=== PATIENT | female | born 1945 | race Caucasian/White ===

== ENCOUNTER 2018-05-26 15:46 | Outpatient (REF) | payer OTHER, SELFPAY ==
[2018-05-26 22:52] LABS: TSH (W/Ref FT4) 0.83 uIU/mL (0.358-3.74)
== END 2018-05-26 16:06 ==
LOC: NCHCN 15:46
PROVIDERS: PCP Nurse Practitioner Family; Visit Provider Family Medicine
DX: K82.9 Disease of gallbladder, unspecified (principal); N95.1 Menopausal and female climacteric states; M24.9 Joint derangement, unspecified; Z90.89 Acquired absence of other organs
CPT/HCPCS: 84443

== ENCOUNTER 2018-06-19 11:51 | Outpatient (REF) | payer OTHER, SELFPAY ==
[2018-06-19 20:43] LABS: Abs Immature Grans 0.01 k/cumm (0.0-0.09); Absolute Basophil Count 0.03 k/cumm (0.0-0.2); Absolute Eosinophil Count 0.08 k/cumm (0.0-0.7); Absolute Lymphocyte Count 2.83 k/cumm (1.2-3.4); Absolute Monocyte Count 0.51 k/cumm (0.11-0.7); Absolute Neutrophil Count 2.78 k/cumm (1.2-6.7); Basophils % 0.5; Eosinophils % 1.3; HCT 42.1 % (36.0-46.0); HGB 13.8 g/dL (12.0-15.5); Immature Grans % 0.2; Lymphocytes % 45.4; Mean Corp. HGB Concentration 32.8 g/dL (32.0-36.0); Mean Corpuscular Hemoglobin 31.3 pg (27.0-33.0); Mean Corpuscular Volume 95.5 fL (80-95); Mean Platelet Volume 9.5 fL (8.0-11.0); Monocytes % 8.2; Neutrophils % 44.4; Platelet Count 359 x1000/uL (130-400); RBC 4.41 m/cumm (4.00-5.20); RBC Distribution Width 13.9 % (11.7-14.6); White Blood Cell Count 6.24 k/cumm (4.4-10.8)
[2018-06-19 21:22] LABS: Anion Gap 8.1 mmol/L (3-11); BUN 12 mg/dL (7-18); CO2 30.9 mmol/L (21.0-32.0); CREATININE 0.82 mg/dL (0.55-1.02); Calcium 9.3 mg/dL (8.5-10.1); Chloride 99 mmol/L (98-107); Glucose 77 mg/dL (70-100); Magnesium 1.9 mg/dL (1.8-2.4); Potassium 4.6 mmol/L (3.5-5.1); Sodium 138 mmol/L (136-145); Vitamin B12 491 pg/mL (193-986)
== END 2018-06-19 12:11 ==
LOC: NCHCN 11:51
PROVIDERS: PCP Nurse Practitioner Family; Visit Provider Nurse Practitioner Family
DX: R42 Dizziness and giddiness (principal)
CPT/HCPCS: 80048; 82607; 83735; 85025

== ENCOUNTER 2019-05-26 22:06 | Outpatient (REF) | payer OTHER, SELFPAY ==
[2019-05-26 22:56] LABS: ALT 27 U/L (14-59); AST 18 U/L (15-37); Alkaline Phosphatase 76 U/L (46-116); Anion Gap 10.2 mmol/L (3-11); BUN 9 mg/dL (7-18); Bilirubin, Total 0.2 mg/dL (0.2-1.0); CO2 25.8 mmol/L (21.0-32.0); CREATININE 0.89 mg/dL (0.55-1.02); Calcium 9.1 mg/dL (8.5-10.1); Chloride 106 mmol/L (98-107); Glucose 119 mg/dL (74-106); Lipase 108 U/L (73-393); Potassium 4.1 mmol/L (3.5-5.1); Sodium 142 mmol/L (136-145); Total Protein 7.2 g/dL (6.4-8.2)
== END 2019-05-26 22:26 ==
LOC: NCHCN 22:06
PROVIDERS: PCP Nurse Practitioner Family; Visit Provider Nurse Practitioner Family
DX: E78.5 Hyperlipidemia, unspecified (principal); M79.7 Fibromyalgia; K82.9 Disease of gallbladder, unspecified; Z90.89 Acquired absence of other organs
CPT/HCPCS: 80053; 83690; 84443

== ENCOUNTER 2019-08-31 11:42 | Outpatient (REF) | payer OTHER, SELFPAY ==
[2019-08-31 20:44] LABS: C-Reactive Protein 0.18 mg/dL (0.0-0.3)
[2019-08-31 20:55] LABS: Hemoglobin A1C 5.6 % (3.8-5.6)
== END 2019-08-31 12:02 ==
LOC: NCHCN 11:42
PROVIDERS: PCP Nurse Practitioner Family; Visit Provider Nurse Practitioner Family
DX: R51 Headache (principal); M79.7 Fibromyalgia; E78.5 Hyperlipidemia, unspecified
CPT/HCPCS: 83036; 86140

== ENCOUNTER 2020-04-14 14:14 | Outpatient (REF) | payer OTHER, SELFPAY ==
[2020-04-14 21:05] LABS: ALT 20 U/L (14-59); AST 14 U/L (15-37); Albumin 3.9 g/dL (3.4-5.0); Alkaline Phosphatase 64 U/L (46-116); Anion Gap 5.7 mmol/L (3-11); BUN 10 mg/dL (7-18); Bilirubin, Total 0.3 mg/dL (0.2-1.0); CO2 29.3 mmol/L (21.0-32.0); CREATININE 0.83 mg/dL (0.55-1.02); Calcium 9.3 mg/dL (8.5-10.1); Chloride 103 mmol/L (98-107); Glucose 85 mg/dL (74-106); Lipase 98 U/L (73-393); Potassium 5.1 mmol/L (3.5-5.1); Sodium 138 mmol/L (136-145); TSH (W/Ref FT4) 0.91 uIU/mL (0.36-3.74); Total Protein 7.3 g/dL (6.4-8.2)
== END 2020-04-14 14:34 ==
LOC: NCHCN 14:14
PROVIDERS: PCP Nurse Practitioner Family; Visit Provider Nurse Practitioner Family
DX: R10.11 Right upper quadrant pain (principal); E03.9 Hypothyroidism, unspecified
CPT/HCPCS: 80053; 83690; 84443

== ENCOUNTER 2021-02-05 20:33 | Outpatient (REF) | payer OTHER, MEDICAID, SELFPAY ==
[2021-02-05 21:06] LABS: Abs Immature Grans 0.02 10^3/uL (0.0-0.06); Absolute Basophil Count 0.03 10^3/uL (0.0-0.2); Absolute Eosinophil Count 0.14 10^3/uL (0.0-0.7); Absolute Lymphocyte Count 2.98 10^3/uL (1.2-3.4); Absolute Monocyte Count 0.39 10^3/uL (0.1-0.8); Absolute Neutrophil Count 3.59 10^3/uL (1.2-6.7); Basophils % 0.4; HCT 41.6 % (36.0-46.0); HGB 13.9 g/dL (11.2-15.7); Immature Grans % 0.3; Lymphocytes % 41.7; MCH 31.7 pg (27.0-33.0); MCHC 33.4 % (32.0-36.0); MPV 9.7 fL (8.0-11.0); Monocytes % 5.5; Neutrophils % 50.1; Nucleated RBC 0 %; Platelet Count 384 10^3/uL (130-400); RBC 4.38 10^6/uL (3.93-5.22); RDW 14.6 % (11.7-14.6); RDW-SD 51.8 fL; WBC 7.15 10^3/uL (4.4-10.8)
[2021-02-05 21:47] LABS: ALT 24 U/L (14-59); AST 19 U/L (15-37); Albumin 4.1 g/dL (3.4-5.0); Alkaline Phosphatase 56 U/L (46-116); Anion Gap 8.7 mmol/L (3-11); BUN 10 mg/dL (7-18); Bilirubin, Total 0.2 mg/dL (0.2-1.0); CO2 28.3 mmol/L (21.0-32.0); CREATININE 0.7 mg/dL (0.55-1.02); Chloride 102 mmol/L (98-107); Glucose 107 mg/dL (74-106); Potassium 4.1 mmol/L (3.5-5.1); Sodium 139 mmol/L (136-145); Total Protein 7.3 g/dL (6.4-8.2)
== END 2021-02-05 20:34 | disposition home or self-care (01) ==
LOC: NCHCN 20:33
PROVIDERS: PCP Nurse Practitioner Family; Visit Provider Internal Medicine
DX: R10.31 Right lower quadrant pain (principal)
CPT/HCPCS: 80053; 85025

== ENCOUNTER 2021-04-20 10:28 | Outpatient (REF) | payer OTHER, MEDICAID, SELFPAY ==
[2021-04-20 14:38] LABS: TSH 1.44 uIU/mL (0.36-3.74)
== END 2021-04-20 10:29 | disposition home or self-care (01) ==
LOC: NCHCN 10:28
PROVIDERS: PCP Nurse Practitioner Family; Visit Provider Nurse Practitioner Family
DX: E03.9 Hypothyroidism, unspecified (principal); Z90.89 Acquired absence of other organs
CPT/HCPCS: 84443

== ENCOUNTER 2021-05-10 22:10 | Outpatient (REF) | payer OTHER, MEDICAID, SELFPAY ==
[2021-05-10 21:55] LABS: Anion Gap 6.9 mmol/L (3-11); BUN 9 mg/dL (7-18); CO2 28.1 mmol/L (21.0-32.0); Calcium 8.6 mg/dL (8.5-10.1); Chloride 107 mmol/L (98-107); Glucose 106 mg/dL (74-106); Potassium 4.6 mmol/L (3.5-5.1); Sodium 142 mmol/L (136-145)
[2021-05-12 09:26] LABS: COVID-19 RT-PCR UVMMC Result Negative (Negative)
== END 2021-05-10 22:11 | disposition home or self-care (01) ==
LOC: NCHCN 22:10
PROVIDERS: PCP Nurse Practitioner Family; Visit Provider Nurse Practitioner Family
DX: R11.0 Nausea (principal); R42 Dizziness and giddiness; R07.89 Other chest pain; Z20.822 Contact with and (suspected) exposure to COVID-19
CPT/HCPCS: 80048; U0003; U0005

== ENCOUNTER 2021-06-18 18:07 | Outpatient (REF) | payer OTHER, MEDICAID, SELFPAY ==
[2021-06-18 22:17] LABS: Abs Immature Grans 0.01 10^3/uL (0.0-0.06); Absolute Basophil Count 0.04 10^3/uL (0.0-0.2); Absolute Lymphocyte Count 3.44 10^3/uL (1.2-3.4); Absolute Neutrophil Count 3.36 10^3/uL (1.2-6.7); Basophils % 0.5; Eosinophils % 1.4; HGB 13.8 g/dL (11.2-15.7); Immature Grans % 0.1; Lymphocytes % 46.8; MCH 31.5 pg (27.0-33.0); MCHC 32.9 % (32.0-36.0); MCV 95.9 fL (80-95); MPV 9.5 fL (8.0-11.0); Monocytes % 5.4; Neutrophils % 45.8; Nucleated RBC 0 %; Platelet Count 391 10^3/uL (130-400); RBC 4.38 10^6/uL (3.93-5.22); RDW 14.1 % (11.7-14.6); WBC 7.35 10^3/uL (4.4-10.8)
[2021-06-18 22:22] LABS: ESR 14 mm/hr (0-30)
[2021-06-18 22:24] LABS: C-Reactive Protein 0.12 mg/dL (0.0-0.3)
== END 2021-06-18 18:08 | disposition home or self-care (01) ==
LOC: NCHCN 18:07
PROVIDERS: PCP Nurse Practitioner Family; Visit Provider Family Medicine
DX: R53.83 Other fatigue (principal); G44.52 New daily persistent headache (NDPH); F43.20 Adjustment disorder, unspecified
CPT/HCPCS: 85652; 85025; 86140

== ENCOUNTER 2021-06-22 14:55 | Outpatient (REF) | payer OTHER, MEDICAID, SELFPAY ==
[2021-06-22 14:55] LABS: Hemoglobin A1C 5.4 % (<5.7)
[2021-06-22 15:01] LABS: Calculated LDL 162 mg/dL (<100); Cholesterol 265 mg/dL (<200); HDL Cholesterol 58 mg/dL (40-60); Triglyceride 227 mg/dL (<150)
== END 2021-06-22 14:56 | disposition home or self-care (01) ==
LOC: NCHCN 14:55
PROVIDERS: PCP Nurse Practitioner Family; Visit Provider Family Medicine
DX: R73.9 Hyperglycemia, unspecified (principal); E78.89 Other lipoprotein metabolism disorders
CPT/HCPCS: 80061; 83036

== ENCOUNTER 2022-01-22 15:09 | Outpatient (REF) | payer MEDICARE, SELFPAY ==
[2022-01-23 12:12] LABS: IgA 252 mg/dL (85-499); Interpretation (See Note); Tissue Transglutaminase IgA <1.2 U/mL (<4.0)
== END 2022-01-22 15:10 | disposition home or self-care (01) ==
LOC: NCHCN 15:09
PROVIDERS: PCP Nurse Practitioner Family; Visit Provider Nurse Practitioner Family
DX: K58.9 Irritable bowel syndrome, unspecified (principal); R10.31 Right lower quadrant pain; R10.11 Right upper quadrant pain; K21.9 Gastro-esophageal reflux disease without esophagitis
CPT/HCPCS: 82784; 83516

== ENCOUNTER 2022-04-03 14:45 | Outpatient (REF) | payer MEDICARE, SELFPAY ==
[2022-04-03 21:37] LABS: ALT 21 U/L (14-59); Chloride 105 mmol/L (98-107); Total Protein 7.5 g/dL (6.4-8.2)
[2022-04-03 21:38] LABS: AST 22 U/L (15-37); Albumin 3.9 g/dL (3.4-5.0); Alkaline Phosphatase 58 U/L (46-116); Anion Gap 7.4 mmol/L (3-11); BUN 9 mg/dL (7-18); Bilirubin, Total 0.2 mg/dL (0.2-1.0); CO2 28.6 mmol/L (21.0-32.0); Estimated GFR 58.75 (mL/min/1.73m2); Glucose 106 mg/dL (74-106); Potassium 3.8 mmol/L (3.5-5.1); Sodium 141 mmol/L (136-145); TSH 0.79 uIU/mL (0.36-3.74)
[2022-04-03 21:54] LABS: Cholesterol 167 mg/dL (<200)
[2022-04-03 21:55] LABS: Calculated LDL 75 mg/dL (<100); HDL Cholesterol 64 mg/dL (40-60); Triglyceride 143 mg/dL (<150)
== END 2022-04-03 14:46 | disposition home or self-care (01) ==
LOC: NCHCN 14:45
PROVIDERS: PCP Nurse Practitioner Family; Visit Provider Nurse Practitioner Family
DX: E78.5 Hyperlipidemia, unspecified (principal); E03.9 Hypothyroidism, unspecified; R03.0 Elevated blood-pressure reading, without diagnosis of hypertension; M79.7 Fibromyalgia; Z86.79 Personal history of other diseases of the circulatory system
CPT/HCPCS: 80053; 80061; 84443

== ENCOUNTER 2023-04-15 18:10 | Outpatient (REF) | payer MEDICARE, SELFPAY ==
--- OUTSIDE RECORDS SUMMARY | 2023-04-15 18:12 | XMS_ITS | CCD ---
Author Name Unknown Address [address] [place] [address] [id number] Organization Unknown Address [address] [place] [address] [id number] Care Team Providers Care Animal Husbandry Manager Name Role Phone AIMEE ROLON Attending Physician [phone] AIMEE ROLON Rounding (Secondary) Physician [phone] Vital Signs Unknown or Not Available. Allergies Allergy Code Allergy Type Reaction Status RUFEM/ CANT BREATHE {Clinical monitoring unavailable} 0 Drug allergy Active PENICILLINS (CLASS) 47687 Drug allergy UNKNOWN; ANAP Active PANSTEL CANT BREATHE {Clinical monitoring unavailable} 0 Drug allergy Active CODEINE 2670 Drug allergy UNKNOWN; Hives Active DYE 40 /HIVES {Clinical monitoring unavailable} 0 Drug allergy Active AMPICILLIN SODIUM 70651 Drug allergy UNKNOWN; Anaphyl axis Active DARVON/HIVES {Clinical monitoring unavailable} 0 Drug allergy Active MUSHROOMS 0 Food allergy GETS SICK Active BENTAL/HIVES {Clinical monitoring unavailable} 0 Drug allergy Active SHELLFISH 0 Food allergy UNKNOWN Active 729678 Drug allergy Anaphylaxis Active VISTARIL 335571 Drug allergy UNKNOWN; CANT BREATHE A ctive TETRACYCLINE 07989 Drug allergy UNKNOWN; HIVES CANT BREATHE Active IODINATED CONTRAST MEDIA - IV DYE {Clinical monitoring unavailable} 0 Drug allergy UNKNOWN; Hives Active CASERGOT/ CANT BREATHE {Clinical monitoring unavailable} 0 Drug allergy Active EES/ CANT BREATHE {Clinical monitoring unavailable} 0 Drug allergy Active LATEX [id number] Allergy to substance UNKNOWN; Hives Active Procedures Unknown or Not Available. History of Immunizations Unknown or Not Available. Problems Unknown or Not Available. Results Unknown or Not Available. Active Medications Unknown or Not Available. Medications Administered During Visit Unknown or Not Available. Encounters Encounter Diagnosis Diagnosis Code Start Date Supraventricular tachycardia I471 Social History Smoking Status Code Start Date End Date Never smoker [id number] Patient Decision Aids Unknown or Not Available. Discharge Instructions You were admitted to on 08/03/2021 15:09 with a principal diagnosis of Supraventricular tachycardia You were discharged from on 08/03/2021 00:00 Should you have any questions prior to discharge, please contact a member of your healthcare team. If you have left the hospital and have any questions, please contact your primary care physician. Chief Complaint and Reason For Visit Unknown or Not Available. Function Status Unknown or Not Available. Plan of Care Unknown or Not Available. Referral/Transition of Care Unknown or Not Available.
--- OUTSIDE RECORDS SUMMARY | 2023-04-15 18:13 | XMS_ITS | Continuity of Care Document ---
Author Name Unknown Organization [facility] [place] [address] [place] [address] Phone Care Team Providers Care Ordnance Equipment Worker Name Role Phone Nurse, Office Unavailable Unavailable Allergies, Adverse Reactions, Alerts Substance Reaction Status Criticality SULFISOXAZOLE ACETYL Active No Info rmation ERYTHROMYCIN ETHYLSUCCINATE Active No Information mefenamic acid Active No Informatio n IODINE Active No Information ERGOTAMINE TARTRATE Active No Infor mation caffeine Active No Information belladonna alkaloids Active No Info rmation phenobarbital Active No Information HYDROXYZINE PAMOATE Active No Infor mation HYDROXYZINE HCL Active No Informati on AMITRIPTYLINE HCL Active No Informa tion piroxicam Active No Information acetaminophen Active No Information PROPOXYPHENE NAPSYLATE Active No In formation DICYCLOMINE HCL Active No Informati on PROPOXYPHENE HCL Active No Informat ion tetracycline Active No Information aspirin Active No Information codeine Active No Information brompheniramine Active No Informati on BROMPHENIRAMINE MALEATE Active No I nformation PSEUDOEPHEDRINE HCL Active No Infor mation pseudoephedrine Active No Informati on PHENYLPROPANOLAMINE HCL Active No I nformation PHENYLEPHRINE HCL Active No Informa tion DEXTROMETHORPHAN HBR Active No Info rmation guaifenesin Active No Information penicillin V Active No Information Medications Medication Instructions Dosage Effective Dates (start - stop) Status Comments Prilosec OTC 20 mg Tab Take one tablet by mouth two times per day. - Active EpiPen 0.3 mg/0.3 mL (1:1,000) IM Injector As needed for bee sting - Active Claritin 10 mg Tab Take one tablet by mouth daily - Active simvastatin 10 mg Tab take 1 tablet (10MG) by ORAL route every day in the evening 10 MG - Active ranitidine 150 mg Tab take 1 tablet (150MG) by ORAL route 2 times every day - Active Cannot have meds with any red dye She is allergic Senna with Docusate Sodium 8.6 mg-50 mg Tab take 1 tablet by ORAL route 2 times every day 1.00 tablet - Active Pt allergic to red dye 40 azithromycin 250 mg Tab take 2 tablet (500MG) by ORAL route every day for 1 day then 1 tablet (250mg) by oral route once daily for 4 days 500 MG - Active Flector 1.3 % Adhesive Patch Apply 1 patch every 12 hours as needed for pain - Active Zanaflex 4 mg Cap Take one tablet by mouth three times per day. - Active aspirin 81 mg Chewable Tab Take one tablet by mouth daily - Active Prilosec OTC 20 mg Tab Take one tablet by mouth two times per day. - No Longer Active Synthroid 75 mcg Tab Take one tablet by mouth dailynote dose change. - No Longer Active Procedures Procedure Date Thyroid Stim Hormone Routine Venipuncture Offic/outpt E&m Estab Mod-hi 2 10 Routine Venipuncture Electrolyte Panel Creatinine; Bld Complete Cbc W/Auto Diff Wbc Urea Nitro; Edmund Bilirubin; Tot Bilirubin; Direct Transferase; Aspartate Amino Transferase; Alanine Amino Phosphatase Alkaline Albumin; Serum Glu; Edmund Lipid Panel Thyroid Stim Hormone Routine Venipuncture Electrolyte Panel Creatinine; Bld Urea Nitro; Edmund Transferase; Aspartate Amino Transferase; Alanine Amino Lipid Panel Glu; Edmund Offic/outpt E&m Estab Mod-hi 2 09 Offic/outpt E&m Estab Low-mod 9 Ua Dip Stik/tablet; Wo Micro A 08 Preven Meds E&m Estab Pt; 40-6 08 Thyroid Stim Hormone Lipid Panel Electrolyte Panel Creatinine; Bld Complete Cbc W/Auto Diff Wbc Urea Nitro; Edmund Transferase; Aspartate Amino Transferase; Alanine Amino Routine Venipunct/finger/heel 8 Offic/outpt E&m Estab Low-mod 8 Flu Vir Vacc-split 3 Yr & > Im 08 Offic/outpt E&m Estab Low-mod 8 Offic/outpt E&m Estab Low-mod 8 Offic/outpt E&m Estab Mod-hi 2 08 Thyroid Stim Hormone Lipid Panel Offic/outpt E&m Estab Low-mod 7 Immuniz Admin; 1/combo Vacc/to 07 Flu Vir Vacc-split 3 Yr & > Im 07 Offic/outpt E&m Estab Low-mod 7 Agt-immunassay Dir Obs; Strep 7 Preven Meds E&m Estab Pt; 40-6 06 Tetanus/diphth Tue-wiewj-bd/je 06 No Charge Encounter Adult Pneumococcal Polysacch Vac 2005 Routine Venipunct/finger/heel 6 Handl/convey Specmn-offic To L 06 Flu Vir Vacc-split 3 Yr & > Im 06 Immuniz Admin; 1/combo Vacc/to 06 Offic/outpt E&m Estab Low-mod 6 Offic/outpt E&m Estab Mod-hi 2 06 Routine Venipunct/finger/heel 6 Handl/convey Specmn-offic To L 06 Offic/outpt E&m Estab Low-mod 6 Offic/outpt E&m Estab Mod-hi 2 06 Handl/convey Specmn-offic To L 06 Smear Prim W/intrpt; Wet Mnt W 06 Offic/outpt E&m Estab Mod-hi 2 06 Ecg-routine 12 Lead; W/intrpt 6 Spiromtry W/nxkeg-xj-lfolz Ajay 06 Routine Venipunct/finger/heel 6 Handl/convey Specmn-offic To L 06 Lipid Panel Advance Directives Directive Yes / No Effective Date File Name No Information Encounters Encounter Description Practice Location Reason(s) For Visit Diagnoses Date Provider Providers Copied on Encounter [facility] , [address] [place] [address], [address] [place] [address], tel:[phone] [facility] No Information 0 Nurse Office. [address] [place] [address], [address] [place] [address]. tel:[phone] [facility] , [address] [place] [address], [id number], tel:[phone] [facility] No Information 0 Bright Almazan. [address], [place], [facility], . tel:[phone] Offic/outpt E&m Estab Mod-hi [address], [id number], tel:[phone] [facility] hypothyroidis m (chief complaint)mahnaz t pain (chief complaint) HYPOTHYROIDIS M NOSPAIN IN LIMBABDMNAL PAIN OT [facility]PC[facility] ST 6 0 Bright Almazan. [address] [place], [place], [facility], . tel:[phone] [facility] , [address] [place] [address], [address] [place] [address], tel:[phone] [facility] No Information 0 Julien Dixon. [address] [place] [address], [facility], . tel:[phone], [address] [place] [address], tel:[phone] [facility] No Information 0 Nurse Office. [address] [place] [address], [facility], . tel:[phone], [address] [place] [address], tel:[phone] [facility] hyperlipidemi a (chief complaint) MYALGIA AND MYOSITIS NOSHYPOTHYROI DISM NOSMIXED HYPERLIPIDEMI AABDMNAL PAIN RT UPR QUAD 4200 9 No Information Offic/outpt E&m Estab Mod-hi [address], [address] [place] [address], tel:[phone] [facility] back pain (chief complaint) MYALGIA AND MYOSITIS NOSHYPOTHYROI DISM NOSMIXED HYPERLIPIDEMI A Mar- 2 9 Nurse Office. [address] [place] [address], [facility], . tel:[phone], [address] [place] [address], tel:[phone] [facility] HYPOTHYROIDIS M NOSMALAISE AND FATIGUE NECMYALGIA AND MYOSITIS NOS 0-200 9 No Information Offic/outpt E&m Estab Low-mod [facility] , [address] [place] [address], [address] [place] [address], tel:[phone] [facility] PAP test (chief complaint) ROUTINE END TRIMMER EXAMINATIONBa ckache Nos 2200 9 No Information Preven Meds E&m Estab Pt; 40-6 [facility] , [address] [place] [address], [id number], [place] tel:[phone] [facility] physical (chief complaint)sin us pressure (chief complaint) Backache NosHypothyroi dism NosROUTINE MEDICAL EXAM 2-[address] [facility] , [address] [place] [address], [id number], tel:[phone] [facility] No Information 4-200 8 No Information [facility] , [address] [place] [address], [id number], tel:[phone] [facility] Abdominal pain (chief complaint)KATHYA D (chief complaint)Thy roid (chief complaint)Flu vaccine (chief complaint) Hypothyroidis m NosABDMNAL PAIN RT UPR QUADMYALGIA AND MYOSITIS NOSMYALGIA AND MYOSITIS NOS 3-200 8 No Information [facility] , [address] [place] [address], [id number], tel:[phone] [facility] headache (chief complaint)hyp othyroidism (chief complaint)issa k pain (chief complaint) HeadacheBacka corinne NosThroat PainHypothyro idism Nos 2-[address] [facility] , [address] [place] [address], [id number], tel:[phone] [facility] No Information 3-200 8 Nurse Office. [address] [place] [address], [id number], [place]. tel:[phone], [id number], tel:[phone] [facility] cold symptoms (chief complaint) Acute Uri Mult Sites Nec 8-200 8 Nurse Office. [address] [place] [address], [id number], [place]. tel:[phone] Offic/outpt E&m Estab [facility] , [address] [place] [address], [id number], tel:[phone] [facility] cold symptoms (chief complaint) No Information [address] [facility] , [address] [place] [address], [id number], tel:[phone] [facility] No Information 8 Nurse Office. [address] [place] [address], [facility], . tel:[phone] Offic/outpt E&m Estab Mod-hi 2 [facility] , [address] [place] [address], [id number], tel:[phone] [facility] PAP (chief complaint) ROUTINE END TRIMMER EXAMINATION [address] [facility] , [address] [place] [address], [address] [place] [address], tel:[phone] [facility] physical exam (chief complaint) Routine Medical ExamHypothyro idism NosMenopausal Disorder Nos [address] [facility] , [address] [place] [address], [id number], tel:[phone] [facility] No Information 7 Nurse Office. [address] [place] [address], [facility], . tel:[phone] Offic/outpt E&m Estab [facility] , [address] [place] [address], [id number], [place] tel:[phone] [facility] breast tenderness (chief complaint)Hyp othyroid (chief complaint) No Information 7 Ralph Wood. [address] [place] [address], [facility], . tel:[phone] Offic/outpt E&m Estab [facility] , [address] [place] [address], [id number], tel:[phone] [facility] Lab Work/ UA (chief complaint)Sor e Throat (chief complaint)Too th Ache (chief complaint) Acute Pharyngitis [address] [facility] , [address] [place] [address], [id number], tel:[phone] [facility] Headache (chief complaint)Lef t back pain (chief complaint) Tension Headache [address] [facility] , [address] [place] [address], [address] [place] [address], tel:[phone] [facility] vaginal discharge (chief complaint) Vaginitis NosUtervagina l Prolapse Nos 7 No Information Preven Meds E&m Estab Pt; 40-6 [facility] , [address] [place] [address], [address] [place] [address], tel:[phone] [facility] FPE (chief complaint)hyp othryoid (chief complaint)Men opause (chief complaint)Issa k and Neck Issues (chief complaint)KATHYA D (chief complaint) Utervaginal Prolapse NosHypothyroi dism Nos 6 Ralph Wood. [address] [place] [address], [facility], . tel:[phone] [facility] , [address] [place] [address], [id number], tel:[phone] [facility] hypothyroidis m (chief complaint) No Information 6 Savage Leahy. [address] [place] [address], [facility], [place]. tel:[phone] [facility] , [address] [place] [address], [id number], tel:[phone] [facility] No Information 6 Nurse Office. [address] [place] [address], [facility], . tel:[phone] [facility] , [address] [place] [address], [id number], tel:[phone] [facility] No Information 0-200 6 Nurse Office. [address] [place] [address], [facility], . tel:[phone] Offic/outpt E&m Estab [facility] , [address] [place] [address], [address] [place] [address], tel:[phone] [facility] rash (chief complaint) Dermatitis Nos 5-200 6 No Information Offic/outpt E&m Estab Mod-hi [address] [place] [address] , [address] [place] [address], [id number], [place] tel:[phone] [facility] dizziness (chief complaint)hyp othyroidism (chief complaint) Benign Parxysmal VertigoHypoth yroidism Nos 5-200 6 Nelly Leblanc. [address] [place] [address], [id number], . tel:[phone] Offic/outpt E&m Estab [facility] , [address] [place] [address], [address] [place] [address], tel:[phone] [facility] throat problems (chief complaint) DysphagiaEnla rgement Lymph NodesEnlargem ent Lymph NodesCough 4200 6 Savage Leahy. [address] [place] [address], [facility], . tel:[phone] Offic/outpt E&m Estab Mod-hi [address] [place] [address] , [address] [place] [address], [address] [place] [address], [place] tel:[phone] [facility] UTI (chief complaint) Vaginitis Nos 1-200 6 No Information Offic/outpt E&m Estab Mod-hi [address] [place] [address], [id number], [place] tel:[phone] [facility] chest pain (chief complaint) Chest Pain Nos 6-200 6 No Information [address], [id number], [place] tel:[phone] [facility] UTI (chief complaint) Dysuria [address] [facility] , [address] [place] [address], [id number], tel:[phone] [facility] PE (chief complaint)hyp othyroidism (chief complaint)KATHYA D (chief complaint) Hypothyroidis m NosEsophageal Reflux 5 Ralph Wood. [address] [place] [address], [id number], [place]. tel:[phone] Family History Family Member Type Diagnosis Age At Onset No Information Immunizations Vaccine Date Status Comments flu (split) (3 yrs or older) administered Source: New Immunization Record flu (split) (3 yrs or older) administered Source: New Immunization Record Td (adult) administered Source: New Imm unization Record pneumo (3 yrs or older) (PPV23) administered Source: New Immuniza tion Record Flu vaccine administered Source: New Imm unization Record Payers Payer name Insurance type Covered republican ID Authoriza tion(s) No Information Social History Type Description Quantity Date Captured Comments Sex Female Smoking Status No Information Sexual Orientation Straight or heterosexual Chief Complaint And Reason For Visit No Information Reason For Referral Reason For Referral No Information Plan Of Treatment Date Type Action Status Goal Influenza Vaccine. Due on due Goal Breast exam. Due on 006 due Goal PAP. Due on due Goal Pneumococcal Vaccine. Due on due Goal TD Vaccine. Due on 06 due Goal Mammogram. Due on 0 due Goal Lipid Panel. Due on 010 due Goal Colonoscopy. Due on 009 due Goal END TRIMMER exam. Due on due Goal FOBT. Due on due Goal H&P. Due on due Future Order: Lab Order Lipid pa roxanne, fasting (100), Sent on: Sent Future Order: Lab Order TSH (8305), Sent on: Sent History Of Present Illness Encounter Date Complaint History Of Prese nt Illness No Information Functional Status Date Functional Assessmen t No Information Instructions Date Instruction Additional Infor mation Renew medications Related to Rou senthil Medical Exam Review medications Related to Ro utine Medical Exam Review medication side effects R elated to Routine Medical Exam Call if symptoms persist Related to Routine Medical Exam Prescribe medications Related to Tension Headache Review medications Related to Te nsion Headache Review medication side effects R elated to Tension Headache Call if symptoms persist Related to Tension Headache Order consults Related to Vagin itis Nos Order labs/studies Related to Va ginitis Nos Call if symptoms persist Related to Vaginitis Nos Prescribe medications Related to Dysphagia Review medications Related to Dy sphagia Go to ER if symptoms persist or worsen Related to Dysphagia Call if symptoms persist Related to Dysphagia Prescribe medications Related to Vaginitis Nos Review medications Related to Va ginitis Nos Order labs/studies Related to Va ginitis Nos Call if symptoms persist Related to Vaginitis Nos Prescribe medications Related to Dysuria Review medication side effects R elated to Dysuria Call if symptoms persist Related to Dysuria Assessments Type Assessment Date No Information Patient Care Teams Name Effective Dates (start - stop) Status Members No Information
--- OUTSIDE RECORDS SUMMARY | 2023-04-15 18:13 | XMS_ITS | CCD ---
Author Name Unknown Address [address] [place] [address] [id number] Organization Unknown Address [address] [place] [address] [id number] Care Team Providers Care Box Press Operator Name Role Phone AWAIS MARKHAM Attending Physician [phone] AWAIS MARKHAM Rounding (Secondary) Physician [phone] Vital Signs Unknown or Not Available. Allergies Allergy Code Allergy Type Reaction Status RUFEM/ CANT BREATHE {Clinical monitoring unavailable} 0 Drug allergy Active PENICILLINS (CLASS) 34894 Drug allergy UNKNOWN; ANAP Active PANSTEL CANT BREATHE {Clinical monitoring unavailable} 0 Drug allergy Active CODEINE 2670 Drug allergy UNKNOWN; Hives Active DYE 40 /HIVES {Clinical monitoring unavailable} 0 Drug allergy Active AMPICILLIN SODIUM 12796 Drug allergy UNKNOWN; Anaphyl axis Active DARVON/HIVES {Clinical monitoring unavailable} 0 Drug allergy Active MUSHROOMS 0 Food allergy GETS SICK Active BENTAL/HIVES {Clinical monitoring unavailable} 0 Drug allergy Active SHELLFISH 0 Food allergy UNKNOWN Active 668076 Drug allergy Anaphylaxis Active VISTARIL 445528 Drug allergy UNKNOWN; CANT BREATHE A ctive TETRACYCLINE 12700 Drug allergy UNKNOWN; HIVES CANT BREATHE Active IODINATED CONTRAST MEDIA - IV DYE {Clinical monitoring unavailable} 0 Drug allergy UNKNOWN; Hives Active CASERGOT/ CANT BREATHE {Clinical monitoring unavailable} 0 Drug allergy Active EES/ CANT BREATHE {Clinical monitoring unavailable} 0 Drug allergy Active LATEX [id number] Allergy to substance UNKNOWN; Hives Active Procedures Unknown or Not Available. History of Immunizations Unknown or Not Available. Problems Unknown or Not Available. Results Unknown or Not Available. Active Medications Unknown or Not Available. Medications Administered During Visit Unknown or Not Available. Encounters Encounter Diagnosis Diagnosis Code Start Date Vulval and/or perineal noninflammatory disorders [id number] 07/23/2022 Social History Smoking Status Code Start Date End Date Never smoker [id number] Patient Decision Aids Unknown or Not Available. Discharge Instructions You were admitted to [facility] on 07/23/2022 11:08 with a principal diagnosis of Other specified noninflammatory disorders of vulva and perineum You were discharged from [facility] on 07/23/2022 11:08 Should you have any questions prior to [...]
--- OUTSIDE RECORDS SUMMARY | 2023-04-15 18:13 | XMS_ITS | CCD ---
Author Name Unknown Address [address] [place] [address] [phone] Organization Unknown Address [address] [place] [address] [phone] Care Team Providers Care Rocket Assembly Operator Name Role Phone DAMARIS SEGURA Attending Physician [phone] Vital Signs Unknown or Not Available. Allergies Allergy Code Allergy Type Reaction Status RUFEM/ CANT BREATHE {Clinical monitoring unavailable} 0 Drug allergy Active PENICILLINS (CLASS) 98068 Drug allergy UNKNOWN; ANAP Active PANSTEL CANT BREATHE {Clinical monitoring unavailable} 0 Drug allergy Active CODEINE 2670 Drug allergy UNKNOWN; Hives Active DYE 40 /HIVES {Clinical monitoring unavailable} 0 Drug allergy Active AMPICILLIN SODIUM 26659 Drug allergy UNKNOWN; Anaphyl axis Active DARVON/HIVES {Clinical monitoring unavailable} 0 Drug allergy Active MUSHROOMS 0 Food allergy GETS SICK Active BENTAL/HIVES {Clinical monitoring unavailable} 0 Drug allergy Active SHELLFISH 0 Food allergy UNKNOWN Active 687471 Drug allergy Anaphylaxis Active VISTARIL 676484 Drug allergy UNKNOWN; CANT BREATHE A ctive TETRACYCLINE 75107 Drug allergy UNKNOWN; HIVES CANT BREATHE Active IODINATED CONTRAST MEDIA - IV DYE {Clinical monitoring unavailable} 0 Drug allergy UNKNOWN; Hives Active CASERGOT/ CANT BREATHE {Clinical monitoring unavailable} 0 Drug allergy Active EES/ CANT BREATHE {Clinical monitoring unavailable} 0 Drug allergy Active LATEX 2024784 Allergy to substance UNKNOWN; Hives Active Procedures Unknown or Not Available. History of Immunizations Unknown or Not Available. Problems Unknown or Not Available. Results Unknown or Not Available. Active Medications Unknown or Not Available. Medications Administered During Visit Unknown or Not Available. Encounters Encounter Diagnosis Diagnosis Code Start Date Other specified cough R058 07/12/2022 Social History Smoking Status Code Start Date End Date Never smoker [id number] Patient Decision Aids Unknown or Not Available. Discharge Instructions You were admitted to on 07/12/2022 15:31 with a principal diagnosis of Other specified cough You were discharged from on 07/12/2022 15:31 Should you have any questions prior to [...]
--- OUTSIDE RECORDS SUMMARY | 2023-04-15 18:13 | XMS_ITS | CCD ---
Author Name Unknown Address [address] [place] [address] [phone] Organization Unknown Address [address] [place] [address] [phone] Care Team Providers Care Wood Room Supervisor Name Role Phone AWAIS MARKHAM Attending Physician [phone] AWAIS MARKHAM Rounding (Secondary) Physician [phone] Vital Signs Unknown or Not Available. Allergies Allergy Code Allergy Type Reaction Status RUFEM/ CANT BREATHE {Clinical monitoring unavailable} 0 Drug allergy Active PENICILLINS (CLASS) 02398 Drug allergy UNKNOWN; ANAP Active PANSTEL CANT BREATHE {Clinical monitoring unavailable} 0 Drug allergy Active CODEINE 2670 Drug allergy UNKNOWN; Hives Active DYE 40 /HIVES {Clinical monitoring unavailable} 0 Drug allergy Active AMPICILLIN SODIUM 07010 Drug allergy UNKNOWN; Anaphyl axis Active DARVON/HIVES {Clinical monitoring unavailable} 0 Drug allergy Active MUSHROOMS 0 Food allergy GETS SICK Active BENTAL/HIVES {Clinical monitoring unavailable} 0 Drug allergy Active SHELLFISH 0 Food allergy UNKNOWN Active 861863 Drug allergy Anaphylaxis Active VISTARIL 755341 Drug allergy UNKNOWN; CANT BREATHE A ctive TETRACYCLINE 83764 Drug allergy UNKNOWN; HIVES CANT BREATHE Active IODINATED CONTRAST MEDIA - IV DYE {Clinical monitoring unavailable} 0 Drug allergy UNKNOWN; Hives Active CASERGOT/ CANT BREATHE {Clinical monitoring unavailable} 0 Drug allergy Active EES/ CANT BREATHE {Clinical monitoring unavailable} 0 Drug allergy Active LATEX 9744680 Allergy to substance UNKNOWN; Hives Active Procedures Unknown or Not Available. History of Immunizations Unknown or Not Available. Problems Unknown or Not Available. Results Unknown or Not Available. Active Medications Unknown or Not Available. Medications Administered During Visit Unknown or Not Available. Encounters Encounter Diagnosis Diagnosis Code Start Date Vulval and/or perineal noninflammatory disorders [id number] 06/14/2022 Social History Smoking Status Code Start Date End Date Never smoker [id number] Patient Decision Aids Unknown or Not Available. Discharge Instructions You were admitted to [facility] on 06/14/2022 10:13 with a principal diagnosis of Other specified noninflammatory disorders of vulva and perineum You were discharged from [facility] on 06/14/2022 10:13 Should you have any questions prior to [...]
--- OUTSIDE RECORDS SUMMARY | 2023-04-15 18:13 | XMS_ITS | CCD ---
Author Name Unknown Address [address] [place] [address] [phone] Organization Unknown Address [address] [place] [address] [phone] Care Team Providers Care Bow String Maker Name Role Phone BROOKE CHRIS Attending Physician [phone] Vital Signs Unknown or Not Available. Allergies Allergy Code Allergy Type Reaction Status RUFEM/ CANT BREATHE {Clinical monitoring unavailable} 0 Drug allergy Active PENICILLINS (CLASS) 78965 Drug allergy UNKNOWN; ANAP Active PANSTEL CANT BREATHE {Clinical monitoring unavailable} 0 Drug allergy Active CODEINE 2670 Drug allergy UNKNOWN; Hives Active DYE 40 /HIVES {Clinical monitoring unavailable} 0 Drug allergy Active AMPICILLIN SODIUM 15310 Drug allergy UNKNOWN; Anaphyl axis Active DARVON/HIVES {Clinical monitoring unavailable} 0 Drug allergy Active MUSHROOMS 0 Food allergy GETS SICK Active BENTAL/HIVES {Clinical monitoring unavailable} 0 Drug allergy Active SHELLFISH 0 Food allergy UNKNOWN Active 627825 Drug allergy Anaphylaxis Active VISTARIL 588540 Drug allergy UNKNOWN; CANT BREATHE A ctive TETRACYCLINE 12864 Drug allergy UNKNOWN; HIVES CANT BREATHE Active IODINATED CONTRAST MEDIA - IV DYE {Clinical monitoring unavailable} 0 Drug allergy UNKNOWN; Hives Active CASERGOT/ CANT BREATHE {Clinical monitoring unavailable} 0 Drug allergy Active EES/ CANT BREATHE {Clinical monitoring unavailable} 0 Drug allergy Active LATEX 2706461 Allergy to substance UNKNOWN; Hives Active Procedures Unknown or Not Available. History of Immunizations Unknown or Not Available. Problems Unknown or Not Available. Results Unknown or Not Available. Active Medications Unknown or Not Available. Medications Administered During Visit Unknown or Not Available. Encounters Encounter Diagnosis Diagnosis Code Start Date Right lower quadrant pain R1031 2020 Social History Smoking Status Code Start Date End Date Never smoker [id number] Patient Decision Aids Unknown or Not Available. Discharge Instructions You were admitted to [facility] on 02/06/2021 06:59 with a principal diagnosis of Right lower quadrant pain You were discharged from [facility] 01 on 02/06/2021 06:59 Should you have any questions prior to [...]
[2023-04-15 21:36] LABS: Anion Gap 9.1 mmol/L (3-11); BUN 12 mg/dL (7-18); CO2 25.9 mmol/L (21.0-32.0); Calcium 9.1 mg/dL (8.5-10.1); Calculated LDL 83 mg/dL (<100); Chloride 100 mmol/L (98-107); Cholesterol 173 mg/dL (<200); Estimated GFR 58.39 (mL/min/1.73m2); Glucose 97 mg/dL (74-106); HDL Cholesterol 65 mg/dL (40-60); Potassium 3.9 mmol/L (3.5-5.1); Sodium 135 mmol/L (136-145); TSH 0.38 uIU/mL (0.36-3.74); Triglyceride 127 mg/dL (<150)
[2023-04-15 21:50] LABS: Hemoglobin A1C 5.6 % (<5.7)
== END 2023-04-15 18:11 | disposition home or self-care (01) ==
LOC: NCHCN 18:10
PROVIDERS: PCP Nurse Practitioner Family; Visit Provider Nurse Practitioner Family
DX: E78.5 Hyperlipidemia, unspecified (principal); E03.9 Hypothyroidism, unspecified
CPT/HCPCS: 80048; 80061; 83036; 84443

== ENCOUNTER 2024-04-06 13:40 | Outpatient (REF) | payer MEDICARE, SELFPAY ==
--- OUTSIDE RECORDS SUMMARY | 2024-04-06 13:50 | XMS_ITS | Encounter Summary ---
Author Organization [facility] Address [address] [place] [address] Care Team Providers Care Lead Man Over All Dies In Pattern Shop Name Role Phone MonaArminda Primary Care Provider [phone] Reason for Visit * Reason Comments New Patient Visit colitis * Referral (Routine) - Receiving Office to Obtain Authorization Specialty Diagnoses / Procedures Referred By Contact Referred To Contact Gastroenterology and Hepatology Diagnoses Right upper quadrant pain Fibromyalgia Irritable bowel syndrome, unspecified Personal history of other diseases of the digestive system Family history of malignant neoplasm of digestive organs Hafsa Moreno, FACILITY ENGINEER [address] [place] [address] [facility] [address] [place] [address] Referral ID Status Reason Start Date Expiration Date Visits Requested Visits Authorized [id number] Receiving Office to Obtain Authorization 1 1 Encounter Details Date Type Department Care Team (Late st Contact Info) Description 12/28/2021 10:20 EDT Office Visit [facility] G[facility]enterology - [facility] [address] [place], [place] [phone] Williams Euceda MD [address] [facility] [place] [address] Irritable bowel syndrome with both constipation and diarrhea (Primary Dx); Family history of colon cancer requiring screening colonoscopy Social History Tobacco Use Types Packs/Day Years Used Date Smoking Tobacco: Never Smokeless Tobacco: Never Alcohol Use Standard Drinks/Week Comments Yes 0 (1 standard drink = 0.6 oz pur e alcohol) rare Interpersonal Safety Answer Date Record ed Physically Hurt Never 02/08/2020 Verbally Threaten Not on file 02/08/2020 Sex and Gender Information Value Date Recorded Sex Assigned at Not on file Gender Identity Female 03/25/2022 10:56 EDT Sexual Orientation Not on file documented as of this encounter Last Filed Vital Signs Vital Sign Reading Time Taken Comments Blood Pressure 134/73 12/28/2021 1010 EDT Pulse 83 12/28/2021 1010 EDT Temperature - - Respiratory Rate - - Oxygen Saturation - - Inhaled Oxygen Concentration - - Weight 66.5 kg (146 lb 8 oz) 12/28/2021 1010 EDT Height 160 cm (5' 2.99) 12/28/2021 1010 EDT Body Mass Index 25.96 12/28/2021 1010 EDT documented in this encounter Functional Status Functional Status Response Date of Assess ment Because of a physical, menta l, or emotional condition, does this person have difficulty doing errands alone such as visiting a doctor's office or shopping? No 12/17/2019 Cognitive Status Response Date of Assessm ent Because of a physical, menta l, or emotional condition, does this person have serious difficulty concentrating, remembering, or making decisions? No 12/17/2019 documented as of this encounter Ordered Prescriptions Prescription Sig Dispensed Refills Start Date End Da te sodium,potassium,mag sulfates (SUPREP BOWEL PREP KIT) kit Take 12 oz by mouth once for 1 dose. 1 Kit 12/28/2021 03/25/2022 documented in this encounter Progress Notes * Williams Euceda MD - 12/28/2021 1020 EDT Gastroenterology & Hepatology Initial Visit Reason for Referral: Colitis Referring Provider: Arminda Dunn HPI: Dania Angulo is a 76 year old woman with long standing functional dyspepsia and IBS. 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 Her last colonoscopy was 02/2016 and was normal except for severe diverticulosis. Constant pain on her right flank that radiates to her back. Present for 3 years. This morning hasn't had breakfast and she doesn't feel it. Gets a twinge every once in a while. After she eats it is constant, sharp all the sudden like someone stuck a needle, otherwise it is dull like a toothache. It is worse when she has to go to the bathroom and gets better when she moves her bowels. She has off/on diarrhea. She has one loose bowel movement daily though she hasn't gone in 3 days. No weight loss, she has actually gained weight. She is on new high cholesterol and BP medications. Takes lactaidwith diary for bloating. Always has bloating and gas that has been present for many decades. RUQ US 08/24/20: Normal Normal liver tests and lipase 04/2020 PMH: As stated in HPI. ROS: A 10-point ROS was performed and is negative other than stated in HPI. Current Outpatient Medications: ??? ACETAMINOPHEN (TYLENOL ORAL), Take by mouth as needed., Disp: , Rfl: ??? levothyroxine 75 mcg capsule, Take by mouth., Disp: , Rfl: ??? loratadine (ALAVERT) 10 mg tablet, Take 10 mg by mouth daily., Disp: , Rfl: ??? Multivitamins with Minerals Tab, Take 1 Tab by mouth daily., Disp: , Rfl: Allergies Allergen Reactions ??? Ampicillin ??? Asa [Aspirin] ??? Bentyl [Dicyclomine] ??? Cafergot [Ergotamine-Caffeine] ??? Codeine ??? Darvocet A500 [Propoxyphene N-Acetaminophen] ??? Dimetapp [Brompheniramine-Pseudoephedrin] ??? Elavil ??? Feldene [Piroxicam] ??? Iodine And Iodide Containing Products ??? Latex, Natural Rubber Hives ??? Other - See Comments Red 40 ??? Penicillins ??? Ponstel [Mefenamic Acid] ??? Rufen ??? Tetracyclines ??? Vistaril [Hydroxyzine Pamoate] Social History: reports that she has never smoked. She has never used smokeless tobacco. She reports current alcohol use. She reports that she does not use drugs. Family History: Mom and sister with colon cancer. Also niece with colon cancer. Physical Exam: VS: BP 134/73 Pulse 83 Ht 160 cm (62.99) Wt 66.5 kg (146 lb 8 oz) BMI 25.96 kg/m?? General: In NAD, Appropriately conversant HEENT: No scleral icterus, MMM Lungs: Easy work of breathing Extremities: No peripheral edema Skin: No jaundice Labs and Imaging: Lab Results Component Value Date ALT 23 04/04/2000 AST 20 04/04/2000 ALKPHOS 65 04/04/2000 TBIL 0.5 04/04/2000 Lab Results Component Value Date WBC 8.42 01/01/2007 HGB 8.9 (L) 01/01/2007 HCT 25.6 (L) 01/01/2007 MCV 92 01/01/2007 PLT 174 01/01/2007 Impression: Dania Angulo is a 76 year old woman with longstanding functional dyspepsia and IBS without any new alarm symptoms. We discussed the benign nature of the disorder and some strategiesfor symptomatic management. She has a strong family history of colon cancer though, so is overdue for screening. Plan: - Colonoscopy with standard sedation - I would recommend celiac testing through her PCP's office if this hasn't been previously checked (TTG IgA and total IgA). These records are not all available to me today - She will try adding over the counter simethicone for her bloating and a fiber supplement to help regulate her bowels which may be helpful for her IBS - Follow-up with PCP I spent a total of 36 minutes on the date of this encounter meeting with the patient and reviewing documentation/coordinating care as described in the above note. No procedures were performed at the time of the visit. Williams Euceda MD Gastroenterology & Hepatology documented in this encounter Plan of Treatment Not on file documented as of this encounter Visit Diagnoses Diagnosis Irritable bowel syndrome with both constipation and diarrhea- Primary Family history of colon cancer requiring screening colonoscopy Family history of malignant neoplasm of gastrointestinal tract documented in this encounter Historical Medications * This list may reflect changes made after this encounter. Medication Sig Dispensed Refills Start Date End Date epinephrine (EPIPEN INJECTION) Inject as directed. multivitamin (NEPHROVITE) 0.8 mg tablet Take 1 Tablet by mouth at bedtime. calcium carbonate 500 mg/5 mL (1,250 mg/5 mL) suspension Take 5 mL by mouth daily. estradioL (VIVELLE-DOT) 0.1 mg/[address] 1 Patch onto the skin twice a week. diclofenac sodium (VOLTAREN ARTHRITIS PAIN) gel Apply topically 4 times daily. rosuvastatin (CRESTOR) 10 mg tablet Take 0.5 Tablets by mouth daily. cyclobenzaprine (FLEXERIL) 10 mg tablet Take 1 Tablet by mouth 3 times daily as needed for Muscle Spasms. metoprolol TARtrate (LOPRESSOR) 25 mg tablet Take 25 mg by mouth 2 times daily. 01/19/2024 omeprazole (PRILOSEC) 20 mg capsule Take 1 Capsule by mouth daily. 01/19/2024 added in this encounter Care Teams Lead Man Over All Dies In Pattern Shop Relationship Specialty Start Date End Date Arminda Dunn [address] [place] [address] PCP - General 01/19/19 02/16/24 documented as of this encounter
--- OUTSIDE RECORDS SUMMARY | 2024-04-06 13:50 | XMS_ITS | Referral Summary ---
Author Organization [facility] Address [address] [place] [address] Care Team Providers Care Gyn Physician Name Role Phone Hafsa Moreno TIRE SERVICE TECHNICIAN Primary Care Provider [phone] Encounters Date Type Department Care Team Description 02/17/2024 13:10 EDT - 02/17/2024 23:59 EDT Hospital Encounter [facility] [address] [place] [address] Encounter for screening mammogram for malignant neoplasm of breast Discharge Disposition: Home or Self Care 01/19/2024 10:15 EDT Office Visit [facility] [address] [place] [address] Dwayne Parmar MD LPRD (laryngopharyngeal reflux disease) (Primary Dx); Chronic rhinitis from Last 3 Months Allergies Active Allergy Reactions Criticality Noted Date Comments Ampicillin 11/30/2009 Aspirin 11/30/2009 Dicyclomine 11/30/2009 Ergotamine-Caffeine 11/30/2009 Codeine 11/30/2009 Propoxyphene N-Acetaminophen 010 Brompheniramine-Pseudoephedrin 11/30 Elavil 11/30/2009 Piroxicam 11/30/2009 Iodinated Contrast Media 12/28/2021 Iodine And Iodide Containing Products 08/05/2011 Latex, Natural Rubber Hives 08/15/2011 Other - See Comments 11/30/2009 Red 40 Penicillins 11/30/2009 Mefenamic Acid 11/30/2009 Red Dye 01/19/2024 Rufen 11/30/2009 Tetracyclines 11/30/2009 Hydroxyzine Pamoate 11/30/2009 Medications Medication Sig Dispensed Refills Start Date End Date Status loratadine (ALAVERT) 10 mg tablet Take 1 Tablet by mouth daily. Active Multivitamins with Minerals Tab Take 1 Tablet by mouth daily. Active ACETAMINOPHEN (TYLENOL ORAL) Take by mouth as needed. Active levothyroxine 75 mcg capsule Take by mouth. Active cyclobenzaprine (FLEXERIL) 10 mg tablet Take 1 Tablet by mouth 3 times daily as needed for Muscle Spasms. Active rosuvastatin (CRESTOR) 10 mg tablet Take 0.5 Tablets by mouth daily. Active diclofenac sodium (VOLTAREN ARTHRITIS PAIN) gel Apply topically 4 times daily. Active estradioL (VIVELLE-DOT) 0.1 mg/[address] 1 Patch onto the skin twice a week. Active calcium carbonate 500 mg/5 mL (1,250 mg/5 mL) suspension Take 5 mL by mouth daily. Active multivitamin (NEPHROVITE) 0.8 mg tablet Take 1 Tablet by mouth at bedtime. Active epinephrine (EPIPEN INJECTION) Inject as directed. Active carvedilol (COREG) 3.125 mg tablet Take 1 Tablet by mouth 2 times daily. Active omeprazole (PRILOSEC) 40 mg capsule Take 1 Capsule by mouth every morning for 60 days. Then resume 20 mg daily. 30 Capsule 1 01/19/2024 03/19/2024 Active Problems Problem Noted Date Diagnosed Date Pain in female pelvis 08/05/2011 Incomplete bladder emptying 08/05/2011 Myalgia and myositis 04/06/2008 Overview: ICD10 Update Auto Replacement Immunizations Name Administration Dates Next Due Covid-19 mRNA Vaccine (MODER NA COVID-19) PF 0.5 ml IM (12 yrs+) 05/15/2021,09/27/2020,08/30/2020 Social History Tobacco Use Types Packs/Day Years [...] 10:56 EDT Sexual Orientation Not on file Last Filed Vital Signs Vital Sign Reading Time Taken Comments Blood Pressure 131/64 03/25/2022 1230 EDT Simultaneous filing. User may not have seen previous data. Pulse 89 03/25/2022 1113 EDT Temperature 36 ??C (96.8 ??F) 03/25/2022 121 3 EDT Respiratory Rate 19 03/25/2022 1230 EDT Simultaneous filing. User may not have seen previous data. Oxygen Saturation 96% 03/25/2022 123 0 EDT Simultaneous filing. User may not have seen previous data. Inhaled Oxygen Concentration - - Weight 60.8 kg (134 lb) 03/25/2022 1113 EDT Height 160 cm (5' 3) 03/25/2022 1113 EDT Body Mass Index 23.74 03/25/2022 1113 EDT Functional Status Functional Status Response Date of [...] concentrating, remembering, or making decisions? No 12/17/2019 Plan of Treatment Not on file Procedures Procedure Name Priority Date/Time Associated Diagnosis Comments MA BREAST SCREENING ANDRES BILATERAL Routine 02/17/2024 13:24 EDT Encounter for screening mammogram for malignant neoplasm of breast COLONOSCOPY PROCEDURE Routine 03/25/2022 12:11 EDT from Last 3 Months or Most Recently Relevant to Health Maintenance Results * MA BREAST SCREENING ANDRES BILATERAL (02/17/2024 13:24 EDT) Anatomical Region Laterality Modality Breast Bilateral Mammography 02/17/2024 16:1 7 EDT Impressions 02/17/2024 16:17 EDT Negative, no evidence of malignancy. RECOMMENDATION: Routine screening mammography is recommended. OVERALL ASSESSMENT: BI-RADS 1: Negative These results will be communicated to your patient via a lay letter from Radiology. If any additional imaging is needed we will contact your patient directly. [address] [place] [id number] [place] [address] Ctr. - [facility] [phone] I have personally reviewed the images and the above interpretation and agree with the findings. [id number] Narrative 02/17/2024 16:17 EDT MA BREAST SCREENING ANDRES BILATERAL ??02/17/2024 1:10 PM History: Screening Comparison: ??Comparison has been made to previous images . ? Technique: Routine 3D tomosynthesis with synthesized 2D views with CAD Breast Composition: There are scattered areas of fibroglandular density. Bilateral Breast Findings: ??No significant masses, calcifications or other abnormalities are seen. Resulting Agency Comment [id number] Procedure Note Bobby Cain MD - 02/17/2024 MA BREAST SCREENING ANDRES BILATERAL 02/17/2024 1:10 PM History: Screening Comparison: Comparison has been made to previous images . Technique: Routine 3D tomosynthesis with synthesized 2D views with CAD Breast Composition: There are scattered areas of fibroglandular density. Bilateral Breast Findings: No significant masses, calcifications or otherabnormalities are seen. IMPRESSION Negative, no evidence of malignancy. RECOMMENDATION: Routine screening mammography is recommended. OVERALL ASSESSMENT: BI-RADS 1: Negative These results will be communicated to your patient via a lay letter fromRadiology. If any additional imaging is needed we will contact yourpatient directly. [address] [place] [address] [facility] Ctr. - [facility] [phone] I have personally reviewed the images and the above interpretation andagree with the findings. [id number] Arminda Dunn [facility] * COLONOSCOPY PROCEDURE (03/25/2022 12:11 EDT) Anatomical Region Laterality Modality Endoscopy Narrative 03/25/2022 12:11 EDT Procedure Performed Colonoscopy Indications for Exam Screening; family hc of Colon cancer Procedure Technique A physical exam was performed. Informed consent was obtained from the patient after explaining all the risks (perforation, bleeding, missed findings, injury to nearby organs, infection and adverse effects to the medicine), benefits and alternatives to the procedure which the patient appeared to understand and so stated. ??The patient was connected to the monitoring devices and placed in the left lateral position. Continuous oxygen was provided with a nasal cannula and IV medicine administered thru an indwelling cannula. After adequate sedation was achieved, a digital exam was performed and the colonoscope introduced into the rectum and advanced under direct visualization to the terminal ileum. The terminal ileum was identified by visual landmarks. The endoscope was subsequently removed slowly while carefully examining the color, texture, anatomy, and integrity of the mucosa on withdrawal. Retroflexion was performed in the rectum: Yes. The patient was subsequently transferred to the recovery area in satisfactory condition. Rectal Exam:Normal Estimated Blood Loss: None Complications None Medications Demerol ??50 mg Versed 2 mg I was in continuous face to face attendance during the administration of moderate sedation services that were monitored by an independent trained observer who had no other duties during the procedure. ??Total sedation time was ??28 ??minutes. Kill Buck Bowel Prep Right Colon: 2 ? Transverse Colon: 2 ? Left Colon: 2 ?Total: 6 Findings 4, 3 to 8 mm sessile polyps in the ascending colon. Polypectomy performed with cold biopsy forcep for 1, cold snare for the other 3. Polyps retrieved. Mild diverticulosis in the sigmoid colon. Diagnosis 4, 3 to 8 mm sessile polyps in the ascending colon. Polypectomy performed with cold biopsy forcep for 1, cold snare for the other 3. Polyps retrieved. Mild diverticulosis in the sigmoid colon. Recommendations If polyps prove to be adenomatous (pre-cancerous), consider another colonoscopy in 3 years for surveillance Follow biopsy results Follow up with PCP This electronic signature authenticates all electronic and/or handwritten documentation, including orders, generated by the signer during the episode of care contained in this record. 03/25/2022 12:11:36 PM By Williams Euceda Williams Euceda MD GI PROCEDURE JAREN STEWARD from Last 3 Months or Most Recently Relevant to Health Maintenance Care Teams Gyn Physician Relationship Specialty Start Date End Date Hafsa Moreno, TIRE SERVICE TECHNICIAN [address] [facility] [place] [id number] PCP - General Family Medicine - Primary Care 02/17/24
--- OUTSIDE RECORDS SUMMARY | 2024-04-06 13:50 | XMS_ITS | Encounter Summary ---
Author Organization [facility] Address [address] [place] [address] Care Team Providers Care Jamb Cutter Name Role Phone Arminda Dunn Primary Care Provider [phone] Hafsa MorenoP Primary Care Provider [phone] Encounter Details Date Type Department Care Team (Late st Contact Info) Description 05/11/2021 Lab Requisition [facility] Pathology & Laboratory Medicine - [address] [address] Outr Resulting Lab, Provider Social History Tobacco Use Types Packs/Day Years [...] on file documented as of this encounter Functional Status Functional Status Response [...] No 12/17/2019 documented as of this encounter Plan of Treatment Not on file documented as of this encounter Procedures Procedure Name Priority Date/Time Associated Diagnosis Comments ZZCOVID-19 TEST [facility] PCR Today 05/10/2021 17:05 EDT COVID-19 TESTING Routine 05/10/2021 17:0 5 EDT documented in this encounter Results * COVID-19 TEST [facility] PCR (05/10/2021 17:05 EDT) Swab ENTIRE NASOPHARYNX / Unknown 05/10/2021 17:05 EDT 05/11/2021 15:54 EDT Provider Outr Resulting Lab MICROBIOLOGY - GENERAL ORDERABLES [facility] [address] [place] [address] * COVID-19 TESTING (05/10/2021 17:05 EDT) COVID-19 rt-PCR Result Negative Negative 05/12/2021 9:19 EDT [facility] Comment: This test has not been FDA cleared or approved. This test has been authorized by FDA under an EUA for use by authorized laboratories. This test has been authorized only for detection of nucleic acid from 2019-nCoV, not for any other viruses or pathogens. This test is only authorized for the duration of the declaration that circumstances exist justifying the authorization of emergency use of in vitro diagnostic tests for detection and/or diagnosis of 2019-nCoV under section 564(b)(1) of Act, 21 U.S.C ?? 360bbb-3(b) (1), unless the authorization is terminated or revoked sooner. Negative results do not preclude 2019-nCoV infection and should not be used as the sole basis for treatment or other patient management decisions. Negative results must be combined with clinical observations, patient history, and epidemiological information. Testing was performed using the reinaldo SARS-CoV-2 assay ([employer] on the Reinaldo 6800 System Performing Lab Reinaldo [address] [facility] 05/12/2021 9:19 EDT [facility] Swab 05/10/2021 17:0 5 EDT 05/11/2021 15:54 EDT Provider Outr Resulting Lab MICROBIOLOGY - GENERAL ORDERABLES [facility] [address] [place] [address] documented in this encounter Visit Diagnoses Not on filedocumented in this encounter Care Teams Jamb Cutter Relationship Specialty Start Date End Date Arminda Dunn [address] [place], [place] [id number] PCP - General 01/19/19 02/16/24 Hafsa Mroeno FNP [address] [place] [phone] PCP - General Family Medicine - Primary Care 02/17/24 documented as of this encounter
--- OUTSIDE RECORDS SUMMARY | 2024-04-06 13:50 | XMS_ITS | Encounter Summary ---
Author Organization [facility] Address [address] [place] [address] Care Team Providers Care Remote Broadcast Technician Name Role Phone Arminda Dunn Primary Care Provider [phone] Reason for Referral * Radiology Services (Routine/Next Available) - Authorization Not Required Specialty Diagnoses / Procedures Referred By Teodoro t Referred To Contact Diagnoses Encounter for screening mammogram for malignant neoplasm of breast Procedures MA BREAST SCREENING ANDRES BILATERAL Arminda Dunn [address] [place] [address] [facility] Referral ID Status Reason Start Date Expiration Date Visits Requested Visits Authorized [id number] Authorization Not Required 04/10/2022 1 1 Reason for Visit * Radiology Services (Routine/Next Available) - Authorization Not Required Specialty Diagnoses / Procedures Referred By Teodoro garsia Referred To Contact Diagnoses Encounter for screening mammogram for malignant neoplasm of breast Procedures MA BREAST SCREENING ANDRES BILATERAL Arminda Dunn [address] [place] [address] [facility] Referral ID Status Reason Start Date Expiration Date Visits Requested Visits Authorized [id number] Authorization Not Required 04/10/2022 1 1 Encounter Details Date Type Department Care Team (Latest Contact Info) Description 12/05/2022 14:21 EDT - 12/05/2022 23:59 EDT Hospital Encounter [facility] [address] [place] [address] Encounter for screening mammogram for malignant neoplasm of breast Discharge Disposition: Home or Self Care Social History Tobacco Use Types Packs/Day Years [...] No 12/17/2019 documented as of this encounter Medications at Time of Discharge Medication Sig Dispensed Refills Start Date End Date ACETAMINOPHEN (TYLENOL ORAL) Take by mouth as needed. calcium carbonate 500 mg/5 mL (1,250 mg/5 mL) suspension Take 5 mL by mouth daily. cyclobenzaprine (FLEXERIL) 10 mg tablet Take 1 Tablet by mouth 3 times daily as needed for Muscle Spasms. diclofenac sodium (VOLTAREN ARTHRITIS PAIN) gel Apply topically 4 times daily. epinephrine (EPIPEN INJECTION) Inject as directed. estradioL (VIVELLE-DOT) 0.1 mg/[address] 1 Patch onto the skin twice a week. levothyroxine 75 mcg capsule Take by mouth. loratadine (ALAVERT) 10 mg tablet Take 1 Tablet by mouth daily. multivitamin (NEPHROVITE) 0.8 mg tablet Take 1 Tablet by mouth at bedtime. Multivitamins with Minerals Tab Take 1 Tablet by mouth daily. rosuvastatin (CRESTOR) 10 mg tablet Take 0.5 Tablets by mouth daily. metoprolol TARtrate (LOPRESSOR) 25 mg tablet Take 25 mg by mouth 2 times daily. 01/19/2024 omeprazole (PRILOSEC) 20 mg capsule Take 1 Capsule by mouth daily. 01/19/2024 documented as of this encounter Discharge Disposition Disposition Code Departure Means Destination Home or Self Care documented in this encounter Plan of Treatment Not on file documented as of this encounter Procedures Procedure Name Priority Date/Time Associated Diagnosis Comments MA BREAST SCREENING ANDRES BILATERAL Routine 12/05/2022 14:53 EDT Encounter for screening mammogram for malignant neoplasm of breast documented in this encounter Results * MA BREAST SCREENING ANDRES BILATERAL (12/05/2022 14:53 EDT) Anatomical Region Laterality Modality Breast Bilateral Mammography 12/05/2022 16:2 5 EDT Impressions 12/05/2022 16:25 EDT Negative, no evidence of malignancy. RECOMMENDATION: Routine screening mammography is recommended. OVERALL ASSESSMENT: BI-RADS 1: Negative These results will be communicated to your patient via a lay letter from Radiology. If any additional imaging is needed we will contact your patient directly. I have personally reviewed the images and the above interpretation and agree with the findings. Narrative 12/05/2022 16:25 EDT MA BREAST SCREENING ANDRES BILATERAL ??12/05/2022 3:00 PM History: Screening Comparison: ??Comparison has been made to previous images. Technique: Routine 3D tomosynthesis with synthesized 2D views with CAD Breast Composition: There are scattered areas of fibroglandular density. Bilateral Breast Findings: ??No significant masses, calcifications or other abnormalities are seen. Procedure Note Bobby Cain MD - 12/05/2022 MA BREAST SCREENING ANDRES BILATERAL 12/05/2022 3:00 PM History: Screening Comparison: Comparison has been made to previous images. Technique: Routine 3D tomosynthesis with synthesized 2D [...] is needed we will contact yourpatient directly. I have personally reviewed the images and the above interpretation andagree with the findings. Arminda Dunn [facility] documented in this encounter Visit Diagnoses Diagnosis Encounter for screening mammogram for malignant neoplasm of breast Other screening mammogram documented in this encounter Care Teams Remote Broadcast Technician Relationship Specialty Start Date End Date Arminda Dunn [address] [place] [address] PCP - General 01/19/19 02/16/24 documented as of this encounter
--- OUTSIDE RECORDS SUMMARY | 2024-04-06 13:50 | XMS_ITS | Encounter Summary ---
Author Organization [facility] Address [address] [place] [address] Care Team Providers Care Cheese Factory Worker Name Role Phone Hafsa Moreno [facility] Primary Care Provider Reason for Referral * Radiology Services (Routine/Next Available) - Authorization Not Required Specialty Diagnoses / Procedures Referred By Teodoro t Referred To Contact Diagnoses Encounter for screening mammogram for malignant neoplasm of breast Procedures MA BREAST SCREENING ANDRES [place] [address] [facility] Referral ID Status Reason Start Date Expiration Date Visits Requested Visits Authorized [id number] Authorization Not Required 06/09/2023 1 1 Reason for Visit * Radiology Services (Routine/Next Available) - Authorization Not Required Specialty Diagnoses / Procedures Referred By Teodoro garsia Referred To Contact Diagnoses Encounter for screening mammogram for malignant neoplasm of breast Procedures MA BREAST SCREENING ANDRES [place]ATER[place] [address] [facility] Referral ID Status Reason Start Date Expiration Date Visits Requested Visits Authorized [id number] Authorization Not Required 06/09/2023 1 1 Encounter Details Date Type Department Care Team (Latest Contact Info) Description 02/17/2024 13:10 EDT - 02/17/2024 23:59 EDT Hospital Encounter [facility] [address] [place] [address] Encounter for screening mammogram for malignant neoplasm [...] suspension Take 5 mL by mouth daily. carvedilol (COREG) 3.125 mg tablet Take 1 Tablet by mouth 2 times daily. cyclobenzaprine (FLEXERIL) 10 mg tablet Take [...] tablet Take 0.5 Tablets by mouth daily. omeprazole (PRILOSEC) 40 mg capsule Take 1 Capsule by mouth every morning for 60 days. Then resume 20 mg daily. 30 Capsule 1 01/19/2024 03/19/2024 documented as of this encounter Discharge Disposition [...] needed we will contact your patient directly. [address] [place] [id number] [place] [address] Ctr. - [facility] [phone] I have personally reviewed the images and the above interpretation and agree with the findings. [id number] Narrative 02/17/2024 16:17 EDT MA BREAST SCREENING ANDRES BILATERAL ??02/17/2024 1:10 PM History: Screening Comparison: ??Comparison has been made to previous images . ? Technique: Routine 3D tomosynthesis with synthesized 2D views with CAD Breast Composition: There are scattered areas of fibroglandular density. Bilateral Breast Findings: ??No significant masses, calcifications or other abnormalities are seen. Resulting Agency Comment [id number] Procedure Note Bobby Cain MD - 02/17/2024 [...] is needed we will contact yourpatient directly. [address] [place] [address] [facility] Ctr. - [facility] [phone] I have personally reviewed the images and the above interpretation andagree with the findings. [id number] Arminda Dunn [facility] JAREN STEWARD documented in this encounter Visit Diagnoses Diagnosis Encounter for screening mammogram for malignant neoplasm of breast Other screening mammogram documented in this encounter Care Teams Cheese Factory Worker Relationship Specialty Start Date End Date Hafsa Moreno FNP [address] [place] [phone] PCP - General Family Medicine - Primary Care 02/17/24 documented as of this encounter
--- OUTSIDE RECORDS SUMMARY | 2024-04-06 13:50 | XMS_ITS ---
Author Organization Unknown Address [address] [place] [phone] Phone Care Team Providers Care Agricultural Aircraft Pilot Name Role Phone GONZALES Navas Attending Unavailable Social History Type Status Start Date End Date Code Code Syst em Smoking History Never smoker (Never Smoked) [id number] SNOMED CT Sex Female Hospital Discharge Instructions Should you have any questions prior to discharge, please contact a member of your healthcare team. If you have left the hospital and have any questions, please contact your primary care physician. Reason For Referral No Data Found Allergies and Adverse Reactions Allergy Substance Reaction Severity Start Date Concern Status Code Code System PENICILLINS (CLASS) Active 71204 RxNorm TETRACYCLINE Active 09055 RxNorm CODEINE Hives (SNOMED-CT: 237931146) Active 2670 RxNorm LATEX Hives (SNOMED-CT: 785725059) Active 2278835 RxNorm SHELLFISH Active Anaphylaxis (SNOMED-CT: 04386863) Active 128476 RxNorm VISTARIL Active 294035 RxNorm AMPICILLIN SODIUM Anaphylaxis (SNOMED-CT: 51342767) Active 17870 RxNorm MUSHROOMS Active IODINATED CONTRAST MEDIA - IV DYE Hives (SNOMED-CT: 680642521) Active BENTAL/HIVES Active PANSTEL CANT BREATHE Active RUFEM/ CANT BREATHE Active DARVON/HIVES Active DYE 40 /HIVES Active EES/ CANT BREATHE Active CASERGOT/ CANT BREATHE Active Plan of Treatment BONE DENSITY DEXA SPINE & HIP 3 MM SCREEN BILAT 06/12/2022 Encounters Encounter Diagnosis Start Date Code Code Sys tem Supraventricular tachycardia 08/03/2021 SNOMED-CT Personal Care Team Section Performer Name Performer Role Active Date Inactive Da te
--- OUTSIDE RECORDS SUMMARY | 2024-04-06 13:50 | XMS_ITS | Encounter Summary ---
Author Organization [facility] Address [address] [place] [address] Care Team Providers Care Grease Press Helper Name Role Phone Arminda Dunn Primary Care Provider [phone] Reason for Referral * Referral (Routine/Next Available) - Closed Specialty Diagnoses / Procedures Referred By [facility] t Referred To Contact Diagnoses Polyp of colon, unspecified part of colon, unspecified type Procedures COLONOSCOPY AR COLONOSCOPY FLX DX W/COLLJ SPEC [place] [address] [facility] [address] [place] [address] Referral ID Status Reason Start Date Expiration Date Visits Re quested Visits Authorized [id number] Closed 02/21/2022 05/22/2022 1 1 Encounter Details Date Type Department Care Team (Latest Contact Info) Description 12/28/2021 Transcribe Orders [facility] - Main [place] [address] [place] [address] Arminda Dunn [place], [place] [id number] Polyp of colon, unspecified part of colon, unspecified type (Primary Dx) Social History Tobacco Use Types Packs/Day Years [...] as of this encounter Plan of Treatment Pending Results Name Type Priority Associated Diagnoses Date /Time COLONOSCOPY GI Routine Polyp of colon, unspecified part of colon, unspecified type 03/25/2022 11:43 EDT Scheduled Orders Name Type Priority Associated Diagnoses Orde r Schedule COLONOSCOPY GI Routine Polyp Of Colon, Unspecified Part Of Colon, Unspecified Type Expected: 12/28/2021 (Approximate), Expires: 06/29/2023 documented as of this encounter Visit Diagnoses Diagnosis Polyp of colon, unspecified part of colon, unspecified type- Primary documented in this encounter Care Teams Grease Press Helper Relationship Specialty Start Date End Date Arminda Dunn [address] [place] [address] PCP - General 01/19/19 02/16/24 documented as of this encounter
--- OUTSIDE RECORDS SUMMARY | 2024-04-06 13:50 | XMS_ITS | Encounter Summary ---
Author Organization [facility] Address [address] [place] [address] Care Team Providers Care Commercial Or Institutional Cleaner Name Role Phone Arminda Dunn Primary Care Provider Reason for Referral * Radiology Services (Routine) - Closed Specialty Diagnoses / Procedures Referred By Contac t Referred To Contact Diagnoses Abdominal pain Procedures US ABDOMEN LIMITED Hafsa Moreno FNP [address] [place] [address] Referral ID Status Reason Start Date Expiration Date Visits Re quested Visits Authorized [id number] Closed 07/28/2020 1 1 Reason for Visit * Radiology Services (Routine) - Closed Specialty Diagnoses / Procedures Referred By Contac t Referred To Contact Diagnoses Abdominal pain Procedures US ABDOMEN LIMITED Hafsa Moreno FNP [address] [place] [address] Referral ID Status Reason Start Date Expiration Date Visits Re quested Visits Authorized [id number] Closed 07/28/2020 1 1 Encounter Details Date Type Department Care Team (Latest Contact Info) Description 08/24/2020 12:38 EST - 08/24/2020 23:59 EST Hospital Encounter [facility] [address] [place] [address] Abdominal pain Discharge Disposition: Home or Self Care Social [...] 10:56 EDT Sexual Orientation Not on file COVID-19 Exposure Response Date Recorded In the last month, have you been in contact with someone who was confirmed or suspected to have Coronavirus / COVID-19? No / Unsure 08/24/2020 12:34 EST documented as of this encounter Functional Status [...] (TYLENOL ORAL) Take by mouth as needed. loratadine (ALAVERT) 10 mg tablet Take 1 Tablet by mouth daily. Multivitamins with Minerals Tab Take 1 Tablet by mouth daily. documented as of this encounter Discharge Disposition Disposition Code Departure Means Destination Home or Self Care documented in this encounter Plan of Treatment Not on file documented as of this encounter Procedures Procedure Name Priority Date/Time Associated Diagnosis Comments US ABDOMEN LIMITED Routine 08/24/2020 13 :02 EST Abdominal pain documented in this encounter Results * US ABDOMEN LIMITED (08/24/2020 13:02 EST) Anatomical Region Laterality Modality Abdomen, Body Ultrasound 08/24/2020 13:2 4 EST Impressions 08/24/2020 13:24 EST 1. ??Hepatic steatosis. No sonographic evidence of a focal hepatic lesion. 2. ??No other significant abnormality identified. I have personally reviewed the images and the above interpretation and agree with the findings. Narrative 08/24/2020 13:24 EST US ABDOMEN LIMITED ??08/24/2020 1:00 PM SIGNS AND SYMPTOMS/COMMENTS: RUQ abdomen pain (also has [facility] GI referral) COMPARISON: None TECHNIQUE: Grayscale and Doppler ultrasound evaluation of the right upper quadrant of the abdomen was performed. FINDINGS: PANCREAS: The visualized portions of the pancreas are unremarkable. LIVER: The liver measures 13.8 cm in length, which is normal. The liver parenchyma is diffusely hyperechoic echogenic compared to that of the right kidney, consistent with hepatic steatosis. No focal hepatic lesion is identified. RIGHT KIDNEY: The right kidney measures 9.7 cm in length. The renal echotexture is unremarkable. No shadowing calculus, hydronephrosis, or mass is identified. GALLBLADDER: The gallbladder wall measures 1.9 mm in thickness, which is normal. No gallstones or pericholecystic fluid is appreciated. No sonographic Martin's sign was elicited. BILE DUCTS: The common duct measures 3.7 mm in diameter at the jeancarlos hepatis, which is normal. There is no intrahepatic biliary ductal dilatation. PROXIMAL ABDOMINAL AORTA / IVC: Unremarkable. Atherosclerotic plaque is noted within the proximal abdominal aorta. Procedure Note Gen Keenan MD - 08/24/2020 US ABDOMEN LIMITED 08/24/2020 1:00 PM SIGNS AND SYMPTOMS/COMMENTS: RUQ abdomen pain (also has [facility] GIreferral) COMPARISON: None TECHNIQUE: Grayscale and Doppler ultrasound evaluation of the right upperquadrant of the abdomen was performed. FINDINGS: PANCREAS: The visualized portions of the pancreas are unremarkable. LIVER: The liver measures 13.8 cm in length, which is normal. The liverparenchyma is diffusely hyperechoic echogenic compared to that of theright kidney, consistent with hepatic steatosis. No focal hepatic lesionis identified. RIGHT KIDNEY: The right kidney measures 9.7 cm in length. The renalechotexture is unremarkable. No shadowing calculus, hydronephrosis, ormass is identified. GALLBLADDER: The gallbladder wall measures 1.9 mm in thickness, which isnormal. No gallstones or pericholecystic fluid is appreciated. Nosonographic Martin's sign was elicited. BILE DUCTS: The common duct measures 3.7 mm in diameter at the portahepatis, which is normal. There is no intrahepatic biliary ductaldilatation. PROXIMAL ABDOMINAL AORTA / IVC: Unremarkable. Atherosclerotic plaque isnoted within the proximal abdominal aorta. IMPRESSION 1. Hepatic steatosis. No sonographic evidence of a focal hepaticlesion. 2. No other significant abnormality identified. I have personally reviewed the images and the above interpretation andagree with the findings. Hafsa Moreno SOLAR FABRICATION TECHNICIAN IMG US ORDERABLES documented in this encounter Visit Diagnoses Diagnosis Abdominal pain Abdominal pain, unspecified site documented in this encounter Care Teams Commercial Or Institutional Cleaner Relationship Specialty Start Date End Date Arminda Dunn [address] [place] [address] PCP - General 01/19/19 02/16/24 documented as of this encounter
--- OUTSIDE RECORDS SUMMARY | 2024-04-06 13:50 | XMS_ITS | Encounter Summary ---
Author Organization Health system Address [address] [place] [address] Care Team Providers Care Motorcycle Service Technician Name Role Phone Arminda Dunn Primary Care Provider [phone] Reason for Referral * Radiology Services (Routine/Next Available) - Closed Specialty Diagnoses / Procedures Referred By Teodoro garsia Referred To Contact Diagnoses Screening mammogram, encounter for Procedures MA BREAST SCREENING ANDRES BILATERAL MA BREAST SCREENING ANDRES BILATERAL Arminda Dunn [address] [place] [address] Referral ID Status Reason Start Date Expiration Date Visits Re quested Visits Authorized [id number] Closed 01/14/2021 1 1 Reason for Visit * Radiology Services (Routine/Next Available) - Closed Specialty Diagnoses / Procedures Referred By Teodoro garsia Referred To Contact Diagnoses Screening mammogram, encounter for Procedures MA BREAST SCREENING ANDRES BILATERAL MA BREAST SCREENING ANDRES BILATERAL Arminda Dunn [address] [place] [address] Referral ID Status Reason Start Date Expiration Date Visits Re quested Visits Authorized [id number] Closed 01/14/2021 1 1 Encounter Details Date Type Department Care Team (Latest Contact Info) Description 06/07/2021 10:57 EST - 06/07/2021 23:59 EST Hospital Encounter [facility] [address] [place], [place] [address] Screening mammogram, encounter for Discharge Disposition: Home or Self Care Social [...] Sign Reading Time Taken Comments Blood Pressure - - Pulse - - Temperature - - Respiratory Rate - - Oxygen Saturation - - Inhaled Oxygen Concentration - - Weight - - Height 160 cm (5' 3) 06/07/2021 1101 EST Body Mass Index - - documented in this encounter Functional Status Functional [...] Comments MA BREAST SCREENING ANDRES BILATERAL Routine 06/07/2021 11:09 EST Screening mammogram, encounter for documented in this encounter Results * MA BREAST SCREENING ANDRES BILATERAL (06/07/2021 11:09 EST) Anatomical Region Laterality Modality Breast Bilateral Mammography 06/08/2021 10:2 8 EST Impressions 06/08/2021 10:28 EST Negative, no evidence of malignancy. RECOMMENDATION: Routine screening mammography is recommended. OVERALL ASSESSMENT: BI-RADS 1: Negative These results will be communicated to your patient via a lay letter from Radiology. If any additional imaging is needed we will contact your patient directly. I have personally reviewed the images and the above interpretation and agree with the findings. Narrative 06/08/2021 10:28 EST MA BREAST SCREENING ANDRES BILATERAL ??06/07/2021 11:00 AM History: Routine Comparison: ??Comparison has been made to previous images. Technique: Routine 3D tomosynthesis with synthesized 2D views with CAD Bilateral Breast Composition: There are scattered areas of fibroglandular density. Bilateral Breast Findings: ??No significant masses, calcifications or other abnormalities are seen. Procedure Note America Jose MD - 06/08/2021 MA BREAST SCREENING ANDRES BILATERAL 06/07/2021 11:00 AM History: Routine Comparison: Comparison has been made to previous images. Technique: Routine 3D tomosynthesis with synthesized 2D views with CAD Bilateral Breast Composition: There are scattered areas of fibroglandulardensity. Bilateral Breast Findings: No significant masses, calcifications [...] interpretation andagree with the findings. Arminda Dunn [facility] J[facility]EN STEWARD documented in this encounter Visit Diagnoses Diagnosis Screening mammogram, encounter for documented in this encounter Care Teams Motorcycle Service Technician Relationship Specialty Start Date End Date Arminda Dunn [address] [place] [address] [place] [address] PCP - General 01/19/19 02/16/24 documented as of this encounter
--- OUTSIDE RECORDS SUMMARY | 2024-04-06 13:50 | XMS_ITS ---
Author Organization Unknown Address [address] [place] [phone] Phone Care Team Providers Care Chute Operator Name Role Phone IMELDA Alvarado Attending Unavailable Results XR CHEST 2V PA AND LATERAL - Completed: 07/12/2022 15:54 LOINC: [facility] [place], [place] [address] PACS CLINICAL CODER REPORT Patient Name: MACARENA SIEGEL I MRN: Sex: : Age: [id number] F [id number] Account: Accession: Admit: StayType: [id number] 07/12/2022 O/P Ordered: Order ID: Submitted: Ordering Provider: 07/12/2022 15:41 [id number] [facility] DAMARIS SEGURA Completed: Technologist: Resulted: 07/12/2022 15:54 BSK 07/12/2022 16:07 Study Description: XR CHEST 2V PA AND LATERAL Study Reason: COUGH TECHNIQUE: 2D digital imaging was performed. PA and Lateral views COMPARISON: Chest x-ray April 2017 FINDINGS: Heart size is normal. The mediastinum is not widened. Lungs are clear. There are no infiltrates nor pleural effusions. IMPRESSION: No acute pulmonary findings. Report Digitally Signed by Roman Ferris on 07/12/2022 04:07 PM EST Social History Type Status Start Date End Date Code Code Syst em Smoking History Never smoker (Never Smoked) [id number] SNOMED CT Sex Female Hospital Discharge Instructions Should you have any questions prior to discharge, please contact a member of your healthcare team. If you have left the hospital and have any questions, please contact your primary care physician. Reason For Referral No Data Found Allergies and Adverse Reactions Allergy Substance Reaction Severity Start Date Concern Status Code Code System PENICILLINS (CLASS) Active 84110 RxNorm TETRACYCLINE Active 81586 RxNorm CODEINE Hives (SNOMED-CT: 640168086) Active 2670 RxNorm LATEX Hives (SNOMED-CT: 804271870) Active 5306615 RxNorm SHELLFISH Active Anaphylaxis (SNOMED-CT: 16058342) Active 653501 RxNorm VISTARIL Active 546236 RxNorm AMPICILLIN SODIUM Anaphylaxis (SNOMED-CT: 90034006) Active 62474 RxNorm MUSHROOMS Active IODINATED CONTRAST MEDIA - IV DYE Hives (SNOMED-CT: 199746963) Active BENTAL/HIVES Active PANSTEL CANT BREATHE Active RUFEM/ CANT BREATHE Active DARVON/HIVES Active DYE 40 /HIVES Active EES/ CANT BREATHE Active CASERGOT/ CANT BREATHE Active Plan of Treatment BONE DENSITY DEXA SPINE & HIP 3 MM SCREEN BILAT 06/12/2022 Encounters Encounter Diagnosis Start Date Code Code Sys tem Other specified cough 07/12/2022 SNOMED -CT Personal Care Team Section Performer Name Performer Role Active Date Inactive Da te
--- OUTSIDE RECORDS SUMMARY | 2024-04-06 13:50 | XMS_ITS | Encounter Summary ---
Author Organization [facility] Address [address] [place] [address] Care Team Providers Care Oriental Rug Stretcher Name Role Phone Arminda Dunn Primary Care Provider [phone] Encounter Details Date Type Department Care Team (Latest Contact Info) Description 03/08/2020 Travel Social History Tobacco Use Types Packs/Day Years [...] have Coronavirus / COVID-19? No / Unsure 03/08/2020 13:36 EDT documented as of this encounter Functional Status [...] documented as of this encounter Visit Diagnoses Not on filedocumented in this encounter Care Teams Oriental Rug Stretcher Relationship Specialty Start Date End Date Arminda Dunn [address] [place] [address] PCP - General 01/19/19 02/16/24 documented as of this encounter
--- OUTSIDE RECORDS SUMMARY | 2024-04-06 13:50 | XMS_ITS | Encounter Summary ---
Author Organization [facility] Address [address] [place] [address] Care Team Providers Care Pbx Operator Name Role Phone Arminda Dunn Primary Care Provider [phone] Reason for Referral * Referral (Routine/Next Available) - Closed Specialty Diagnoses / Procedures Referred By [facility] t Referred To Contact Diagnoses Polyp of colon, unspecified part of colon, unspecified type Procedures COLONOSCOPY MD COLONOSCOPY FLX DX W/COLLJ SPEC WHEN PFRMD Arminda Dunn [address] [place] [address] [facility] [address] [place] [address] Referral ID Status Reason Start Date Expiration Date Visits Re quested Visits Authorized [id number] Closed 02/21/2022 05/22/2022 1 1 * Referral (Routine/Next Available) - Receiving Office to Obtain Authorization Specialty Diagnoses / Procedures Referred By Contact Referred To Contact Gastroenterology and Hepatology Procedures COLONOSCOPY PROCEDURE Wililams Euceda MD [address] [facility] [address] [place] [address] Referral ID Status Reason Start Date Expiration Date Visits Requested Visits Authorized [id number] Receiving Office to Obtain Authorization 03/25/2022 1 1 Reason for Visit * Referral (Routine/Next Available) - Closed Specialty Diagnoses / Procedures Referred By Contac t Referred To Contact Diagnoses Polyp of colon, unspecified part of colon, unspecified type Procedures COLONOSCOPY MD COLONOSCOPY FLX DX W/COLLJ SPEC WHEN PFRMD Arminda Dunn R [address] [place] [address] [facility] [address] [place] [address] Referral ID Status Reason Start Date Expiration Date Visits Re quested Visits Authorized [id number] Closed 02/21/2022 05/22/2022 1 1 Encounter Details Date Type Department Care Team (Late st Contact Info) Description 03/25/2022 10:56 EDT - 03/25/2022 23:59 EDT Hospital Encounter [facility] Endoscopy - [facility] [address] [place] [address] Williams Euceda MD [address] [facility], [address] [place] [address] Polyp of colon, unspecified part of colon, unspecified type Discharge Disposition: Home or Self Care Social [...] ??F) 03/25/2022 121 3 EDT Respiratory Rate 03/25/2022 1230 EDT Simultaneous filing. User may not have seen previous data. Oxygen Saturation 96% 03/25/2022 123 0 EDT Simultaneous filing. User may not have seen previous data. Inhaled Oxygen Concentration - - Weight 60.8 kg (134 lb) 03/25/2022 1113 EDT Height 160 cm (5' 3) 03/25/2022 1113 EDT Body Mass Index 23.74 03/25/2022 1113 EDT documented in this encounter Functional Status [...] Code Departure Means Destination Home or Self Senior Care documented in this encounter H&P Notes * Williams Euceda MD - 03/25/2022 1130 EDT Endoscopy Sedation for Procedure History & Physical Date: 03/25/2022 Time: 11:37 Location: [facility] Endoscopy - [facility] Planned Procedure: Colonoscopy Chief Complaint/Indications for Procedure: Polyp of colon, unspecified part of colon, unspecified type History Previous Complication with Sedation and/or Anesthesia? No Allergies: Allergies Allergen Reactions ??? Ampicillin ??? Asa [Aspirin] ??? Bentyl [Dicyclomine] ??? Cafergot [Ergotamine-Caffeine] ??? Codeine ??? Darvocet A500 [Propoxyphene N-Acetaminophen] ??? Dimetapp [Brompheniramine-Pseudoephedrin] ??? Elavil ??? Feldene [Piroxicam] ??? Iodinated Contrast Media ??? Iodine And Iodide Containing Products ??? Latex, Natural Rubber Hives ??? Other - See Comments Red 40 ??? Penicillins ??? Ponstel [Mefenamic Acid] ??? Rufen ??? Tetracyclines ??? Vistaril [Hydroxyzine Pamoate] Current Medications: Current Outpatient Medications Medication ??? ACETAMINOPHEN (TYLENOL ORAL) ??? calcium carbonate 500 mg/5 mL (1,250 mg/5 mL) suspension ??? cyclobenzaprine (FLEXERIL) 10 mg tablet ??? diclofenac sodium (VOLTAREN ARTHRITIS PAIN) gel ??? epinephrine (EPIPEN INJECTION) ??? estradioL (VIVELLE-DOT) 0.1 mg/24 hr patch ??? levothyroxine 75 mcg capsule ??? loratadine (ALAVERT) 10 mg tablet ??? metoprolol TARtrate (LOPRESSOR) 25 mg tablet ??? multivitamin (NEPHROVITE) 0.8 mg tablet ??? Multivitamins with Minerals Tab ??? omeprazole (PRILOSEC) 20 mg capsule ??? rosuvastatin (CRESTOR) 10 mg tablet Current Facility-Administered Medications Medication Route Frequency ??? diphenhydrAMINE (BENADRYL) injection 25 mg intravenous Once PRN ??? sodium chloride 0.9 % (NS) infusion intravenous PRN Or ??? lactated ringers (LR) infusion intravenous PRN ??? lidocaine (PF) 10 mg/mL (1 %) injection 2 mg intradermal PRN ??? lidocaine (PF) 10 mg/mL (1 %) injection 2 mg intradermal PRN ??? sodium chloride 0.9 % (flush) flush 3 mL intravenous PRN ??? sodium chloride 0.9 % (flush) flush 5 mL intravenous Q8H Past Medical History: Past Medical History: Diagnosis Date ??? Colon polyp ??? GERD (gastroesophageal reflux disease) ??? Hypertension ??? Incomplete bladder emptying 08/05/2011 ??? Inflammatory bowel disease ??? Pelvic pain in female 08/05/2011 ??? Ulcerative colitis (HCC) Social History: Past Surgical History: Procedure Laterality Date ??? APPENDECTOMY ??? BREAST FNA Right ??? HYSTERECTOMY ??? INCONTINENCE SURGERY 2007 Social History Tobacco Use ??? Smoking status: Never Smoker ??? Smokeless tobacco: Never Used Substance Use Topics ??? Alcohol use: Yes Comment: rare Family History: Family History Problem Relation Age of Onset ??? Colon Cancer Mother 69 ??? Ovarian Cancer Mother ??? Colon Cancer Sister 57 ??? Ovarian Cancer Sister ??? Breast Cancer Sister ??? Heart Attack Brother 47 ??? Cancer Brother ??? Stomach Cancer Brother 60 ??? Brain Cancer Brother ??? Lung Cancer Brother ??? Kidney Cancer Brother ??? Colon Polyps Neg Hx ??? Endometrial Cancer Neg Hx ??? Esophageal Cancer Neg Hx ??? Pancreatic Cancer Neg Hx ??? Rectal Cancer Neg Hx Review of Systems as pertinent: Physical Exam Vital Signs: BP (!) 155/72 Pulse 89 Temp 36.1 ??C (97 ??F) (Temporal) Resp 26 Ht 160 cm (63) Wt 60.8 kg (134 lb) SpO2 100% BMI 23.74 kg/m?? Heart Examination: Cardiac Regularity: Regular Respiratory Examination: Respiratory Pattern: Regular Breath Sounds Right: Clear Breath Sounds Left: Clear Abdominal Examination: Soft, non-tender, bowel sounds normal, no masses, no organomegaly Additional physical exam related to the proposed procedure, patient activity, disease state and treatment as pertinent: Assessment Previous complications with sedation or anesthesia?: No Airway Concerns: None/NA Anesthesia Classification: ASA 2 Plan: Proceed with sedation for procedure Fasting Time: Date of Last Liquid: 03/25/22 Time of Last Liquid: 0700 Date of Last Solid: 03/23/22 Time of Last Solid: 1600 Williams Euceda MD 03/25/2022 11:37 documented in this encounter Plan of Treatment Pending Results Name Type Priority Associated Diagnoses Date /Time COLONOSCOPY GI Routine Polyp of colon, unspecified part of colon, unspecified type 03/25/2022 11:43 EDT Scheduled Orders Name Type Priority Associated Diagnoses Orde r Schedule COLONOSCOPY GI Routine Polyp of colon, unspecified part of colon, unspecified type 1 Occurrences starting 03/25/2022 until 03/25/2022 documented as of this encounter Procedures Procedure Name Priority Date/Time Associated Diagnosis Comments COLONOSCOPY PROCEDURE Routine 03/25/2022 12:11 EDT SURGICAL PATHOLOGY Routine 03/25/2022 11 :52 EDT Polyp of colon, unspecified part of colon, unspecified type documented in this encounter Results * COLONOSCOPY PROCEDURE (03/25/2022 12:11 EDT) Anatomical [...] procedure. ??Total sedation time was ??28 ??minutes. [facility] Bowel Prep Right Colon: 2 ? Transverse [...] Williams Euceda MD GI PROCEDURE JAREN STEWARD * SURGICAL PATHOLOGY (03/25/2022 11:52 EDT) Note to Patient The following pathology results have been interpreted by your pathologist and may be available to you before your health provider has had the opportunity to review them. Please allow time for your provider to receive these results and explore management options, if applicable. 03/26/2022 12:56 [facility] Final Diagnosis A. COLON, ASCENDING, POLYPS: - Fragments of tubular adenomas. 03/26/2022 12:56 [facility] Attestation By the signature below, the attending physician certifies that they have 1) personally conducted a gross and/or microscopic examination of the described specimen(s), and/or personally interpreted the results of laboratory testing of the described specimen(s), and 2) personally rendered or confirmed the above diagnosis. 03/26/2022 12:56 [facility] at 1255 Clinical History Screening colonoscopy, family hx of colon cancer 03/26/2022 12:56 EDT [facility] Gross Description A. Received in formalin labelled with proper patient identification (initials B, J) and ascending colon polyps are 15 piedra-pink tissues (0.2 x 0.1 x 0.1 cm to 0.4 x 0.3 x 0.3 cm). Entirely submitted in A1-A3. MAX ROGER(ASCP) 03/25/2022 17:23 03/26/2022 12:56 EDT [facility] Performing Lab [facility] 03/26/2022 12:56 EDT [facility] Scanned Images 03/26/2022 12:56 EDT [facility] Tissue POLYP OF COLON / Unknown 03/25/2022 11:52 EDT 03/25/2022 13:59 EDT Williams Euceda MD PATHOLOGY ORDERAB LES [facility] [address] [place] [address] documented in this encounter Visit Diagnoses Diagnosis Polyp of colon, unspecified part of colon, unspecified type documented in this encounter Administered Medications Inactive Administered Medications - up to 3 most recent administrations Medication Order MAR Action Action Date Dose Rate Site lactated ringers (LR) infusion 30 mL/hr, intravenous, PRN, Starting on Fri03/25/22 at 1114, Until Shireen 03/28/22 at 0155, Routine, Preprocedure New Bag 03/25/2022 11:28 EDT 30 mL/hr 30 mL /hr meperidine (PF) (DEMEROL) injection intravenous, PRN, Starting on Fri03/25/22 at 1139, Until Fri03/25/22 at 1139, Routine Given 03/25/2022 11:39 EDT 50 mg IV midazolam (MDV) (VERSED) injection intravenous, PRN, Starting on Fri03/25/22 at 1139, Until Fri03/25/22 at 1139, Routine Given 03/25/2022 11:39 EDT 2 mg IV documented in this encounter Discontinued Medications Medication Sig Discontinue Reason Start Date End Da te sodium,potassium,mag sulfates (SUPREP BOWEL PREP KIT) kit Take 12 oz by mouth once for 1 dose. Therapy completed 12/28/2021 03/25/2022 documented as of this encounter Orders Medications Ordered That Bernardo ht Not Have Been Administered Count Last Ordered Date First Ordered Date diphenhydrAMINE (BENADRYL) injection 25 mg 1 03/25/2022 lidocaine (PF) 10 mg/mL (1 % ) injection 2 mg 2 03/25/2022 sodium chloride 0.9 % (flush) flush 3 mL 1 03/25/2022 sodium chloride 0.9 % (flush) flush 5 mL 1 03/25/2022 sodium chloride 0.9 % (NS) infusion 1 03/25 documented in this encounter Care Teams Pbx Operator Relationship Specialty Start Date End Date Arminda Dunn [address] [place] [address] PCP - General 01/19/19 02/16/24 documented as of this encounter
--- OUTSIDE RECORDS SUMMARY | 2024-04-06 13:50 | XMS_ITS | Encounter Summary ---
Author Organization [facility] Address [address] [place] [address] Care Team Providers Care International Exchange Coordinator Name Role Phone Arminda Dunn Primary Care Provider [phone] Encounter Details Date Type Department Care Team (Latest Contact Info) Description 08/24/2020 Travel Social History Tobacco Use Types Packs/Day [...] on filedocumented in this encounter Care Teams International Exchange Coordinator Relationship Specialty Start Date End Date Arminda Dunn [address] [place] [address] PCP - General 01/19/19 02/16/24 documented as of this encounter
--- OUTSIDE RECORDS SUMMARY | 2024-04-06 13:50 | XMS_ITS | Encounter Summary ---
Author Organization [facility] Address [address] [place] [address] Care Team Providers Care Gunner'S Mate Name Role Phone Arminda Dunn Primary Care Provider [phone] Hafsa MorenoP Primary Care Provider [phone] Encounter Details Date Type Department Care Team (Late st Contact Info) Description 01/22/2022 Lab Requisition [facility] Pathology & Laboratory Medicine - [address] [address] Outr Resulting Lab, Provider Social History Tobacco [...] Procedure Name Priority Date/Time Associated Diagnosis Comments CELIAC DISEASE PANEL Routine 01/22/2022 10:05 EDT documented in this encounter Results * CELIAC DISEASE PANEL (01/22/2022 10:05 EDT) Tissue Transglutaminase Antibody IGA <1.2 <4.0 U/mL 01/23/2022 12:08 EDT [facility] Comment: A negative result may be due to IgA deficiency and does not rule out celiac disease. ? Negative: ??<4.0 U/mL ? Weak Positive: ??4.0 - 10.0 U/mL ? Positive: ??>10.0 U/mL Results were obtained with the [employer] Lite R h-tTG IgA KIKO assay on the Kobo DSX. IgA 252 85 - 499 mg/dL 01/23/2022 12:08 EDT [facility] Celiac Disease Interpretation Negative Serology. Celiac disease unlikely. Approximately 10% of patients with celiac disease are seronegative. Patients who are already adhering to a gluten-free diet may also be seronegative. If celiac disease is highly clinically suspected, referral to gastroenterology for additional evaluation is recommended. 01/23/2022 12:08 EDT [facility] Blood VENOUS BLOOD / Unknown 01/22/2022 10:05 EDT 01/22/2022 21:43 EDT Provider Outr Resulting Lab IMMUNOLOGY A ND SEROLOGY ORDERABLES Performing Organization Address City/State/[facility] Co de Phone Number [facility] [address] [place] [address] documented in this encounter Visit Diagnoses Not on filedocumented in this encounter Care Teams Gunner'S Mate Relationship Specialty Start Date End Date Arminda Dunn [address] [place] [address] PCP - General 01/19/19 02/16/24 Hafsa Moreno FNP [address] [place] [address] PCP - General Family Medicine - Primary Care 02/17/24 documented as of this encounter
--- OUTSIDE RECORDS SUMMARY | 2024-04-06 13:50 | XMS_ITS ---
Author Organization Unknown Address [address] [place] [phone] Phone Care Team Providers Care Senior Cost Estimator Name Role Phone JULIANA Lee Attending Unavailable IMELDA Alvarado Primary Unavailable Social History Type Status Start Date End Date Code Code Syst em Smoking History Never smoker (Never Smoked) [id number] SNOMED CT Sex Female Hospital Discharge Instructions Should you have any questions prior to discharge, please contact a member of your healthcare team. If you have left the hospital and have any questions, please contact your primary care physician. Reason For Referral No Data Found Allergies and Adverse Reactions Allergy Substance Reaction Severity Start Date Concern Status Code Code System PENICILLINS (CLASS) Active 21987 RxNorm TETRACYCLINE Active 11415 RxNorm CODEINE Hives (SNOMED-CT: 154174150) Active 2670 RxNorm LATEX Hives (SNOMED-CT: 275587304) Active 7480048 RxNorm SHELLFISH Active Anaphylaxis (SNOMED-CT: 52694562) Active 056295 RxNorm VISTARIL Active 150120 RxNorm AMPICILLIN SODIUM Anaphylaxis (SNOMED-CT: 07125158) Active 08234 RxNorm MUSHROOMS Active IODINATED CONTRAST MEDIA - IV DYE Hives (SNOMED-CT: 605781485) Active BENTAL/HIVES Active PANSTEL CANT BREATHE Active RUFEM/ CANT BREATHE Active DARVON/HIVES Active DYE 40 /HIVES Active EES/ CANT BREATHE Active CASERGOT/ CANT BREATHE Active Plan of Treatment BONE DENSITY DEXA SPINE & HIP 3 MM SCREEN BILAT 06/12/2022 Encounters Encounter Diagnosis Start Date Code Code Sys tem Menopause present 12/02/2023 [id number] SNOMED-CT Personal Care Team Section Performer Name Performer Role Active Date Inactive Da te
--- OUTSIDE RECORDS SUMMARY | 2024-04-06 13:50 | XMS_ITS ---
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 If you have left the hospital and have any questions, please contact your primary care physician. Reason For Referral No Data Found Procedures Procedure Name Date Status Code Code Syste m Colposcopy, Vulva; w/Biopsy(s) 11/20/2023 completed 39781 CPT Allergies and Adverse Reactions Allergy Substance Reaction Severity Start Date Concern Status Code Code System PENICILLINS (CLASS) Active 15497 RxNorm TETRACYCLINE Active 76825 RxNorm CODEINE Hives (SNOMED-CT: 673250974) Active 2670 RxNorm LATEX Hives (SNOMED-CT: 772120846) Active 4952163 RxNorm SHELLFISH Active Anaphylaxis (SNOMED-CT: 33250312) Active 371204 RxNorm VISTARIL Active 093211 RxNorm AMPICILLIN SODIUM Anaphylaxis (SNOMED-CT: 71968362) Active 63926 RxNorm MUSHROOMS Active IODINATED CONTRAST MEDIA - IV DYE Hives (SNOMED-CT: 169033228) Active BENTAL/HIVES Active PANSTEL CANT BREATHE Active RUFEM/ CANT BREATHE Active DARVON/HIVES Active DYE 40 /HIVES Active EES/ CANT BREATHE Active CASERGOT/ CANT BREATHE Active Plan of Treatment BONE DENSITY DEXA SPINE & HIP 3 MM SCREEN BILAT 06/12/2022 Encounters Encounter Diagnosis Start Date Code Code Sys tem Other specified noninflammat ory disorders of vulva and perineum 11/20/2023 SNOMED-CT Personal Care Team Section Performer Name Performer Role Active Date Inactive Da te Laboratory Narrative Notes
--- OUTSIDE RECORDS SUMMARY | 2024-04-06 13:50 | XMS_ITS | Encounter Summary ---
Author Organization [facility] Address [address] [place] [address] Care Team Providers Care Insurance Clerk Name Role Phone Arminda Dunn Sai Primary Care Provider [phone] Hafsa Moreno [facility] Primary Care Provider Reason for Visit * Reason Comments Hoarse Chronic hoarseness o cc sharp pain on left side. Also frequent sore throat. Coughs up mucous and helps throat pain. Morining raspy voice. * Referral (Routine) - Authorization Not Required Specialty Diagnoses / Procedures Referred By [facility] Referred To Contact Otolaryngology Diagnoses Chronic hoarseness Hafsa Moreno, PATIENT SITTER [address] [place] [address] Dwayne Parmar MD [address] [facility] [address] [place] [address] Referral ID Status Reason Start Date Expiration Date Visits Requested Visits Authorized [id number] Authorization Not Required 1 1 Encounter Details Date Type Department Care Team (Late st Contact Info) Description 01/19/2024 10:15 EDT Office Visit [facility] [address] [place] [address] Dwayne Parmar MD 111 [facility], [facility] [address] [place] [address] LPRD (laryngopharyngeal reflux disease) (Primary Dx); Chronic rhinitis Social History Tobacco Use Types Packs/Day Years [...] Dispensed Refills Start Date End Da te omeprazole (PRILOSEC) 40 mg capsule Take 1 Capsule by mouth every morning for 60 days. Then resume 20 mg daily. 30 Capsule 1 01/19/2024 03/19/2024 documented in this encounter Progress Notes * Dwayne Parmar MD - 01/19/2024 1015 EDT Progress Note Division of Otolaryngology, Head and Neck Surgery Date of Service: 01/19/2024 Provider: Dwayne Parmar MD CHIEF COMPLAINT: Chief Complaint Patient presents with Hoarse Chronic hoarseness occ sharp pain on left side. Also frequent sore throat. Coughs up mucous and helps throat pain. Morining raspy voice. HISTORY OF PRESENT ILLNESS: Dania Angulo is a 78 y.o. year old female who comes in today for evaluation of throat symptoms. She has noted hoarseness for approximately 4 and half months. It was fairly sudden in onset and she was not sick at the time. She says it has gradually improved but she still is quite hoarse at night. She also has a left lump in throat symptoms for several months and she has a mild chronic sore throat. She does burp a lot. She notes thick phlegm in the back of her throat. She does not really clear her throat. She does have known reflux and has been on PPIs for many months. Her water intake isgood. She has chronic allergies to dust dogs cats and sensitivities to chemicals. She denies any neck mass, hemoptysis, or weight loss. Patient Active Problem List Diagnosis Myalgia and myositis Pain in female pelvis Incomplete bladder emptying Current Outpatient Medications Medication ACETAMINOPHEN (TYLENOL ORAL) calcium carbonate 500 mg/5 mL (1,250 mg/5 mL) suspension carvedilol (COREG) 3.125 mg tablet cyclobenzaprine (FLEXERIL) 10 mg tablet diclofenac sodium (VOLTAREN ARTHRITIS PAIN) gel epinephrine (EPIPEN INJECTION) estradioL (VIVELLE-DOT) 0.1 mg/24 hr patch levothyroxine 75 mcg capsule loratadine (ALAVERT) 10 mg tablet multivitamin (NEPHROVITE) 0.8 mg tablet Multivitamins with Minerals Tab omeprazole (PRILOSEC) 40 mg capsule rosuvastatin (CRESTOR) 10 mg tablet No current facility-administered medications for this visit. Allergies Allergen Reactions Ampicillin Asa [Aspirin] Bentyl [Dicyclomine] Cafergot [Ergotamine-Caffeine] Codeine Darvocet A500 [Propoxyphene N-Acetaminophen] Dimetapp [Brompheniramine-Pseudoephedrin] Elavil Feldene [Piroxicam] Iodinated Contrast Media Iodine And Iodide Containing Products Latex, Natural Rubber Hives Other - See Comments Red 40 Penicillins Ponstel [Mefenamic Acid] Red Dye Rufen Tetracyclines Vistaril [Hydroxyzine Pamoate] Department of Otolaryngology PHYSICAL EXAMINATION CONSTITUTIONAL: APPEARANCE: The patient appears alert, cooperative, and comfortable. ABILITY TO COMMUNICATE / VOICE: Normal for age MOUTH AND THROAT: LIPS, TEETH & GUMS: normal for age ORAL CAVITY & OROPHARYNX: normal HYPOPHARYNX: Brief view ok LARYNX: same NECK: GENERAL: Supple, no asymmetry or crepitus, trachea midline THYROID: S/p thyroidectomy LYMPHATIC: CERVICAL LYMPH NODES: No pathologic cervical lymphadenopathy noted We elected to proceed with flexible laryngoscopy to rule out any lesions. We discussed risks including nasal pain, bleeding or gagging with Dania and she gave verbal consent for the procedure. Endoscopy Procedure Note Pre-procedure Diagnosis: Hoarseness / Dysphonia and Throat pain Post-procedure Diagnosis: mild chronic rhinitis, mild chronic laryngitis Indications: Lesion partially identified by mirror examination - needing further exam Anesthesia: Cophenylcaine Endoscopy Type: Laryngoscopy using a flexible laryngoscope Procedure Details: After reviewing the procedure, verbal consent was obtained. With the patient sitting upright in theexamining chair, the left nostril(s) was decongested using topical pledgets. After waiting an appropriate period of time for anesthesia/ vasoconstriction to become effective , the scope was passed through the nose and the nasopharynx, hypopharynx and larynx were examined. Condition: Patient tolerated procedure well and left the office in a stable condition. Complications: None Findings: Nasopharynx: Normal exam of choanae, eustachian tubes, and adenoids for age. There is some thick yellow mucous along the posterior wall laterally. This is not obviously coming from the nose. Oropharynx: Mildly hypertrophic, symmetric lingual tonsils and tongue base. Hypopharynx: Normal piriform sinuses noted, no pooling of secretions Supraglottis: Normal Posterior Commissure: Erythematous, Granular Right True Vocal Fold: infraglottic edema noted. Left True Vocal Fold: same Vocal Fold Mobility: Normal bilaterally ASSESMENT: Encounter Diagnoses Name Primary? LPRD (laryngopharyngeal reflux disease) Yes Chronic rhinitis I do not see anything concerning on a thorough endoscopic exam today. Her larynx does look mildly inflamed. I suspect this is multifactorial including ongoing reflux, allergies, and some chronic rhinitis postnasal drip. We discussed using nasal irrigations and increasing her omeprazole to 40 mg a day as a 2-month trial. She is on board with that. If her symptoms worsen or fail to improve and gladto see her back. She has issues with red dye. There was an alert that came up on the 40 mg omeprazole that there is red dye in it. If that is the case, I asked the pharmacy to dispense two 20 mg tablets which she currently is tolerating. PLAN: Dania was seen today for hoarse. Diagnoses and all orders for this visit: LPRD (laryngopharyngeal reflux disease) Chronic rhinitis Other orders - omeprazole (PRILOSEC) 40 mg capsule; Take 1 Capsule by mouth every morning for 60 days. Then resume 20 mg daily. Dwayne Parmar MD February 20, 2024/11:52 Patient: Dania Angulo Scope #: [id number] Has this been documented in the log: Yes documented in this encounter Plan of Treatment Not on file documented as of this encounter Visit Diagnoses Diagnosis LPRD (laryngopharyngeal reflux disease)- Primary Other diseases of larynx Chronic rhinitis documented in this encounter Discontinued Medications Medication Sig Discontinue Reason Start Date End Da te metoprolol TARtrate (LOPRESSOR) 25 mg tablet Take 25 mg by mouth 2 times daily. 01/19/2024 omeprazole (PRILOSEC) 20 mg capsule Take 1 Capsule by mouth daily. Dose adjustment 01/19/2024 documented as of this encounter Historical Medications * This list may reflect changes made after this encounter. Medication Sig Dispensed Refills Start Date End Date carvedilol (COREG) 3.125 mg tablet Take 1 Tablet by mouth 2 times daily. added in this encounter Care Teams Insurance Clerk Relationship Specialty Start Date End Date Arminda Dunn [address] [place], [place] [id number] PCP - General 01/19/19 02/16/24 Hafsa Moreno FNP [address] [place] [phone] PCP - General Family Medicine - Primary Care 02/17/24 documented as of this encounter
--- OUTSIDE RECORDS SUMMARY | 2024-04-06 13:50 | XMS_ITS | Encounter Summary ---
Author Organization [facility] Address [address] [place] [address] Care Team Providers Care Manager Credit Collections Name Role Phone MonaArminda Sai Primary Care Provider [phone] Hafsa Moreno TECHNICAL SPEC Primary Care Provider [phone] Reason for Visit * Reason Onset Date Comments Appointment Related 03/14/2021 cancel appoi ntment Encounter Details Date Type Department Care Team (Late st Contact Info) Description 03/14/2021 Telephone [facility] Gastroenterology - Main [place] [address] [place], [place] [phone] Alex Bird MD [address] [place] [phone] Appointment Related (cancel appointment) Social History Tobacco Use Types Packs/Day Years [...] No 12/17/2019 documented as of this encounter Miscellaneous Notes * Telephone Encounter - Hafsa Roche - 03/14/2021 0639 EDT PAS Message: Pt called to cancel appointment with Alex Bird MD on 03/14 at 0830 due to not feeling well andhusbands passing last week. Patient would like a call back to reschedule? Yes please documented in this encounter Plan of Treatment Not on file documented as of this encounter Visit Diagnoses Not on filedocumented in this encounter Care Teams Manager Credit Collections Relationship Specialty Start Date End Date Arminda Dunn [address] [place] [address] PCP - General 01/19/19 02/16/24 Hafsa Moreno FNP [address] [place] [address] PCP - General Family Medicine - Primary Care 02/17/24 documented as of this encounter
--- OUTSIDE RECORDS SUMMARY | 2024-04-06 13:50 | XMS_ITS | Encounter Summary ---
Author Organization [facility] Address [address] [place] [address] Care Team Providers Care Shredded Filler Cutter Operator Name Role Phone Arminda Dunn Primary Care Provider [phone] Hafsa MorenoP Primary Care Provider [phone] Encounter Details Date Type Department Care Team (Late st Contact Info) Description 11/20/2023 Lab Requisition [facility] Pathology & Laboratory Medicine - [address] [address] Outr Resulting Lab, Provider Social History Tobacco [...] Procedure Name Priority Date/Time Associated Diagnosis Comments HSV (HERPES SIMPLEX VIRUS) MOLECULAR DETECTION, PCR Routine 11/20/2023 11:53 EDT documented in this encounter Results * (ABNORMAL) HSV (HERPES SIMPLEX VIRUS) MOLECULAR DETECTION, PCR (11/20/2023 11:53 EDT) Herpes Simplex Virus Molecular Detection 1, PCR Negative Negative 11/21/2023 13:45 EDT [facility] Herpes Simplex Virus Molecular Detection 2, PCR Positive(A) Negative 11/21/2023 13:45 EDT [facility] Swab VULVAL STRUCTURE / Unknown 11/20/2023 11:53 EDT 11/20/2023 22:09 EDT Provider Outr Resulting Lab MICROBIOLOGY - GENERAL ORDERABLES Performing Organization Address City/State/[facility] Co de Phone Number [facility] [address] [place] [phone] documented in this encounter Visit Diagnoses Not on filedocumented in this encounter Care Teams Shredded Filler Cutter Operator Relationship Specialty Start Date End Date Arminda Dunn [address] [place] [address] PCP - General 01/19/19 02/16/24 Hafsa Moreno FNP [address] [place] [phone] PCP - General Family Medicine - Primary Care 02/17/24 documented as of this encounter
--- OUTSIDE RECORDS SUMMARY | 2024-04-06 13:50 | XMS_ITS | Clinical Summary ---
Author Organization [facility] Address [address] [place] [address] Care Team Providers Care Architectural Modeler Name Role Phone Hafsa Moreno [facility] Primary Care Provider Allergies Active Allergy Reactions Criticality Noted Date [...] myositis 04/06/2008 Overview: ICD10 Update Auto Replacement Encounters Date Type Department Care Team Description 02/17/2024 13:10 EDT - 02/17/2024 23:59 EDT Hospital Encounter [facility] [address] [place] [address] Encounter for screening mammogram for malignant neoplasm of breast Discharge Disposition: Home or Self Care 01/19/2024 10:15 EDT Office Visit [facility] ENT [address] [place] [address] Dwayne Parmar MD LPRD (laryngopharyngeal reflux disease) (Primary Dx); Chronic rhinitis from Last 3 Months Immunizations Name Administration Dates Next Due Covid-19 mRNA Vaccine (MODER NA COVID-19) PF 0.5 ml IM (12 yrs+) 05/15/2021,09/27/2020,08/30/2020 Surgical History Surgery Date Site/Laterality Comments INCONTINENCE SURGERY 07/07/2006 - 07/06/2007 APPENDECTOMY HYSTERECTOMY BREAST FNA Right Medical History Medical History Date Comments Pelvic pain in female 08/05/2011 Incomplete bladder emptying 08/05/2011 Colon polyp Ulcerative colitis (HCC-CMS) GERD (gastroesophageal reflux disease) Hypertension Inflammatory bowel disease Environmental allergies Migraines Family History Medical History Relation Comments Heart Attack Brother 1 Cancer Brother 2 Brain Cancer Brother 5 Kidney Cancer Brother 5 Lung Cancer Brother 5 Stomach Cancer Brother 5 Hearing Loss Father Breast Cancer Mother Colon Cancer Mother Ovarian Cancer Mother Breast Cancer Paternal Aunt Breast Cancer Sister 1 Cancer Sister 1 Colon Cancer Sister 1 Ovarian Cancer Sister 1 Colon Polyps Neg Hx Endometrial Cancer Neg Hx Esophageal Cancer Neg Hx Pancreatic Cancer Neg Hx Rectal Cancer Neg Hx Relation Status Comments Brother 1 Brother 2 Alive Brother 3 Alive Brother 4 Alive Brother 5 Brother 6 Alive Brother 7 Alive Brother 8 Alive Brother 9 Alive Daughter 1 Alive Daughter 2 Alive Father Mother Paternal Aunt Sister 1 Alive Sister 2 Alive Sister 3 Alive Sister 4 Alive Sister 5 Alive Son Alive Social History Tobacco Use Types Packs/Day Years [...] 10:56 EDT Sexual Orientation Not on file Obstetrics History Para Term AB IAB SAB Ectopic Multiple Livin g Live Births 4 4 3 Date Outcome GA Total Labor Labor/2nd/3rd Weight Sex Type Anes PTL Yusra A1 A5 Name Clin Para Para Para Para Last Filed Vital Signs Vital Sign Reading [...] Body Mass Index 23.74 03/25/2022 1113 EDT Plan of Treatment Health Maintenance Due Date Last Done Comments Hepatitis C Screen 1945 Cologuard (Colon Cancer Screening) 1991 FIT Test (Colon Cancer Screening) 1991 Sigmoidoscopy (Colon Cancer Screening) 1991 RSV Immunization ( o r 60+ Years) (1 - 1-dose 60+ series) 2006 Fall Risk Screening 2011 COVID-19 Vaccine ( season) 2024 05/15/2021, 09/27/2020, 08/30/2020 Colonoscopy (Colon Cancer Screening) 03/25/2025 03/25/2022, 02/21/2016, 02/02/2014 Colorectal Cancer Screening 03/25/2025 Procedures Procedure Name Priority Date/Time Associated Diagnosis [...] needed we will contact your patient directly. [address] [place], [place] [address] [place] [address] Ctr. - [facility] [phone] I have personally reviewed the images and the above interpretation and agree with the findings. [id number] Narrative 02/17/2024 16:17 EDT MA BREAST SCREENING ANDRES BILATERAL ??02/17/2024 1:10 PM History: Screening Comparison: ??Comparison has been made to previous images . ? Technique: Routine 3D tomosynthesis with synthesized 2D views with CAD Breast Composition: There are scattered areas of fibroglandular density. Bilateral Breast Findings: ??No significant masses, calcifications or other abnormalities are seen. Resulting Agency Comment [id number] Procedure Note Bobby Cain MD - 02/17/2024 [...] is needed we will contact yourpatient directly. [address] [place] [phone] [place] [address] Ctr. - [facility] [phone] I have personally reviewed the images and the above interpretation andagree with the findings. [id number] Arminda Dunn [facility] MAMMOGRAPHY ORDE NICHELLE * COLONOSCOPY PROCEDURE (03/25/2022 [...] procedure. ??Total sedation time was ??28 ??minutes. [place] Bowel Prep Right Colon: 2 ? Transverse [...] Recently Relevant to Health Maintenance Care Teams Architectural Modeler Relationship Specialty Start Date End Date Hafsa Moreno FNP [address] [place] [address] PCP - General Family Medicine - Primary Care 02/17/24
--- OUTSIDE RECORDS SUMMARY | 2024-04-06 13:50 | XMS_ITS ---
Author Organization Unknown Address [address] [place] [phone] Phone Care Team Providers Care Tool Sharpener Name Role Phone RASHI Alvarado Attending Unavailable IMELDA Alvarado Primary Unavailable Social History Type Status Start Date End Date Code Code Syst em Smoking History Never smoker (Never Smoked) 494643255 SNOMED CT Sex Female Hospital Discharge Instructions Should you have any questions prior to discharge, please contact a member of your healthcare team. If you have left the hospital and have any questions, please contact your primary care physician. Reason For Referral No Data Found Allergies and Adverse Reactions Allergy Substance Reaction Severity Start Date Concern Status Code Code System PENICILLINS (CLASS) Active 54712 RxNorm TETRACYCLINE Active 33860 RxNorm CODEINE Hives (SNOMED-CT: 974563627) Active 2670 RxNorm LATEX Hives (SNOMED-CT: 172062172) Active 0634769 RxNorm SHELLFISH Active Anaphylaxis (SNOMED-CT: 95365805) Active 941375 RxNorm VISTARIL Active 621462 RxNorm AMPICILLIN SODIUM Anaphylaxis (SNOMED-CT: 23448658) Active 09818 RxNorm MUSHROOMS Active IODINATED CONTRAST MEDIA - IV DYE Hives (SNOMED-CT: 269290869) Active BENTAL/HIVES Active PANSTEL CANT BREATHE Active RUFEM/ CANT BREATHE Active DARVON/HIVES Active DYE 40 /HIVES Active EES/ CANT BREATHE Active CASERGOT/ CANT BREATHE Active Plan of Treatment BONE DENSITY DEXA SPINE & HIP 3 MM SCREEN BILAT 06/12/2022 Encounters Encounter Diagnosis Start Date Code Code Sys tem Vulval and/or perineal noninflammatory disorders 07/2377006 SNOMED-CT Personal Care Team Section Performer Name Performer Role Active Date Inactive Da te
--- OUTSIDE RECORDS SUMMARY | 2024-04-06 13:50 | XMS_ITS ---
Author Organization Unknown Address [address] [place] [phone] Phone Care Team Providers Care Runner Out Name Role Phone JULIANA Lee Attending Unavailable IMELDA Alvarado Primary Unavailable Social History Type Status Start Date End Date Code Code Syst em Smoking History Never smoker (Never Smoked) [id number] SNOMED CT Sex Female Hospital Discharge Instructions Should you have any questions prior to discharge, please contact a member of your healthcare team. If you have left the hospital and have any questions, please contact your primary care physician. Reason For Referral No Data Found Allergies and Adverse Reactions Allergy Substance Reaction Severity Start Date Concern Status Code Code System PENICILLINS (CLASS) Active 31624 RxNorm TETRACYCLINE Active 19658 RxNorm CODEINE Hives (SNOMED-CT: 597953460) Active 2670 RxNorm LATEX Hives (SNOMED-CT: 688922618) Active 2593544 RxNorm SHELLFISH Active Anaphylaxis (SNOMED-CT: 04775465) Active 511860 RxNorm VISTARIL Active 200664 RxNorm AMPICILLIN SODIUM Anaphylaxis (SNOMED-CT: 42656872) Active 03011 RxNorm MUSHROOMS Active IODINATED CONTRAST MEDIA - IV DYE Hives (SNOMED-CT: 866327663) Active BENTAL/HIVES Active PANSTEL CANT BREATHE Active RUFEM/ CANT BREATHE Active DARVON/HIVES Active DYE 40 /HIVES Active EES/ CANT BREATHE Active CASERGOT/ CANT BREATHE Active Plan of Treatment BONE DENSITY DEXA SPINE & HIP 3 MM SCREEN BILAT 06/12/2022 Encounters Encounter Diagnosis Start Date Code Code Sys tem Menopause present 08/06/2023 [id number] SNOMED-CT Personal Care Team Section Performer Name Performer Role Active Date Inactive Da te
--- OUTSIDE RECORDS SUMMARY | 2024-04-06 13:51 | XMS_ITS | Encounter Summary ---
Author Organization [facility] Address [address] [place] [address] Care Team Providers Care Combination Operator Name Role Phone Unavailable Primary Care Provider Unavailabl e Encounter Details Date Type Department Care Team (Late st Contact Info) Description 07/18/2008 13:55 EST Hospital Encounter [facility] [address] [place] [address] Benji Villegas MD [address] [place] [address] [address] [place] [phone] Discharge Disposition: Auto Discharge Social History Tobacco Use Types Packs/Day Years Used Date Smoking Tobacco: Never Assessed Sex and Gender Information Value Date Recorded Sex Assigned at Not on file Gender Identity Female 03/25/2022 10:56 EDT Sexual Orientation Not on file documented as of this encounter Discharge Disposition Disposition Code Departure Means Destination Auto Discharge documented in this encounter Plan of Treatment Not on file documented as of this encounter Procedures Procedure Name Priority Date/Time Associated Diagnosis Comments MA MAMMO SCREENING DIGITAL 07/18/2008 14:17 EST documented in this encounter Results * MA MAMMO SCREENING DIGITAL (07/18/2008 14:17 EST) Anatomical Region Laterality Modality Other 07/18/2008 14:1 7 EST Narrative 11/21/2008 9:42 EDT routine Comparison is made to films from 07/16/2007 (bilateral) and films from 06/12/2006 (bilateral) and films from 06/11/2005 (bilateral). Bilateral Breast Findings: (CAD used to interpret routine digital): There are scattered fibroglandular densities. No significant masses, calcifications or other abnormalities are seen. IMPRESSION: BILATERAL BREASTS - CATEGORY 1 Negative, no evidence of malignancy. Normal interval follow-up is recommended in 12 months. OVERALL ASSESSMENT - NEGATIVE END OF IMPRESSION The patient complains of left breast pain on her [place] [facility] (VMR) form. Clinical follow-up is recommended. The patient will be notified of her/his breast imaging results via a lay letter from Radiology. ??Radiology will contact the patient directly regarding any findings which require additional imaging (Category 0) at this time. Procedure Note Bhumi Villaseñor MD - 11/21/2008 routine Comparison is made to films from 07/16/2007 (bilateral) and films from 06/12/2006 (bilateral) and films from 06/11/2005 (bilateral). Bilateral Breast Findings: (CAD used to interpret routine digital): There are scattered fibroglandular densities. No significant masses, calcifications or other abnormalities are seen. IMPRESSION: BILATERAL BREASTS - CATEGORY 1 Negative, no evidence of malignancy. Normal interval follow-up is recommended in 12 months. OVERALL ASSESSMENT - NEGATIVE END OF IMPRESSION The patient complains of left breast pain on her [place] [facility] (VMR) form. Clinical follow-up is recommended. The patient will be notified of her/his breast imaging results via a lay letter from Radiology. Radiology will contact the patient directly regarding any findings which require additional imaging (Category 0) at this time. Benji Villegas MD [facility] MAMMOGRAPHY OR DERABLES documented in this encounter Visit Diagnoses Not on filedocumented in this encounter
--- OUTSIDE RECORDS SUMMARY | 2024-04-06 13:51 | XMS_ITS | Encounter Summary ---
Author Organization [facility] Address [address] [place] [address] Care Team Providers Care Certified Meeting Professional Name Role Phone Po Liang MD Primary Care Provider [phone] Encounter Details Date Type Department Care Team (Late st Contact Info) Description 03/01/2016 Orders Only [facility] General Surgery - [facility] [address], [place] [id number] Po Barron MD Social History Tobacco Use Types Packs/Day Years Used Date Smoking Tobacco: Never Smokeless Tobacco: Never Alcohol Use Standard Drinks/Week Comments Yes 0 (1 standard drink = 0.6 oz pur e alcohol) rare Sex and Gender Information Value Date Recorded Sex Assigned at Not on file Gender Identity Female 03/25/2022 10:56 EDT Sexual Orientation Not on file documented as of this encounter Plan of Treatment Not on file documented as of this encounter Procedures Procedure Name Priority Date/Time Associated Diagnosis Comments COLONOSCOPY PROCEDURE Routine 02/21/2016 documented in this encounter Results * COLONOSCOPY (02/21/2016) Colonoscopy [facility] Comment:Colonoscopy recommen ded in 10 years Colonoscopy, External [facility] Anatomical Region Laterality Modality Endoscopy 02/21/2016 Historical Provider GI PROCEDURE JAREN STEWARD documented in this encounter Visit Diagnoses Not on filedocumented in this encounter Care Teams Certified Meeting Professional Relationship Specialty Start Date End Date Po Liang MD [address] [place] [address] PCP - General 08/21/10 01/18/19 documented as of this encounter
--- OUTSIDE RECORDS SUMMARY | 2024-04-06 13:51 | XMS_ITS | Encounter Summary ---
Author Organization [facility] Address [address] [place] [address] Care Team Providers Care Pacs Specialist Name Role Phone Po Liang MD Primary Care Provider [phone] Encounter Details Date Type Department Care Team (Late st Contact Info) Description 11/11/2018 Results Only Imaging [facility] [phone] Po Liang MD [address] [facility] [address] [place] [address] Social History Tobacco Use Types Packs/Day Years [...] Name Priority Date/Time Associated Diagnosis Comments MA 2D/3D BILATERAL ANDRES ROUTINE SCREENING MAMMO 01/26/2019 14:04 EDT documented in this encounter Results * MA 2D/3D BILATERAL ANDRES ROUTINE SCREENING MAMMO (01/26/2019 14:04 EDT) Anatomical Region Laterality Modality Other 01/26/2019 14:0 4 EDT 01/27/2019 16:36 EDT Narrative 01/27/2019 16:36 EDT Comparison has been made to previous images. Bilateral Breast Findings: (Routine 3D tomosynthesis with synthesized 2D views with CAD) There are scattered fibroglandular densities (25% - 50% fibroglandular). No significant masses, calcifications or other abnormalities are seen. IMPRESSION: BILATERAL BREASTS: Negative, no evidence of malignancy. Normal interval follow-up is recommended in 12 months. OVERALL ASSESSMENT - CATEGORY 1 - NEGATIVE END OF IMPRESSION These results will be communicated to your patient via a lay letter from Radiology. If any additional imaging is needed we will contact your patient directly. I have personally reviewed the images and the above interpretation and agree with the findings. Procedure Note Yariel Farmer MD, MD - 01/27/2019 Comparison has been made to previous images. Bilateral Breast Findings: (Routine 3D tomosynthesis with synthesized 2D views with CAD) There are scattered fibroglandular densities (25% - 50% fibroglandular). No significant masses, calcifications or other abnormalities are seen. IMPRESSION: BILATERAL BREASTS: Negative, no evidence of malignancy. Normal interval follow-up is recommended in 12 months. OVERALL ASSESSMENT - CATEGORY 1 - NEGATIVE END OF IMPRESSION These results will be communicated to your patient via a lay letter from Radiology. If any additional imaging is needed we will contact your patient directly. I have personally reviewed the images and the above interpretation and agree with the findings. Po Liang MD IMG MAMMOGRAPHY ORDE RABLES documented in this encounter Visit Diagnoses Not on filedocumented in this encounter Care Teams Pacs Specialist Relationship Specialty Start Date End Date Po Liang MD [address] [place] [id number] PCP - General 08/21/10 01/18/19 documented as of this encounter
--- OUTSIDE RECORDS SUMMARY | 2024-04-06 13:51 | XMS_ITS | Encounter Summary ---
Author Organization [facility] Address [address] [place] [address] Care Team Providers Care Bin Piler Name Role Phone Melissa Lambert APRN Primary Care Provider Unava ilable Encounter Details Date Type Department Care Team (Latest Contact Info) Description 07/20/2009 14:21 EST - 07/20/2009 23:59 EST Hospital Encounter [facility] [address] [place] [address] Melissa Lambert APRN Discharge Disposition: Auto Discharge Social History Tobacco Use Types Packs/Day Years Used Date Smoking Tobacco: Never Assessed Sex and Gender Information Value Date Recorded Sex Assigned at Not on file Gender Identity Female 03/25/2022 10:56 EDT Sexual Orientation Not on file documented as of this encounter Discharge Disposition Disposition Code Departure Means Destination Auto Discharge Home documented in this encounter Plan of Treatment Not on file documented as of this encounter Visit Diagnoses Not on filedocumented in this encounter Care Teams Bin Piler Relationship Specialty Start Date End Date Melissa Lambert APRN PCP - General 01/02/09 03/20/10 documented as of this encounter
--- OUTSIDE RECORDS SUMMARY | 2024-04-06 13:51 | XMS_ITS | Encounter Summary ---
Author Organization [facility] Address [address] [place] [address] Care Team Providers Care Tool Polisher Name Role Phone Po Liang MD Primary Care Provider Encounter Details Date Type Department Care Team (Late st Contact Info) Description 08/10/2018 Results Only Imaging [facility] [phone] Po Liang MD [address] [facility] 6 [place] [address] Social History Tobacco Use Types [...] Procedure Name Priority Date/Time Associated Diagnosis Comments MR LUMBAR SPINE WO CONTRAST 08/10/2018 16:08 EST documented in this encounter Results * MR LUMBAR SPINE WO CONTRAST (08/10/2018 16:08 EST) Anatomical Region Laterality Modality Other 08/10/2018 16:0 8 EST 08/10/2018 19:35 EST Narrative 08/10/2018 19:35 EST MR LUMBAR SPINE WO CONTRAST ??08/10/2018 4:08 PM Clinical History/Comments: back pain Comparison: November 11, 2007 lumbar spine MRI Technique: Multiplanar noncontrast MR images of the lumbar spine were obtained. Findings: Slight retrolisthesis of L3 on L4 is demonstrated. Vertebral body heights are preserved. Apart from scattered osseous hemangiomata and discogenic endplate changes, marrow signal intensity is unremarkable. There is mild disc space narrowing at L1-2, L2-3, L3-4, L4-5 and L5-S1. Degree of disc space height loss has progressed since the previous MRI in 2007. Lumbar facet joint degeneration is noted. L1-2: Global disc bulge produces mild mass effect on the ventral thecal sac without impingement on the conus tip. L2-3: Global disc bulge produces mild mass effect on the ventral thecal sac. L3-4: There is a small central disc herniation which produces mild mass effect on the ventral thecal sac. Global disc bulge and mild facet hypertrophy produce mild bilateral neural foraminal narrowing. L4-5: Global disc bulge produces mild mass effect on the ventral thecal sac. Disc bulge and facet hypertrophy produce mild bilateral neural foraminal narrowing. L5-S1: Global disc bulge produces minimal mass effect on the ventral thecal sac. This in combination with mild facet hypertrophy results in mild bilateral neural foraminal narrowing. There is a small central annular fissure present. The conus terminates normally at L2. Impression: 1. Mild spondylolisthesis at L3-4. 2. Lumbar degenerative disc and degenerative joint disease. 3. Central disc herniation at L3-4. 4. Central annular fissure at L5-S1. 5. No high-grade central spinal or neural foraminal stenosis appreciated. Procedure Note Sarah Hughes MD - 08/10/2018 MR LUMBAR SPINE WO CONTRAST 08/10/2018 4:08 PM Clinical History/Comments: back pain Comparison: November 11, 2007 lumbar spine MRI Technique: Multiplanar noncontrast MR images of the lumbar spine were obtained. Findings: Slight retrolisthesis of L3 on L4 is demonstrated. Vertebral body heights are preserved. Apart from scattered osseous hemangiomata and discogenic endplate changes, marrow signal intensity is unremarkable. There is mild disc space narrowing at L1-2, L2-3, L3-4, L4-5 and L5-S1. Degree of disc space height loss has progressed since the previous MRI in 2007. Lumbar facet joint degeneration is noted. L1-2: Global disc bulge produces mild mass effect on the ventral thecal sac without impingement on the conus tip. L2-3: Global disc bulge produces mild mass effect on the ventral thecal sac. L3-4: There is a small central disc herniation which produces mild mass effect on the ventral thecal sac. Global disc bulge and mild facet hypertrophy produce mild bilateral neural foraminal narrowing. L4-5: Global disc bulge produces mild mass effect on the ventral thecal sac. Disc bulge and facet hypertrophy produce mild bilateral neural foraminal narrowing. L5-S1: Global disc bulge produces minimal mass effect on the ventral thecal sac. This in combination with mild facet hypertrophy results in mild bilateral neural foraminal narrowing. There is a small central annular fissure present. The conus terminates normally at L2. Impression: 1. Mild spondylolisthesis at L3-4. 2. Lumbar degenerative disc and degenerative joint disease. 3. Central disc herniation at L3-4. 4. Central annular fissure at L5-S1. 5. No high-grade central spinal or neural foraminal stenosis appreciated. Po Liang MD IMG MRI ORDERABLES documented in this encounter Visit Diagnoses Not on filedocumented in this encounter Care Teams Tool Polisher Relationship Specialty Start Date End Date Po Liang MD [address] [place] [id number] PCP - General 08/21/10 01/18/19 documented as of this encounter
--- OUTSIDE RECORDS SUMMARY | 2024-04-06 13:51 | XMS_ITS | Encounter Summary ---
Author Organization [facility] Address [address] [place] [address] Care Team Providers Care Chaplain Resident Name Role Phone Po Liang MD Primary Care Provider [phone] Encounter Details Date Type Department Care Team (Late st Contact Info) Description 09/26/2017 Results Only Imaging [facility] [phone] Po Liang MD [address] [facility] [address] [place] [address] Social History Tobacco Use Types [...] MA 2D/3D BILATERAL ANDRES ROUTINE SCREENING MAMMO 09/26/2017 13:23 EDT documented in this encounter Results * MA 2D/3D BILATERAL ANDRES ROUTINE SCREENING MAMMO (09/26/2017 13:23 EDT) Anatomical Region Laterality Modality Other 09/26/2017 13:2 3 EDT 09/29/2017 16:51 EDT Narrative 09/29/2017 16:51 EDT Comparison has been made to previous [...] needed we will contact your patient directly. Procedure Note Yariel Farmer MD - 09/29/2017 Comparison has been made to previous images. [...] needed we will contact your patient directly. Po Liang MD IMG MAMMOGRAPHY JAREN STEWARD documented in this encounter Visit Diagnoses Not on filedocumented in this encounter Care Teams Chaplain Resident Relationship Specialty Start Date End Date Po Liang MD [address] [place] [id number] PCP - General 08/21/10 01/18/19 documented as of this encounter
--- OUTSIDE RECORDS SUMMARY | 2024-04-06 13:51 | XMS_ITS | Encounter Summary ---
Author Organization [facility] Address [address] [place] [address] Care Team Providers Care Global Ceo Name Role Phone Po Liang MD Primary Care Provider [phone] Encounter Details Date Type Department Care Team (Latest Contact Info) Description 08/23/2011 12:29 EST - 08/23/2011 23:[address] [facility] Hospital Encounter [facility] [address] [place] [address] Po Liang MD [address] [facility] 6 [place], [place] [address] Discharge Disposition: Home or Self Care Social History Tobacco Use Types Packs/Day Years Used Date Smoking Tobacco: Never Assessed Sex and Gender Information Value Date Recorded Sex Assigned at Not on file Gender Identity Female 03/25/2022 10:56 EDT Sexual Orientation Not on file documented as of this encounter Medications at Time of Discharge Medication Sig Dispensed Refills Start Date End Date ACETAMINOPHEN (TYLENOL ORAL) Take by mouth as needed. loratadine (ALAVERT) 10 mg tablet Take 1 Tablet by mouth daily. Multivitamins with Minerals Tab Take 1 Tablet by mouth daily. aspirin chewable 81 mg tablet Take 81 mg by mouth daily. 12/17/2019 cyclobenzaprine (FLEXERIL) 10 mg tablet Take 10 mg by mouth at bedtime. 06/14/2010 12/17/2019 levothyroxine (SYNTHROID) 75 mcg tablet Take 75 mcg by mouth daily. 12/17/2019 omeprazole (PRILOSEC) 20 mg capsule Take 20 mg by mouth 2 times daily. 12/17/2019 simvastatin (ZOCOR) 10 mg tablet Take 20 mg by mouth daily. 12/17/2019 documented as of this encounter Discharge Disposition Disposition Code Departure Means Destination Home or Self [facility] documented in this encounter Plan of Treatment Not on file documented as of this encounter Visit Diagnoses Not on filedocumented in this encounter Care Teams Global Ceo Relationship Specialty Start Date End Date Po Liang MD [address] [address] PCP - General 08/21/10 01/18/19 documented as of this encounter
--- OUTSIDE RECORDS SUMMARY | 2024-04-06 13:51 | XMS_ITS | Encounter Summary ---
Author Organization [facility] Address [address] [place] [address] Care Team Providers Care Art Critic Name Role Phone Arminda Dunn Primary Care Provider [phone] Reason for Referral * Radiology Services (Routine) - Closed Specialty Diagnoses / Procedures Referred By Teodoro garsia Referred To Contact Diagnoses Encounter for screening mammogram for malignant neoplasm of breast Procedures MA BREAST SCREENING ANDRES BILATERAL Arminda Dunn [address] [place] [address] Referral ID Status Reason Start Date Expiration Date Visits Re quested Visits Authorized [id number] Closed 01/05/2020 1 1 Reason for Visit * Radiology Services (Routine) - Closed Specialty Diagnoses / Procedures Referred By Teodoro garsia Referred To Contact Diagnoses Encounter for screening mammogram for malignant neoplasm of breast Procedures MA BREAST SCREENING ANDRES BILATERAL Arminda Dunn [address] [place] [address] Referral ID Status Reason Start Date Expiration Date Visits Re quested Visits Authorized [id number] Closed 01/05/2020 1 1 Encounter Details Date Type Department Care Team (Latest Contact Info) Description 03/08/2020 13:36 EDT - 03/08/2020 23:59 EDT Hospital Encounter [facility] Breast Imaging - [facility] [address] [address] Encounter for screening mammogram for malignant neoplasm [...] 13:36 EDT documented as of this encounter Last Filed Vital Signs Vital Sign Reading Time Taken Comments Blood Pressure - - Pulse - - Temperature - - Respiratory Rate - - Oxygen Saturation - - Inhaled Oxygen Concentration - - Weight - - Height 160 cm (5' 3) 03/08/2020 1343 EDT Body Mass Index - - documented in [...] Comments MA BREAST SCREENING ANDRES BILATERAL Routine 03/08/2020 13:51 EDT Encounter for screening mammogram for malignant neoplasm of breast documented in this encounter Results * MA BREAST SCREENING ANDRES BILATERAL (03/08/2020 13:51 EDT) Anatomical Region Laterality Modality Breast Bilateral Mammography 03/08/2020 15:3 8 EDT Impressions 03/08/2020 15:38 EDT Negative, no evidence of malignancy. RECOMMENDATION: Routine screening mammography is recommended. OVERALL ASSESSMENT: BI-RADS 1: Negative These results will be communicated to your patient via a lay letter from Radiology. If any additional imaging is needed we will contact your patient directly. Narrative 03/08/2020 15:38 EDT MA BREAST SCREENING ANDRES BILATERAL ??03/08/2020 2:00 PM History: routine Comparison: ??Comparison has been made to previous images. Technique: Routine 3D tomosynthesis with synthesized 2D views with CAD Bilateral Breast Composition: There are scattered areas of fibroglandular density. Bilateral Breast Findings: ??No significant masses, calcifications or other abnormalities are seen. Procedure Note Jade Rizvi MD - 03/08/2020 MA BREAST SCREENING ANDRES BILATERAL 03/08/2020 2:00 PM History: routine Comparison: Comparison has been made to previous [...] is needed we will contact yourpatient directly. Arminda Dunn [facility] MAMMOGRAPHY JAREN STEWARD documented in this encounter Visit Diagnoses Diagnosis Encounter for screening mammogram for malignant neoplasm of breast Other screening mammogram documented in this encounter Care Teams Art Critic Relationship Specialty Start Date End Date Arminda Dunn [address] [facility] [place] [place] [address] PCP - General 01/19/19 02/16/24 documented as of this encounter
--- OUTSIDE RECORDS SUMMARY | 2024-04-06 13:51 | XMS_ITS | Encounter Summary ---
Author Organization [facility] Address [address] [place] [address] Care Team Providers Care Physician Practice Market Manager Name Role Phone Po Liang MD Primary Care Provider [phone] Encounter Details Date Type Department Care Team (Latest Contact Info) Description 08/24/2012 10:05 EST - 08/24/2012 23:59 EST Hospital Encounter [facility] [address] [place] [address] Po Liang MD [address] [place] [address] [address] [place], [place] [id number] Discharge Disposition: Auto Discharge Social History Tobacco [...] on filedocumented in this encounter Care Teams Physician Practice Market Manager Relationship Specialty Start Date End Date Po Liang MD [address] [address] PCP - General 08/21/10 01/18/19 documented as of this encounter
--- OUTSIDE RECORDS SUMMARY | 2024-04-06 13:51 | XMS_ITS | Encounter Summary ---
Author Organization [facility] Address [address] [place] [address] Care Team Providers Care Export Sales Manager Name Role Phone Melissa Lambert APRN Primary Care Provider Jazmin iljagdish Encounter Details Date Type Department Care Team (Late st Contact Info) Description 11/02/2009 Results Only [facility] [phone] Tha Novoa PA [facility] [address] [place], [place] [address] Social History Tobacco Use Types Packs/Day Years Used Date Smoking Tobacco: Never Assessed Sex and Gender Information Value Date Recorded Sex Assigned at Not on file Gender Identity Female 03/25/2022 10:56 EDT Sexual Orientation Not on file documented as of this encounter Plan of Treatment Not on file documented as of this encounter Procedures Procedure Name Priority Date/Time Associated Diagnosis Comments RAD US ABDOMEN ONE ORGAN/QUADRANT 11/09/2009 11:51 EDT documented in this encounter Results * RAD US ABDOMEN ONE ORGAN/QUADRANT (11/09/2009 11:51 EDT) Anatomical Region Laterality Modality Other 11/09/2009 11:5 1 EDT 11/09/2009 13:57 EDT Narrative 11/09/2009 13:57 EDT History/Comments: ??Nodule noted periumbilically at three o''clock. Mild tenderness to palpation. US ABD ONE ORG/QUAD ?? Findings: ??A one quadrant ultrasound was performed over the patient's palpable abnormality. Corresponding to the patient's palpable abnormality in the left ??periumbilical region, there is a subcutaneous mass which measures 2.3 x 1.2 x 0.9 cm. The mass is isoechoic to that of the subcutaneous fat. It demonstrates no evidence of vascularity. Impression: 1. ??2.3 cm subcutaneous lesion with echogenicity similar to that of ?? subcutaneous fat, consistent with a lipoma. Procedure Note 11/09/2009 History/Comments: Nodule noted periumbilically at three o''clock. Mild tenderness to palpation. US ABD ONE ORG/QUAD Findings: A one quadrant ultrasound was performed over the patient's palpable abnormality. Corresponding to the patient's palpable abnormality in the left periumbilical region, there is a subcutaneous mass which measures 2.3 x 1.2 x 0.9 cm. The mass is isoechoic to that of the subcutaneous fat. It demonstrates no evidence of vascularity. Impression: 1. 2.3 cm subcutaneous lesion with echogenicity similar to that of subcutaneous fat, consistent with a lipoma. Tha SANTANA IMBrandon US ORDERABLES documented in this encounter Visit Diagnoses Not on filedocumented in this encounter Care Teams Export Sales Manager Relationship Specialty Start Date End Date Melissa Lambert APRN PCP - General 01/02/09 03/20/10 documented as of this encounter
--- OUTSIDE RECORDS SUMMARY | 2024-04-06 13:51 | XMS_ITS | Encounter Summary ---
Author Organization [facility] Address [address] [place] [address] Care Team Providers Care Meat Stuffer Name Role Phone Po Liang MD Primary Care Provider [phone] Encounter Details Date Type Department Care Team (Late st Contact Info) Description 02/10/[address] [facility] Gastroenterology - [facility] [address] [place] [address] Po Barron MD Social History Tobacco Use Types Packs/Day Years Used Date Smoking Tobacco: Never Smokeless Tobacco: Never Alcohol Use Standard Drinks/Week Comments No 0 (1 standard drink = 0.6 oz pur e alcohol) Sex and Gender Information Value Date Recorded Sex Assigned at Not on file Gender Identity Female 03/25/2022 10:56 EDT Sexual Orientation Not on file documented as of this encounter Plan of Treatment Not on file documented as of this encounter Procedures Procedure Name Priority Date/Time Associated Diagnosis Comments COLONOSCOPY PROCEDURE Routine 02/02/2014 documented in this encounter Results * COLONOSCOPY (02/02/2014) Colonoscopy [facility] Comment:next colonoscopy 5 y ears Colonoscopy, External [facility] Anatomical Region Laterality Modality Endoscopy 02/02/2014 Historical Provider GI PROCEDURE JAREN STEWARD documented in this encounter Visit Diagnoses Not on filedocumented in this encounter Care Teams Meat Stuffer Relationship Specialty Start Date End Date Po Liang MD [address] [place] [address] PCP - General 08/21/10 01/18/19 documented as of this encounter
--- OUTSIDE RECORDS SUMMARY | 2024-04-06 13:51 | XMS_ITS | Encounter Summary ---
Author Organization [facility] Address [address] [place] [address] Care Team Providers Care Warehouse Stock Clerk Name Role Phone Po Liang MD Primary Care Provider [phone] Reason for Visit * Reason Comments Diarrhea F/U Emesis F/U Encounter Details Date Type Department Care Team (Latest Contact Info) Description 12/19/2011 10:00 EDT Office Visit [facility] Gastroenterology - [facility] [address] [place] [address] Po Barron MD IBS (irritable bowel syndrome) (Primary Dx); Functional dyspepsia Social History Tobacco Use Types Packs/Day Years Used Date Smoking Tobacco: Never Assessed Sex and Gender Information Value Date Recorded Sex Assigned at Not on file Gender Identity Female 03/25/2022 10:56 EDT Sexual Orientation Not on file documented as of this encounter Last Filed Vital Signs Vital Sign Reading Time Taken Comments Blood Pressure 150/84 12/19/2011 1001 EDT Pulse 91 12/19/2011 1001 EDT Temperature - - Respiratory Rate - - Oxygen Saturation - - Inhaled Oxygen Concentration - - Weight 65.8 kg (145 lb) 12/19/2011 1001 EDT Height 160 cm (5' 3) 12/19/2011 1001 EDT Body Mass Index 25.69 12/19/2011 1001 EDT documented in this encounter Progress Notes * Po Barron MD - 12/19/2011 1234 EDT Dania Angulo is a 66 y.o. year-old female being seen in GI clinic for management of a number of long-standing functional GI complaints that meet the DRISS criteria for functional dyspepsia and IBS. I spent a total of 20 minutes in face to face time with this patient and her today and all of that time was spent counseling the patient on the symptomatic treatment options for her dyspepsia, loose stools and intermittent abdominal discomfort. She is going to try some Kaopectate. Current Outpatient Prescriptions Medication Sig Dispense Refill ??? simvastatin (ZOCOR) 10 mg tablet Take 20 mg by mouth daily. ??? cyclobenzaprine (FLEXERIL) 10 mg tablet Take 10 mg by mouth at bedtime. ??? levothyroxine (SYNTHROID) 75 mcg tablet Take 75 mcg by mouth daily. ??? loratadine (ALAVERT) 10 mg tablet Take 10 mg by mouth daily. ??? Multivitamins with Minerals Tab Take 1 Tab by mouth daily. ??? aspirin chewable 81 mg tablet Take 81 mg by mouth daily. ??? ACETAMINOPHEN (TYLENOL ORAL) Take by mouth as needed. ??? omeprazole (PRILOSEC) 20 mg capsule Take 20 mg by mouth 2 times daily. Allergies Allergen Reactions ??? Ampicillin ??? Asa (Aspirin) ??? Bentyl (Dicyclomine) ??? Cafergot (Ergotamine-Caffeine) ??? Codeine ??? Darvocet A500 (Propoxyphene N-Acetaminophen) ??? Demerol (Meperidine) ??? Dimetapp (Brompheniramine-Pseudoephedrin) ??? Elavil ??? Feldene (Piroxicam) ??? Iodine-Iodine Containing ??? Latex, Natural Rubber Hives ??? Other - See Comments Red 40 ??? Penicillins ??? Ponstel (Mefenamic Acid) ??? Rufen ??? Tetracycline Analogues ??? Vistaril (Hydroxyzine Pamoate) BP 150/84 Pulse 91 Ht 160 cm (63) Wt 65.772 kg (145 lb) BMI 25.69 kg/m2 Physical exam: HEENT: Anicteric, no jaundice, no lymphadenopathy. Extremities: Without cyanosis, clubbing, or edema. Labs: Hemoglobin Date Value Range Status 01/01/2007 8.9* 11.6-15.2 (gm/dl) Final 12/31/2006 8.8* 11.6-15.2 (gm/dl) Final HCT Date Value Range Status 01/01/2007 25.6* 34.9-44.4 (%) Final 12/31/2006 26.1* 34.9-44.4 (%) Final MCV Date Value Range Status 01/01/2007 92 81-98 (fl) Final 12/31/2006 94 81-98 (fl) Final PLT Date Value Range Status 01/01/2007 174 141-320 (K/cmm) Final 12/31/2006 187 141-320 (K/cmm) Final WBC Date Value Range Status 01/01/2007 8.42 4.0-12.4 (K/cmm) Final 12/31/2006 8.92 4.0-12.4 (K/cmm) Final Bilirubin, Total Date Value Range Status 04/04/2000 0.5 0.2-1.3 (mg/dl) Final Total Alkaline Phosphatase Date Value Range Status 04/04/2000 65 38-126 (U/L) Final AST Date Value Range Status 04/04/2000 20 8-50 (U/L) Final ALT Date Value Range Status 04/04/2000 23 15-75 (U/L) Final No results found for this basename: PROTIME, INR, PTT Assessment: Functional dyspepsia and IBS. Plan: 1. Symptomatic treatment. 2. Screening colonoscopy every 5 years for family history. documented in this encounter Plan of Treatment Not on file documented as of this encounter Visit Diagnoses Diagnosis IBS (irritable bowel syndrome)- Primary Irritable bowel syndrome Functional dyspepsia Dyspepsia and other specified disorders of function of stomach documented in this encounter Care Teams Warehouse Stock Clerk Relationship Specialty Start Date End Date Po Liang MD [address] [address] PCP - General 08/21/10 01/18/19 documented as of this encounter
--- OUTSIDE RECORDS SUMMARY | 2024-04-06 13:51 | XMS_ITS | Encounter Summary ---
Author Organization [facility] Address [address] [place] [address] Care Team Providers Care Tool Crib Attendant Name Role Phone Po Liang MD Primary Care Provider [phone] Encounter Details Date Type Department Care Team (Latest Contact Info) Description 10/07/2013 Orders Only [facility] Gastroenterology - [facility] [address] [place] [address] Po Barron MD Family history of malignant neoplasm of gastrointestinal tract (Primary Dx) Social History Tobacco Use Types Packs/Day Years Used Date Smoking Tobacco: Never Assessed Sex and Gender Information Value Date Recorded Sex Assigned at Not on file Gender Identity Female 03/25/2022 10:56 EDT Sexual Orientation Not on file documented as of this encounter Ordered Prescriptions Prescription Sig Dispensed Refills Start Date End Da te polyethylene glycol (GOLYTELY) 236-22.74-6.74 gram suspensionIndications:Family history of malignant neoplasm of gastrointestinal tract TAKE DIRECTED.. 1 Bottle 0 10/07/2013 01/18/2016 documented in this encounter Plan of Treatment Not on file documented as of this encounter Visit Diagnoses Diagnosis Family history of malignant neoplasm of gastrointestinal tract- Primary documented in this encounter Care Teams Tool Crib Attendant Relationship Specialty Start Date End Date Po Liang MD [address] [facility] [address] [place], [place] [id number] PCP - General 08/21/10 01/18/19 documented as of this encounter
--- OUTSIDE RECORDS SUMMARY | 2024-04-06 13:51 | XMS_ITS | Encounter Summary ---
Author Organization [facility] Address [address] [place] [address] Care Team Providers Care Pipe Stress Engineer Name Role Phone Melissa Lambert APRN Primary Care Provider Unava ilable Encounter Details Date Type Department Care Team (Late st Contact Info) Description 11/30/2009 Abstract Used for ABSTRACTING Data [phone] Melissa Lambert APRN Unspecified myalgia and myositis Social History Tobacco Use Types Packs/Day Years Used Date Smoking Tobacco: Never Assessed Sex and Gender Information Value Date Recorded Sex Assigned at Not on file Gender Identity Female 03/25/2022 10:56 EDT Sexual Orientation Not on file documented as of this encounter Plan of Treatment Not on file documented as of this encounter Visit Diagnoses Diagnosis Myalgia and myositis, unspecified Mylagia and myositis, unspecified documented in this encounter Care Teams Pipe Stress Engineer Relationship Specialty Start Date End Date Melissa Lambert APRN PCP - General 01/02/09 03/20/10 documented as of this encounter
--- OUTSIDE RECORDS SUMMARY | 2024-04-06 13:51 | XMS_ITS | Encounter Summary ---
Author Organization [facility] Address [address] [place] [address] Care Team Providers Care Purification Operator Name Role Phone Melissa Lambert APRN Primary Care Provider Jazmin musa Encounter Details Date Type Department Care Team (Latest Contact Info) Description 06/22/2010 13:59 EST - 06/22/2010 23:59 EST Hospital Encounter [facility] [address] [place] [address] Marcin Antoine MD [address] [place] [phone] Discharge Disposition: Auto Discharge Social History Tobacco [...] Take 81 mg by mouth daily. 12/17/2019 CALCIUM ORAL Take by mouth daily. 012 cyclobenzaprine (FLEXERIL) 10 mg tablet Take 10 mg by mouth at bedtime. 06/14/2010 12/17/2019 estradiol (ESTRACE) 0.01 % (0.1 mg/g) vaginal cream Place 2 g vaginally 2 times daily. 08/05/2011 levothyroxine (SYNTHROID) 75 mcg tablet Take 75 [...] on filedocumented in this encounter Care Teams Purification Operator Relationship Specialty Start Date End Date Melissa Lambert APRN PCP - General 04/06/10 08/20/10 documented as of this encounter
--- OUTSIDE RECORDS SUMMARY | 2024-04-06 13:51 | XMS_ITS | Encounter Summary ---
Author Organization [facility] Address [address] [place] [address] Care Team Providers Care Call Out Clerk Name Role Phone Po Liang MD Primary Care Provider [phone] Arminda Dunn Primary Care Provider [phone] Hafsa Moreno [facility] Primary Care Provider [phone] Encounter Details Date Type Department Care Team (Late st Contact Info) Description 12/10/2011 Documentation Visit [facility] Dermatology 5th Floor [facility] [address] [place] [address] Daylin Timmons MD [address] [place] [phone] Social History Tobacco Use Types Packs/Day Years Used Date Smoking Tobacco: Never Assessed Sex and Gender Information Value Date Recorded Sex Assigned at Not on file Gender Identity Female 03/25/2022 10:56 EDT Sexual Orientation Not on file documented as of this encounter Progress Notes * Daylin Timmons MD - 12/12/2011 0811 EDT DIVISION OF DERMATOLOGY - [facility] PATIENT EVALUATION - 12/10/2011 CHIEF COMPLAINT: Skin lesions. SUBJECTIVE: Initial visit for this 66-year-old woman here today concerned about skin lesions on theback of her arms and legs. These started about one year ago and came on without any associated symptoms or obvious precipitating cause. Since onset, they have persisted and she may be getting new lesions. She is particularly concerned because she has a significant history of having had several severe sunburns. To date she has no history of skin cancer or melanoma and there is no family history ofskin cancer or melanoma to her knowledge. She has not treated the lesions. PAST MEDICAL HISTORY: Her health is otherwise generally good. She does have seasonal allergies and history of thyroid disease as well as arthritis. Please see dermatology new patient intake form for complete medical, surgical, social and family history, medications, allergies and complete 12-point review of systems, which were all reviewed at this visit. OBJECTIVE: Relatively well-appearing white woman with skin of medium to fair complexion. Scalp, face, neck, chest, back, abdomen, buttocks, upper and lower extremities were examined. Skin is either normal or benign except as noted: There are multiple light grayish-brown flat papules to macules scattered and grouped on the posterior upper arms, around the elbows and on the posterior legs. Some areslightly hyperkeratotic. There are scattered bland-appearing pigmented papules and macules on the remainder of trunk and extremities. None concerning for malignancy. ASSESSMENT: Seborrheic keratoses. PLAN: Findings were discussed with patient, who was reassured that these lesions are entirely benign. Explained that there is no good definitive treatment option and that treatment is considered cosmetic. Because they are not premalignant, they do not require further treatment. Should they become inflamed or otherwise symptomatic, we could consider cryotherapy or removal. Otherwise, she was reassu red that no treatment is needed. Do recommend aggressive sun protection and intermittent self-skin exam, watching for any new or changing lesions. Follow up p.r.n. Electronically Signed by Daylin Timmons MD 02/03/2012 11:23 Daylin Timmons MD - Daylin Timmons MD - [facility] Job ID: SM Doc ID: [id number] Ext Doc ID: [id number] cc: Lars Liang MD documented in this encounter Plan of Treatment Not on file documented as of this encounter Visit Diagnoses Not on filedocumented in this encounter Care Teams Call Out Clerk Relationship Specialty Start Date End Date Po Liang MD 4 [facility] [address] [place] [address] PCP - General 08/21/10 01/18/19 Arminda Dunn [address] [place] [address] PCP - General 01/19/19 02/16/24 Hafsa Moreno FNP [address] [place] [phone] PCP - General Family Medicine - Primary Care 02/17/24 documented as of this encounter
--- OUTSIDE RECORDS SUMMARY | 2024-04-06 13:51 | XMS_ITS | Encounter Summary ---
Author Organization [facility] Address [address] [place] [address] Care Team Providers Care Pathology Collector Name Role Phone Po Liang MD Primary Care Provider [phone] Encounter Details Date Type Department Care Team (Latest Contact Info) Description 09/07/2015 13:24 EST - 09/07/2015 23:59 [facility] Hospital Encounter [facility] [address] [place] [address] Po Liang MD [address] [facility] [address] [place], [place] [address] Discharge Disposition: Auto Discharge Social History Tobacco [...] file documented as of this encounter Discharge Diagnoses Diagnosis Z12.31 Encounter for screening mammogram for malignant neoplasm of breast-Z12.31[ICD-10-CM] documented in this encounter Medications at Time of Discharge [...] mg by mouth at bedtime. 06/14/2010 12/17/2019 esomeprazole (NEXIUM) 40 mg capsule Take 40 mg by mouth every morning before breakfast. 12/17/2019 levothyroxine (SYNTHROID) 75 mcg tablet Take 75 mcg by mouth daily. 12/17/2019 omeprazole (PRILOSEC) 20 mg capsule Take 20 mg by mouth 2 times daily. 12/17/2019 polyethylene glycol (GOLYTELY) 236-22.74-6.74 gram suspensionIndications:Famil y history of malignant neoplasm of gastrointestinal tract TAKE DIRECTED.. 1 Bottle 0 10/07/2013 01/18/2016 simvastatin (ZOCOR) 10 mg tablet Take 20 mg by mouth daily. 12/17/2019 documented as of this encounter Discharge Disposition Disposition Code Departure Means Destination Auto Discharge Home documented in this encounter Plan of Treatment Not on file documented as of this encounter Visit Diagnoses Not on filedocumented in this encounter Care Teams Pathology Collector Relationship Specialty Start Date End Date Po Liang MD [address] [address] PCP - General 08/21/10 01/18/19 documented as of this encounter
--- OUTSIDE RECORDS SUMMARY | 2024-04-06 13:51 | XMS_ITS | Encounter Summary ---
Author Organization [facility] Address [address] [place] [address] Care Team Providers Care Cigar Roller Name Role Phone Po Liang MD Primary Care Provider [phone] Encounter Details Date Type Department Care Team (Latest Contact Info) Description 02/21/2016 14:19 EDT - 02/21/2016 23:59 EDT Hospital Encounter [facility] Endoscopy Outpatient [address] [place] [address] Po Barron MD Discharge Disposition: Auto Discharge Social History Tobacco [...] Sign Reading Time Taken Comments Blood Pressure 118/65 02/21/2016 1622 EDT Pulse - - Temperature 36.3 ??C (97.3 ??F) 02/21/2016 1534 EDT Respiratory Rate 16 02/21/2016 1622 EDT Oxygen Saturation 99% 02/21/2016 1622 EDT Inhaled Oxygen Concentration - - Weight 59.4 kg (131 lb) 02/21/2016 1439 EDT Height 160 cm (5' 3) 02/21/2016 1439 EDT Body Mass Index 23.21 02/21/2016 1439 EDT documented in this encounter Discharge Diagnoses Diagnosis Z12.11 Encounter for screening for malignant neoplasm of colon-Z12.11[ICD-10-CM] K57.30 Diverticulosis of large intestine without perforation or abscess without bleeding-K57.30[ICD-10-CM] K64.8 Other hemorrhoids-K64.8[ICD-10-CM] Z86.010 Personal history of colonic polyps-Z86.010[ICD-10-CM] Z80.0 Family history of malignant neoplasm of digestive organs-Z80.0[ICD-10-CM] K21.9 Gastro-esophageal reflux disease without esophagitis-K21.9[ICD-10-CM] Z79.82 prison (current) use of aspirin-Z79.82[ICD-10-CM] documented in this encounter Medications at Time [...] times daily. 12/17/2019 polyethylene glycol (GOLYTELY) 236-22.74-6.74 -5.86 gram suspensionIndications:Ab normal finding on imaging TAKE DIRECTED. 1 Bottle 0 01/18/2016 12/17/2019 simvastatin (ZOCOR) 10 mg tablet Take 20 mg by mouth daily. 12/17/2019 documented as of this encounter Discharge Disposition Disposition Code Departure Means Destination Auto Discharge Home documented in this encounter H&P Notes * Po Barron MD - 02/21/2016 5218 EDT Endoscopy Sedation for Procedure History & Physical Date: 02/21/2016 Time: 14:50 Location: [facility] Planned Procedure: Colonoscopy Chief Complaint/Indications for Procedure: Abnormal CT and altered bowel function. History Previous Complication with Sedation and/or Anesthesia? [...] Vistaril [Hydroxyzine Pamoate] Current Medications: Current Outpatient Prescriptions Medication Sig Dispense Refill ??? ACETAMINOPHEN (TYLENOL ORAL) Take by mouth as needed. ??? aspirin chewable 81 mg tablet Take 81 mg by mouth daily. ??? cyclobenzaprine (FLEXERIL) 10 mg tablet Take 10 mg by mouth at bedtime. ??? esomeprazole (NEXIUM) 40 mg capsule Take 40 mg by mouth every morning before breakfast. ??? levothyroxine (SYNTHROID) 75 mcg tablet Take 75 mcg by mouth daily. ??? loratadine (ALAVERT) 10 mg tablet Take 10 mg by mouth daily. ??? Multivitamins with Minerals Tab Take 1 Tab by mouth daily. ??? omeprazole (PRILOSEC) 20 mg capsule Take 20 mg by mouth 2 times daily. ??? polyethylene glycol (GOLYTELY) 236-22.74-6.74 -5.86 gram suspension TAKE DIRECTED. 1 Bottle 0 ??? simvastatin (ZOCOR) 10 mg tablet Take 20 mg by mouth daily. Current Facility-Administered Medications Medication Route Frequency ??? fentaNYL citrate (PF) 50 mcg/mL injection 100-250 mcg intravenous Once PRN ??? flumazenil (ROMAZICON) injection 0.2 mg intravenous PRN ??? lactated ringers (LR) infusion intravenous CONTINUOUS ??? meperidine (PF) (DEMEROL) 100 mg/mL injection 25-200 mg intravenous Once PRN ??? midazolam (PF) (VERSED) 1 mg/mL injection 1-10 mg intravenous Once PRN ??? nalOXone (NARCAN) injection 0.4 mg intravenous PRN ??? ondansetron (PF) (ZOFRAN) injection 2-4 mg intravenous PRN Past Medical History: Past Medical History Diagnosis Date ??? Colon polyp ??? GERD (gastroesophageal reflux disease) ??? Incomplete bladder emptying 08/05/2011 ??? Pelvic pain in female 08/05/2011 ??? Ulcerative colitis Social History: Past Surgical History Procedure Laterality Date ??? Incontinence surgery 2007 ??? Appendectomy ??? Hysterectomy Social History Substance Use Topics ??? Smoking status: Never Smoker ??? Smokeless tobacco: Never Used ??? Alcohol use Yes Comment: rare Family History: Family History Problem Relation Age of Onset ??? Colon Cancer Mother 69 ??? Ovarian Cancer Mother ??? Breast Cancer Mother ??? Colon Cancer Sister 57 ??? Heart Attack Brother 47 ??? Stomach Cancer Brother 60 ??? Brain Cancer Brother ??? Lung Cancer Brother ??? Kidney Cancer Brother ??? Colon Polyps Neg Hx ??? Endometrial Cancer Neg Hx ??? Esophageal Cancer Neg Hx ??? Pancreatic Cancer Neg Hx ??? Rectal Cancer Neg Hx Review of Systems as pertinent: Physical Exam Vital Signs: Visit Vitals ??? BP 134/76 ??? Temp 36.9 ??C (98.4 ??F) (Tympanic) ??? Resp 16 ??? Ht 160 cm (63) ??? Wt 59.4 kg (131 lb) ??? SpO2 97% ??? BMI 23.21 kg/m2 Heart Examination: Cardiac Regularity: Regular Respiratory Examination: Respiratory Pattern: Regular Breath Sounds Right: Clear Breath Sounds Left: Clear Abdominal Examination: Not clinically indicated Additional physical exam related to the proposed procedure, patient activity, disease state and treatment as pertinent: Assessment Previous complications with sedation or anesthesia?: No Airway Concerns: None Anesthesia Classification: ASA 2 Plan: Proceed with sedation for procedure Fasting Time: Time of last liquid intake: 1330 (sip of water ) Date of Last Liquid Intake: 02/21/16 Time of last solid intake: 1700 Date of last solid intake: 02/19/16 Patient Appropriate Candidate for Planned Sedation?: Yes Po Barron MD 02/21/2016 14:50 documented in this encounter Plan of Treatment Not on file documented as of this encounter Procedures Procedure Name Priority Date/Time Associated Diagnosis Comments PROCEDURE REPORTS - SCANNED 02/22/2016 0:36 EDT documented in this encounter Results * PROCEDURE REPORTS - SCANNED (02/22/2016 0:36 EDT) 02/22/2016 0:36 EDT Scan 2 Silo Operator PROCEDURE/MINOR LOGAN GICAL ORDERABLES documented in this encounter Visit Diagnoses Not on filedocumented in this encounter Administered Medications Inactive Administered Medications - up to 3 most recent administrations Medication Order MAR Action Action Date Dose Rate Site lactated ringers (LR) infusion 30 mL/hr, intravenous, CONTINUOUS, Starting on Fri02/21/16 at 1500, Until Fri02/23/16 at 0401, Routine, Preprocedure New Bag 02/21/2016 15:12 EDT 30 mL/hr 30 mL/hr documented in this encounter Orders Medications Ordered That Bernardo ht Not Have Been Administered Count Last Ordered Date First Ordered Date fentaNYL citrate (PF) 50 mcg /mL injection 100-250 mcg 1 02/21/2016 flumazenil (ROMAZICON) injection 0.2 mg 1 0 02/21/2016 lactated ringers (LR) infusion 1 02/21/2016 meperidine (PF) (DEMEROL) 10 0 mg/mL injection 25-200 mg 1 02/21/2016 midazolam (PF) (VERSED) 1 mg /mL injection 1-10 mg 1 02/21/2016 nalOXone (NARCAN) injection 0.4 mg 1 2015 ondansetron (PF) (ZOFRAN) injection 2-4 mg 1 02/21/2016 Discharge Count Last Ordered Date First Orde red Date DISCHARGE PATIENT 1 02/21/2016 documented in this encounter Care Teams Cigar Roller Relationship Specialty Start Date End Date Po Liang MD [address] [facility] [address] [place] [address] PCP - General 08/21/10 01/18/19 documented as of this encounter
--- OUTSIDE RECORDS SUMMARY | 2024-04-06 13:51 | XMS_ITS | Encounter Summary ---
Author Organization [facility] Address [address] [place] [address] Care Team Providers Care Transmitter Supervisor Name Role Phone Po Liang MD Primary Care Provider [phone] Reason for Visit * Reason Comments Urinary Incontinence Encounter Details Date Type Department Care Team (Latest Contact Info) Description 08/15/2011 15:30 EST Office Visit [facility] Pelvic Medicine and Reconstructive Surgery - Medical Office [facility] [address] [place] [address] Marcin Antoine MD [address] [place] [id number] Urinary frequency (Primary Dx); Pelvic pain in female; Incomplete bladder emptying Social History Tobacco Use Types Packs/Day Years Used Date Smoking Tobacco: Never Assessed Sex and Gender Information Value Date Recorded Sex Assigned at Not on file Gender Identity Female 03/25/2022 10:56 EDT Sexual Orientation Not on file documented as of this encounter Progress Notes * Marcin Antoine MD - 08/15/2011 180 EST See urodynamics report scanned documents. I spent 20 minutes of the 20 minute visit in face to facecounseling time with this patient distinct and separate from the procedure(s). We discussed the diagnosis as well as all the potential treatment options with their respective risks and benefits at length. All questions were answered. The patient had an excellent understanding of the problem and treatment plan at the end of the visit. documented in this encounter Miscellaneous Notes * Scanned Note-Null - French Binder, Scan - 08/22/2011 1014 EST documented in this encounter Plan of Treatment Not on file documented as of this encounter Procedures Procedure Name Priority Date/Time Associated Diagnosis Comments POCT URINE DIPSTICK, CLINITEK Routine 08/15/2011 14:29 EST Urinary frequency documented in this encounter Results * POCT URINE DIPSTICK (08/15/2011 14:29 EST) Color YELLOW [facility] Clarity, UA Clear [facility] Glucose Neg Neg [facility] Bilirubin Neg Neg [facility] Ketones Neg Neg [facility] Specific [place] <=1.005 1.001 - 1.035 [facility] Blood Neg Neg [facility] pH 7.0 4.6 - 8.0 [facility] Protein Neg Neg [facility] Urobilinogen 0.2 0.2 - 1.0 E.U./dl [facility] Nitrite Neg Neg [facility] Leuk Esterase Neg Neg [facility] inside parts sales ID [id number] [facility] Comment:Test performed at [facility] Urine specimen (specimen) 08/15/2011 14:29 EST 08/15/2011 14:38 EST Marcin Antoine MD POINT OF CARE TEST ORDERABLES [facility] [address] [place] [address] documented in this encounter Visit Diagnoses Diagnosis Urinary frequency- Primary Pelvic pain in female Unspecified symptom associated with female genital organs Incomplete bladder emptying documented in this encounter Administered Medications Inactive Administered Medications - up to 3 most recent administrations Medication Order MAR Action Action Date Dose Rate Site sulfamethoxazole-trimethoprim (BACTRIM/C0-TRIMOXAZOLE DS) 800-160 mg per tablet 1 Tab 1 Tablet, oral, NOW X1, 1 dose, On Shireen 08/15/11 at 1600, Routine Given 08/15/2011 15:41 EST 1 Tablet documented in this encounter Discontinued Medications Medication Sig Discontinue Reason Start Date End Da te CALCIUM ORAL Take by mouth daily. Alternate therapy 2 documented as of this encounter Orders Medications Ordered That Bernardo ht Not Have Been Administered Count Last Ordered Date First Ordered Date sulfamethoxazole-trimethopri m (BACTRIM/C0-TRIMOXAZOLE DS) 800-160 mg per tablet 1 Tab 1 08/15/2011 documented in this encounter Care Teams Transmitter Supervisor Relationship Specialty Start Date End Date Po Liang MD [address] [place] [id number] PCP - General 08/21/10 01/18/19 documented as of this encounter
--- OUTSIDE RECORDS SUMMARY | 2024-04-06 13:51 | XMS_ITS | Encounter Summary ---
Author Organization [facility] Address [address] [place] [address] Care Team Providers Care Pathology Assistant Name Role Phone Po Liang MD Primary Care Provider [phone] Encounter Details Date Type Department Care Team (Latest Contact Info) Description 08/10/2018 14:45 EST - 08/10/2018 23:59 [facility] Hospital Encounter [facility] [address] [place] [address] Po Liang MD [address] [facility] [address] [place], [place] [id number] Discharge Disposition: Auto Discharge Social History Tobacco [...] as of this encounter Discharge Diagnoses Diagnosis M43.16 Spondylolisthesis, lumbar region-M43.16[ICD-10-CM] M51.36 Other intervertebral disc degeneration, 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
--- OUTSIDE RECORDS SUMMARY | 2024-04-06 13:51 | XMS_ITS | Encounter Summary ---
Author Organization [facility] Address [address] [place] [address] Care Team Providers Care Surgical Assistant Name Role Phone Po Liang MD Primary Care Provider [phone] Arminda Dunn Primary Care Provider [phone] Hafsa Moreno [facility] Primary Care Provider [phone] Reason for Visit * Reason Onset Date Comments Appointment Related 10/07/2013 LUZ mae Encounter Details Date Type Department Care Team (Late st Contact Info) Description 10/07/2013 Telephone [facility] Gastroenterology - [facility] [address] [place] [address] Po Barron MD Appointment Related (LUZ ramírez) Social History Tobacco Use Types Packs/Day Years Used Date Smoking Tobacco: Never Assessed Sex and Gender Information Value Date Recorded Sex Assigned at Not on file Gender Identity Female 03/25/2022 10:56 EDT Sexual Orientation Not on file documented as of this encounter Plan of Treatment Not on file documented as of this encounter Visit Diagnoses Not on filedocumented in this encounter Care Teams Surgical Assistant Relationship Specialty Start Date End Date Po Liang MD 4 [facility] [address] [place], [place] [id number] PCP - General 08/21/10 01/18/19 Arminda Dunn [address] [place] [id number] PCP - General 01/19/19 02/16/24 Hafsa Moreno FNP [address] [place] [id number] PCP - General Family Medicine - Primary Care 02/17/24 documented as of this encounter
--- OUTSIDE RECORDS SUMMARY | 2024-04-06 13:51 | XMS_ITS | Encounter Summary ---
Author Organization [facility] Address [address] [place] [address] Care Team Providers Care Professor Of Violin Name Role Phone Melissa Lambert APRN Primary Care Provider Unava ilable Reason for Visit * Reason Comments Urinary Frequency s/p sling 12/2006 Encounter Details Date Type Department Care Team (Latest Contact Info) Description 06/14/2010 13:15 EST Office Visit [facility] Pelvic Medicine and Reconstructive Surgery - Medical Office [facility] [address] [place] [address] Marcin Antoine MD [address] [place] [phone] Urinary frequency (Primary Dx); Unspecified myalgia and myositis Discharge Disposition: Auto Discharge Social History Tobacco Use Types Packs/Day Years Used Date Smoking Tobacco: Never Assessed Sex and Gender Information Value Date Recorded Sex Assigned at Not on file Gender Identity Female 03/25/2022 10:56 EDT Sexual Orientation Not on file documented as of this encounter Discharge Disposition Disposition Code Departure Means Destination Auto Discharge documented in this encounter Progress Notes * Marcin Antoine MD - 07/11/2010 0941 EST [facility] [address] [place] [address] Telephone Toll-Free PROGRESS/FOLLOWUP NOTE - 06/14/2010 SUBJECTIVE: Dania Angulo is seen in urologic followup today for her history of pelvic prolapse and urinary incontinence. She is status post pelvic prolapse repair with sling procedure back in December of 2006. The patient has done well from a urologic and gynecologic standpoint. She no longer has any incontinence. She denies urinary frequency or urgency. She denies recurrent pelvic prolapse. Her m ajor complaint is abdominal and pelvic pain. This has been ongoing for some time. She has a multitude of complaints including right upper quadrant pain, left upper quadrant pain, pelvic discomfort and vaginal discomfort. She denies vaginal discharge. She denies dysuria. She has constipation but herbowel movements seem adequately managed at the present time. She has seen Dr. Barron periodically for irritable bowel syndrome. She denies recurrent urinary tract infections. She tells me an abdominalultrasound was done in October, which showed a fatty lipoma. Examination of the results does show a likely periumbilical subcutaneous area of fat (possibly a hernia). OBJECTIVE: Today on examination, her abdomen is soft and nontender without guarding or rebound. Shedid complain of pain in each quadrant palpated. The suprapubic region did not appear exquisitely any tenderer than the rest of her abdomen. Vaginal examination shows a minimal cystocele and a minimalrectocele. No evidence of recurrent vault prolapse. Overall, her prolapse repair appears to be holding up quite well. A postvoid residual is measured by catheter at 120 mL consistent with her preoperative values. Urinalysis today is negative and this shows a dilute specific gravity. ASSESSMENT AND PLAN: At this point I reassured both Dania and her I do not believe pelvic prolapse is the cause of her discomfort. In addition, her vaginal introitus appears normal, without any evidence of inflammation. I do not believe she likely has interstitial cystitis. Due to her multitude of complaints, I think fibromyalgia combined with irritable bowel syndrome is the most likely cause. She has some concerns about back pain and therefore I did recommend a renal ultrasound be performed to rule out hydronephrosis. We will schedule this for her in the near future. I assume this will be normal, but I certainly will call her with the results and, of course, we will pursue any a bnormalities should they be identified. Electronically Signed by Marcin Antoine MD 07/11/2010 09:41 Marcin Antoine MD - Marcin Antoine MD - DV Job ID: SM Doc ID: [id number] Ext Doc ID: [id number] cc: Melissa Lambert APRN * Marcin Antoine MD - 06/14/2010 1745 EST Dictated. Past Medical history, past surgical history, social history, medications, and drug allergies all reviewed in EMR ([facility]) and updated where appropriate. * Tamiko Browne - 06/14/2010 1345 EST Recent Labs Basename 06/14/10 1334 ??? COLOR YELLOW ??? CLARITYU Clear ??? GLUCOSEUAPOC Neg ??? BILIRUBIN Neg ??? KETONES Neg ? ? SPECGRAV <=1.005 ??? BLOOD Neg ??? PHUA 5.5 ??? PROTEINUAPOC Neg ??? UROBILINOGEN 0.2 ??? NITRITE Neg ??? LEUKESTER Neg Urine spec obtained via I+O cath. documented in this encounter Plan of Treatment Not on file documented as of this encounter Procedures Procedure Name Priority Date/Time Associated Diagnosis Comments RAD US RETROPERITONEAL COMPLETE Routine 06/22/2010 14:39 EST Unspecified myalgia and myositis Urinary frequency documented in this encounter Results * RAD US RETROPERITONEAL COMPLETE (06/22/2010 14:39 EST) Anatomical Region Laterality Modality Other 06/22/2010 14:3 9 EST 06/22/2010 15:14 EST Narrative 06/22/2010 15:14 EST US RETROPERITONEAL COMPLETE Jun 22, 2010 02:39:00 PM Signs and Symptoms/Comments: ??788.41-URINARY FREQUENCY-I9 729.1-UNSPECIFIED MYALGIA AND MYOSITIS-I9 back pain Comparison: None available. Findings: The right and left kidneys measure 10.65 and 10.61 cm in length respectively. Both kidneys demonstrate normal position and appearance. There is no evidence of hydronephrosis or shadowing renal calculi. Neither ureter is seen. A full, normal appearing bladder is noted. Impression: Normal exam. Procedure Note 06/22/2010 US RETROPERITONEAL COMPLETE Jun 22, 2010 02:39:00 PM Signs and Symptoms/Comments: 788.41-URINARY FREQUENCY-I9 729.1-UNSPECIFIED MYALGIA AND MYOSITIS-I9 back pain Comparison: None available. Findings: The right and left kidneys measure 10.65 and 10.61 cm in length respectively. Both kidneys demonstrate normal position and appearance. There is no evidence of hydronephrosis or shadowing renal calculi. Neither ureter is seen. A full, normal appearing bladder is noted. Impression: Normal exam. Marcin Antoine MD [facility] US ORDERABLES documented in this encounter Visit Diagnoses Diagnosis Urinary frequency- Primary Myalgia and myositis, unspecified Mylagia and myositis, unspecified documented in this encounter Discontinued Medications Medication Sig Discontinue Reason Start Date End Da te BLACK COHOSH ORAL Take by mouth 2 times daily. Patient Stopped Taking 06/14/2010 estrogens, conjugated, (PREMARIN) 0.3 mg tablet Take 0.3 mg by mouth daily. Patient Stopped Taking 06/14/2010 Evening [place] Oil 500 mg Cap Take by mouth 3 times daily. Patient Stopped Taking 06/14/2010 Flaxseed Oil Oil by [facility]Non-Drug; Combo Route) route 3 times daily. Patient Stopped Taking 06/14/2010 oxybutynin (DITROPAN XL) 15 mg CR tablet Take 15 mg by mouth daily. Patient Stopped Taking 06/14/2010 tizanidine (ZANAFLEX) 4 mg tablet Take 4 mg by mouth at bedtime. Patient Stopped Taking 06/14/2010 zolpidem (AMBIEN) 10 mg tablet Take 10 mg by mouth at bedtime as needed for Sleep. Patient Stopped Taking 06/14/2010 documented as of this encounter Historical Medications * This list may reflect changes made after this encounter. Medication Sig Dispensed Refills Start Date End Date cyclobenzaprine (FLEXERIL) 10 mg tablet Take 10 mg by mouth at bedtime. 06/14/2010 12/17/2019 simvastatin (ZOCOR) 10 mg tablet Take 20 mg by mouth daily. 12/17/2019 added in this encounter Orders Lab Orders Without Results Count Last Ordered D ate First Ordered Date POCT URINE DIPSTICK 1 06/14/2010 documented in this encounter Care Teams Professor Of Violin Relationship Specialty Start Date End Date Melissa Lambert APRN PCP - General 04/06/10 08/20/10 documented as of this encounter
--- OUTSIDE RECORDS SUMMARY | 2024-04-06 13:51 | XMS_ITS | Encounter Summary ---
Author Organization [facility] Address [address] [place] [address] Care Team Providers Care Principal Planner Name Role Phone Po Laing MD Primary Care Provider [phone] Encounter Details Date Type Department Care Team (Late st Contact Info) Description 05/15/2011 Results Only Imaging [facility] [phone] Po Liang MD [address] [facility] [address] [place] [address] Social History Tobacco Use Types [...] Associated Diagnosis Comments MA MAMMO SCREENING DIGITAL 08/23/2011 13:00 EST documented in this encounter Results * MA MAMMO SCREENING DIGITAL (08/23/2011 13:00 EST) Anatomical Region Laterality Modality Other 08/23/2011 13:0 0 EST 08/26/2011 12:01 EST Narrative 08/26/2011 12:01 EST Comparison is made to images from 08/22/2010 (bilateral) and images from 07/20/2009 (bilateral) and images from 07/18/2008 (bilateral) and images from 07/16/2007 (bilateral) and images from 06/12/2006 (bilateral) and images from 06/11/2005 (bilateral). Bilateral Breast Findings: (Routine digital views with CAD) There are scattered fibroglandular densities (25% - 50% fibroglandular). No significant masses, calcifications or other abnormalities are seen. IMPRESSION: BILATERAL BREASTS: Negative, no evidence of malignancy. Normal interval follow-up is recommended in 12 months. OVERALL ASSESSMENT - CATEGORY 1 - NEGATIVE END OF IMPRESSION The patient will be notified of her/his breast imaging results via a lay letter from Radiology. Radiology will contact the patient directly regarding any findings which require additional imaging (Category 0) at this time. I have personally reviewed the images and the above interpretation and agree with the findings. Procedure Note Irene Sellers MD - 08/26/2011 Comparison is made to images from 08/22/2010 (bilateral) and images from 07/20/2009 (bilateral) and images from 07/18/2008 (bilateral) and images from 07/16/2007 (bilateral) and images from 06/12/2006 (bilateral) and images from 06/11/2005 (bilateral). Bilateral Breast Findings: (Routine digital views with CAD) There are scattered fibroglandular densities (25% - 50% fibroglandular). No significant masses, calcifications or other abnormalities are seen. IMPRESSION: BILATERAL BREASTS: Negative, no evidence of malignancy. Normal interval follow-up is recommended in 12 months. OVERALL ASSESSMENT - CATEGORY 1 - NEGATIVE END OF IMPRESSION The patient will be notified of her/his breast imaging results via a lay letter from Radiology. Radiology will contact the patient directly regarding any findings which require additional imaging (Category 0) at this time. I have personally reviewed the images and the above interpretation and agree with the findings. Po Liang MD [facility] documented in this encounter Visit Diagnoses Not on filedocumented in this encounter Care Teams Principal Planner Relationship Specialty Start Date End Date Po Liang MD [address] [place] [id number] PCP - General 08/21/10 01/18/19 documented as of this encounter
--- OUTSIDE RECORDS SUMMARY | 2024-04-06 13:51 | XMS_ITS | Encounter Summary ---
Author Organization [facility] Address [address] [place] [address] Care Team Providers Care Process Line Operator Name Role Phone Melissa Lambert APRN Primary Care Provider Unava ilable Encounter Details Date Type Department Care Team (Late st Contact Info) Description 07/19/2009 Orders Only [facility] [phone] Melissa Lambert APRN Social History Tobacco Use Types Packs/Day Years Used Date Smoking Tobacco: Never Assessed Sex and Gender Information Value Date Recorded Sex Assigned at Not on file Gender Identity Female 03/25/2022 10:56 EDT Sexual Orientation Not on file documented as of this encounter Plan of Treatment Not on file documented as of this encounter Procedures Procedure Name Priority Date/Time Associated Diagnosis Comments MA MAMMO DIAG BILAT DIGITAL 07/20/2009 13:08 EST documented in this encounter Results * MA MAMMO DIAG BILAT DIGITAL (07/20/2009 13:08 EST) Anatomical Region Laterality Modality Other 07/20/2009 13:0 8 EST 07/24/2009 13:08 EST Narrative 07/24/2009 13:08 EST MA MAMMO DIAG BILAT DIGITAL AND BILATERAL DIAGNOSTIC ULTRASOUNDS Jul 20, 2009 01:08:00 PM Signs and Symptoms/Comments: < Patient presented with new bilateral lumps. Same day as routine exam. > Because of the presence of the new palpable lump, the scheduled screening exam was changed to a diagnostic exam. In addition, bilateral ultrasounds were ordered to evaluate the regions of palpable abnormality. Comparison: Prior mammography from 2008 through 2004. Right breast findings: Digital diagnostic views of the right breast were obtained with a marker over the site of new palpable concern in the upper inner quadrant. Focal compression magnification views of this site were obtained. There are scattered fibroglandular densities. There is no dominant mass or suspicious calcification. No significant mammographic change is noted and no finding is noted referable to this site of new palpable concern. Sonography of the right breast was performed. At the time of initial sonographic evaluation, the patient indicated the palpable area to be at 2:00, 3 cm from the nipple. Later on in the diagnostic ultrasound, the patient indicated to us that there was a second palpable site at 630, 5 cm from the nipple. No finding is noted in the region of either palpable area. Impression right breast: Negative mammogram and ultrasound, BI-RADS category one. Annual screening mammography recommended. Left breast findings: Digital diagnostic views of the left breast were obtained the marker over the site of new palpable concern in the upper outer quadrant. Focal compression magnification views of the symptomatic region were subsequently obtained and at this point, the patient indicated a second palpable lump in the left breast just medial and inferior to the nipple so a second marker was placed on the focal compression magnification view. There are scattered fibroglandular densities. There is no dominant mass or suspicious calcification. No significant mammographic change is noted. No finding is noted referable to any of the markers. Sonography of the left breast areas of palpable concern demonstrates no findings. This includes the area of discomfort at 12:00, 1 cm from the nipple and the second palpable area at 7:00, 1 cm from the nipple. Impression left breast: Negative mammogram and ultrasound, BI-RADS category one. Annual screening mammography recommended. The patient was advised to follow up with her doctor regarding any palpable lumps. Results and recommendations were discussed with the patient by the manual machinist at the time of the exam. This examination was interpreted with the aid of computer-assisted detection (CAD) technology. Overall assessment: BI-RADS Category Assessment 1: Negative. Procedure Note 07/24/2009 GIO SORIANO DIGITAL AND BILATERAL DIAGNOSTIC ULTRASOUNDS Jul 20, 2009 01:08:00 PM Signs and Symptoms/Comments: < Patient presented with new bilateral lumps. Same day as routine exam. > Because of the presence of the new palpable lump, the scheduled screening exam was changed to a diagnostic exam. In addition, bilateral ultrasounds were ordered to evaluate the regions of palpable abnormality. Comparison: Prior mammography from 2008 through 2004. Right breast findings: Digital diagnostic views of the right breast were obtained with a marker over the site of new palpable concern in the upper inner quadrant. Focal compression magnification views of this site were obtained. There are scattered fibroglandular densities. There is no dominant mass or suspicious calcification. No significant mammographic change is noted and no finding is noted referable to this site of new palpable concern. Sonography of the right breast was performed. At the time of initial sonographic evaluation, the patient indicated the palpable area to be at 2:00, 3 cm from the nipple. Later on in the diagnostic ultrasound, the patient indicated to us that there was a second palpable site at 630, 5 cm from the nipple. No finding is noted in the region of either palpable area. Impression right breast: Negative mammogram and ultrasound, BI-RADS category one. Annual screening mammography recommended. Left breast findings: Digital diagnostic views of the left breast were obtained the marker over the site of new palpable concern in the upper outer quadrant. Focal compression magnification views of the symptomatic region were subsequently obtained and at this point, the patient indicated a second palpable lump in the left breast just medial and inferior to the nipple so a second marker was placed on the focal compression magnification view. There are scattered fibroglandular densities. There is no dominant mass or suspicious calcification. No significant mammographic change is noted. No finding is noted referable to any of the markers. Sonography of the left breast areas of palpable concern demonstrates no findings. This includes the area of discomfort at 12:00, 1 cm from the nipple and the second palpable area at 7:00, 1 cm from the nipple. Impression left breast: Negative mammogram and ultrasound, BI-RADS category one. Annual screening mammography recommended. The patient was advised to follow up with her doctor regarding any palpable lumps. Results and recommendations were discussed with the patient by the manual machinist at the time of the exam. This examination was interpreted with the aid of computer-assisted detection (CAD) technology. Overall assessment: BI-RADS Category Assessment 1: Negative. Melissa Lambert APRN IM MAMMOGRAPHY [facility] documented in this encounter Visit Diagnoses Not on filedocumented in this encounter Care Teams Process Line Operator Relationship Specialty Start Date End Date Melissa Lambert, RISK INTERN PCP - General 01/02/09 03/20/10 documented as of this encounter
--- OUTSIDE RECORDS SUMMARY | 2024-04-06 13:51 | XMS_ITS | Encounter Summary ---
Author Organization [facility] Address [address] [place] [address] Care Team Providers Care Web Development Intern Name Role Phone Unavailable Primary Care Provider Unavailabl e Encounter Details Date Type Department Care Team (Latest Contact Info) Description 07/18/2008 15:28 EST Hospital Encounter [facility] - Other [address] [place] [address] Devon Young, CLERICAL PROOFREADER Discharge Disposition: Home-Health Care Svc Social History Tobacco Use Types Packs/Day Years Used Date Smoking Tobacco: Never Assessed Sex and Gender Information Value Date Recorded Sex Assigned at Not on file Gender Identity Female 03/25/2022 10:56 EDT Sexual Orientation Not on file documented as of this encounter Discharge Disposition Disposition Code Departure Means Destination Home-Health Care Svc documented in this encounter Plan of Treatment Not on file documented as of this encounter Procedures Procedure Name Priority Date/Time Associated Diagnosis Comments SURGICAL PATHOLOGY Routine 01/03/2009 0:00 EDT documented in this encounter Results * SURGICAL PATHOLOGY (01/03/2009 0:00 EDT) Pathology Report: SURGICAL PATHOLOGY REPORT ? Reports generated via electronic interface contain original data; ? however they are lacking the format of the original report. ? Caution should be taken when reading/interpreti ng unformatted reports. ? Name: ? KEV, DANIA I ? Accession #: ? [id number] ? : ? 1945 (Age: 63) ??F ? Collect Date: ? 01/03/2009 ? Location: ? [facility] ? Receive Date: ? 01/03/2009 ? Provider: DIANA ROSAS MD ? Copy to: DEVON YOUNG APRN ? C DYEFELIPE ROCKTTJulio MD ? Final Pathologic Diagnosis: ? A. ?Colon, ascending, biopsy: ? 1. ?Active colitis, moderate inflammatory activity. ? 2. ? No significant crypt architectural distortion of chronicity. ? 3. ? No granuloma or dysplasia. ? B. ?Colon, descending, biopsy: ? 1. ?Active colitis, moderate to severe inflammatory activity. ? 2. ?No significant crypt architectural distortion of chronicity. ? 3. ?No granuloma or dysplasia. ? C. ?Rectum, biopsy: ? 1. ?Active proctitis, moderate inflammatory activity. ? 2. ?No significant crypt architectural distortion of chronicity. ? 3. ?No granuloma or dysplasia. ? Comment: ? The features seen these biopsies favor infectious/self-li mited process over active chronic inflammatory bowel disease. This case was reviewed at the ? intradepartmental consultation conference. ??(Dr. Russell)/mms ? Document reviewed and electronically signed by: ? Erin Russell MD ? Report ??Date: 01/05/2009 15:27 ? By the signature above, the attending physician certifies that he/she has ? personally conducted a gross and/or microscopic examination of the described ? specimens and rendered or confirmed the above diagnosis. ? Specimen(s) Received: ? A. ?Ascending bx ? B. ? Descending ? C. ? Rectum ? Clinical History: ? Farley colitis, [place]. vs infectious colitis ? Gross Description: ? Received in Taiwo's fixative labelled Dania Angulo and ? ascending are two piedra-pink soft tissues measuring 0.5 x 0.2 x 0.2 cm and 0.6 x 0.2 x 0.2 cm. ??The specimen is entirely submitted as (A). ? Received in Hollande's fixative labelled Kev, Dania and descending ?? are two piedra-pink soft tissues measuring 0.3 x 0.2 x 0.2 cm and 0.5 x 0.3 x 0.3 ?? cm. ??The specimen is entirely submitted as (B). ? Received in Hollande's fixative labelled Kev, Dania and rectum are ?? two piedra-pink soft tissues measuring 0.3 x 0.3 x 0.3 cm and 0.5 x 0.2 x 0.2 cm. ?? The specimen is entirely submitted as (C). (Katrina Tamayo)/mpl ? End of Report ? [facility] EC[facility] 01/03/2009 01/03/2009 18: 37 EDT Diana Rosas MD PATHOLOGY ORDERABLES EM[facility] ECHEVERRI[facility] [address] [place] [address] documented in this encounter Visit Diagnoses Not on filedocumented in this encounter
--- OUTSIDE RECORDS SUMMARY | 2024-04-06 13:51 | XMS_ITS | Encounter Summary ---
Author Organization [facility] Address [address] [place] [address] Care Team Providers Care Personal Counselor Name Role Phone Po Liang MD Primary Care Provider [phone] Reason for Visit * Reason Comments Follow-up pelvic pain, lower b ack pain, urgency, frequency, PVR 0cc Encounter Details Date Type Department Care Team (Latest Contact Info) Description 08/05/2011 9:45 EST Office Visit [facility] Pelvic Medicine and Reconstructive Surgery - Medical Office [facility] [address] [place] [address] Marcin Antoine MD [address] [place] [id number] Urinary frequency (Primary Dx); Pelvic pain in female; Incomplete bladder emptying Social History Tobacco Use Types Packs/Day Years Used Date Smoking Tobacco: Never Assessed Sex and Gender Information Value Date Recorded Sex Assigned at Not on file Gender Identity Female 03/25/2022 10:56 EDT Sexual Orientation Not on file documented as of this encounter Progress Notes * Marcin Antoine MD - 08/06/2011 1133 EST [facility] [address] [place] [id number] Telephone Toll-Free PROGRESS/FOLLOWUP NOTE - 08/05/2011 SUBJECTIVE: Dania Angulo is seen in urologic followup today for history of pelvic prolapse, urinary incontinence and pelvic pain. She does have a history of fibromyalgia as well. I last saw her in 06/2010. At that time she had been complaining of a vague abdominal pelvic pain, which have been ongoing even prior to her surgery. More recently, she has been developing some difficulty emptying her bladder. She reports dysuria and pelvic discomfort before and after urinating. She also has crampyabdominal pain throughout the day. She has constipation on an intermittent basis. When she voids, she is straining to empty the bladder to completion. She has been on oxybutynin in the past, which she felt provided her with some relief of her symptoms. During the day, she drinks large amounts of water, more than one gallon, as well as two cups of coffee per day. She voids almost hourly and gets up 2 to 3 times at night. She does have occasional urge incontinence but no stress incontinence. OBJECTIVE: On examination today, her abdomen is soft and nontender without guarding or rebound. Shedid complain of pain in the lower quadrants the suprapubic region was nontender. Vaginal examination shows a minimal cystocele and minimal rectocele not substantially changed from her previous examination 2 years ago. There is no evidence of vault prolapse. The postvoid residual was 60 mL by catheter and the patient had voided 20 minutes previously, so it was really more like a to 30-40 mL. She did not have levator tenderness, nor subtrigonal tenderness. Her urinalysis today was negative for blood or leukocytes and had a very dilute specific gravity 1.005. The patient, when last seen, had undergone a renal ultrasound, which did not demonstrate any evidence of hydronephrosis nor kidney stones. ASSESSMENT AND PLAN: At this point, Dania seems to have chronic pelvic pain of unknown etiology. Given her voiding symptoms, I am recommending a repeat urodynamic examination as well as cystoscopy to rule out bladder outlet obstruction or any other issues related to the surgery that I performedon her. I assume this will all be negative evaluation, and we will probably find this is a functional disorder, perhaps even related to her fibromyalgia; however, alternative treatments such as amitriptyline and pelvic floor physical therapy could be entertained at that time depending upon the findings. Electronically Signed by Marcin Antoine MD 10/25/2011 12:27 Marcin Antoine MD - Marcin Antoine MD - AN Job ID: Doc ID: [id number] Ext Doc ID: [id number] cc: Po Liang MD * Marcin Antoine MD - 08/05/2011 1024 EST Subjective: Patient ID: Dania Angulo is an 65 y.o. female. Chief Complaint Patient presents with ??? Follow-up pelvic pain, lower back pain, urgency, frequency, PVR 0cc HPI Patient Active Problem List Diagnoses ??? Unspecified myalgia and myositis ??? Pelvic pain in female ??? Incomplete bladder emptying Past Medical History Diagnosis Date ??? Pelvic pain in female 08/05/2011 ??? Incomplete bladder emptying 08/05/2011 No past surgical history on file. No family history on file. Social History Substance Use Topics ??? Smoking status: Not on file ??? Smokeless tobacco: Not on file ??? Alcohol Use: Not on file Current Outpatient Prescriptions on File Prior to Visit Medication Sig Dispense Refill ??? simvastatin (ZOCOR) 10 mg tablet Take 10 mg by mouth daily. ??? cyclobenzaprine (FLEXERIL) 10 mg tablet Take 10 mg by mouth at bedtime as needed. ??? levothyroxine (SYNTHROID) 75 mcg tablet Take 75 mcg by mouth daily. ??? loratadine (ALAVERT) 10 mg tablet Take 10 mg by mouth daily. ??? CALCIUM ORAL Take by mouth daily. ??? Multivitamins with Minerals [...] ??? Feldene (Piroxicam) ??? Iodine-Iodine Containing ??? Other - See Comments Red 40 ??? Penicillins ??? Ponstel (Mefenamic Acid) ??? Rufen ??? Tetracycline Analogues ??? Vistaril (Hydroxyzine Pamoate) ROS - See HPI Objective: There were no vitals taken for this visit. Physical Exam Assessment: Plan: Dania was seen today for follow-up. Diagnoses and associated orders for this visit: Urinary frequency - POCT Urine Dipstick Pelvic pain in female Incomplete bladder emptying Marcin Antoine MD * Marcin Antoine MD - 08/05/2011 1024 EST Dictated. Past Medical history, past surgical history, social history, medications, and drug allergies all reviewed in EMR (PRISM) and updated where appropriate. * Shelley Mane RN - 08/05/2011 0941 EST Results for orders placed in visit on 08/05/11 POCT URINE DIPSTICK Component Value Range Color YELLOW Clarity, UA Clear Glucose Neg Neg Bilirubin Neg Neg Ketones Neg Neg Specific [place] <=1.005 1.001 - 1.035 Blood Neg Neg pH 5.5 4.6 - 8.0 Protein Neg Neg Urobilinogen 0.2 0.2 - 1.0 (E.U./dl) Nitrite Neg Neg Leuk Esterase Neg Neg Tech ID [id number] documented in this encounter Plan of Treatment Not on file documented as of this encounter Procedures Procedure Name Priority Date/Time Associated Diagnosis Comments POCT URINE DIPSTICK, CLINITEK Routine 08/05/2011 9:29 EST Urinary frequency documented in this encounter Results * POCT URINE DIPSTICK (08/05/2011 9:29 EST) Color YELLOW [facility] Clarity, UA Clear [facility] Glucose Neg Neg [facility] Bilirubin Neg Neg [facility] Ketones Neg Neg [facility] Specific [place] <=1.005 1.001 - 1.035 [facility] Blood Neg Neg [facility] pH 5.5 4.6 - 8.0 [facility] Protein Neg Neg [facility] Urobilinogen 0.2 0.2 - 1.0 E.U./dl [facility] Nitrite Neg Neg [facility] Leuk Esterase Neg Neg [facility] environmental marketing representative ID [id number] [facility] Comment:Test performed at [facility] [place] Urine specimen (specimen) 08/05/2011 9:29 EST 08/05/2011 9:38 EST Marcin Antoine MD POINT OF CARE TEST ORDERABLES Performing Organization Address [facility] Co de Phone Number [facility] [address] [place] [address] documented in this encounter Visit Diagnoses Diagnosis Urinary frequency- Primary Pelvic pain in female Unspecified symptom associated with female genital organs Incomplete bladder emptying documented in this encounter Discontinued Medications Medication Sig Discontinue Reason Start Date End Da te estradiol (ESTRACE) 0.01 % (0.1 mg/g) vaginal cream Place 2 g vaginally 2 times daily. Therapy completed 08/05/2011 documented as of this encounter Care Teams Personal Counselor Relationship Specialty Start Date End Date Po Liang MD [address] [place] [id number] PCP - General 08/21/10 01/18/19 documented as of this encounter
--- OUTSIDE RECORDS SUMMARY | 2024-04-06 13:51 | XMS_ITS | Encounter Summary ---
Author Organization [facility] Address [address] [place] [address] Care Team Providers Care Crop Supervisor Name Role Phone Melissa Lambert APRN Primary Care Provider Jazmin musa Encounter Details Date Type Department Care Team (Late st Contact Info) Description 06/14/2010 Results Only [facility] [phone] Point, Of Care User [address] [place] [address] Social History Tobacco Use Types Packs/Day Years Used Date Smoking Tobacco: Never Assessed Sex and Gender Information Value Date Recorded Sex Assigned at Not on file Gender Identity Female 03/25/2022 10:56 EDT Sexual Orientation Not on file documented as of this encounter Plan of Treatment Not on file documented as of this encounter Procedures Procedure Name Priority Date/Time Associated Diagnosis Comments POCT URINALYSIS Routine 06/14/2010 13:34 EST documented in this encounter Results * POCT URINALYSIS (06/14/2010 13:34 EST) Color YELLOW [facility] Clarity, UA Clear [facility] Glucose Neg NEG [facility] Bilirubin Neg NEG [facility] Ketones Neg NEG [facility] Specific [place] <=1.005 1.001 - 1.035 [facility] Blood Neg NEG [facility] pH 5.5 4.6 - 8.0 [facility] Protein Neg NEG [facility] Urobilinogen 0.2 0.2 - 1.0 E.U./dl [facility] Nitrite Neg NEG [facility] Leuk Esterase Neg NEG [facility] [place] [id number] Test performed at [facility] 06/14/2010 13:3 4 EST 06/14/2010 13:44 EST Of Care User Point POINT OF CARE TEST O RDERABLES Performing Organization Address City/State/[facility] Co de Phone Number [facility] [address] [place] [address] documented in this encounter Visit Diagnoses Not on filedocumented in this encounter Care Teams Crop Supervisor Relationship Specialty Start Date End Date Melissa Lambert APRN PCP - General 04/06/10 08/20/10 documented as of this encounter
--- OUTSIDE RECORDS SUMMARY | 2024-04-06 13:51 | XMS_ITS | Encounter Summary ---
Author Organization [facility] Address [address] [place] [address] Care Team Providers Care Sales Representative Raw Fibers Name Role Phone Po Liang MD Primary Care Provider [phone] Reason for Visit * Reason Onset Date Comments Other 01/28/2014 medication quest ion Encounter Details Date Type Department Care Team (Late st Contact Info) Description 01/28/2014 Telephone [facility] G[facility] - [facility] [address] [place] [address] Ginna Lentz RN Other (medication question) Social History Tobacco Use Types Packs/Day Years Used Date Smoking Tobacco: Never Assessed Sex and Gender Information Value Date Recorded Sex Assigned at Not on file Gender Identity Female 03/25/2022 10:56 EDT Sexual Orientation Not on file documented as of this encounter Miscellaneous Notes * Telephone Encounter - Ginna Lentz RN - 01/28/2014 5263 EDT Patient is scheduled for a colonoscopy with Dr Barron on 02/02/14. Patient has Demerol listed as an allergy in her chart. She states that she is not allergic to Demerol. She is aware that she received this medication for her last procedure and did not have any difficulties. Will inform Dr Barron. documented in this encounter Plan of Treatment Not on file documented as of this encounter Visit Diagnoses Not on filedocumented in this encounter Care Teams Sales Representative Raw Fibers Relationship Specialty Start Date End Date Po Liang MD [address] [place] [address] PCP - General 08/21/10 01/18/19 documented as of this encounter
--- OUTSIDE RECORDS SUMMARY | 2024-04-06 13:51 | XMS_ITS | Encounter Summary ---
Author Organization [facility] Address [address] [place] [address] Care Team Providers Care Auto Transmission Technician Name Role Phone Melissa Lambert APRN Primary Care Provider Unava ilable Melissa Lambert APRN Primary Care Provider Unava ilable Encounter Details Date Type Department Care Team (Late st Contact Info) Description 05/19/2008 Before PRISM Converted Visit (Maple) [facility] - Maple conversion [address] [place] [address] Ye Wallis MD [address] [facility], [address] [place] [address] Social History Tobacco Use Types Packs/Day Years Used Date Smoking Tobacco: Never Assessed Sex and Gender Information Value Date Recorded Sex Assigned at Not on file Gender Identity Female 03/25/2022 10:56 EDT Sexual Orientation Not on file documented as of this encounter Consult Notes * Ye Wallis MD - 01/27/2009 0022 EDT DIVISION OF RHEUMATOLOGY CONSULTATION - 05/19/2008 I saw Dania Angulo in the Rheumatology Clinic today in consultation at your request for pain she is having in her shoulders, many joints and in her back primarily. As you recall, she is a 62-year-old woman who has been troubled with fibromyalgia for at least the past 10 years. For this she has tried Flexeril, Aspercreme, Zanaflex, none of which have helped significantly. She did undergo a period of physical therapy for about six weeks, which did involve some aquatics and she felt this was difficult, but had some improvement by the end of it. 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 She underwent injections of these areas in 02/2008, butsaid it had no help. She does say that occasionally she has had swelling in the hands, but this has not been persistent. She has a mother who has had osteoarthritis and rheumatoid arthritis. 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 Otherwise she has no other connective tissue symptoms including no oral ulcers, hair loss, rashes, adenopathy. Medications currently include; Claritin, Flector, Flexeril, Premarin, Zanaflex, Prilosec, aspirin, Synthroid and ranitidine. There is a long list of allergies, which is documented in the chart. Personal Social History: The patient is recently. Occupation: She used to work as a cleaning person, but stopped four years ago. She does not smoke. She does not drink alcohol. Past Medical History: Is notable for abdominal pain, for which the patient underwent a cystocele repair, gastroesophageal reflux disease and hypothyroidism. Family History: Is notable for mother with osteoarthritis and rheumatoid arthritis. There is also apositive family history for cancer and coronary artery disease. Review of Systems: Constitutional: No fever, chills, or weight loss. Eyes: No visual changes or sicca symptoms. ENT: No nasal or oral ulcers. Cardiovascular: No hypertension or palpitations. Lungs: No dyspnea or asthma. Gastrointestinal: No nausea, vomiting or diarrhea. Genitourinary: No UTI's. Musculoskeletal: See HPI above. Skin: No rashes. Neurological: No seizures or headaches. Endocrine: History of hypothyroidism on replacement. Psychiatric: No known history of depression. On physical exam she is a very pleasant, quiet, middle-aged woman. Blood Pressure: 116/74. Pulse: 92, regular. Weight: 138 pounds. Height 62-3/4 inches. HEENT: Exam was within normal limits with no evidence of conjunctivitis or uveitis. There are no oral ulcers present. The neck is supple with goodrange of motion. There is no adenopathy. The chest is clear. The heart revealsno murmurs or rubs. The abdomen is benign with no hepatosplenomegaly. The skin reveals no rashes. Neurologic exam is grossly normal with normal deep tendon reflexes, sensation and strength throughout. Musculoskeletal: Exam demonstrates no synovial swelling in any joints and all joints have full range of motion. However,there are some mild changes of osteoarthritis in the hands, in the PIP and DIP joints, although these are not significantly swollen, red or tender today. There is tenderness in many muscle groups andparticularly the tendon insertions. These include in particular, the flexors and extensors of the wrists at the elbow as well as the biceps tendon insertion on the coracoid process. There is also tenderness over the trapezius muscles and over the paraspinal muscles in the back. She has good flexionand extension in the lower spine and the Ruth Ann is normal increasing from 15 to 20 cm. Lower extremities demonstrate good range of motion with no synovial swelling. The knees in particular arequite cool with no evidence of any synovial inflammation. Here again, there is tenderness at the extremes of flexion and extension in the hips and knees and over the trochanteric bursae. Assessment: Fibromyalgia. I think by far this is the leading cause of most of her pain and it my experience, the best course of action for this is a very rigorous physical therapy program including aquatics as aprominent component. I talked to the patient at length about this and am going to have her go back to theaquatics program, physical [place] group in [place] for a period of time and hope they canhelp her find a pool that she can use on a regular basis for lap swimming. I explained to her that this should involve a minimum of three times per week, 30 minutes for each session. I think this would be the best therapy for her at this time and I would not add any other antiinflammatories or pain medication as in my experience, they are not terribly helpful and she is on a good combination of them already. 2. Mild osteoarthritis of the hands. These do not seem to be terribly symptomatic at this time and I think the other exercise program should be adequate for this. 3. Back pain. Again, much of this is due to paraspinal muscle spasm and part of the fibromyalgia and I think it would be best to get that under control first and then see how much residual back pain she has. There certainly was no evidence of any sacroiliitis by exam or any inflammatory process going on in the spine. However, I think that the aquatics program will be beneficial for the degenerative joint disease that she does have in her spine. you again for the opportunity to see Dania Angulo. Yours very truly, Signed by Ye Wallis MD 06/09/2008 17:00 Ye Wallis MD - Ye Wallis MD - FADY Job ID: [id number] Doc ID: [id number] cc: Melissa Lambert APRN documented in this encounter Plan of Treatment Not on file documented as of this encounter Visit Diagnoses Not on filedocumented in this encounter Care Teams Auto Transmission Technician Relationship Specialty Start Date End Date Melissa Lambert APRN PCP - General 01/02/09 03/20/10 Melissa Lambert APRN PCP - General 11/09/08 01/01/09 documented as of this encounter
--- OUTSIDE RECORDS SUMMARY | 2024-04-06 13:51 | XMS_ITS | Encounter Summary ---
Author Organization [facility] Address [address] [place] [address] Care Team Providers Care Adzing And Boring Machine Helper Name Role Phone Melissa Lambert APRN Primary Care Provider Unava ilable Encounter Details Date Type Department Care Team (Latest Contact Info) Description 01/03/2009 11:29 EDT - 01/03/2009 23:59 EDT Hospital Encounter [facility] [address] [place] [address] Po Barron MD Discharge Disposition: Home or Self Care Social History Tobacco Use Types Packs/Day Years Used Date Smoking Tobacco: Never Assessed Sex and Gender Information Value Date Recorded Sex Assigned at Not on file Gender Identity Female 03/25/2022 10:56 EDT Sexual Orientation Not on file documented as of this encounter Discharge Disposition Disposition Code Departure Means Destination Home or Self Detention documented in this encounter Procedure Notes * Inpatient, Physician - 01/04/2009 1347 EDT * Inpatient, Physician - 01/04/2009 1347 EDTAssociated Order(s): ORDERS - SCANNED * Inpatient, Physician - 01/04/2009 1346 EDTAssociated Order(s): ORDERS - SCANNED * Inpatient, Physician - 01/04/2009 1346 EDT documented in this encounter Miscellaneous Notes * Scanned Note-Null - Inpatient, Physician - 01/04/2009 1347 EDT * Scanned Note-Null - Inpatient, Physician - 01/04/2009 1347 EDT * Brief Op Note - Inpatient, Physician - 01/04/2009 1347 EDT * Brief Op Note - Inpatient, Physician - 01/04/2009 0942 EDT documented in this encounter Plan of Treatment Not on file documented as of this encounter Procedures Procedure Name Priority Date/Time Associated Diagnosis Comments ORDERS - SCANNED 01/04/2009 13:4 7 EDT ORDERS - SCANNED 01/04/2009 13:4 6 EDT OVA/PARASITE EXAM Routine 01/03/2009 15: 10 EDT C. DIFFICILE TOXIN Routine 01/03/2009 15 :10 EDT BACTERIAL CULTURE/SMEAR, FECES Routine 01/03/2009 15:10 EDT documented in this encounter Results * ORDERS - SCANNED (01/04/2009 13:47 EDT) 01/04/2009 13:4 7 EDT Narrative 01/04/2009 14:42 EDT Ordered by an unspecified provider. [facility], Physician - 01/04/2009 13:47 EDT Physician Inpatient MD ADMISSION ORDERAB LES * ORDERS - SCANNED (01/04/2009 13:46 EDT) 01/04/2009 13:4 6 EDT Narrative 01/04/2009 14:42 EDT Ordered by an unspecified provider. [facility], Physician - 01/04/2009 13:46 EDT Physician Inpatient MD ADMISSION ORDERAB LES * C. DIFFICILE TOXIN (01/03/2009 15:10 EDT) Specimen Description Feces Leuken's specimen [facility] Result No C.difficile toxin A or toxin B detected. [facility] Report Status Final 01/04/2009 [facility] 01/03/2009 15:1 0 EDT 01/03/2009 16:05 EDT Po Barron MD MICROBIOLOGY - GENER AL ORDERABLES Performing Organization Address [facility] Co de Phone Number [facility] [address] [place] [address] * OVA/PARASITE EXAM (01/03/2009 15:10 EDT) Specimen Description Feces Leuken's specimen [facility] Result No ova and parasites seen. (If Cryptosporidium, Cyclospora, or microsporidium are suspected, specific tests must be requested.) [facility] Report Status Final 01/04/2009 [facility] 01/03/2009 15:1 0 EDT 01/03/2009 16:05 EDT Po Barron MD MICROBIOLOGY - GENER AL ORDERABLES Performing Organization Address [facility] de Phone Number [facility] [address] [place] [address] * BACTERIAL CULTURE/SMEAR, FECES (01/03/2009 15:10 EDT) Specimen Description Feces Leuken's specimen [facility] Gram Smear Result Few Polys Mixed fecal ike present [facility] Result Few CAMPYLOBACTE R JEJUNI [facility] Report Status Final 01/08/2009 [facility] 01/03/2009 15:1 0 EDT 01/03/2009 16:05 EDT Po Barron MD MICROBIOLOGY - GENER AL ORDERABLES Performing Organization Address [facility] de Phone Number [facility] [address] [place] [address] documented in this encounter Visit Diagnoses Not on filedocumented in this encounter Care Teams Adzing And Boring Machine Helper Relationship Specialty Start Date End Date Melissa Lambert, ROUTE RETURNER PCP - General 01/02/09 03/20/10 documented as of this encounter
--- OUTSIDE RECORDS SUMMARY | 2024-04-06 13:51 | XMS_ITS | Encounter Summary ---
Author Organization [facility] Address [address] [place] [address] Care Team Providers Care School Principal Name Role Phone Arminda Dunn Primary Care Provider [phone] Encounter Details Date Type Department Care Team (Latest Contact Info) Description 01/26/2019 6:17 EDT - 01/26/2019 23:59 EDT Hospital Encounter [place] [id number] [place] [address] Po Liang MD [address] [facility] [address] [place] [address] Discharge Disposition: Auto Discharge Social History Tobacco [...] on filedocumented in this encounter Care Teams School Principal Relationship Specialty Start Date End Date Arminda Dunn [address] [place] [address] PCP - General 01/19/19 02/16/24 documented as of this encounter
--- OUTSIDE RECORDS SUMMARY | 2024-04-06 13:51 | XMS_ITS | Encounter Summary ---
Author Organization [facility] Address [address] [place] [address] Care Team Providers Care Scientist Immunology Name Role Phone Po Liang MD Primary Care Provider [phone] Encounter Details Date Type Department Care Team (Latest Contact Info) Description 04/03/2010 11:50 EDT - 04/03/2010 23:59 EDT Hospital Encounter [facility] [address] [place] [address] Po Barron MD Discharge Disposition: Home or [...] Take 81 mg by mouth daily. 12/17/2019 BLACK COHOSH ORAL Take by mouth 2 times daily. 06/14/2010 CALCIUM ORAL Take by mouth daily. 012 estradiol (ESTRACE) 0.01 % (0.1 mg/g) vaginal cream Place 2 g vaginally 2 times daily. 08/05/2011 estrogens, conjugated, (PREMARIN) 0.3 mg tablet Take 0.3 mg by mouth daily. 06/14/2010 Evening [place] Oil 500 mg Cap Take by mouth 3 times daily. 06/14/2010 Flaxseed Oil Oil by [facility].(Non-Drug; Combo Route) route 3 times daily. 06/14/2010 levothyroxine (SYNTHROID) 75 mcg tablet Take 75 mcg by mouth daily. 12/17/2019 omeprazole (PRILOSEC) 20 mg capsule Take 20 mg by mouth 2 times daily. 12/17/2019 oxybutynin (DITROPAN XL) 15 mg CR tablet Take 15 mg by mouth daily. 06/14/2010 tizanidine (ZANAFLEX) 4 mg tablet Take 4 mg by mouth at bedtime. 06/14/2010 zolpidem (AMBIEN) 10 mg tablet Take 10 mg by mouth at bedtime as needed for Sleep. 06/14/2010 documented as of this encounter Discharge Disposition Disposition Code Departure Means Destination Home or Self Alf documented in this encounter Procedure Notes * Inpatient, Physician - 04/03/2010 0000 EDTAssociated Order(s): ORDERS - SCANNED * Inpatient, Physician - 04/03/2010 0000 EDT documented in this encounter Miscellaneous Notes * Scanned Note-Null - Inpatient, Physician - 04/03/2010 0000 EDT * Scanned Note-Null - Inpatient, Physician - 04/03/2010 0000 EDT * Brief Op Note - Inpatient, Physician - 04/03/2010 0000 EDT documented in this encounter Plan of Treatment Not on file documented as of this encounter Procedures Procedure Name Priority Date/Time Associated Diagnosis Comments ORDERS - SCANNED 04/04/2010 9:59 EDT documented in this encounter Results * ORDERS - SCANNED (04/04/2010 9:59 EDT) 04/04/2010 9:59 EDT Narrative Procedure Note Inpatient, Physician - 04/03/2010 0:00 EDT Physician Inpatient MD ADMISSION ORDERAB LES POINT OF CARE documented in this encounter Visit Diagnoses Not on filedocumented in this encounter Care Teams Scientist Immunology Relationship Specialty Start Date End Date Po Liang MD [address] [address] PCP - General 04/02/10 04/05/10 documented as of this encounter
--- OUTSIDE RECORDS SUMMARY | 2024-04-06 13:51 | XMS_ITS | Encounter Summary ---
Author Organization [facility] Address [address] [place] [address] Care Team Providers Care Nylon Operator Name Role Phone Melissa Lambert APRN Primary Care Provider Unava ilable Encounter Details Date Type Department Care Team (Late st Contact Info) Description 07/03/2010 Results Only Imaging [facility] [phone] Po Liang MD [address] [facility] [address] [place] [address] Social History Tobacco Use Types [...] Associated Diagnosis Comments MA MAMMO SCREENING DIGITAL 08/22/2010 13:55 EST documented in this encounter Results * MA MAMMO SCREENING DIGITAL (08/22/2010 13:55 EST) Anatomical Region Laterality Modality Other 08/22/2010 13:5 5 EST 08/23/2010 10:02 EST Narrative 08/23/2010 10:02 EST Comparison is made to films from 07/20/2009 (bilateral) and films from 07/18/2008 (bilateral) and films from 07/16/2007 (bilateral) and films from 06/12/2006 (bilateral) and films from 06/11/2005 (bilateral). Bilateral Breast Findings: (CAD used to interpret routine digital): There are scattered fibroglandular densities. No significant masses, calcifications or other abnormalities are seen. IMPRESSION: BILATERAL BREASTS - CATEGORY 1, NEGATIVE Negative, no evidence of malignancy. Normal interval follow-up is recommended in 12 months. OVERALL ASSESSMENT - NEGATIVE END OF IMPRESSION The patient will be notified of her/his breast imaging results via a lay letter from Radiology. ??Radiology will contact the patient directly regarding any findings which require additional imaging (Category 0) at this time. Procedure Note 08/23/2010 Comparison is made to films from 07/20/2009 (bilateral) and films from 07/18/2008 (bilateral) and films from 07/16/2007 (bilateral) and films from 06/12/2006 (bilateral) and films from 06/11/2005 (bilateral). Bilateral Breast Findings: (CAD used to interpret routine digital): There are scattered fibroglandular densities. No significant masses, calcifications or other abnormalities are seen. IMPRESSION: BILATERAL BREASTS - CATEGORY 1, NEGATIVE Negative, no evidence of malignancy. Normal interval follow-up is recommended in 12 months. OVERALL ASSESSMENT - NEGATIVE END OF IMPRESSION The patient will be notified of her/his breast imaging results via a lay letter from Radiology. Radiology will contact the patient directly regarding any findings which require additional imaging (Category 0) at this time. Po Liang MD IMG MAMMOGRAPHY JAREN STEWARD documented in this encounter Visit Diagnoses Not on filedocumented in this encounter Care Teams Nylon Operator Relationship Specialty Start Date End Date Melissa Lambert APRN PCP - General 04/06/10 08/20/10 documented as of this encounter
--- OUTSIDE RECORDS SUMMARY | 2024-04-06 13:51 | XMS_ITS | Encounter Summary ---
Author Organization [facility] Address [address] [place] [address] Care Team Providers Care Pre Billing Clinician Name Role Phone Po Liang MD Primary Care Provider [phone] Encounter Details Date Type Department Care Team (Latest Contact Info) Description 02/02/2014 12:50 EDT - 02/02/2014 23:59 EDT Hospital Encounter [facility] Endoscopy - [facility] [address] [place] [address] Po Barron MD Discharge Disposition: Home or [...] Code Departure Means Destination Home or Self Nursing Home documented in this encounter Plan of Treatment Pending Results Name Type Priority Associated Diagnoses Date /Time OUTSIDE IMAGES - MAMMO BREAST Imaging 09/02/2013 6:51 EST Scheduled Orders Name Type Priority Associated Diagnoses Orde r Schedule OUTSIDE IMAGES - MAMMO BREAST Imaging One Time for 1 Occurrences starting 08/15/2015 until 08/15/2015 documented as of this encounter Procedures Procedure Name Priority Date/Time Associated Diagnosis Comments MA 2D/3D BILATERAL ANDRES ROUTINE SCREENING MAMMO 09/07/2015 14:12 EST documented in this encounter Results * MA 2D/3D BILATERAL ANDRES ROUTINE SCREENING MAMMO (09/07/2015 14:12 EST) Anatomical Region Laterality Modality Other 09/07/2015 14:1 2 EST 09/07/2015 17:06 EST Narrative 09/07/2015 17:06 EST Comparison has been made to previous images. Bilateral Breast Findings: (Routine digital views with CAD and 3D images with Tomosynthesis) There are scattered fibroglandular densities (25% - [...] will contact your patient directly. Procedure Note Jade Rizvi MD - 09/07/2015 Comparison has been made to previous images. Bilateral Breast Findings: (Routine digital views with CAD and 3D images with Tomosynthesis) There are scattered fibroglandular densities (25% - [...] on filedocumented in this encounter Care Teams Pre Billing Clinician Relationship Specialty Start Date End Date Po Liang MD [address] [place] [id number] PCP - General 08/21/10 01/18/19 documented as of this encounter
--- OUTSIDE RECORDS SUMMARY | 2024-04-06 13:51 | XMS_ITS | Encounter Summary ---
Author Organization [facility] Address [address] [place] [address] Care Team Providers Care Angle Dozer Operator Name Role Phone Po Liang MD Primary Care Provider [phone] Encounter Details Date Type Department Care Team (Latest Contact Info) Description 01/18/2016 Orders Only [facility] Gastroenterology - [facility] [address] [place] [address] Po Barron MD Abnormal finding on imaging (Primary Dx) Social History Tobacco Use Types [...] End Da te polyethylene glycol (GOLYTELY) 236-22.74-6.74 -5.86 gram suspensionIndications:Abno rmal finding on imaging TAKE DIRECTED. 1 Bottle 0 01/18/2016 12/17/2019 documented in this encounter Plan of Treatment Not on file documented as of this encounter Visit Diagnoses Diagnosis Abnormal finding on imaging- Primary Other nonspecific (abnormal) findings on radiological and other examinations of body structure documented in this encounter Discontinued Medications Medication Sig Discontinue Reason Start Date End Da te polyethylene glycol (GOLYTELY) 236-22.74-6.74 gram suspensionIndications:Family history of malignant neoplasm of gastrointestinal tract TAKE DIRECTED.. Duplicate Therapy 10/07/2013 01/18/2016 documented as of this encounter Care Teams Angle Dozer Operator Relationship Specialty Start Date End Date Po Liang MD [address] [address] PCP - General 08/21/10 01/18/19 documented as of this encounter
--- OUTSIDE RECORDS SUMMARY | 2024-04-06 13:51 | XMS_ITS | Encounter Summary ---
Author Organization [facility] Address [address] [place] [address] Care Team Providers Care Mold Machine Operator Name Role Phone Po Liang MD Primary Care Provider [phone] Reason for Visit * Reason Comments Near Syncope Syncopal episode joshua dalton visiting her on M6, patient also reports of palpitations and left sided neck pain Encounter Details Date Type Department Care Team (Late st Contact Info) Description 08/11/2014 15:02 EST - 08/11/2014 16:54 EST Emergency [facility] Emergency Department - [address] [address] Charu Guerrier MD [address] [place] [address], Level 1 [place] [address] Emergency, MD Jacobo Vasovagal syncope (Primary Dx) Discharge Disposition: Home or Self Care Social [...] Sign Reading Time Taken Comments Blood Pressure 149/67 08/11/2014 1513 EST Pulse 89 08/11/2014 1513 EST Temperature 36.6 ??C (97.9 ??F) 08/11/2014 1513 EST Respiratory Rate 16 08/11/2014 1513 EST Oxygen Saturation 100% 08/11/2014 1513 EST Inhaled Oxygen Concentration - - Weight 60.8 kg (134 lb) 08/11/2014 1513 EST Height 160 cm (5' 2.99) 08/11/2014 1513 EST Body Mass Index 23.74 08/11/2014 1513 EST documented in this encounter Discharge Instructions * Discharge Instructions* Charu Guerrier MD - 08/11/2014 16:44 EST Try to eat frequent meals to try to drink more fluids rest today if you are able * Attachments The following attachments cannot be sent through Care Everywhere. * FAINTING (LATVIAN) * LIGHTHEADEDNESS OR FAINTNESS (LATVIAN) documented in this encounter Medications at Time [...] Departure Means Destination Home or Self Care Car Home documented in this encounter ED Notes * Charu Guerrier MD - 08/11/2014 1638 EST I performed a history and exam of Dania Angulo and discussed the case with the resident. I reviewed this individual's note and I concur with the documented findings and plan of care. Patient with a history of claustrophobia who was in a small area her was undergoing a lumbar puncture she was holding his hand she became very hot nauseous like she needed to get out get someair. She walked out of the room she felt lightheaded herself against the wall and slid down. She apparently lost consciousness for a few seconds. Patient is now awake alert no acute distress. She states family has been under significant stress with her 's illness apparently this too much pressure on her as well as that her brother and she is due to be at the in just an hour ortwo Lab Results GLUCOSE, GLUCOMETER (Final result) Component (Lab Inquiry) Collection Time Result Time Glucose, Fingerstick Mixer Helper ID 08/11/14 16:06:00 08/11/14 16:08:31 [id number] Test Performed by Nursing Services ELECTROLYTES (Final result) Component (Lab Inquiry) Collection Time Result Time Sodium Potassium Chloride CO2 08/11/14 16:00:00 08/11/14 16:29:42 140 3.5 98 30 Patient is at this time baseline I do believe this is a vagal response to stress. Plan discharge patient has been maintained on bedside monitor no arrhythmias noted her complexes are narrow and are not prolonged. She has had po fluids here, feels well and ready to go * Yovanny Burk - 08/11/2014 1611 EST Blood drawn via saline lock per protocol, tiger tube(s) sent to lab per order. * Yovanny Burk - 08/11/2014 1520 EST 12 Lead EKG Performed by YOVANNY BURK and shown to Fareed documented in this encounter Miscellaneous Notes * ED Resident - Patricia Allred - 08/11/2014 1609 EST DOS: 08/11/2014 Chief Complaint Patient presents with ??? Near Syncope Syncopal episode while visiting her on M6, patient also reports of palpitations and left sided neck pain The patient is a 68 y.o. female who presents today with Near Syncope Near Syncope Associated symptoms: dizziness and palpitations Associated symptoms: no chest pain, no seizures and no shortness of breath Pt has PMH GERD, HLD, and hypothyroidism. While in curtain enclosed hospital room accompanying her to a procedure this morning she felt herself became nauseas and warm with a rapid heart beatand subsequently syncopized. She has a known history a claustrophobia. No cardiac history. No recent illnesses . Review of Systems Respiratory: Negative for shortness of breath. Cardiovascular: Positive for palpitations and syncope. Negative for chest pain. Neurological: Positive for dizziness and light-headedness. Negative for tremors and seizures. Psychiatric/Behavioral: The patient is nervous/anxious. Past Medical History Diagnosis Date ??? Pelvic pain in female 08/05/2011 ??? Incomplete bladder emptying 08/05/2011 ??? Colon polyp ??? Ulcerative colitis ??? GERD (gastroesophageal reflux disease) Past Surgical History Procedure Laterality Date ??? Incontinence surgery 2007 Allergies Allergen Reactions ??? Ampicillin ??? Asa [Aspirin] ??? Bentyl [Dicyclomine] ??? Cafergot [Ergotamine-Caffeine] ??? Codeine ??? Darvocet A500 [Propoxyphene N-Acetaminophen] ??? Dimetapp [Brompheniramine-Pseudoephedrin] ??? Elavil ??? Feldene [Piroxicam] ??? Iodine And Iodide Containing Products ??? Latex, Natural Rubber Hives ??? Other - See Comments Red 40 ??? Penicillins ??? Ponstel [Mefenamic Acid] ??? Rufen ??? Tetracyclines ??? Vistaril [Hydroxyzine Pamoate] History Substance Use Topics ??? Smoking status: Never Smoker ??? Smokeless tobacco: Never Used ??? Alcohol Use: No Family History Problem Relation Age of Onset ??? Colon Cancer Mother 69 ??? Ovarian Cancer Mother ??? Breast Cancer Mother ??? Colon Cancer Sister 57 ??? Heart Attack Brother 47 ??? Colon Polyps Neg Hx ??? Endometrial Cancer Neg Hx ??? Esophageal Cancer Neg Hx ??? Pancreatic Cancer Neg Hx ??? Rectal Cancer Neg Hx ??? Stomach Cancer Neg Hx Vital Signs Temp: 36.6 ??C (97.9 ??F) Temp src: Oral Pulse: 89 Cardiac Rhythm: Normal sinus rhythm Resp: 16 SpO2: 100 % BP: 149/67 mmHg BP Device: BP Machine Patient Position: Sitting BP Cuff Location: Right arm O2 Device: None (Room air) Physical Exam Constitutional: She is oriented to person, place, and time. She appears well- developed and well-nourished. No distress. HENT: Head: Normocephalic and atraumatic. Eyes: EOM are normal. Pupils are equal, round, and reactive to light. Neck: No JVD present. Cardiovascular: S1 normal, S2 normal and normal heart sounds. Tachycardia present. Pulmonary/Chest: Effort normal and breath sounds normal. Abdominal: Soft. Bowel sounds are normal. Neurological: She is alert and oriented to person, place, and time. She has normal strength. No cranial nerve deficit or sensory deficit. Coordination normal. Skin: She is not diaphoretic. Radiology orders: None Imaging Results None EKG 12-LEAD (Results Pending) Procedures ED Course: A medical screening exam was performed. Pt hemodynamically stable. EKG showed normal sinus rhythym.Electrolytes WNL. Syncopal episode consistent with vasovagal episode. Patient discharged home in stable condition. Disposition: No disposition on file The patient's pain was managed to an adequate level weighing risk vs. benefit of further medications. Upon departure from the Emergency Department, the patient's pain was 0 on a zero to ten scale. Condition at departure from the Emergency Department: Good ED Current Prescriptions None [facility] Final diagnoses: None PCP: Po Liang 08/11/2014 16:09 No flowsheet data found. documented in this encounter Plan of Treatment Not on file documented as of this encounter Procedures Procedure Name Priority Date/Time Associated Diagnosis Comments ECG REPORT - SCANNED 08/19/2014 11:27 EST GLUCOSE, GLUCOMETER Routine 08/11/2014 1 6:06 EST ELECTROLYTES STAT 08/11/2014 16:00 EST EKG 12-LEAD STAT 08/11/2014 15:18 EST documented in this encounter Results * ECG REPORT - SCANNED (08/19/2014 11:27 EST) 08/19/2014 11:2 7 EST Scan 2 Theatre Program Director PROCEDURE/MINOR LOGAN GICAL ORDERABLES * GLUCOSE, GLUCOMETER (08/11/2014 16:06 EST) Glucose, Fingerstick 98 70 - 100 mg/dl 08/11/2014 16:08 [facility] Mixer Helper ID [id number] 08/11/2014 16:08 [facility] Comment:Test Performed by Nu ing Services BLOOD SPECIMEN / Unknown 08/11/2014 16:06 EST 08/11/2014 16:08 EST Provider Unknown CHEMISTRY & BLOOD GA S ORDERABLES Performing Organization Address [facility] Co de Phone Number [facility] [address] [place] [address] * ELECTROLYTES (08/11/2014 16:00 EST) Sodium 140 136 - 145 mEq/L 08/11/2014 16:29 [facility] Potassium 3.5 3.5 - 5.0 mEq/L 08/11/2014 16:29 [facility] Chloride 98 96 - 110 mEq/L 08/11/2014 16:29 [facility] CO2 30 24 - 32 mEq/L 08/11/2014 16:29 [facility] Blood specimen (specimen) BLOOD SPECIMEN / Unknown 08/11/2014 16:00 EST 08/11/2014 16:14 EST Patricia Agustin MD CHEMISTRY & BLOOD GA S ORDERABLES Performing Organization Address [facility] Co de Phone Number [facility] [address] [place] [address] * EKG 12-LEAD (08/11/2014 15:18 EST) 08/11/2014 15:1 8 EST Narrative [facility] EKG - 08/18/2014 9:10 EST ?[facility] ? Test Date: ?2014-08-11 Pat Name: ? DANIA ANGULO ? Department: ?? ED ? Room: ? AC14 Gender: ? F ?Machine Coremaker: ?? [id number] : ?1945 ? Requested By: PATRICIA ALLRED MD Order Number: [id number] ? Reading MD: ?? MICHEAL LISANDRA MD ? Measurements Intervals ?[place] ? Rate: ? 90 ? P: ?57 IN: ? 179 ?QRS: ?28 QRSD: ? 79 ? T: ?46 QT: ? 329 ? QTc: ?404 ? Interpretive Statements SINUS RHYTHM POSSIBLE RIGHT VENTRICULAR CONDUCTION DELAY Otherwise normal ECG. Compared to ECG 08/21/2005 10:50:22 No significant changes I reviewed the tracing and have either agreed or edited the findings in this report. Electronically Signed On 08-18-14 09:10:54 EST by MICHEAL FRY MD. Procedure Note Micheal Fry MD - 08/18/2014 [facility] Test Date: 2014-08-11 Pat Name: DANIA ANGULO Department: ED Room: [facility] Gender: F Machine Coremaker: [id number] : 1945 Requested By: PATRICIA ALLRED MD Order Number: [id number] Reading MD: MICHEAL CAMPO Measurements Intervals [place] Rate: 90 P: 57 IN: 179 QRS: 28 QRSD: 79 T: 46 QT: 329 QTc: 404 Interpretive Statements SINUS RHYTHM POSSIBLE RIGHT VENTRICULAR CONDUCTION DELAY Otherwise normal ECG. Compared to ECG 08/21/2005 10:50:22 No significant changes I reviewed the tracing and have either agreed or edited the findings inthis report. Electronically Signed On 08-18-14 09:10:54 EST by MICHELLE DURAN. Patricia Agustin MD CARDIAC ECG ORDERABL ES [facility] EKG documented in this encounter Visit Diagnoses Diagnosis Vasovagal syncope- Primary Syncope and collapse documented in this encounter Orders Lab Orders Without Results Count Last Ordered D ate First Ordered Date POCT GLUCOSE 1 08/11/2014 documented in this encounter Care Teams Mold Machine Operator Relationship Specialty Start Date End Date Po Liang MD [address] [place] [id number] PCP - General 08/21/10 01/18/19 documented as of this encounter
--- OUTSIDE RECORDS SUMMARY | 2024-04-06 13:51 | XMS_ITS | Encounter Summary ---
Author Organization [facility] Address [address] [place] [address] Care Team Providers Care Project Management Consultant Name Role Phone Po Liang MD Primary Care Provider [phone] Encounter Details Date Type Department Care Team (Latest Contact Info) Description 02/02/2014 11:55 EDT - 02/02/2014 14:27 EDT Hospital Encounter [facility] Endoscopy Outpatient [address] [place] [address] Po Barron MD Discharge Disposition: Home or [...] Sign Reading Time Taken Comments Blood Pressure 135/71 02/02/2014 1415 EDT Pulse - - Temperature 35.6 ??C (96.1 ??F) 02/02/2014 1313 EDT Respiratory Rate 14 02/02/2014 1415 EDT Oxygen Saturation 99% 02/02/2014 1415 EDT Inhaled Oxygen Concentration - - Weight 60.8 kg (134 lb) 02/02/2014 1225 EDT Height 160 cm (5' 2.99) 02/02/2014 1225 EDT Body Mass Index 23.74 02/02/2014 1225 EDT documented in this encounter Medications at Time [...] or Self Care documented in this encounter H&P Notes * Po Barron MD - 02/02/2014 1241 EDT Sedation for Procedure History & Physical Date: 02/02/2014 Time: 12:41 Location: [address] Planned Procedure: Colonoscopy Chief Complaint/Indications for Procedure: Family history of CRC (Mother at 69, Sister at 57). History Previous Complication with Sedation and/or Anesthesia? No Allergies: Allergies Allergen Reactions ??? Ampicillin ??? Asa (Aspirin) ??? Bentyl (Dicyclomine) ??? Cafergot (Ergotamine-Caffeine) ??? Codeine ??? Darvocet A500 (Propoxyphene N-Acetaminophen) ??? Demerol (Meperidine) Pt denies this ??? Dimetapp (Brompheniramine-Pseudoephedrin) ??? Elavil ??? Feldene (Piroxicam) ??? Iodine-Iodine Containing ??? Latex, Natural Rubber Hives ??? Other - See Comments Red 40 ??? Penicillins ??? Ponstel (Mefenamic Acid) ??? Rufen ??? Tetracyclines ??? Vistaril (Hydroxyzine Pamoate) Current Medications: Current Outpatient Prescriptions Medication Sig [...] times daily. ??? polyethylene glycol (GOLYTELY) 236-22.74-6.74 gram suspension TAKE DIRECTED.. 1 Bottle 0 ??? simvastatin (ZOCOR) 10 mg tablet Take 20 mg by mouth daily. Current Facility-Administered Medications Medication Dose Route Frequency Provider Last Rate Last Dose ??? fentaNYL citrate (PF) 50 mcg/mL injection 100-250 mcg 100-250 mcg intravenous Once PRN Po Barron MD ??? flumazenil (ROMAZICON) injection 0.2 mg 0.2 mg intravenous PRN Po Barron MD ??? lactated ringers (LR) infusion 30 mL/hr intravenous CONTINUOUS Po Barron MD 30 mL/hr at 02/02/14 1240 30 mL/hr at 02/02/14 1240 ??? meperidine (PF) (DEMEROL) 100 mg/mL injection 25-200 mg 25-200 mg intravenous Once PRN Po Barron MD ??? midazolam (PF) (VERSED) 1 mg/mL injection 1-10 mg 1-10 mg intravenous Once PRN Po Barron MD ??? nalOXone (NARCAN) injection 0.4 mg 0.4 mg intravenous PRN Po Barron MD ??? ondansetron (PF) (ZOFRAN) injection 2-4 mg 2-4 mg intravenous PRN Po Barron MD Past Medical History: Past Medical History Diagnosis Date ??? Pelvic pain in female 08/05/2011 ??? Incomplete bladder emptying 08/05/2011 ??? Colon polyp ??? Ulcerative colitis ??? GERD (gastroesophageal reflux disease) Social History: Past Surgical History Procedure Laterality Date ??? Incontinence surgery 2007 History Substance Use Topics ??? Smoking status: Never Smoker ??? Smokeless tobacco: Never Used ??? Alcohol Use: No Family History: Family History Problem Relation Age of Onset ??? Colon Cancer Mother 69 ??? Ovarian Cancer Mother ??? Breast Cancer Mother ??? Colon Cancer Sister 57 ??? Heart Attack Brother 47 ??? Colon Polyps Neg Hx ??? Endometrial Cancer Neg Hx ??? Esophageal Cancer Neg Hx ??? Pancreatic Cancer Neg Hx ??? Rectal Cancer Neg Hx ??? Stomach Cancer Neg Hx Review of Systems as pertinent: Physical Exam Vital Signs: BP 153/71 Temp(Src) 36 ??C (96.8 ??F) (Tympanic) Resp 20 Ht 160 cm (62.99) Wt60.782 kg (134 lb) BMI 23.74 kg/m2 SpO2 100% Heart Examination: Cardiac Regularity: Regular Respiratory Examination: Respiratory Pattern: Regular Breath Sounds Right: Clear Breath Sounds Left: Clear Additional physical exam related to the proposed procedure, patient activity, disease state and treatment as pertinent: Assessment Previous complications with sedation or anesthesia?: No Airway Concerns: None Anesthesia Classification: ASA 2 Plan: Proceed with sedation for procedure Fasting Time: Time of last liquid intake: 0800 Date of Last Liquid Intake: 02/02/14 Time of last solid intake: 1700 Date of last solid intake: 01/31/14 Patient Appropriate Candidate for Planned Sedation?: Yes Po Barron MD 02/02/2014 12:41 documented in this encounter Procedure Notes * [facility], SCAN 2 - 02/03/2014 0037 EDTAssociated Order(s): PROCEDURE REPORTS - SCANNED documented in this encounter Plan of Treatment Not on file documented as of this encounter Procedures Procedure Name Priority Date/Time Associated Diagnosis Comments PROCEDURE REPORTS - SCANNED 02/03/2014 0:37 EDT documented in this encounter Results * PROCEDURE REPORTS - SCANNED (02/03/2014 0:37 EDT) 02/03/2014 0:37 EDT Narrative 02/03/2014 2:02 EDT Procedure Note [facility], SCAN 2 - 02/03/2014 0:37 EDT Scan 2 Glass Blowing Instructor PROCEDURE/MINOR LOGAN GICAL ORDERABLES documented in this encounter Visit Diagnoses Not on filedocumented in this encounter Administered Medications Inactive Administered Medications - up to 3 most recent administrations Medication Order MAR Action Action Date Dose Rate Site lactated ringers (LR) infusion 30 mL/hr, intravenous, CONTINUOUS, Starting on Fri02/02/14 at 1230, Until Fri02/02/14 at 1629, Routine, Preprocedure New Bag 02/02/2014 12:40 EDT 30 mL/hr 30 mL/hr meperidine (PF) (DEMEROL) 100 mg/mL injection 25-200 mg 25-200 mg, intravenous, ONCE PRN, 1 dose, Starting on Fri02/02/14 at 1209, Until Fri02/02/14 at 1301, Other, sedation, Routine, Intraprocedure Given 02/02/2014 13:01 EDT 100 mg midazolam (PF) (VERSED) 1 mg/mL injection 1-10 mg 1-10 mg, intravenous, ONCE PRN, 1 dose, Starting on Fri02/02/14 at 1209, Until Fri02/02/14 at 1302, Sedation, Routine, Intraprocedure Given 02/02/2014 13:02 EDT 3 mg ondansetron (PF) (ZOFRAN) injection 2-4 mg 2-4 mg, intravenous, PRN, Starting on Fri02/02/14 at 1209, Until Fri02/02/14 at 1629, Nausea, Vomiting, Routine, Intraprocedure Given 02/02/2014 14:02 EDT 2 mg documented in this encounter Historical Medications * This list may reflect changes made after this encounter. Medication Sig Dispensed Refills Start Date End Date esomeprazole (NEXIUM) 40 mg capsule Take 40 mg by mouth every morning before breakfast. 12/17/2019 added in this encounter Orders Medications Ordered That Bernardo ht Not Have Been Administered Count Last Ordered Date First Ordered Date fentaNYL citrate (PF) 50 mcg /mL injection 100-250 mcg 1 02/02/2014 flumazenil (ROMAZICON) injection 0.2 mg 1 0 02/02/2014 nalOXone (NARCAN) injection 0.4 mg 1 2013 Transfer Count Last Ordered Date First Orde red Date NOTIFY PPS OF DISCHARGE COMPLETE 1 02/03/20 14 Discharge Count Last Ordered Date First Orde red Date DISCHARGE PATIENT 1 02/02/2014 documented in this encounter Care Teams Project Management Consultant Relationship Specialty Start Date End Date Po Liang MD [address] [place] [id number] PCP - General 08/21/10 01/18/19 documented as of this encounter
--- OUTSIDE RECORDS SUMMARY | 2024-04-06 13:51 | XMS_ITS | Encounter Summary ---
Author Organization [facility] Address [address] [place] [address] Care Team Providers Care Soil Chemist Name Role Phone Melissa Lambert APRN Primary Care Provider Jazmin musa Encounter Details Date Type Department Care Team (Late st Contact Info) Description 12/01/2009 Abstract [facility] Pelvic Medicine and Reconstructive Surgery - Medical Office [facility] [address] [place] [address] Melissa Lambert APRN Social History Tobacco Use [...] Diagnoses Not on filedocumented in this encounter Historical Medications * This list may reflect changes made after this encounter. Medication Sig Dispensed Refills Start Date End Date ACETAMINOPHEN (TYLENOL ORAL) Take by mouth as needed. Multivitamins with Minerals Tab Take 1 Tablet by mouth daily. loratadine (ALAVERT) 10 mg tablet Take 1 Tablet by mouth daily. BLACK COHOSH ORAL Take by mouth 2 times daily. 06/14/2010 Flaxseed Oil Oil by [email or web address].(Non-Drug; Combo Route) route 3 times daily. 06/14/2010 estradiol (ESTRACE) 0.01 % (0.1 mg/g) vaginal cream Place 2 g vaginally 2 times daily. 08/05/2011 zolpidem (AMBIEN) 10 mg tablet Take 10 mg by mouth at bedtime as needed for Sleep. 06/14/2010 omeprazole (PRILOSEC) 20 mg capsule Take 20 mg by mouth 2 times daily. 12/17/2019 oxybutynin (DITROPAN XL) 15 mg CR tablet Take 15 mg by mouth daily. 06/14/2010 Evening [place] Oil 500 mg Cap Take by mouth 3 times daily. 06/14/2010 tizanidine (ZANAFLEX) 4 mg tablet Take 4 mg by mouth at bedtime. 06/14/2010 aspirin chewable 81 mg tablet Take 81 mg by mouth daily. 12/17/2019 CALCIUM ORAL Take by mouth daily. 012 levothyroxine (SYNTHROID) 75 mcg tablet Take 75 mcg by mouth daily. 12/17/2019 estrogens, conjugated, (PREMARIN) 0.3 mg tablet Take 0.3 mg by mouth daily. 06/14/2010 added in this encounter Care Teams Soil Chemist Relationship Specialty Start Date End Date Melissa Lambert APRN PCP - General 01/02/09 03/20/10 documented as of this encounter
--- OUTSIDE RECORDS SUMMARY | 2024-04-06 13:51 | XMS_ITS | Encounter Summary ---
Author Organization [facility] Address [address] [place] [address] Care Team Providers Care Animal Groomer Name Role Phone Po Liang MD Primary Care Provider [phone] Encounter Details Date Type Department Care Team (Late st Contact Info) Description 09/23/2016 Results Only Imaging [facility] [phone] Po Liang MD [address] [facility] [address] [place] [address] Social History Tobacco Use Types [...] MA 2D/3D BILATERAL ANDRES ROUTINE SCREENING MAMMO 09/23/2016 13:14 EDT documented in this encounter Results * MA 2D/3D BILATERAL ANDRES ROUTINE SCREENING MAMMO (09/23/2016 13:14 EDT) Anatomical Region Laterality Modality Other 09/23/2016 13:1 4 EDT 09/25/2016 12:10 EDT Narrative 09/25/2016 12:10 EDT Comparison has been made to previous [...] and agree with the findings. Procedure Note Sia Lorenzo MD - 09/25/2016 Comparison has been made to previous images. [...] findings. Po Liang MD IMG MAMMOGRAPHY ORDE NICHELLE documented in this encounter Visit Diagnoses Not on filedocumented in this encounter Care Teams Animal Groomer Relationship Specialty Start Date End Date Po Liang MD [address] [place] [id number] PCP - General 08/21/10 01/18/19 documented as of this encounter
--- OUTSIDE RECORDS SUMMARY | 2024-04-06 13:51 | XMS_ITS | Encounter Summary ---
Author Organization [facility] Address [address] [place] [address] Care Team Providers Care Reset Merchandiser Name Role Phone Melissa Lambert APRN Primary Care Provider Unacoleman ilable Encounter Details Date Type Department Care Team (Latest Contact Info) Description 11/09/2009 10:58 EDT - 11/09/2009 23:59 EDT Hospital Encounter [facility] [address] [place] [address] Tha Novoa PA [facility] [address] [place] [address] Discharge Disposition: Auto Discharge Social History Tobacco [...] on filedocumented in this encounter Care Teams Reset Merchandiser Relationship Specialty Start Date End Date Melissa Lambert APRN PCP - General 01/02/09 03/20/10 documented as of this encounter
--- OUTSIDE RECORDS SUMMARY | 2024-04-06 13:51 | XMS_ITS | Encounter Summary ---
Author Organization [facility] Address [address] [place] [address] Care Team Providers Care Typing Checker Name Role Phone Po Liang MD Primary Care Provider [phone] Encounter Details Date Type Department Care Team (Latest Contact Info) Description 09/23/2016 12:36 EDT - 09/23/2016 23:59 EDT Hospital Encounter [facility] [id number] [place] [address] Po Liang MD [address] [facility] [address] [place], [place] [id number] Discharge Disposition: Auto Discharge Social History Tobacco [...] on filedocumented in this encounter Care Teams Typing Checker Relationship Specialty Start Date End Date Po Liang MD [address] [address] PCP - General 08/21/10 01/18/19 documented as of this encounter
--- OUTSIDE RECORDS SUMMARY | 2024-04-06 13:51 | XMS_ITS | Encounter Summary ---
Author Organization [facility] Address [address] [place] [address] Care Team Providers Care Supervisor Sample Name Role Phone Po Liang MD Primary Care Provider [phone] Encounter Details Date Type Department Care Team (Latest Contact Info) Description 08/22/2010 13:27 EST - 08/22/2010 23:59 EST Hospital Encounter [facility] [address] [place] [address] Po Liang MD [address] [facility] [address] [place], [place] [address] Discharge Disposition: Home or Self Care Social [...] Code Departure Means Destination Home or Self Long-Term documented in this encounter Plan of Treatment Not on file documented as of this encounter Visit Diagnoses Not on filedocumented in this encounter Care Teams Supervisor Sample Relationship Specialty Start Date End Date Po Liang MD [address] [address] PCP - General 08/21/10 01/18/19 documented as of this encounter
--- OUTSIDE RECORDS SUMMARY | 2024-04-06 13:51 | XMS_ITS | Encounter Summary ---
Author Organization [facility] Address [address] [place] [address] Care Team Providers Care Geodetic Engineer Name Role Phone Po Liang MD Primary Care Provider [phone] Reason for Visit * Reason Onset Date Comments Other 07/29/2011 Encounter Details Date Type Department Care Team (Late st Contact Info) Description 07/29/2011 Telephone [facility] Pelvic Medicine and Reconstructive Surgery - Medical Office [facility] [address] [place] [address] Marcin Antoine MD [address] [place] [phone] Other Social History Tobacco Use Types Packs/Day Years Used Date Smoking Tobacco: Never Assessed Sex and Gender Information Value Date Recorded Sex Assigned at Not on file Gender Identity Female 03/25/2022 10:56 EDT Sexual Orientation Not on file documented as of this encounter Miscellaneous Notes * Telephone Encounter - Rayne Lyons RN - 08/01/2011 1358 EST Pt notified of negative urine results and advised to stay well hydrated. * Telephone Encounter - Priya Alexander - 07/31/2011 1030 EST TC placed to pt. She plans to visit lab today. * Telephone Encounter - Priya Alexander - 07/29/2011 1229 EST TC from pt. Has f/u appt on 08-05-11 with RTK. Now c/o dysuria and dark colored urine. [facility] lab for u/a and c&s. Pt will go to lab in the morning. Our office will f/u when labs are available. * Telephone Encounter - Magui Block - 07/29/2011 1156 EST Patient is having a hard time urinating and having burning when she urinates. She also is feeling pulling in your vaginal area. She is s/p Transvaginal paravaginal repair of cystocele using human dermal allograft. 2. Transvaginal repair of enterocele with high ligation of enterocele sac. 3. Suburethral sling procedure with SPARC polypropylene sling. 4. Cystoscopy 12/30/06 documented in this encounter Plan of Treatment Not on file documented as of this encounter Visit Diagnoses Diagnosis Dysuria- Primary documented in this encounter Care Teams Geodetic Engineer Relationship Specialty Start Date End Date Po Liang MD [address] [place] [address] PCP - General 08/21/10 01/18/19 documented as of this encounter
--- OUTSIDE RECORDS SUMMARY | 2024-04-06 13:51 | XMS_ITS | Encounter Summary ---
Author Organization [facility] Address [address] [place] [address] Care Team Providers Care Hand Stone Polisher Name Role Phone Arminda Dunn Primary Care Provider [phone] Reason for Visit * Reason Comments Other EMG Encounter Details Date Type Department Care Team (Late st Contact Info) Description 12/17/2019 15:00 EDT Procedure visit [facility] [address] [place] [address] Jemal Mahmood MD [address] [facility] [address] [place] [address] Finger numbness (Primary Dx) Social History Tobacco Use Types [...] have Coronavirus / COVID-19? No / Unsure 12/17/2019 14:59 EDT documented as of this encounter Last Filed Vital Signs Vital Sign Reading Time Taken Comments Blood Pressure 146/66 12/17/2019 1503 EDT Pulse 72 12/17/2019 1503 EDT Temperature - - Respiratory Rate 20 12/17/2019 1503 EDT Oxygen Saturation - - Inhaled Oxygen Concentration - - Weight - - Height - - Body Mass Index - - documented in [...] No 12/17/2019 documented as of this encounter Progress Notes * Jemal Mahmood MD - 12/17/2019 1500 EDT [facility] Clinical Neurophysiology Nerve Conduction and Electromyography Report PATIENT NAME: Dania Angulo PATIENT : 1945 PCP: Arminda Dunn DATE OF SERVICE: 12/17/2019 History: Dania Angulo is a 74 y.o. female who presents to EMG on referral by [facility] forevaluation of right arm symptoms suspicious for carpal or cubital tunnel syndrome. She describes getting scratched by her cat when she was trying to release it from being stuck by its tail, then she developed an infection in the hand predominantly on the palmar side which also spread up into the forearm somewhat. Since that has resolved she has been left with numbness in her right pinky. No tingling, no pain. She does not seem to have any weakness in the hand. This happened several months ago. No significant neck pain or electrical radiating feelings in the arms. With time it seems to be improving somewhat. Past Medical History: Diagnosis Date ??? Colon polyp ??? GERD (gastroesophageal reflux disease) ??? Incomplete bladder emptying 08/05/2011 ??? Pelvic pain in female 08/05/2011 ??? Ulcerative colitis ([facility]) Past Surgical History: Procedure Laterality Date ??? APPENDECTOMY ??? HYSTERECTOMY ??? INCONTINENCE SURGERY 2007 No prescription medications REVIEW OF SYSTEMS: 5-point ROS performed and was negative except as noted in HPI. Clinical Exam: General appearance: alert, normal body habitus, no distress Skin: No rashes or lesions HEENT: NC/AT, no oral lesions Extremities: all extremities warm and well perfused, no peripheral edema Motor Exam: Normal bulk and tone. Upper Extremity Strength Deltoids Biceps Triceps WE FE IO APB Chief Port Director Right 5/5 5/5 5/5 5/5 5/5 5/5 5/5 5/5 Left 5/5 5/5 5/5 5/5 5/5 5/5 5/5 5/5 DTRs: 2+ and symmetric at biceps, triceps, brachioradialis. Sensation: Diminished pinprick sensation in the right pinky finger, and the hyperthenar eminence and ulnar aspect of the dorsum of the hand. Normal above the wrist. Electrodiagnostic Findings: Nerve Conduction: -The right median sensory and motor responses were normal. -The right ulnar sensory response had very mild peak latency prolongation (4 ms) with amplitude in the borderline normal range. The right ulnar motor response at the abductor digiti minimi was normalincluding across the elbow. The right ulnar motor response comparing abductor digiti minimi to the first dorsal interosseous showed a prolongation of the FDI of only 1.1 ms, and the distal motor latency of the FDI was normal. In addition comparison of wrist to palmar stimulation of the FDI responsedid not show focal slowing across the wrist. The right ulnar F-wave was normal. EMG: -All muscles examined were normal including the right flexor digitorum profundus of digits 4 and 5,first dorsal interosseous, abductor digit minimi, as well as abductor pollicis brevis and pronator teres. For waveforms/values/tables of EMG/nerve conduction study please see accompanying scanned document in the scans/media tab in EMR. Electrodiagnostic Impression: - This study was essentially normal. The very mild prolongation of the right ulnar sensory responsepeak latency and borderline amplitude may potentially be indicative of mild irritation of the ulnarsensory branch, though the responses of the digit 5 and dorsal ulnar cutaneous responses were similar enough not to be convincing of a lesion at the wrist. In addition no motor abnormalities of the ulnar nerve suggested a problem at the wrist or elbow. -There is no evidence of right median neuropathy at the wrist. Jemal Mahmood MD documented in this encounter Plan of Treatment Not on file documented as of this encounter Visit Diagnoses Diagnosis Finger numbness- Primary Disturbance of skin sensation documented in this encounter Discontinued Medications Medication Sig Discontinue Reason Start Date End Da te polyethylene glycol (GOLYTELY) 236-22.74-6.74 -5.86 gram suspensionIndications:Ab normal finding on imaging TAKE DIRECTED. Duplicate order 01/18/2016 12/17/2019 omeprazole (PRILOSEC) 20 mg capsule Take 20 mg by mouth 2 times daily. Duplicate order 12/17/2019 esomeprazole (NEXIUM) 40 mg capsule Take 40 mg by mouth every morning before breakfast. Duplicate order 12/17/2019 aspirin chewable 81 mg tablet Take 81 mg by mouth daily. Duplicate order 12/17/2019 simvastatin (ZOCOR) 10 mg tablet Take 20 mg by mouth daily. Duplicate order 12/17/2019 cyclobenzaprine (FLEXERIL) 10 mg tablet Take 10 mg by mouth at bedtime. Duplicate order 06/14/2010 12/17/2019 levothyroxine (SYNTHROID) 75 mcg tablet Take 75 mcg by mouth daily. Duplicate order 12/17/2019 documented as of this encounter Care Teams Hand Stone Polisher Relationship Specialty Start Date End Date Arminda Dunn [address] [place] [address] PCP - General 01/19/19 02/16/24 documented as of this encounter
--- OUTSIDE RECORDS SUMMARY | 2024-04-06 13:51 | XMS_ITS | Encounter Summary ---
Author Organization [facility] Address [address] [place] [address] Care Team Providers Care Soda Drier Feeder Name Role Phone Melissa Lambert APRN Primary Care Provider Jazmin musa Encounter Details Date Type Department Care Team (Latest Contact Info) Description 07/20/2009 12:28 EST - 07/20/2009 14:20 EST Hospital Encounter [address] [address] Destiny Victoria MD [address] [place] [phone] Discharge Disposition: Auto Discharge Social History Tobacco [...] Priority Date/Time Associated Diagnosis Comments RAD US AV BREAST BILATERAL - TWO BREASTS 07/20/2009 15:11 EST documented in this encounter Results * RAD US AV BREAST BILATERAL - TWO BREASTS (07/20/2009 15:11 EST) Anatomical Region Laterality Modality Other 07/20/2009 15:1 1 EST 07/24/2009 13:06 EST Narrative 07/24/2009 13:06 EST MA MAMMO DIAG BILAT DIGITAL AND [...] were discussed with the patient by the manager strategic at the time of the exam. This [...] were discussed with the patient by the manager strategic at the time of the exam. This examination was interpreted with the aid of computer-assisted detection (CAD) technology. Overall assessment: BI-RADS Category Assessment 1: Negative. Melissa Lambert APRN IMG US ORDERABLES documented in this encounter Visit Diagnoses Not on filedocumented in this encounter Care Teams Soda Drier Feeder Relationship Specialty Start Date End Date Melissa Lambert APRN PCP - General 01/02/09 03/20/10 documented as of this encounter
--- OUTSIDE RECORDS SUMMARY | 2024-04-06 13:51 | XMS_ITS | Encounter Summary ---
Author Organization [facility] Address [address] [place] [address] Care Team Providers Care Slab Depiler Operator Name Role Phone Po Liang MD Primary Care Provider [phone] Encounter Details Date Type Department Care Team (Late st Contact Info) Description 07/31/2012 Results Only Imaging [facility] [phone] Po Liang MD [address] [facility] [address] [place] [address] Social History Tobacco Use Types [...] Associated Diagnosis Comments MA MAMMO SCREENING DIGITAL 08/24/2012 10:53 EST documented in this encounter Results * MA MAMMO SCREENING DIGITAL (08/24/2012 10:53 EST) Anatomical Region Laterality Modality Other 08/24/2012 10:5 3 EST 08/24/2012 17:05 EST Narrative 08/24/2012 17:05 EST Comparison has been made to previous images. A biopsy marker clip is present in the upper outer quadrant on the right breast. ?? Bilateral Breast Findings: (Routine digital views with CAD) There are scattered fibroglandular densities (25% - 50% fibroglandular). No significant masses, calcifications or other abnormalities are seen. IMPRESSION: BILATERAL BREASTS: Negative, no evidence of malignancy. Normal interval follow-up is recommended in 12 months. This patient has provided information on her clinical history questionnaire to suggest that she may benefit from breast cancer risk assessment. If this has not yet been performed, consideration should be given to referral to the High Risk Clinic at the [facility] ([phone]) for risk management. OVERALL ASSESSMENT - CATEGORY 1 - NEGATIVE END OF IMPRESSION These results will be communicated to your patient via a lay letter from Radiology. If any additional imaging is needed we will contact your patient directly. Procedure Note 08/24/2012 Comparison has been made to previous images. A biopsy marker clip is present in the upper outer quadrant on the right breast. Bilateral Breast Findings: (Routine digital views with CAD) There are scattered fibroglandular densities (25% - 50% fibroglandular). No significant masses, calcifications or other abnormalities are seen. IMPRESSION: BILATERAL BREASTS: Negative, no evidence of malignancy. Normal interval follow-up is recommended in 12 months. This patient has provided information on her clinical history questionnaire to suggest that she may benefit from breast cancer risk assessment. If this has not yet been performed, consideration should be given to referral to the High Risk Clinic at the [facility] ([phone]) for risk management. OVERALL ASSESSMENT - CATEGORY 1 - NEGATIVE END OF IMPRESSION These results will be communicated to your patient via a lay letter from Radiology. If any additional imaging is needed we will contact your patient directly. Po Liang MD IMG MAMMOGRAPHY JAREN STEWARD documented in this encounter Visit Diagnoses Not on filedocumented in this encounter Care Teams Slab Depiler Operator Relationship Specialty Start Date End Date Po Liang MD [address] [place] [address] PCP - General 08/21/10 01/18/19 documented as of this encounter
--- OUTSIDE RECORDS SUMMARY | 2024-04-06 13:51 | XMS_ITS | Encounter Summary ---
Author Organization [facility] Address [address] [place] [address] Care Team Providers Care Welder Assembler Name Role Phone Po Liang MD Primary Care Provider [phone] Encounter Details Date Type Department Care Team (Latest Contact Info) Description 09/26/2017 6:21 EDT - 09/26/2017 23:59 EDT Hospital Encounter [address] [place] [address] Po Liang MD [address] [facility] [address] [place], [place] [id number] Discharge Disposition: Auto Discharge Social History Tobacco [...] on filedocumented in this encounter Care Teams Welder Assembler Relationship Specialty Start Date End Date Po Liang MD [address] [address] PCP - General 08/21/10 01/18/19 documented as of this encounter
--- OUTSIDE RECORDS SUMMARY | 2024-04-06 13:51 | XMS_ITS | Encounter Summary ---
Author Organization [facility] Address [address] [place] [address] Care Team Providers Care Microbiology Lab Analyst Name Role Phone Arminda Dunn Primary Care Provider [phone] Encounter Details Date Type Department Care Team (Latest Contact Info) Description 12/17/2019 Travel Social History Tobacco Use Types Packs/Day [...] 14:59 EDT documented as of this encounter Functional [...] on filedocumented in this encounter Care Teams Microbiology Lab Analyst Relationship Specialty Start Date End Date Arminda Dunn 4 [facility] [place], [place] [id number] PCP - General 01/19/19 02/16/24 documented as of this encounter
--- OUTSIDE RECORDS SUMMARY | 2024-04-06 13:52 | XMS_ITS | Encounter Summary ---
Author Organization [facility] Address [address] [place] [address] Care Team Providers Care Record Clerk Name Role Phone Unavailable Primary Care Provider Unavailabl e Encounter Details Date Type Department Care Team (Latest Contact Info) Description 11/26/2006 13:59 EDT Hospital Encounter [facility] [address] [place] [address] Marcin Antoine MD [address] [place] [phone] Discharge Disposition: Auto Discharge Social History Tobacco [...]
--- OUTSIDE RECORDS SUMMARY | 2024-04-06 13:52 | XMS_ITS | Encounter Summary ---
Author Organization [facility] Address [address] [place] [address] Care Team Providers Care Metal Drawer Name Role Phone Unavailable Primary Care Provider Unavailabl e Encounter Details Date Type Department Care Team (Latest Contact Info) Description 05/06/2006 12:57 EST Hospital Encounter [facility] - Other [address] [place] [address] Amanda Barrera MD [address] [place] [phone] Discharge Disposition: Home or Self Care Social [...]
--- OUTSIDE RECORDS SUMMARY | 2024-04-06 13:52 | XMS_ITS | Encounter Summary ---
Author Organization [facility] Address [address] [place] [address] Care Team Providers Care Pump Installer Name Role Phone Unavailable Primary Care Provider Unavailabl e Encounter Details Date Type Department Care Team (Late st Contact Info) Description 02/24/2008 11:15 EDT Hospital Encounter [facility] [address] [place] [address] Mindy Flores MD [address] [place] [phone] Social History Tobacco Use Types Packs/Day Years [...] 12:34 EST documented as of this encounter Plan of Treatment Not on file documented as of this encounter Visit Diagnoses Not on filedocumented in this encounter
--- OUTSIDE RECORDS SUMMARY | 2024-04-06 13:52 | XMS_ITS | Encounter Summary ---
Author Organization [facility] Address [address] [place] [address] Care Team Providers Care Guest House Manager Name Role Phone Unavailable Primary Care Provider Unavailabl e Encounter Details Date Type Department Care Team (Late st Contact Info) Description 12/11/2006 13:02 EDT Hospital Encounter [facility] [address] [place] [address] Unknown, Provider, Social History Tobacco Use Types Packs/Day Years [...]
--- OUTSIDE RECORDS SUMMARY | 2024-04-06 13:52 | XMS_ITS | Encounter Summary ---
Author Organization [facility] Address [address] [place] [address] Care Team Providers Care Shake Cutter Name Role Phone Unavailable Primary Care Provider Unavailabl e Encounter Details Date Type Department Care Team (Late st Contact Info) Description 10/30/2006 11:54 EDT - 10/30/2006 11:59 EDT Hospital Encounter [facility] - Other [address] [place] [address] Daquan Landeros MD [address] [facility] [address] [place] [phone] Melissa Lambert, OPTICAL DESIGNER Discharge Disposition: Home or Self Care Social [...] Procedure Name Priority Date/Time Associated Diagnosis Comments N. GONORRHOEAE AMPLIFIED PROBE Routine 10/30/2006 9:45 EDT ZZCHLAMYDIA TRACHOMATIS AMPLIFIED PROBE Routine 10/30/2006 9:45 EDT documented in this encounter Results * N. GONORRHOEAE AMPLIFIED PROBE (10/30/2006 9:45 EDT) Result No Neisseria gonorrhoeae DNA detected by lead application architect mediated amplification. [facility] Report Status Final [id number] [facility] Specimen Description Cervix [facility] 10/30/2006 9:45 EDT 10/30/2006 15:58 EDT Melissa Lambert APRN MICROBIOLOGY - GENER AL ORDERABLES Performing Organization Address [facility] de Phone Number [facility] [address] [place] [address] * CHLAMYDIA TRACHOMATIS AMPLIFIED PROBE (10/30/2006 9:45 EDT) Specimen Description Cervix [facility] Result No Chlamydia trachomatis DNA detected by lead application architect mediated amplification. [facility] Report Status Final [id number] [facility] 10/30/2006 9:45 EDT 10/30/2006 15:58 EDT Melissa Lambert APRN MICROBIOLOGY - GENER AL ORDERABLES Performing Organization Address [facility] de Phone Number [facility] [address] [place] [address] documented in this encounter Visit Diagnoses Not on filedocumented in this encounter
--- OUTSIDE RECORDS SUMMARY | 2024-04-06 13:52 | XMS_ITS | Encounter Summary ---
Author Organization [facility] Address [address] [place] [address] Care Team Providers Care Medical Office Receptionist Assistant Name Role Phone Unavailable Primary Care Provider Unavailabl e Encounter Details Date Type Department Care Team (Latest Contact Info) Description 01/29/2006 8:11 EDT - 01/29/2006 11:59 EDT Hospital Encounter [facility] [address] [place] [address] Tosin Wan PA-C [facility] [address] [place] [address] Discharge Disposition: Auto Discharge Social History Tobacco [...] Priority Date/Time Associated Diagnosis Comments RAD US NECK/THYROID 01/29/2006 9:29 EDT CHEST PA AND LATERAL 01/29/2006 8:42 EDT documented in this encounter Results * RAD US NECK/THYROID (01/29/2006 9:29 EDT) Anatomical Region Laterality Modality Other 01/29/2006 9:29 EDT Narrative 01/21/2009 13:18 EDT 60 YR OLD W/ H/O PARTIAL THYROIDECTOMY, FRIM TENDER NODULE, DYSPHAGIA THYROID ULTRASOUND: 01/29/2006 FINDINGS: The right lobe of the thyroid measures 1.9 x 0.6 x 0.6 cm. ??It is very small and heterogenous. ??No definite measurable mass is seen. The left lobe measures 4.1 cm x 1.3 cm x 0.9 cm. ??There is a 4-mm cyst at the upper pole of the left lobe and a 6-mm nodule at the lower pole of the left lobe. ??Otherwise, the left lobe is normal in size and shape and echogenicity. ??In the region of a palpable nodule on the right, there is a lymph node which measures 1.1 x 1.2 x 0.7 cm. ??This has a fatty hilum and a benign appearance. ??I note also that there is asymmetry in the submandibular glands. ??On the right, the submandibular gland measures 3.2 x 3.7 x 1.5 cm. ??On the left, it measures 2.9 x 4.2 x 0.8 cm. ??The significance of that is unclear. ??I doubt that it has anything to do with the patient's sensation of dysphagia or airway obstruction. IMPRESSIONS: 1. ??Small heterogenous right lobe of the thyroid. 2. ??Normal sized left lobe with a cyst and a small nodule, as described. 3. ??Small palpable node in the right cervical region. 4. ??Asymmetry of the submandibular glands, cause and significance unclear. /tns Procedure Note Donell Daniel MD - 01/21/2009 60 YR OLD W/ H/O PARTIAL THYROIDECTOMY, FRIM TENDER NODULE, DYSPHAGIA THYROID ULTRASOUND: 01/29/2006 FINDINGS: The right lobe of the thyroid measures 1.9 x 0.6 x 0.6 cm. It is very small and heterogenous. No definite measurable mass is seen. The left lobe measures 4.1 cm x 1.3 cm x 0.9 cm. There is a 4-mm cyst at the upper pole of the left lobe and a 6-mm nodule at the lower pole of the left lobe. Otherwise, the left lobe is normal in size and shape and echogenicity. In the region of a palpable nodule on the right, there is a lymph node which measures 1.1 x 1.2 x 0.7 cm. This has a fatty hilum and a benign appearance. I note also that there is asymmetry in the submandibular glands. On the right, the submandibular gland measures 3.2 x 3.7 x 1.5 cm. On the left, it measures 2.9 x 4.2 x 0.8 cm. The significance of that is unclear. I doubt that it has anything to do with the patient's sensation of dysphagia or airway obstruction. IMPRESSIONS: 1. Small heterogenous right lobe of the thyroid. 2. Normal sized left lobe with a cyst and a small nodule, as described. 3. Small palpable node in the right cervical region. 4. Asymmetry of the submandibular glands, cause and significance unclear. /arian Tosin Wan PA-C IMG US ORDERABLES * CHEST PA AND LATERAL (01/29/2006 8:42 EDT) Anatomical Region Laterality Modality Other 01/29/2006 8:42 EDT Narrative 01/21/2009 13:19 EDT COUGH AND WHEEZING PA AND LATERAL VIEWS OF THE CHEST 01/29/2006 831 INDICATIONS: ??Cough and wheezing. COMPARISON: ??None available at this time. IMPRESSION: 1. ??Normal chest. 2. ??Degenerative changes of the thoracic spine including anterior spondylosis. FINDINGS: ??The cardiomediastinal silhouette is within normal limits. Lung volumes are symmetric. ??The lungs and costophrenic angles are clear. ??Airway is in the midline. ??Soft tissues are grossly unremarkable. ??Degenerative changes of the thoracic spine T: ??01/29/2006 /kmlennox I have personally reviewed the images and the above interpretation and agree with the findings. Procedure Note Yahir Huff / Po Monaco MD - 01/21/2009 COUGH AND WHEEZING PA AND LATERAL VIEWS OF THE CHEST 01/29/2006 831 INDICATIONS: Cough and wheezing. COMPARISON: None available at this time. IMPRESSION: 1. Normal chest. 2. Degenerative changes of the thoracic spine including anterior spondylosis. FINDINGS: The cardiomediastinal silhouette is within normal limits. Lung volumes are symmetric. The lungs and costophrenic angles are clear. Airway is in the midline. Soft tissues are grossly unremarkable. Degenerative changes of the thoracic spine /kenneth I have personally reviewed the images and the above interpretation and agree with the findings. Tosin Wan PA-C [facility] NG ORDERABLES documented in this encounter Visit Diagnoses Not on filedocumented in this encounter
--- OUTSIDE RECORDS SUMMARY | 2024-04-06 13:52 | XMS_ITS | Encounter Summary ---
Author Organization [facility] Address [address] [place] [address] Care Team Providers Care Front Desk Attendant Name Role Phone Unavailable Primary Care Provider Unavailabl e Encounter Details Date Type Department Care Team (Late st Contact Info) Description 11/11/2007 10:33 EDT Hospital Encounter [address] [address] Mindy Flores MD [address] [place] [phone] Social History Tobacco Use Types Packs/Day [...]
--- OUTSIDE RECORDS SUMMARY | 2024-04-06 13:52 | XMS_ITS | Encounter Summary ---
Author Organization [facility] Address [address] [place] [address] Care Team Providers Care Roaster Operator Name Role Phone Melissa Lambert APRN Primary Care Provider Unava ilable Melissa Lambert APRN Primary Care Provider Unava ilable Encounter Details Date Type Department Care Team (Late st Contact Info) Description 01/15/2007 Before PRISM Converted Visit (Maple) [facility] - Maple conversion [address] [place] [address] Marcin Antoine MD [address] [place] [phone] Social History Tobacco Use Types Packs/Day Years Used Date Smoking Tobacco: Never Assessed Sex and Gender Information Value Date Recorded Sex Assigned at Not on file Gender Identity Female 03/25/2022 10:56 EDT Sexual Orientation Not on file documented as of this encounter Progress Notes * Marcin Antoine MD - 05/11/2009 0341 EST [facility] [place], [place] [address] Telephone Toll-Free PROGRESS/FOLLOWUP NOTE - 01/15/2007 Melissa Lambert APRN [address] [place] [address] Dear Melissa: Dania Ayoub presents in urologic followup today. She is now approximately two and a half weeksafter undergoing a transvaginal cystocele repair with mesh augmentation and simultaneous enterocelerepair and midurethral sling procedure. Lachelle surgery was notable for a substantial amount of blood loss, although she did not require transfusion. I have had her on iron to try to resolve her pe rioperative anemia. She also had had a very thin vaginal wall noted at the time of surgery, and therefore we opted to use a biomaterial for the cystocele repair, as opposed to a polypropylene mesh. Since undergoing the surgery, Danielle has been resolving steadily. She still has occasional discomfort and occasional nausea, and she is describing urge-related incontinence and urinary frequency approximately every one hour, though she feels she is emptying her bladder adequately. Today on examination, the vaginal wall continues to heal. There are some areas of exposure of the dermal graft. However, these are granulating nicely. There was a small amount of bleeding after the exam today, but I think thisshould resolve spontaneously. There is a postvoid residual of only 30 mL,indicating adequate bladder emptying, and the urinalysis today was not suggestive of an infection by catheter. At this point, I feel Dania is doing well. She will require at least two months for all of her healing to take place, and I did explain this to her in detail. I have recommended she use a topicalestrogen cream three times per week to assist in healing, and I have prescribed Ditropan 5 mg everyeight hours for herurge-related leakage and frequency. I have also encouraged her to stay on the iron sulfate but to make sure she drinks plenty of water and to stay on fiber laxatives as needed. I will see her back in followup in two months. If you have any questions, do not hesitate to call me. Sincerely, Signed by Marcin Antoine MD 01/26/2007 08:49 Hari Pressley MD Marcin Antoine MD - Marcin Antoine MD - [facility] Job ID: [id number] Doc ID: [id number] cc: MD Amanda Mccloud MD Wayne Warnken, MD Ellen Watson, APRN Job ID: [id number] Doc ID: [id number] cc: MD Amanda Mccloud MD Wayne Warnken, MD Ellen Watson, APRN documented in this encounter Plan of Treatment Not on file documented as of this encounter Visit Diagnoses Not on filedocumented in this encounter Care Teams Roaster Operator Relationship Specialty Start Date End Date Melissa Lambert APRN PCP - General 01/02/09 03/20/10 Melissa Lambert APRN PCP - General 11/09/08 01/01/09 documented as of this encounter
--- OUTSIDE RECORDS SUMMARY | 2024-04-06 13:52 | XMS_ITS | Encounter Summary ---
Author Organization [facility] Address [address] [place] [address] Care Team Providers Care Tree Doctor Name Role Phone Unavailable Primary Care Provider Unavailabl e Encounter Details Date Type Department Care Team (Late st Contact Info) Description 07/22/2007 16:53 EST Hospital Encounter [facility] - Other [address] [place] [address] Daquan Landeros MD [address] [place] [address] [address] [place] [id number] Melissa Lambert, MARILYN Discharge Disposition: Home or Self Care Social [...]
--- OUTSIDE RECORDS SUMMARY | 2024-04-06 13:52 | XMS_ITS | Encounter Summary ---
Author Organization [facility] Address [address] [place] [address] Care Team Providers Care Sign Painter Apprentice Name Role Phone Unavailable Primary Care Provider Unavailabl e Encounter Details Date Type Department Care Team (Late st Contact Info) Description 06/12/2006 10:25 EST Hospital Encounter [facility] [address] [place] [address] Magui Banuelos MD [address] [place] [address] [address] [place] [phone] Jaylon Reddy MD Social History Tobacco Use Types Packs/Day [...]
--- OUTSIDE RECORDS SUMMARY | 2024-04-06 13:52 | XMS_ITS | Encounter Summary ---
Author Organization [facility] Address [address] [place] [address] Care Team Providers Care Supervisor Cereal Name Role Phone Melissa Lambert APRN Primary Care Provider Unava ilable Melissa Lambert APRN Primary Care Provider Unava ilable Encounter Details Date Type Department Care Team (Late st Contact Info) Description 02/26/2007 Before PRISM Converted Visit (Maple) [facility] - Maple conversion [address] [place] [address] Marcin Antoine MD [address] [place] [phone] Social History Tobacco Use Types Packs/Day Years Used Date Smoking Tobacco: Never Assessed Sex and Gender Information Value Date Recorded Sex Assigned at Not on file Gender Identity Female 03/25/2022 10:56 EDT Sexual Orientation Not on file documented as of this encounter Progress Notes * Marcin Antoine MD - 05/14/2009 0129 EST [facility] [place], [place] [address] Telephone Toll-Free PROGRESS/FOLLOWUP NOTE - 02/26/2007 Melissa Lambert APRN [address] [place] [address] Dear Melissa: Dania Anitra presents in urologic followup today status post transvaginal cystocele repair withmesh augmentation, enterocele repair, and midurethral sling procedure. Dania has had a continued improvement in her symptoms. She currently denies any incontinence. She is voiding without difficulties. She no longer feels the vaginal bulge. She did have a brief episode of diarrhea, which totally resolved. She is currently off iron therapy. On physical examination today, she has a well-healed vaginal introitus. There is no evidence of pelvic prolapse. There are some residual reabsorbing sutures at the left vaginal fornix, which were palpated but not excised. Postvoid residual was only 17 mL by bladder scan and urinalysis was negative for bloodor leukocytes. At this point, Dania appears to be healing quite well. I believe she will have a complete recovery. In summary, Dania is healing up quite well. I would like her to continue with her estrogen cream for the next month. She can slowly taper off her Ditropan, and I will see her back in followupas needed. If you have any questions, please do not hesitate to call me. Sincerely, Signed by Marcin Antoine MD 03/27/2007 15:02 Hari Pressley MD Marcin Antoine MD - Marcin Antoine MD - [facility] Job ID: [id number] Doc ID: [id number] cc: Melissa Lambert APRN documented in this encounter Plan of Treatment Not on file documented as of this encounter Visit Diagnoses Not on filedocumented in this encounter Care Teams Supervisor Cereal Relationship Specialty Start Date End Date Melissa Lambert APRN PCP - General 01/02/09 03/20/10 Melissa Lambert APRN PCP - General 11/09/08 01/01/09 documented as of this encounter
--- OUTSIDE RECORDS SUMMARY | 2024-04-06 13:52 | XMS_ITS | Encounter Summary ---
Author Organization [facility] Address [address] [place] [address] Care Team Providers Care Store Cashier Name Role Phone Unavailable Primary Care Provider Unavailabl e Encounter Details Date Type Department Care Team (Latest Contact Info) Description 06/23/2006 9:00 EST - 06/23/2006 11:59 EST Hospital Encounter [facility] [address] [place] [address] Taiwo Wilkes MD Discharge Disposition: Auto Discharge Social History [...] Priority Date/Time Associated Diagnosis Comments RAD US BREAST UNILATERAL - ONE BREAST 06/23/2006 11:38 EST GIO LIU DIGITAL UNILATERAL ADDED VIEWS 06/23/2006 10:30 EST documented in this encounter Results * RAD US BREAST UNILATERAL - ONE BREAST (06/23/2006 11:38 EST) Anatomical Region Laterality Modality Other 06/23/2006 11:3 8 EST Narrative 01/14/2009 4:56 EDT DX U/S LEFT BREAST; PALP MASS UOQ DIGITAL DIAGNOSTIC LEFT BREAST ADDITIONAL VIEW MAMMOGRAM AND DIAGNOSTIC LEFT BREAST ULTRASOUND, 06/23/2006 The patient had a palpable area in the upper-outer aspect of the left breast. ??Comparison is made with mammogram from 06/12/2006, 06/11/2005, 03/24/2000, and 04/08/2000. FINDINGS LEFT BREAST (DIGITAL ADDITIONAL VIEWS AND DIAGNOSTIC ULTRASOUND): The breast tissue is heterogeneously dense, which can decrease the sensitivity of mammography. ??There is a vague asymmetric density in the upper-outer aspect of the breast seen mammographically in the region of the palpable mass, but this is unchanged when compared with images dating back to 1999. Ultrasound of the palpable area was negative. IMPRESSION LEFT BREAST: ??BI-RADS CATEGORY 2 ? 1. ?? There ?is a stable small focal asymmetric density in the upper-outer aspect of ?the breast in the region of the palpable mass, which has not changed since ?1999. ??This area was negative sonographically. ??This is likely benign. ??Clinical follow-up for the palpable ?area is recommended and decision to biopsy should be based on clinical ?grounds. ??Screening mammography is recommended in one year. ? 2. ?? The patient ?was told of the results and recommendations following the study by the ?low vision therapist. OVERALL ASSESSMENT - BENIGN FINDING. D: ??06/23/2006 T: ??06/24/2006 [facility]. Procedure Note Ruba Argueta MD - 01/14/2009 DX U/S LEFT BREAST; PALP MASS UOQ DIGITAL DIAGNOSTIC LEFT BREAST ADDITIONAL VIEW MAMMOGRAM AND DIAGNOSTIC LEFT BREAST ULTRASOUND, 06/23/2006 The patient had a palpable area in the upper-outer aspect of the left breast. Comparison is made with mammogram from 06/12/2006, 06/11/2005, 03/24/2000, and 04/08/2000. FINDINGS LEFT BREAST (DIGITAL ADDITIONAL VIEWS AND DIAGNOSTIC ULTRASOUND): The breast tissue is heterogeneously dense, which can decrease the sensitivity of mammography. There is a vague asymmetric density in the upper-outer aspect of the breast seen mammographically in the region of the palpable mass, but this is unchanged when compared with images dating back to 1999. Ultrasound of the palpable area was negative. IMPRESSION LEFT BREAST: BI-RADS CATEGORY 2 1. There is a stable small focal asymmetric density in the upper-outer aspect of the breast in the region of the palpable mass, which has not changed since 1999. This area was negative sonographically. This is likely benign. Clinical follow-up for the palpable area is recommended and decision to biopsy should be based on clinical grounds. Screening mammography is recommended in one year. 2. The patient was told of the results and recommendations following the study by the low vision therapist. OVERALL ASSESSMENT - BENIGN FINDING. /[facility]. Amanda Barrera MD IMG US ORDERABLES * GIO THOMPSON DIAG DIGITAL UNILATERAL ADDED VIEWS (06/23/2006 10:30 EST) Anatomical Region Laterality Modality Other 06/23/2006 10:3 0 EST Narrative 01/14/2009 2:32 EDT LEFT AV DIGITAL DIAGNOSTIC LEFT BREAST ADDITIONAL VIEW MAMMOGRAM AND DIAGNOSTIC LEFT BREAST ULTRASOUND, 06/23/2006 The patient had a palpable area in the upper-outer aspect of the left breast. ??Comparison is made with mammogram from 06/12/2006, 06/11/2005, 03/24/2000, and 04/08/2000. FINDINGS LEFT BREAST (DIGITAL ADDITIONAL VIEWS AND DIAGNOSTIC ULTRASOUND): The breast tissue is heterogeneously dense, which can decrease the sensitivity of mammography. ??There is a vague asymmetric density in the upper-outer aspect of the breast seen mammographically in the region of the palpable mass, but this is unchanged when compared with images dating back to 1999. Ultrasound of the palpable area was negative. IMPRESSION LEFT BREAST: ??BI-RADS CATEGORY 2 ? 1. ?? There ?is a stable small focal asymmetric density in the upper-outer aspect of ?the breast in the region of the palpable mass, which has not changed since ?1999. ??This area was negative sonographically. ??This is likely benign. ??Clinical follow-up for the palpable ?area is recommended and decision to biopsy should be based on clinical ?grounds. ??Screening mammography is recommended in one year. ? 2. ?? The patient ?was told of the results and recommendations following the study by the ?low vision therapist. OVERALL ASSESSMENT - BENIGN FINDING. D: ??06/23/2006 T: ??06/24/2006 [facility]. Procedure Note Ruba Argueta MD - 01/14/2009 LEFT AV DIGITAL DIAGNOSTIC LEFT BREAST ADDITIONAL VIEW MAMMOGRAM AND DIAGNOSTIC LEFT BREAST ULTRASOUND, 06/23/2006 The patient had a palpable area in the upper-outer aspect of the left breast. Comparison is made with mammogram from 06/12/2006, 06/11/2005, 03/24/2000, and 04/08/2000. FINDINGS LEFT BREAST (DIGITAL ADDITIONAL VIEWS AND DIAGNOSTIC ULTRASOUND): The breast tissue is heterogeneously dense, which can decrease the sensitivity of mammography. There is a vague asymmetric density in the upper-outer aspect of the breast seen mammographically in the region of the palpable mass, but this is unchanged when compared with images dating back to 1999. Ultrasound of the palpable area was negative. IMPRESSION LEFT BREAST: BI-RADS CATEGORY 2 1. There is a stable small focal asymmetric density in the upper-outer aspect of the breast in the region of the palpable mass, which has not changed since 1999. This area was negative sonographically. This is likely benign. Clinical follow-up for the palpable area is recommended and decision to biopsy should be based on clinical grounds. Screening mammography is recommended in one year. 2. The patient was told of the results and recommendations following the study by the low vision therapist. OVERALL ASSESSMENT - BENIGN FINDING. /[facility]. Amanda Barrera MD IMG MAMMOGRAPHY ORD ERABLES documented in this encounter Visit Diagnoses Not on filedocumented in this encounter
--- OUTSIDE RECORDS SUMMARY | 2024-04-06 13:52 | XMS_ITS | Encounter Summary ---
Author Organization [facility] Address [address] [place] [address] Care Team Providers Care Assembly Cleaner Name Role Phone Melissa Lambert APRN Primary Care Provider Unava ilable Melissa Lambert APRN Primary Care Provider Unava ilable Encounter Details Date Type Department Care Team (Late st Contact Info) Description 11/12/2007 Before PRISM Converted Visit (Maple) [facility] - Maple conversion [address] [place] [address] Mindy Flores MD [address] [place] [address] [place] [phone] Social History Tobacco Use Types Packs/Day Years Used Date Smoking Tobacco: Never Assessed Sex and Gender Information Value Date Recorded Sex Assigned at Not on file Gender Identity Female 03/25/2022 10:56 EDT Sexual Orientation Not on file documented as of this encounter Plan of Treatment Not on file documented as of this encounter Visit Diagnoses * Evaluation - Mindy Flores MD - 04/07/2009 0304 EDT [facility] ([facility] [address] [place] [address] NEW PATIENT EVALUATION - 11/12/2007 November 12, 2007 Marcin Antoine MD [facility] [place] [address] Antoine: Dania Angulo returned to the [facility] today for a followup visit. She hashad an MRI of the lumbar spine performed at [facility] on November 11, 2007, which was reviewed with her and her . There is degenerative disk disease at the L3-4, L4-5, and L5-S1 levels. There is also a disk herniation, which is central and right sided at the L3-4 level with some encroachment on the right L4 lateral recess. At the L4-5 level there is a broad based central protrusion without gross nerve root entrapment and at the L5-S1 there is a broad based protrusion with no gross neural compression. 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 Dania continues to experience moderate pain, graded 4 out of 10. Sometimes it flares to a 10 out of 10. It is constant. She does experience some relief with heat and medication. Any activities flare her pain. It is throbbing, burning, and cramping. Today it is mostly localized on the left low lumbar area with radiation into the post thigh, at times into the top of her left foot. MRI findings do not correlate with her left S1 radicular symptoms although at the L5-S1 area there is a central bulge. In light of her sensitivity with multiple medication allergies, I am reluctant to initiate any Neurontin or Tegretol. At this point I feel she would benefit from a trial of L5-S1 tr anslaminar steroid injection. If she does not experience any relief with this medication, I would then progress to a left sacroiliac joint injection. Much of her pain is around the left sacroiliac joint, although the symptoms that are radicular into her left leg are much more of the S1 nerve root origin. I did plan to see Dania on followup post injection treatments. I have discussed again theoption of physical therapy but she has had numerous trials in the past, which have not had any longlasting results. Thank you for allowing the [facility] to participate in the care of your patient. Sincerely, Signed by Mindy Flores MD 11/20/2007 12:46 Mindy Flores MD - Mindy Flores MD - [facility] Job ID: [id number] Doc ID: [id number] cc: Marcin Antoine MD documented in this encounter Care Teams Assembly Cleaner Relationship Specialty Start Date End Date Melissa Lambert APRN PCP - General 01/02/09 03/20/10 Melissa Lambert APRN PCP - General 11/09/08 01/01/09 documented as of this encounter
--- OUTSIDE RECORDS SUMMARY | 2024-04-06 13:52 | XMS_ITS | Encounter Summary ---
Author Organization [facility] Address [address] [place] [address] Care Team Providers Care General Maintenance Mechanic Name Role Phone Melissa Lambert APRN Primary Care Provider Unava ilable Melissa Lambert APRN Primary Care Provider Unava ilable Encounter Details Date Type Department Care Team (Late st Contact Info) Description 02/24/2008 Before PRISM Converted Visit (Maple) [facility] - Maple conversion [address] [place] [address] Mindy Flores MD [address] [place] [address] [place] [phone] Social History Tobacco Use Types Packs/Day Years Used Date Smoking Tobacco: Never Assessed Sex and Gender Information Value Date Recorded Sex Assigned at Not on file Gender Identity Female 03/25/2022 10:56 EDT Sexual Orientation Not on file documented as of this encounter Progress Notes * Mindy Flores MD - 01/26/2009 1003 EDT [facility] ([facility] [address] [place] [address] PROGRESS/FOLLOWUP NOTE - 02/24/2008 February 24, 2008 Marcin Antoine MD [facility] [place] [address] Antoine: I had the opportunity to followup with your patient Dania Angulo at the [facility]. Since her last office visit she has undergone an L5-S1 epidural steroid injection performed by Dr. Vidal Chiang at the [facility]. She did experience 20% relief of her low back pain with this injection. She has been seen on followup at the anesthesia pain clinic and on February 17, 2008 underwent bilateral sacroiliac joint injections. These did not provide her any relief from her pain. Today 80% of her pain is in the low back with 20% radiating into the groin bilaterally and with burning paresthesias into the anterior legs bilaterally. Also on the left side there is a posterior leg bur madhavi. To date she has not started physical therapy at the [facility] in [place]. She does report feeling generally weak, her knees buckling, inconsistent leg strength. Her pain today mackenzie grade 6 out of 10. She describes it as burning, cramping, and throbbing. Her gait pattern is inconsistently normal. At times she does walk with her knees flexed. Strength in the lower extremities does remain normal. She reports no sensation in the bottom of her left foot due to a childhood injury. Her strength remains inconsistent in the lower extremity secondary to herpain. The sensory exam is normal except for anesthesia at the bottom of the left foot. Muscle stretch reflexes are brisk for quads and Achilles. She does have a positive head compression test, positive shoulder shrug. Impression: Dania Angulo has a known degenerative disk disease of the lumbar spine with an L3-4disk herniation, which could cause some encroachment on the right L4 nerve root. At L4-5 there is abroad based central protrusion with no nerve root compression, at L5-S1 a broad based protrusion. 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 She has experienced 20% releif of her pain after the L5-S1 injection and no relief after bilateral sacroiliac injections.. Recommendations would be: 1. EMG/NCV to rule out a right L4 radiculopathy. Will await results prior to any additional injection treatments. 2. Rheumatology consultation to evaluate for fibromyalgia. Also, I have strongly recommended she initiate physical therapy. Initial request was two months prior. I do feel that there may be some symptom magnification and she does present with three positive Edwige signs. I do plan to followup withher in two months. Sincerely, Signed by Mindy Flores MD 03/17/2008 16:03 Mindy Flores MD - Mindy Flores MD - [facility] Job ID: [id number] Doc ID: [id number] cc: Marcin Antoine MD documented in this encounter Plan of Treatment Not on file documented as of this encounter Visit Diagnoses Not on filedocumented in this encounter Care Teams General Maintenance Mechanic Relationship Specialty Start Date End Date Melissa Lambert APRN PCP - General 01/02/09 03/20/10 Melissa Lambert APRN PCP - General 11/09/08 01/01/09 documented as of this encounter
--- OUTSIDE RECORDS SUMMARY | 2024-04-06 13:52 | XMS_ITS | Encounter Summary ---
Author Organization [facility] Address [address] [place] [address] Care Team Providers Care Outside Sales Name Role Phone Unavailable Primary Care Provider Unavailabl e Encounter Details Date Type Department Care Team (Latest Contact Info) Description 04/09/2007 10:49 EDT - 04/09/2007 11:59 EDT Hospital Encounter [facility] - Maple conversion [address] [place] [address] Marcin Antoine MD [address] [place] [phone] Discharge Disposition: Auto Discharge Social History Tobacco [...]
--- OUTSIDE RECORDS SUMMARY | 2024-04-06 13:52 | XMS_ITS | Encounter Summary ---
Author Organization [facility] Address [address] [place] [address] Care Team Providers Care Willower Name Role Phone Unavailable Primary Care Provider Unavailabl e Encounter Details Date Type Department Care Team (Late st Contact Info) Description 07/16/2007 13:[address] [facility] [address] [place] [address] Benji Villegas MD [address] [place] [address] [address] [place] [phone] Social History Tobacco Use Types Packs/Day Years [...] Associated Diagnosis Comments MA MAMMO SCREENING DIGITAL 07/16/2007 14:15 EST documented in this encounter Results * MA MAMMO SCREENING DIGITAL (07/16/2007 14:15 EST) Anatomical Region Laterality Modality Other 07/16/2007 14:1 5 EST Narrative 12/26/2008 5:47 EDT routine Comparison is made to films from 06/12/2006 (bilateral) and films from [...] (Category 0) at this time. Procedure Note Ruba Argueta MD - 12/26/2008 routine Comparison is made to films from 06/12/2006 (bilateral) and films from [...]
--- OUTSIDE RECORDS SUMMARY | 2024-04-06 13:52 | XMS_ITS | Encounter Summary ---
Author Organization [facility] Address [address] [place] [address] Care Team Providers Care District Manager In Training Name Role Phone Unavailable Primary Care Provider Unavailabl e Encounter Details Date Type Department Care Team (Late st Contact Info) Description 05/27/2006 12:42 [facility] Hospital Encounter [facility] [address] [place] [address] Taiwo Wilkes MD Russell, Margaret C, PA [address] [facility] [address] [place] [address] Discharge Disposition: Auto Discharge Social History Tobacco [...]
--- OUTSIDE RECORDS SUMMARY | 2024-04-06 13:52 | XMS_ITS | Encounter Summary ---
Author Organization [facility] Address [address] [place] [address] Care Team Providers Care Party Supply Specialist Name Role Phone Unavailable Primary Care Provider Unavailabl e Encounter Details Date Type Department Care Team (Late st Contact Info) Description 05/05/2006 11:05 EST Hospital Encounter [facility] [address] [place] [address] Dwayne Parmar MD [address] [facility], [address] [place] [phone] Social History Tobacco Use Types Packs/Day Years [...]
--- OUTSIDE RECORDS SUMMARY | 2024-04-06 13:52 | XMS_ITS | Encounter Summary ---
Author Organization [facility] Address [address] [place] [address] Care Team Providers Care Flight Test Shop Mechanic Name Role Phone Melissa Lambert APRN Primary Care Provider Unava ilable Melissa Lambert APRN Primary Care Provider Unava ilable Encounter Details Date Type Department Care Team (Late st Contact Info) Description 10/19/2007 Before PRISM Converted Visit (Maple) [facility] - Maple conversion [address] [place] [address] Marcin Antoine MD [address] [place] [phone] Social History Tobacco Use Types Packs/Day Years Used Date Smoking Tobacco: Never Assessed Sex and Gender Information Value Date Recorded Sex Assigned at Not on file Gender Identity Female 03/25/2022 10:56 EDT Sexual Orientation Not on file documented as of this encounter Progress Notes * Marcin Antoine MD - 04/07/2009 0154 EDT [facility] [place], [place] [address] Telephone Toll-Free PROGRESS/FOLLOWUP NOTE - 10/19/2007 Melissa Lambert APRN [address] [place], [place] Dear Melissa: Dania Angulo presents for urologic followup today for a history of pelvic prolapse and urinary incontinence. She is status post prolapse repair and sling procedure in December 2006. She has been doing very well from a urologic and gynecologic standpoint.She currently is free of stress incontinence but does have complaints of urinary frequency, although self-admittedly is drinking a large amount of water. She is generally getting up around 1-2 times a night to urinate. She denies urge incontinence as longas she remains on Oxybutynin ER 15 mg once a day. She is having regular bowel movements and has had no difficulties in terms of intercourse. On examination, there is no evidence of substantial, recurrent prolapse and her vaginal introitus is well healed. At this point, I expect Dania to do very well jail. I have recommended that she can returnto all activities, and I will see her back in followup as needed. She can taper off the Oxybutynin Extended Release in the future, and I feel she canreduce the amount of fluid she is drinking to somedegree, and her urinary frequency and urgency would be under better control. Sincerely, Signed by Marcin Antoine MD 11/11/2007 09:48 Marcin Antoine MD D: - Marcin Antoine MD - [facility] Job ID: [id number] Doc ID: [id number] cc: Melissa Lambert APRN documented in this encounter Plan of Treatment Not on file documented as of this encounter Visit Diagnoses Not on filedocumented in this encounter Care Teams Flight Test Shop Mechanic Relationship Specialty Start Date End Date Melissa Lambert APRN PCP - General 01/02/09 03/20/10 Melissa Lambert APRN PCP - General 11/09/08 01/01/09 documented as of this encounter
--- OUTSIDE RECORDS SUMMARY | 2024-04-06 13:52 | XMS_ITS | Encounter Summary ---
Author Organization [facility] Address [address] [place] [address] Care Team Providers Care Waistline Joiner Name Role Phone Unavailable Primary Care Provider Unavailabl e Encounter Details Date Type Department Care Team (Late st Contact Info) Description 10/15/2007 14:53 EDT Hospital Encounter [facility] - Maple conversion [address] [place] [address] Mindy Flores MD [address] [place] [phone] Social History Tobacco Use Types Packs/Day [...] Procedure Name Priority Date/Time Associated Diagnosis Comments L SPINE 4 OR MORE VIEWS 10/15/2007 16:02 EDT documented in this encounter Results * L SPINE 4 OR MORE VIEWS (10/15/2007 16:02 EDT) Anatomical Region Laterality Modality Other 10/15/2007 16:0 2 EDT Narrative 12/18/2008 10:52 EDT low back pain r/o instability, degenerative disc disease L SPINE 4 OR MORE VIEWS ??Oct 15, 2007 4:02:00 PM Signs and Symptoms: ??low back pain r/o instability, degenerative disc disease. Impression: 1. No spinal instability demonstrated Description. An upright AP and upright neutral, flexion, and extension views of the lumbar sacral spine. There is some disc thinning, minimal at L4-L5 and small anterior osteophytes seen at the superior end plate of L4 and the superior end plate of L5. No comparisons. Procedure Note Po Monaco MD - 12/18/2008 low back pain r/o instability, degenerative disc disease L SPINE 4 OR MORE VIEWS Oct 15, 2007 4:02:00 PM Signs and Symptoms: low back pain r/o instability, degenerative disc disease. Impression: 1. No spinal instability demonstrated Description. An upright AP and upright neutral, flexion, and extension views of the lumbar sacral spine. There is some disc thinning, minimal at L4-L5 and small anterior osteophytes seen at the superior end plate of L4 and the superior end plate of L5. No comparisons. Mindy Flores MD IMG DIAGNOSTIC IMAGI NG ORDERABLES documented in this encounter Visit Diagnoses Not on filedocumented in this encounter
--- OUTSIDE RECORDS SUMMARY | 2024-04-06 13:52 | XMS_ITS | Encounter Summary ---
Author Organization [facility] Address [address] [place] [address] Care Team Providers Care Rn On Site Name Role Phone Melissa Lambert APRN Primary Care Provider Unava ilable Melissa Lambert APRN Primary Care Provider Unava ilable Encounter Details Date Type Department Care Team (Late st Contact Info) Description 12/17/2007 Before PRISM Converted Visit (Maple) [facility] - Maple conversion [address] [place] [address] Vannessa Anna MD [address] [place] [phone] Social History Tobacco Use Types Packs/Day Years Used Date Smoking Tobacco: Never Assessed Sex and Gender Information Value Date Recorded Sex Assigned at Not on file Gender Identity Female 03/25/2022 10:56 EDT Sexual Orientation Not on file documented as of this encounter Procedure Notes * [facility], [facility] [employer] - 04/06/2009 0477 EDT [facility] PROCEDURE REPORT SERVICE DATE: 12/15/2007 Vidal Chiang MD. TOWER WATCHMAN: Vannessa Anna MD. PROCEDURE Interlaminar L5-S1 epidural steroid injection. PREPROCEDURE DIAGNOSIS Low back pain due to lumbar spondylosis. POSTPROCEDURE DIAGNOSIS Same as above. CHIEF COMPLAINT: Low back pain and left lower extremity pain. HISTORY OF PRESENT ILLNESS Ms. Angulo is a 62-year-old woman with a past medical history significant for hypothyroidism, hyperactive bladder, who presents today at the request of Dr. Flores for possible injection of her lumbar spine. Ms. Angulo reports a long- standing history of discomfort that originated when she had a cervical adjustment by a chiropractor in 1997 which resulted in left-sided paralysis and tingling. Since that time, those symptoms have mostly resolved with the exception of ongoing pain and tingling in the left lower extremity. She recently had an MRI of her lumbar spine which revealed degenerative disk disease changes at L3-L4, L4- L5 and L5- S1. At L3-L4 there is disk herniation which is central and right-sided causing encroachment on the right L4 lateral recess. There is no spinal stenosis noted. At the L4-L5 level there is a broad-based central protrusion of the disk with mild thecal sac compression, but no gross nerve root compression and without spinal stenosis. At L5-S1 again, a broad-based protrusion versus disk bulge with no gross neural compression seen. At this point, Ms. Angulo notes that her low back pain and her left leg pain are the most significant discomfort. She has low back pain that makes it difficult to return to a standing position after bending over and has left leg pain that radiates from her low back down the posterior aspect of the leg onto the dorsal aspect of her left foot. Of note, Mr. Angulo has no sensation on the bottom of her left foot due to a childhood injury. She denies having regular discomfort in the right leg and was unable to describe what the nature of any right leg discomfort might be. REVIEW OF SYSTEMS The patient denies fever, chills, chest pain, shortness of breath, nausea, vomiting, diarrhea, constipation, weight loss or any known infections. CURRENT MEDICATIONS 1. Premarin 0.3, one tab by mouth daily. 2. Synthroid 75 mcg by mouth daily. 3. Alavert 10 mg by mouth daily. 4. Prilosec 20 mg twice daily. 5. Zanaflex 4 mg at bedtime. 6. Oxybutynin 15 mg by mouth daily. 7. Estrace, one tab by mouth at bedtime. 8. Tylenol arthritis 650 mg, two tabs every three hours. 9. Aspirin 81 mg by mouth daily. This has been held. 10. Vitamin, one by mouth daily. This has been held. 11. Calcium 650 mg by mouth daily. This has been held. 12. Flaxseed oil, one by mouth daily. This has been held. 13. Black cohosh, one by mouth daily. This has been held. ALLERGIES Multiple as follows: 1. Penicillin causes breathing difficulties. 2. Codeine, Darvon and Darvocet result in worsened pain. The patient also notes intolerance to IV dye, iodine, Danatrol, red 40 dye, Elavil, tetracycline, Vistaril, Dimetapp and Bentyl. Please note that Penicillin and iodine containing IV dye cause anaphylactic type symptoms. OBJECTIVE On physical exam; height five foot three inches. Weight 126 pounds. Blood pressure 141/70, pulse 81, respirations 16, temperature 97..7 degrees Fahrenheit. In general: The patient is a pleasant, well groomed woman in no acute distress with her present. The patient has tenderness to palpation over both SI joints as well as over lowlumbar spinous processes. She has increased lumbar discomfort with forward flexion as well as with extension at the waist, with extension causing the worst discomfort. Strength examination shows decreased strength bilaterally due to inability to cooperate fully with the examination as a result of pain. Sensation was symmetric bilaterally with the exception of anesthesia at the bottom of the left foot due to an old injury. Reflexes were 2+ bilaterally. ASSESSMENT Low back and left lower extremity pain likely due to lumbar spondylosis. PLAN Proceed with interlaminar L5-S1 epidural steroid injection. Procedure note: Following informed consent, the patient was placed prone, prepped and draped in sterile fashion. Appropriate injection point was located with fluoroscopy after which skin and subcutaneous tissue were anesthetized with 2% Lidocaine. Under fluoroscopy, an 18-gauge tuohy needle was advanced to the epidural space at L5-S1. Epidural spacewas identified using loss of resistance to a saline filled glass syringe. There was no aspiration of CSF and no aspiration of blood. No paresthesiasoccurred during the procedure. Radio opaque dye was not used due to the patients iodine allergies. After the epidural space was located using loss of distance, 80 mg of Depo-Medrol followed by three m illiliters of preservative free saline were injected into the epidural space. The needle was then withdrawn. The patient tolerated the procedure well and there were no complications. Dr. Vidal Chiang was present and participated throughout the procedure. Post procedure vital signs were as follows: Blood pressure 149/87, pulse 79. The patient was observed for a brief period and noted to be stable, and then was discharged home in the company of her bobcat driver/labor. Signed by Vidal Chiang MD 12/28/2007 09:00 Vannessa Anna MD Vidal Chiang MD - Vannessa Anna MD - [facility] Job ID: [id number] Doc ID: [id number] cc: documented in this encounter Plan of Treatment Not on file documented as of this encounter Visit Diagnoses Not on filedocumented in this encounter Care Teams Rn On Site Relationship Specialty Start Date End Date Melissa Lambert APRN PCP - General 01/02/09 03/20/10 Melissa Lambert APRN PCP - General 11/09/08 01/01/09 documented as of this encounter
--- OUTSIDE RECORDS SUMMARY | 2024-04-06 13:52 | XMS_ITS | Encounter Summary ---
Author Organization [facility] Address [address] [place] [address] Care Team Providers Care Client Technologies Specialist Name Role Phone Unavailable Primary Care Provider Unavailabl e Encounter Details Date Type Department Care Team (Latest Contact Info) Description 04/06/2008 14:54 EDT Hospital Encounter [facility] [address] [place] [address] Yinka Gonzalez MD [address] [place] [phone] Discharge Disposition: Auto Discharge Social History Tobacco [...]
--- OUTSIDE RECORDS SUMMARY | 2024-04-06 13:52 | XMS_ITS | Encounter Summary ---
Author Organization [facility] Address [address] [place] [address] Care Team Providers Care Bowling Pin Setters Installer Name Role Phone Melissa Lambert APRN Primary Care Provider Unava ilable Melissa Lambert APRN Primary Care Provider Unava ilable Encounter Details Date Type Department Care Team (Late st Contact Info) Description 07/09/2007 Before PRISM Converted Visit (Maple) [facility] - Maple conversion [address] [place] [address] Marcin Antoine MD [address] [place] [phone] Social History Tobacco Use Types Packs/Day Years Used Date Smoking Tobacco: Never Assessed Sex and Gender Information Value Date Recorded Sex Assigned at Not on file Gender Identity Female 03/25/2022 10:56 EDT Sexual Orientation Not on file documented as of this encounter Progress Notes * Marcin Antoine MD - 05/16/2009 0643 EST [facility] [place], [place] [address] Telephone Toll-Free PROGRESS/FOLLOWUP NOTE - 07/09/2007 Melissa Lambert APRN [address], [address] [facility] [address] Dear Melissa: Dania Angulo presents in urologic followup today. As you know, I had been treating Dania for some time due to her pelvic prolapse and urinary incontinence. Dania underwent a previous transvaginal cystocele and enterocele repair with simultaneous SPARC polypropylene pubovaginal sling in 2006. Initially, Dania had some issues with prolonged vaginal healing, but ultimately her vaginal wall healed completely, as per her visit and examination on February 26, 2007. Dania subsequently had gotten and has changed her last name. She is quite happy and came today with her . She did have some concerns that perhaps she hadrecurrent prolapse, as she has been having some lower vaginal pressure and lower back pain since June 2007. This is all associated with the resumption of sexual relations with her new spouse. The patient has minor occasional stress incontinence if shehas a full bladder and lifts a large object. Otherwise, she is doing quite well. She does have urinary frequency of every one hour at times. She has occasional urge- related leakage. On examination, she has a minor cystocele recurrence with severe straining with only a grade 1 defect seen. She was a grade 3-4 preop. There is no evidence of vault prolapse and there is no enterocele. There was not any leakage per urethra with straining. The postvoid residual was measured by catheter and was 80 mL. In summary, Dania has a minor recurrence of her cystocele. I do not believe that this is of anyconcern for the symptoms she is describing of pelvic pain and pressure. I have recommended that shemonitor the pain and reconsult me as needed. She appears to bemoving her bowels without difficulty,so this does not appear to be an issue. I would plan to see her back in followup at three months, at which time we can look at a voiding diary and determine whether or not she needs to have a supine stress test to evaluate her urethra. She has stopped the Premarin cream, and I agree with this at this point, as her vagina on exam is completely healed. If you have any question, do not hesitate to call me. Sincerely, Signed by Marcin Antoine MD 08/18/2007 16:10 Marcin Antoine MD - Marcin Antoine MD - [facility] Job ID: [id number] Doc ID: [id number] cc: Melissa Lambert APRN documented in this encounter Plan of Treatment Not on file documented as of this encounter Visit Diagnoses Not on filedocumented in this encounter Care Teams Bowling Pin Setters Installer Relationship Specialty Start Date End Date Melissa Lambert APRN PCP - General 01/02/09 03/20/10 Melissa Lambert APRN PCP - General 11/09/08 01/01/09 documented as of this encounter
--- OUTSIDE RECORDS SUMMARY | 2024-04-06 13:52 | XMS_ITS | Encounter Summary ---
Author Organization [facility] Address [address] [place] [address] Care Team Providers Care Silica Spray Mixer Name Role Phone Unavailable Primary Care Provider Unavailabl e Encounter Details Date Type Department Care Team (Latest Contact Info) Description 06/12/2006 12:38 EST Hospital Encounter [address] [address] Amanda Barrera MD [address] [place] [phone] Discharge Disposition: Auto Discharge Social History Tobacco [...] Associated Diagnosis Comments MA MAMMO SCREENING DIGITAL 06/12/2006 13:14 EST documented in this encounter Results * MA MAMMO SCREENING DIGITAL (06/12/2006 13:14 EST) Anatomical Region Laterality Modality Other 06/12/2006 13:1 4 EST Narrative 01/14/2009 4:31 EDT ROUTINE Comparison is made to films from 06/11/2005 (bilateral) and films from 03/24/2000 and films from 02/05/1999. Left Breast Findings: (CAD used to interpret routine digital): The breast is heterogeneously dense. This may lower the sensitivity of mammography. A palpable mass is present in the upper outer quadrant. Right Breast Findings: (CAD used to interpret routine digital): There are scattered fibroglandular densities. No significant masses, calcifications or other abnormalities are seen. IMPRESSION: LEFT BREAST - CATEGORY 0 Spot magnification view(s) of the palpable mass are recommended at this time. RIGHT BREAST - CATEGORY 1 Negative, no evidence of malignancy. Normal interval follow-up is recommended in 12 months. OVERALL ASSESSMENT - INCOMPLETE: NEED ADDITIONAL IMAGING EVALUATION END OF IMPRESSION Procedure Note Ruba Argueta MD - 01/14/2009 ROUTINE Comparison is made to films from 06/11/2005 (bilateral) and films from 03/24/2000 and films from 02/05/1999. Left Breast Findings: (CAD used to interpret routine digital): The breast is heterogeneously dense. This may lower the sensitivity of mammography. A palpable mass is present in the upper outer quadrant. Right Breast Findings: (CAD used to interpret routine digital): There are scattered fibroglandular densities. No significant masses, calcifications or other abnormalities are seen. IMPRESSION: LEFT BREAST - CATEGORY 0 Spot magnification view(s) of the palpable mass are recommended at this time. RIGHT BREAST - CATEGORY 1 Negative, no evidence of malignancy. Normal interval follow-up is recommended in 12 months. OVERALL ASSESSMENT - INCOMPLETE: NEED ADDITIONAL IMAGING EVALUATION END OF IMPRESSION Amanda Barrera MD IMG MAMMOGRAPHY ORD ERABLES documented in this encounter Visit Diagnoses Not on filedocumented in this encounter
--- OUTSIDE RECORDS SUMMARY | 2024-04-06 13:52 | XMS_ITS | Encounter Summary ---
Author Organization [facility] Address [address] [place] [address] Care Team Providers Care Registrar Assistant Name Role Phone Unavailable Primary Care Provider Unavailabl e Encounter Details Date Type Department Care Team (Latest Contact Info) Description 12/17/2007 10:44 EDT - 12/17/2007 11:59 EDT Hospital Encounter [facility] - [place] conversion [address] [place] [address] [place] [address] [place] [phone] Discharge Disposition: Auto Discharge Social History Tobacco [...]
--- OUTSIDE RECORDS SUMMARY | 2024-04-06 13:52 | XMS_ITS | Encounter Summary ---
Author Organization [facility] Address [address] [place] [address] Care Team Providers Care Secy Name Role Phone Unavailable Primary Care Provider Unavailabl e Encounter Details Date Type Department Care Team (Latest Contact Info) Description 03/11/2006 16:52 EDT Hospital Encounter [facility] - Other [address] [place] [address] Amanda Barrera MD [address] [place] [address] [phone] Discharge Disposition: Home or Self Care Social [...] Procedure Name Priority Date/Time Associated Diagnosis Comments TSH Routine 03/11/2006 17:45 EDT documented in this encounter Results * (ABNORMAL) TSH (03/11/2006 17:45 EDT) TSH 0.26(L) 0.35 - 5.00 uIU/mL [facility] 03/11/2006 17:4 5 EDT 03/11/2006 22:10 EDT Amanda Barrera MD CHEMISTRY & BLOOD G ORDERABLES [facility] [address] [place] [address] documented in this encounter Visit Diagnoses Not on filedocumented in this encounter
--- OUTSIDE RECORDS SUMMARY | 2024-04-06 13:52 | XMS_ITS | Encounter Summary ---
Author Organization [facility] Address [address] [place] [address] Care Team Providers Care Hydraulic Specialist Name Role Phone Unavailable Primary Care Provider Unavailabl e Encounter Details Date Type Department Care Team (Late st Contact Info) Description 01/15/2007 14:36 EDT Hospital Encounter [facility] - Maple conversion [address] [place] [address] Marcin Antoine MD [address] [place] [phone] Social History Tobacco Use Types Packs/Day Years [...]
--- OUTSIDE RECORDS SUMMARY | 2024-04-06 13:52 | XMS_ITS | Encounter Summary ---
Author Organization [facility] Address [address] [place] [address] Care Team Providers Care Health Policy Manager Name Role Phone Melissa Lambert APRN Primary Care Provider Unava ilable Melissa Lambert APRN Primary Care Provider Unava ilable Encounter Details Date Type Department Care Team (Late st Contact Info) Description 10/23/2005 Before PRISM Converted Visit (Maple) [facility] - Maple conversion [address] [place] [address] Frank Espino MD [address] [place] [phone] Social History Tobacco Use Types Packs/Day Years Used Date Smoking Tobacco: Never Assessed Sex and Gender Information Value Date Recorded Sex Assigned at Not on file Gender Identity Female 03/25/2022 10:56 EDT Sexual Orientation Not on file documented as of this encounter Progress Notes * [facility] [employer] Steward/Stewardess Tourist Class - 06/17/2009 1806 EST October 23, 2005 Amanda Barrera MD [facility] [address] [facility] [address] [facility] [address] Barrera, We had the pleasure of seeing Dania Ayoub back in follow-up today for her dyspnea on exertion.As you are aware, her cardiac work-up to this point has been negative for ischemia. She had an exercise Cardiolite test, during which she exercised for close to eight minutes without any evidence of ischemia by perfusion or ECG criteria. She was limited by symptoms. Her symptoms have persisted, butnot specifically gotten worse in the intermediate time. Today on exam, her blood pressure is 138/76 bpm with a pulse of 90 bpm. In general, she is in no acute distress. Her jugular venous pressure is about eight centimeters of water. Cardiac exam reveals a regular rate and rhythm with no murmurs, rubs or gallops noted. The lungs are clear to auscultation bilaterally. Her abdomen is benign and she has no peripheral edema. With respect toher symptoms of dyspnea, I feel that it is extremely unlikely that this is related to coronary disease. We will, however, send her for an echocardiogram, which will give us an estimation of her pulmonary artery pressures in the chance that these might be elevated in etiology for her s ymptoms. Further pulmonary evaluation might be indicated if her symptoms persist. We will certainly be in contact with her if her echocardiogram proves to be abnormal and we will follow-up with her accordingly. Thank you for the opportunity to see Ms. Ayoub in consultation. Please feel free to call at any time if you have any questions or concerns. Sincerely, Signed by Pillo Williamson MD 11/04/2005 16:08 Vi Espino, Ned Huffman MD Dictated by: Frank Espino MD Pillo Williamson MD - Frank Espino MD A - [email or web address] Job ID: Document ID: [id number] cc: Amanda Barrera MD documented in this encounter Plan of Treatment Not on file documented as of this encounter Visit Diagnoses Not on filedocumented in this encounter Care Teams Health Policy Manager Relationship Specialty Start Date End Date Melissa Lambert APRN PCP - General 01/02/09 03/20/10 Melissa Lambert APRN PCP - General 11/09/08 01/01/09 documented as of this encounter
--- OUTSIDE RECORDS SUMMARY | 2024-04-06 13:52 | XMS_ITS | Encounter Summary ---
Author Organization [facility] Address [address] [place] [address] Care Team Providers Care Rrt Name Role Phone Melissa Lambert APRN Primary Care Provider Unava Melissa Ocampo APRN Primary Care Provider Unava ilMelissa Ansari APRN Primary Care Provider Unava ilable Encounter Details Date Type Department Care Team (Late st Contact Info) Description 12/30/2006 Results Only [facility] Pelvic Medicine and Reconstructive Surgery - Medical Office [facility] [address] [place], [place] [address] Tanesha Orellana MD [address] [place] [phone] Social History Tobacco Use Types Packs/Day [...] Date/Time Associated Diagnosis Comments SURGICAL PATHOLOGY Routine 12/30/2006 0:00 EDT documented in this encounter Results * SURGICAL PATHOLOGY (12/30/2006 0:00 EDT) Pathology Report: SURGICAL PATHOLOGY REPORT Reports generated via electronic interface contain original data; however they are lacking the format of the original report. Caution should be taken when reading/interpreti ng unformatted reports. Name: ? DANIA ANGULO I ? Accession #: ? [id number] ? : ? 1945 (Age: 61) ??F ? Collect Date: ? 12/30/2006 ? Location: ? B003 ? Receive Date: ? 12/31/2006 ? Provider: TANESHA ORELLANA MD Copy to: MARIELA LANE MD ? Final Pathologic Diagnosis: ? Enterocele sac, excision: - Fragment of benign fibromembranous tissue consistent with enterocele sac. Document reviewed and electronically signed by: Yinka Ball MD Report ??Date: 01/01/2007 17:18 By the signature above, the attending physician certifies that he/she has personally conducted a gross and/or microscopic examination of the described specimens and rendered or confirmed the above diagnosis. Specimen(s) Received: ? Enterocele sac Clinical History: ? Incontinence, cystocele Gross Description: ? Received in normal saline labelled Anitra and A ??enterocele sac are two white, focally hyperemic pieces of fibromembranous tissue which measure 2.5 x 1.5 x 0.4 cm and 1.0 x 0.4 x 0.3 cm. ??The largest piece of tissue is smooth on one surface and roughened on the opposite surface. ??A personal banking representative section of both pieces of tissue are submitted in one cassette. ??(Amaris Rollins/nalini End of Report [facility] 12/30/2006 12/31/2006 10: 10 EDT Tanesha Orellana MD PATHOLOGY ORDERABLE S [facility] [address] [place] [address] documented in this encounter Visit Diagnoses Not on filedocumented in this encounter Care Teams Rrt Relationship Specialty Start Date End Date Melissa Lambert APRN PCP - General 01/02/09 03/20/10 Melissa Lambert APRN PCP - General 11/09/08 01/01/09 Melissa Lambert APRN PCP - General 03/21/10 04/01/10 documented as of this encounter
--- OUTSIDE RECORDS SUMMARY | 2024-04-06 13:52 | XMS_ITS | Encounter Summary ---
Author Organization [facility] Address [address] [place] [address] Care Team Providers Care Creative Arts Music Therapist Name Role Phone Devon Young APRN Primary Care Provider Unava ilDevon Ansari APRN Primary Care Provider Unava ilable Devon Young APRN Primary Care Provider Unava ilable Po Liang MD Primary Care Provider [phone] Devon Young APRN Primary Care Provider Unava ilable Encounter Details Date Type Department Care Team (Late st Contact Info) Description 07/22/2007 Results Only [facility] - [place] conversion [address] [place] [address] Devon Young APRN Social History Tobacco Use Types Packs/Day Years Used Date Smoking Tobacco: Never Assessed Sex and Gender Information Value Date Recorded Sex Assigned at Not on file Gender Identity Female 03/25/2022 10:56 EDT Sexual Orientation Not on file documented as of this encounter Plan of Treatment Not on file documented as of this encounter Procedures Procedure Name Priority Date/Time Associated Diagnosis Comments CYTOPATHOLOGY Routine 07/22/2007 0:00 EST documented in this encounter Results * CYTOPATHOLOGY (07/22/2007 0:00 EST) Pathology Report: CYTOPATHOLOGY REPORT Reports generated via electronic interface contain original data; however they are lacking the format of the original report. Caution should be taken when reading/interpreti ng unformatted reports. Name: ? ALIN ANGULOROSANA Fajardo ? Accession #: ? [id number] : ? 1945 (Age: 61) ??F ?Collect Date: ? 07/22/2007 Location: ? [facility] ? Receive Date: ? 07/23/2007 Provider: ?DEVON YOUNG QUILTING SUPERVISOR Copy to: ? Specimen/Source: ?ThinPrep Pap Test, Cervix/Endocervix, processed on [employer] ThinPrep Imaging System, with manual evaluation Last Menstrual Period: ? Hormonal/Contracep tive Status: ? Premarin: 2 weeks ago Other: ? 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 ? SPECIMEN ADEQUACY ? Satisfactory for Evaluation - transformation zone component present GENERAL CATEGORIZATION ? Negative for Intraepithelial Lesion or Malignancy ? Document reviewed and electronically signed by: ? Ro Louis, [facility](ASCP) ? Report Date: ??07/28/2007 15:51 End of Report [facility] 07/22/2007 07/23/2007 Devon Young APRN PATHOLOGY ORDERABLES [facility] [address] [place] [address] documented in this encounter Visit Diagnoses Not on filedocumented in this encounter Care Teams Creative Arts Music Therapist Relationship Specialty Start Date End Date Devon Young, QUILTING SUPERVISOR PCP - General 01/02/09 03/20/10 Devon Young APRN PCP - General 11/09/08 01/01/09 Devon Young APRN PCP - General 03/21/10 04/01/10 Po Liang MD [address] [place] [id number] PCP - General 04/02/10 04/05/10 Devon Young APRN PCP - General 04/06/10 08/20/10 documented as of this encounter
--- OUTSIDE RECORDS SUMMARY | 2024-04-06 13:52 | XMS_ITS | Encounter Summary ---
Author Organization [facility] Address [address] [place] [address] Care Team Providers Care Mold Checker Name Role Phone Melissa Lambert APRN Primary Care Provider Unava ilable Melissa Lambert APRN Primary Care Provider Unava ilable Encounter Details Date Type Department Care Team (Late st Contact Info) Description 10/15/2007 Before PRISM Converted Visit (Maple) [facility] - Maple conversion [address] [place] [address] Mindy Flores MD [address] [place] [address] [place] [phone] Social History Tobacco Use Types [...] Evaluation - Mindy Flores MD - 04/07/2009 0117 EDT [facility] ([facility] [address] [place] [address] NEW PATIENT EVALUATION October 15, 2007 Marcin Antoine MD [facility] [place] [address] Antoine: Thank you for the referral of Dania Angulo to [facility]. This garrett, 62-year-old lady was seen today for evaluation of chronic low back pain, bilateral leg pain, and left leg paresthesias. Her appontment was attended byher . Her history dates back to age 15. Shesays she sustained a coccygeal fracture and has had episodic back pain since that time. Her pain has been controlled of and on through the years, but recently she has had a flare of back pain back inJune of 2005. She has not had any recent chiropractic or physical therapy intervention. She describes the pain today as a grade 4/10 localized across her low back with a tingling and numbness radiating down the posterior aspect of her left thigh to the plantar aspect of her left foot. It flares to a level 10 at times and never is less than a one. The quality is aching, burning, and stabbing and is present all the time. She is uncertain what has flared her pain recently. She does not report any bowel incontinence, buthas urinary frequency, cramping in her legs with walking, and pain often wakes her from sleep. She feels very stiff in the morning when she first wakes. After she takes her medication, is moving around during the day she feels better, but then again at the end of the day her pain is flared. She does experience improvement with lying down, sometimes walking, heat, massage, and her medication profile of Zanaflex and Flexeril and Tylenol. Also, she is recently using Aspercreme. Her pain is flared by any prolonged sitting, lying down, pushing and pulling, bending forward andbackwards, straining, and also exercise. Gradually this pain is getting worse. She did experience aproblem similar to the one she is experiencing when she was pushing a container of wafers back in 1997 when she was employed by [employer]. Back in 1984 she was treated at [facility] by physical therapy, was issued a TENS unit, and did experience some relief. Her most recent chiropractic intervention was with Dr. Van olivarez in nd she did experience some relief for a short period of time. She has had an MRI, which was not available for review today, performed in [place], and no recent x-rays. Her present medication profile for pain consists of: 1. Flexeril 10 in the evening 2. Zanaflex 4 at night. 3. Tylenol Arthritis two every three to six hours. 4. Aspercreme. Past medical history: Significant for hiatal hernia, thyroid replacement, fibromyalgia, hypotension, sleeping difficulty secondary to pain, depression. She also describes recent memory problems. Her medications are numerous and include: 1. Premarin 0.625 daily. 2. Synthroid 0.75 mcg daily. 3. Alavert one in a.m. 4. Flexeril 10 p.r.n. 5. Trazodone 4 p.r.n. 6. Multiple supplements, including calcium. 7. MVI. 8. ASA 81 mg daily. 9. Zanaflex 4 at night. 10. Iron 325 B.I.D 11. Stool softener B.I.D 12. Prilosec two daily. 13. Ambien at night. 14. Estrace cream. 15. Flax seed oil. 16. Black cohosh. ALLERGIES SHE HAS NUMEROUS ALLERGIES INCLUDING DIMETAPP, UNCOATED ASPIRIN, AMPICILLIN, FELDENE, CODEINE, PENICILLIN, DARVON, DARVOCET, IODINE, , CAFERGOT, RUFEN, ELAVIL, TETRACYCLINE. Past surgical history includes a partial hysterectomy in 1979, partial thyroidectomy in 1984 for benign tumor, a transvaginal paravaginal repair of cystocele using human dermal allograft to transvaginal repair of enterocele with high ligation of enterocele sac, suburethral sling procedure with SPARC polypropylene sling performed on December 30, 2005. She does not smoke, drink. No recent fever or weight loss. She is a high school graduate. Is presently working at home. Recent remarried. Hobbies include reading, puzzles. Areas of great difficulty include dressing, bathing, getting in and out of a car, climbing and descending stairs, making beds, grocery shopping, standing or twisting. Her height is 5 feet 3-1/2 inches, weight 121 pounds. She is pleasant and makes eye contact readily. She is able to toe walk, unable to heel walk. Her Romberg is negative. Able to tandem gait. Shoulder-hip height is symmetric. Palpation of the lumbar spine: Paramedian tenderness on the right, tenderness of the right SI joint; also, tenderness of the sciatic notch and the right greater trochanter r egion. No tenderness in left SI, left sacral notchor left greater trochanteric region. She is able to forward flex six inches from fingertip 16 inches from floor. Extension is very limited and painful. Lateral bending bilaterally is decreased and painful. Rotation is pain free. Straight leg raises are negative bilaterally. Muscle stretch reflex is intact for bilateral quads. Intact for the right Achilles, left Achilles could not be elicited. She has a healed surgical scar over the dorsal aspectof the left foot. Evidently, a left foot injury in childhood.Strength is jerky with intermittent resistance for hip flexion, extension, knee flexion, extension, and dorsiflexion strength bilaterally is 4+/5. Left plantar flexion strength is 4/5, right is 5/5. Sensation is decreased over the plantaraspect of the left foot. Range of motion of the hips is symmetric without limitations. Pyriformis stretch is without pain. She does have a positive Fabere on the left. There is normal bulk of the musculature in both lower extremities. There is some scarring over the dorsal surface of the left foot. Dania Angulo has a longstanding history of greater than 20 years of low back pain with recent exacerbation in December of 2006 after a period of immobility. X- rays were obtained today of the lumbar spine; AP, lateral, flexion-extension. There is no scoliosis, no spondylolisthesis. There is some decreased disk space at the L5-S1 area. There is no facet hypertrophy noted. Dania Angulo is experiencing chronic low back pain with recent flare in December of 2006 after a period of immobility. X-rays do reveal some degenerative disk disease at the L5-S1 region and at this point am recommending MRI of the lumbar spine to rule out degenerative disk disease. There seems to be a component of possible symptom magnification with positiveaxial loading and inconsistency with muscle strength testing. She does have history of fibromyalgia, which could explain widespread tenderness that was elicited on the clinical exam. Will provide a full treatment plan after evaluation of her MRI. Thank you for allowing the [facility] to participate in the care of your patient. Signed by Mindy Flores MD 12/02/2007 08:35 Mindy Flores MD - Mindy Flores MD - MS Job ID: [id number] Doc ID: [id number] cc: MD Melissa Raymundo APRN documented in this encounter Care Teams Mold Checker Relationship Specialty Start Date End Date Melissa Lambert APRN PCP - General 01/02/09 03/20/10 Melissa Lambert APRN PCP - General 11/09/08 01/01/09 documented as of this encounter
--- OUTSIDE RECORDS SUMMARY | 2024-04-06 13:52 | XMS_ITS | Encounter Summary ---
Author Organization [facility] Address [address] [place] [address] Care Team Providers Care Oxygen Therapist Name Role Phone Melissa Lambert APRN Primary Care Provider Unava ilable Melissa Lambert APRN Primary Care Provider Unava ilable Encounter Details Date Type Department Care Team (Late st Contact Info) Description 11/26/2006 Before PRISM Converted Visit (Maple) [facility] - Maple conversion [address] [place] [address] Marcin Antoine MD [address] [place] [address] [phone] Social History Tobacco Use Types Packs/Day Years Used Date Smoking Tobacco: Never Assessed Sex and Gender Information Value Date Recorded Sex Assigned at Not on file Gender Identity Female 03/25/2022 10:56 EDT Sexual Orientation Not on file documented as of this encounter Plan of Treatment Not on file documented as of this encounter Visit Diagnoses * Evaluation - Marcin Antoine MD - 05/14/2009 1312 EST [facility] [address] [place], [place] [address] Telephone Toll-Free NEW PATIENT EVALUATION - 11/26/2006 Melissa Lambert APRN [address] [place] [address] Dear Melissa: It was indeed a pleasure to meet Dania Ayoub today in urologic consultation for her urinary incontinence and likely pelvic prolapse. Dania is a 61-year-old female, , who is status post a hysterectomy in 1979 for fibroids. She reports worsening problems with pelvic pressure and a vaginal bulge. This has caused her distress, including episodic brown vaginal discharge, occasional bleeding, and sensations of vaginal fullness as well as suprapubic pressure and lower lumbar discomfort. The patient also reports mixed urinary incontinence. She leaks with coughing, sneezing, and laughing. She also voids quite frequently, approximately every 45 minutes, and she often does not make itto the bathroom on time. She denies nocturnal enuresis but wakes up one time at night to empty her bladder. When she does need to urinate, she at times has to splint and push the prolapse back into the vagina. She also needs to strain, voids with an intermittent stream, and leans forward to try to complete emptying. These symptoms have become progressively more bothersome to her and she is looking for a solution. The patient has not benefited from Kegel exercises. Her past medical history is otherwisesignificant for multiple episodes (26) of pneumonia. She has been hospitalized eight times in the past for pneumonia, but she has not had pneumonia in many years since receiving the Pneumovax vaccine. She has a history of hypothyroidism. She is statuspost partial thyroidectomy in 1984. The patient is status post tubal ligation in 1969. She is also status post the aforementioned hysterectomy with left oophorectomy in 1979 and right oophorectomy in 1997. She is status post several urethral dilations for obstructive voiding symptoms, the last being performed in 1978. The patient also has a history of asthma, chronic lower back discomfort, gastroesophageal reflux disease, and atypical chest pain. Her review of systems is documented in the paper chart and is positive for a history of urinary tract infection this year, which resulted in gross hematuria. She denies further episodes. She also has chronic headaches. The patient has episodic tingling in her hands and feet at times. Her medications currently include Premarin, Synthroid, Alavert, Flexeril, trazodone, Tylenol, aspirin, vitamins and calcium. SHE HAS MULTIPLE ALLERGIES, INCLUDING CODEINE, PENICILLIN, DARVON, DARVOCET, IODINE, AND . The patient is a nonsmoker. She drinks occasional alcohol but denies illicit drugs. She has no history of endometriosis. Her family history is significant for multiple family members with cancer, including a sister with a history of renal cell carcinoma and another sister with rectal and vaginal cancer.The majority of the physical examination is normal and is documented in the paper chart. Genital examination revealed normal external genitalia. A catheterized postvoid residual was elevated to 120 mL. When I asked the patient to cough prior to catheterization, I did not see any vaginal leakageof urine. The patient had what appeared to be a distal vaginal wall cyst versus possibly a small ure thral diverticulum of the distal urethra. There was no evidence of vaginal atrophy. The urethrovesical junction was hypermobile to 90 degrees with straining. There was a Grade 3 combined defect cystocele. There was only a minor rectocele and no substantial vault prolapse. The uterus is surgically absent. Urinalysis today is negative for blood or leukocytes on dipstick. In summary we have a 61-year-old female with Grade 3 cystocele, minor rectocele, and mixed urinary incontinence. In order to evaluate her voiding dysfunction, we plan to proceed with a voiding diary.She will then return to the office for urodynamics. At that time I will also perform cystoscopy dueto her history of gross hematuria. We are also obtaining a renal ultrasound given her complaints ofback pain and having a first-degree family member with renal cell cancer and having one episode of hematuria previously. Once the assessment is complete, I will forward the results on to you. If you have any questions, please do not hesitate to call me. Sincerely, Signed by Marcin Antoine MD 12/02/2006 17:17 Hari Pressley MD Marcin Antoine MD Sukh Antoine MD P - [facility] Job ID: [id number] Document ID: [id number] cc: MD Amanda Mccloud MD Wayne Warnken, MD Ellen Watson, APRN documented in this encounter Care Teams Oxygen Therapist Relationship Specialty Start Date End Date Melissa Lambert APRN PCP - General 01/02/09 03/20/10 Melissa Lambert APRN PCP - General 11/09/08 01/01/09 documented as of this encounter
--- OUTSIDE RECORDS SUMMARY | 2024-04-06 13:52 | XMS_ITS | Encounter Summary ---
Author Organization [facility] Address [address] [place] [address] Care Team Providers Care Briar Shop Supervisor Name Role Phone Melissa Lambert APRN Primary Care Provider Unava Melissa Ocampo APRN Primary Care Provider Unava ilable Encounter Details Date Type Department Care Team (Late st Contact Info) Description 04/06/2008 Before PRISM Converted Visit (Maple) [facility] - Maple conversion [address] [place] [address] Yinka Gonzalez MD [address] [place] [id number] Social History Tobacco Use Types Packs/Day Years Used Date Smoking Tobacco: Never Assessed Sex and Gender Information Value Date Recorded Sex Assigned at Not on file Gender Identity Female 03/25/2022 10:56 EDT Sexual Orientation Not on file documented as of this encounter Procedure Notes * Yinka Gonzalez MD - 01/26/2009 0955 EDT PHYSICAL MEDICINE / REHABILITATION ELECTRODIAGNOSTIC MEDICINE CONSULTATION DATE OF SERVICE : 04/06/2008 ATTENDING PHYSICIAN: Yinka Gonzalez MD REFERRING PHYSICIAN: Mindy Flores MD PRIMARY PHYSICIAN: Melissa Lambert APRN REASON FOR EVALUATION History of chronic left-sided pain and complaints of numbness in the left lower and partly left upper extremity. HISTORY Ms. Angulo is a 62-year-old who has been seen by Dr. Flores. She has diffuse pain complaints involving her neck, back, lower extremities, and left upper extremity. She reports that essentially her entire left side is painful. She uses very detailed language to describe her overall pain complaints.When I asked her if she has had any brain imaging to assess any possible cause of her left- sided pain, she then began to describe head type pains that she has. She had multiple questions about possible causes for her pain. Some of which were a bit far fetched. She spent an inordinate amount of timegoing into detail about her pain complaints. In reviewing Dr. Torre note she is identified that there were three positive Edwige signs. Ms. Vizcarra EMG reveals extensive detailed left-sided pain, which includes aching, tingling, and other qualifiers. She has positive history for hypothyroidism, but is reportedly euthyroid on thyroid supplementation, denies any history of diabetes. She denies any significant changes in bowel or bladder. She does report left-sided weakness. Please refer to EMG questionnaire for other details. Radiographic imaging was reviewed and does reveal evidence of right-sided L4 disk herniation. However, she denies any significant right lower extremity pain complaints. OBJECTIVE On examination, above Ms. Angulo spent quite a bit of time detailing her overall pain complaints and adding additional information as the examination continued. She had general tenderness throughout the scapulothoracic and cervical musculature. She had slight exaggerated pain responses. Examinationof the upper extremities revealed give-away weakness on the left side inconsistently. In the lower extremities she also had give-away weakness. When testing the right lower extremity individually shehad 5/5 strength. However, when testing the bilateral lower extremity strength at the same time shetended to have give-away weakness in the right side as well. Of note however, she did have absence of left Achilles tendon reflex with normoactive reflexes at the patellar tendons bilaterally and theright Achilles tendon. This was a consistent finding even with provocative measures. She had negative straight-leg raise when I was distracting her. She had positive tenderness in the lumbar spine and gluteal area. She had positive Tinel's at the left elbow. Negative Tinel's at the wrist. Positive decreased sensation in a patchy distribution of the left lower extremity. Positive and consistent decrease in sharp/dull discrimination and light touch in an ulnar distribution in the left hand including the entire pinky and splitting the ring finger. EMG/NCV (see data sheet) After reviewing above history and findings I proceeded with electrodiagnostic of the lower extremities. This included peroneal and tibial motor with F-waves, sural sensory and bilateral gastroc H-reflexes. Needle examination included abductor hallucis, extensor hallucis longus, tibialis anterior, peroneus longus, vastus medialis, biceps femoris short head, tensor fasciae latae, and two-level paraspinals. FINDINGS There were distal conduction abnormalities of any significance. Of note, however, there was a consistent loss of the left gastroc H-reflex. I was able to easily obtain a strong right lower extremity H-reflex. I retested the left side a few times to make sure that this was a consistent finding and indeed there was no evidence of a left H-reflex. Needle examination was negative for any recruitment abnormalities or denervation potentials. IMPRESSION 1. Borderline abnormal study. 2. 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 3. No evidence of peripheral neuropathy. ADDENDUM Not mentioned above, I tested left ulnar motor and sensory. There was no motor slowing across the elbow. There was normal distal ulnar sensory. I had difficulty obtaining proximal ulnar sensory studies with multiple attempts indicating possible sensory block across the elbow. CONCLUSION Ms. 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 She also has possible evidence of ulnar nerve entrapment across the elbow coinciding with clinical findings. She will be seeing Dr. Flores later this week for further evaluation and review of this testing. Signed by Yinka Gonzalez MD 04/14/2008 12:56 Yinka Gonzalez MD - Yinka Gonzalez MD A - [facility] Job ID: [id number] Document ID: [id number] cc: Mindy Flores MD documented in this encounter Plan of Treatment Not on file documented as of this encounter Visit Diagnoses Not on filedocumented in this encounter Care Teams Briar Shop Supervisor Relationship Specialty Start Date End Date Melissa Lambert APRN PCP - General 01/02/09 03/20/10 Melissa Lambert APRN PCP - General 11/09/08 01/01/09 documented as of this encounter
--- OUTSIDE RECORDS SUMMARY | 2024-04-06 13:52 | XMS_ITS | Encounter Summary ---
Author Organization [facility] Address [address] [place] [address] Care Team Providers Care Technical Maintenance Technician Name Role Phone Unavailable Primary Care Provider Unavailabl e Encounter Details Date Type Department Care Team (Late st Contact Info) Description 11/12/2007 14:00 EDT Hospital Encounter [facility] - Maple conversion [address] [place] [address] Mindy Flores MD [address] [place] [phone] Social History Tobacco Use Types Packs/Day [...]
--- OUTSIDE RECORDS SUMMARY | 2024-04-06 13:52 | XMS_ITS | Encounter Summary ---
Author Organization [facility] Address [address] [place] [address] Care Team Providers Care Rn Eligibility Name Role Phone Melissa Lambert APRN Primary Care Provider Unava ilable Melissa Lambert APRN Primary Care Provider Unava ilable Encounter Details Date Type Department Care Team (Late st Contact Info) Description 12/22/2006 Results Only [facility] - Maple conversion [address] [place] [address] Melissa Lambert APRN Social History Tobacco Use [...] Procedure Name Priority Date/Time Associated Diagnosis Comments URINE MICROSCOPIC Routine 12/22/2006 21: 00 EDT URINALYSIS WITH MICROSCOPIC IF POSITIVE Routine 12/22/2006 21:00 EDT URINE CULTURE IF POSITIVE Routine 12/22/2006 21:00 EDT COMPLETE BLOOD COUNT Routine 12/22/2006 20:59 EDT BASIC METABOLIC PANEL (BMP) Routine 12/22/2006 20:59 EDT documented in this encounter Results * URINE MICROSCOPIC (12/22/2006 21:00 EDT) WBC, UA None seen 0 - 5 /HPF [facility] RBC, UA None seen 0 - 5 /HPF [facility] Squam Epithel, UA None seen NS /HPF [facility] Renal Epithel, UA None seen NS /HPF [facility] Bacteria, UA None seen NS /HPF [facility] Crystals, UA None seen /HPF [facility] Hyaline Casts, UA None seen /LPF [facility] UA Comment Microscopic results are unreliable on urines unrefrig >2hrs or refrig >8hrs. [facility] 12/22/2006 21:0 0 EDT 12/22/2006 21:00 EDT Melissa Lambert PSYCHOLOGIST CHIEF URINALYSIS ORDERABLE S Performing Organization Address [facility] de Phone Number [facility] [address] [place] [address] * (ABNORMAL) URINALYSIS (12/22/2006 21:00 EDT) Color, UA Yellow [facility] Clarity, UA Clear [facility] Glucose, UA Norm NORM [facility] Bilirubin, UA Neg NEG [facility] Ketones, UA Neg NEG [facility] Specific [place], Urine <1.005(L) 1.005 - 1.02 [facility] Blood, UA Trace(A) NEG [facility] pH, UA 6.0 5.0 - 9.0 [facility] Protein, UA Neg NEG [facility] Urobilinogen, UA Norm NORM mg/dL [facility] Nitrite, UA Neg NEG [facility] Leuk Esterase Neg NEG [facility] 12/22/2006 21:0 0 EDT 12/22/2006 21:00 EDT Melissa Lambert PSYCHOLOGIST CHIEF URINALYSIS ORDERABLE S Performing Organization Address [facility] Co de Phone Number [facility] [address] [place] [address] * CULTURE IF UA POSITIVE (12/22/2006 21:00 EDT) Culture if Indicated Culture not indicated by urinalysis results. [facility] 12/22/2006 21:0 0 EDT 12/22/2006 21:00 EDT Melissa Lambert APRN MICROBIOLOGY - GENER AL ORDERABLES Performing Organization Address [facility] de Phone Number [facility] [address] [place] [address] * (ABNORMAL) HEMAGRAM (12/22/2006 20:59 EDT) Pathologist [facility] WBC 8.43 4.0 - 12.4 K/cmm [facility] RBC 4.21 3.86 - 5.04 M/cmm [facility] Hemoglobin 13.4 11.6 - 15.2 gm/dl [facility] HCT 39.4 34.9 - 44.4 % [facility] MCV 94 81 - 98 fl [facility] MCH 31.8 26.7 - 33.3 pg [facility] MCHC 34.0 32.1 - 35.9 gm/dl [facility] PLT 334(H) 141 - 320 K/cmm [facility] RDW-CV 14.2 11.7 - 14.6 % [facility] 12/22/2006 20:5 9 EDT 12/22/2006 20:59 EDT Melissa Lambert APRN HEMATOLOGY & PF4 ORD ERABLES Performing Organization Address [facility] de Phone Number [facility] [address] [place] [address] * (ABNORMAL) BASIC METABOLIC PANEL (12/22/2006 20:59 EDT) Pathologist [facility] Sodium 143 136 - 145 mEq/L [facility] Potassium 3.8 3.5 - 5.0 mEq/L [facility] Chloride 103 96 - 110 mEq/L [facility] CO2 31 24 - 32 mEq/L [facility] BUN 7(L) 10 - 26 mg/dl [facility] Creatinine 0.82 0.7 - 1.5 mg/dl [facility] GFR, Calculated >60 ml/min/1.7 3m2 [facility] Calcium 9.6 8.5 - 10.5 mg/dl [facility] Calculated Calcium 9.4 8.5 - 10.5 mg/dl [facility] Glucose, Serum 85 70 - 100 mg/dl [facility] Fasting? Unknown [facility] 12/22/2006 20:5 9 EDT 12/22/2006 20:59 EDT Melissa Lambert APRN CHEMISTRY & BLOOD GA S ORDERABLES [facility] [address] [place] [address] documented in this encounter Visit Diagnoses Not on filedocumented in this encounter Care Teams Rn Eligibility Relationship Specialty Start Date End Date Melissa Lambert APRN PCP - General 01/02/09 03/20/10 Melissa Lambert APRN PCP - General 11/09/08 01/01/09 documented as of this encounter
--- OUTSIDE RECORDS SUMMARY | 2024-04-06 13:52 | XMS_ITS | Encounter Summary ---
Author Organization [facility] Address [address] [place] [address] Care Team Providers Care Furniture Crater Name Role Phone Melissa Lambert APRN Primary Care Provider Unava ilable Melissa Lambert APRN Primary Care Provider Unava ilable Encounter Details Date Type Department Care Team (Late st Contact Info) Description 05/06/2006 Results Only [facility] - Maple conversion [address] [place] [address] Amanda Barrera MD [address] [place] [phone] Social History Tobacco Use Types Packs/Day Years Used Date Smoking Tobacco: Never Assessed Sex and Gender Information Value Date Recorded Sex Assigned at Not on file Gender Identity Female 03/25/2022 10:56 EDT Sexual Orientation Not on file documented as of this encounter Plan of Treatment Not on file documented as of this encounter Procedures Procedure Name Priority Date/Time Associated Diagnosis Comments TSH Routine 05/06/2006 13:15 EST documented in this encounter Results * TSH (05/06/2006 13:15 EST) TSH 1.05 0.35 - 5.00 uIU/mL [facility] 05/06/2006 13:1 5 EST 05/06/2006 21:08 EST Amanda Barrera MD CHEMISTRY & BLOOD G ORDERABLES [facility] [address] [place] [address] documented in this encounter Visit Diagnoses Not on filedocumented in this encounter Care Teams Furniture Crater Relationship Specialty Start Date End Date Melissa Lambert APRN PCP - General 01/02/09 03/20/10 Melissa Lambert APRN PCP - General 11/09/08 01/01/09 documented as of this encounter
--- OUTSIDE RECORDS SUMMARY | 2024-04-06 13:52 | XMS_ITS | Encounter Summary ---
Author Organization [facility] Address [address] [place] [address] Care Team Providers Care Yard Labor Supervisor Name Role Phone Melissa Lambert APRN Primary Care Provider Unava ilable Melissa Lambert APRN Primary Care Provider Unava ilable Encounter Details Date Type Department Care Team (Late st Contact Info) Description 05/05/2006 Before PRISM Converted Visit (Maple) [facility] - Maple conversion [address] [place] [address] Dwayne Parmar MD [address] [facility] [phone] Social History Tobacco Use Types Packs/Day Years Used Date Smoking Tobacco: Never Assessed Sex and Gender Information Value Date Recorded Sex Assigned at Not on file Gender Identity Female 03/25/2022 10:56 EDT Sexual Orientation Not on file documented as of this encounter Progress Notes * Dwayne Parmar MD - 07/13/2009 1253 EST DIVISION OF OTOLARYNGOLOGY PROGRESS/FOLLOWUP NOTE - 05/05/2006 S:Anitra comes in to 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 She has been on b.i.d. Prilosec now for 2 ?? months and says that she thinks things are improved. However, for the past 2 months shehad a mild rash on her neck which she cant attribute to any contact situations or other new medications. The only associated change was when she increased her Prilosec to b.i.d. She has no rash anywhere else on her body. It is red, it is dried, it is pruritic. Her laryngospasm, globus, hoarseness, and throat clearing all have improved. O:is alert and appears comfortable. Voice sounds normal. Oral cavity looks fine. Indirect view of the larynx shows things look quite good. There is just mild erythema in the posterior commissure but no significant granulation . I did not appreciate infraglottic edema today. Cervical exam reveals nomasses or adenopathy. However, she has a diffuse, nonraised erythematous dry rash over her entire neck up to her mandibular ramus bilaterally. It does not leo. A: Apparent dermatitis anterior neck. It is unclear if this is drug related or contact. P: Id like her to stop her Prilosec for one week. If the rash improves significantly, she should call us and wetry a different PPI. If the rash is not improved, she should restart her Prilosec and try some Hydrocortisone cream. Weve made arrangements for her to see Dermatology as well today. Isee her back based on any persistent LPR-related symptoms. Signed by Dwayne Parmar MD 05/06/2006 14:33 Kavin Fields MD Dwayne Parmar MD - Larry Parmar MD P - [facility] Job ID: [id number] Document ID: [id number] cc: TRAVON Lindquist documented in this encounter Plan of Treatment Not on file documented as of this encounter Visit Diagnoses Not on filedocumented in this encounter Care Teams Yard Labor Supervisor Relationship Specialty Start Date End Date Melissa Lambert APRN PCP - General 01/02/09 03/20/10 Melissa Lambert APRN PCP - General 11/09/08 01/01/09 documented as of this encounter
--- OUTSIDE RECORDS SUMMARY | 2024-04-06 13:52 | XMS_ITS | Encounter Summary ---
Author Organization [facility] Address [address] [place] [address] Care Team Providers Care Strategy Associate Name Role Phone Melissa Lambert APRN Primary Care Provider Unava ilable Melissa Lamebrt APRN Primary Care Provider Unava ilable Encounter Details Date Type Department Care Team (Late st Contact Info) Description 02/17/2008 Before PRISM Converted Visit (Maple) [facility] - Maple conversion [address] [place] [address] Laurie Camarena MD [address] [place] [phone] Social History Tobacco Use Types Packs/Day Years Used Date Smoking Tobacco: Never Assessed Sex and Gender Information Value Date Recorded Sex Assigned at Not on file Gender Identity Female 03/25/2022 10:56 EDT Sexual Orientation Not on file documented as of this encounter Procedure Notes * Laurie Camarena MD - 04/07/2009 1222 EDT DIVISION OF PAIN MANAGEMENT PROCEDURE REPORT SERVICE DATE: 02/17/2008 Vidal Cihang MD REFRACTIVE SURGEON: Laurie Camarena MD PROCEDURE Bilateral sacroiliac joint injection. PREPROCEDURE DIAGNOSIS Low back pain. POSTPROCEDURE DIAGNOSIS Low back pain. INTERVAL HISTORY The patient is a 62-year-old woman who was last seen in clinic on December 15, 2007, where she had an L5-S1 epidural steroidinjection. She states this injection helped with her right back and buttock pain but did not help with the left leg pain. She states today that her back bothers her the most. She says it feels hot and is a burning type of pain. She states that she still has flank pain which goesdown her buttock, posterior thigh, calf and into her first big toe. She denies any bladder or bowelincontinence. She complains of whole left-sided numbness and weakness. REVIEW OF SYSTEMS She denies any fevers, recent infections, chest pain or shortness of breath. She has held her aspirin for three days. PHYSICAL EXAMINATION She is 5 feet 3-1/2-inches tall and weighs 126 pounds. Blood pressure 165/95, heart rate 83, respirations 16. She is alert and oriented times three and inno acute distress. Neurological exam: Her cranial nerves II-XII are intact. She has tenderness of her thoracic and lumbar spinous process. She isable to extend and flex without pain. She has 5/5 strength in all lower extremity muscle groups except on theleft she has 3/5 strength of her quadriceps muscles and 4/5 strength on the right of her quadriceps muscle. She is tender bilaterally to her sacroiliac joints. She is also tender to palpation of the left piriformis muscle. Straight leg raise is negative.Fabers test is positive bilaterally. ASSESSMENT A 62-year-old female with low back pain that could be secondary to sacroiliac joint. PLAN Proceed with bilateral sacroiliac joint injection. We will plan to see the patient again if she continues to have pain despite this injection. PROCEDURE NOTE Following informed consent the patient was placed prone, prepped and draped in sterile fashion. Fluoroscopy was used to identify the right sacroiliac joint. Then, 2% lidocaine was used to anesthetizethe skinand subcutaneous tissues overlying this area. Then, a spinal needle was directed into the right sacroiliac joint. At this point, 3 mL of a mixture of 80 mg of Depo-Medrol and 6 mL of 0.5% bupivacaine were injected into the space. Then, the left sacroiliac joint was identified under fluoroscopy. Spinal needle was guided into this joint under fluoroscopy. There was negative aspiration of heme and CSF. Then, 2 mL of the same mixture of 80 mg of Depo-Medrol and 0.5% bupivacaine were injected into this joint.\par The patient tolerated the procedure well. She denied any paresthesias or weakness. Her postprocedure vital signs were blood pressure 162/88 with a heart rate of 78. Dr. Chiang was scrubbed and present for the entire procedure. We will follow up with the patient on a p.r.n. basis. Signed by Vidal Chiang MD 02/24/2008 11:57 Laurie Camarena MD Vidal Chiang MD D: - Laurie Camarena MD - [employer] Job ID: [id number] Doc ID: [id number] cc: Mindy Flores MD documented in this encounter Plan of Treatment Not on file documented as of this encounter Visit Diagnoses Not on filedocumented in this encounter Care Teams Strategy Associate Relationship Specialty Start Date End Date Melissa Lambert APRN PCP - General 01/02/09 03/20/10 Melissa Lambert APRN PCP - General 11/09/08 01/01/09 documented as of this encounter
--- OUTSIDE RECORDS SUMMARY | 2024-04-06 13:52 | XMS_ITS | Encounter Summary ---
Author Organization [facility] Address [address] [place] [address] Care Team Providers Care Field Auditor Name Role Phone Melissa Lambert APRN Primary Care Provider Unava ilMelissa Ansari APRN Primary Care Provider Unava ilable Melissa Lambert APRN Primary Care Provider Unava ilable Encounter Details Date Type Department Care Team (Late st Contact Info) Description 05/27/2006 Results Only [facility] conversion [address] [place] [address] Nina Rosas, PA [address] [facility] [address] [place], [place] [id number] Social History Tobacco Use Types Packs/Day Years Used Date Smoking Tobacco: Never Assessed Sex and Gender Information Value Date Recorded Sex Assigned at Not on file Gender Identity Female 03/25/2022 10:56 EDT Sexual Orientation Not on file documented as of this encounter Plan of Treatment Not on file documented as of this encounter Procedures Procedure Name Priority Date/Time Associated Diagnosis Comments CYTOPATHOLOGY Routine 05/27/2006 0:00 EST documented in this encounter Results * CYTOPATHOLOGY (05/27/2006 0:00 EST) Pathology Report: CYTOPATHOLOGY REPORT Reports generated via electronic interface contain original data; however they are lacking the format of the original report. Caution should be taken when reading/interpreti ng unformatted reports. Name: ? DANIA ANGULO I ? Accession #: ? [id number] : ? 1945 (Age: 60) ??F ?Collect Date: ? 05/27/2006 Location: ? [facility] ? Receive Date: ? 05/28/2006 Provider: ?NINA SANTANA Copy to: ? Specimen/Source: ?ThinPrep Pap Test, Cervix, processed on [employer] ThinPrep Imaging System, with manual evaluation Last Menstrual Period: ? 1979 Treatment History: ? Hysterectomy: total Other: ? HPVA - HPV testing requested if ASC-US on the current ThinPrep Pap test. ? SPECIMEN ADEQUACY ? Satisfactory for Evaluation - transformation zone component absent GENERAL CATEGORIZATION ? Negative for Intraepithelial Lesion or Malignancy ? Document reviewed and electronically signed by: ? ROMA Barber(ASCP) ? Report Date: ??06/04/2006 14:34 End of Report EMIL ECHEVERRIA 05/27/2006 05/28/2006 Nina SANTANA PATHOLOGY ORDERABL ES [facility] [address] [place] [address] documented in this encounter Visit Diagnoses Not on filedocumented in this encounter Care Teams Field Auditor Relationship Specialty Start Date End Date Melissa Lambert APRN PCP - General 01/02/09 03/20/10 Melissa Lambert APRN PCP - General 11/09/08 01/01/09 Melissa Lambert APRN PCP - General 03/21/10 04/01/10 documented as of this encounter
--- OUTSIDE RECORDS SUMMARY | 2024-04-06 13:52 | XMS_ITS | Encounter Summary ---
Author Organization [facility] Address [address] [place] [address] Care Team Providers Care Inspector Tubes Name Role Phone Unavailable Primary Care Provider Unavailabl e Encounter Details Date Type Department Care Team (Late st Contact Info) Description 01/30/2006 11:10 EDT Hospital Encounter [facility] [address] [place] [address] Dwayne Parmar MD [address] [place] [address], [address] [place] [phone] Social History Tobacco Use Types Packs/Day Years [...]
--- OUTSIDE RECORDS SUMMARY | 2024-04-06 13:52 | XMS_ITS | Encounter Summary ---
Author Organization [facility] Address [address] [place] [address] Care Team Providers Care Professional Caster Name Role Phone Unavailable Primary Care Provider Unavailabl e Encounter Details Date Type Department Care Team (Latest Contact Info) Description 10/19/2007 12:46 EDT Hospital Encounter [facility] - Maple conversion [address] [place] [address] Marcin Antoine MD [address] [place] [phone] Discharge Disposition: Auto Discharge Social History Tobacco [...]
--- OUTSIDE RECORDS SUMMARY | 2024-04-06 13:52 | XMS_ITS | Encounter Summary ---
Author Organization [facility] Address [address] [place] [address] Care Team Providers Care Vanstone Machine Operator Name Role Phone Melissa Lambert APRN Primary Care Provider Unava ilable Meilssa Lambert APRN Primary Care Provider Unava ilable Encounter Details Date Type Department Care Team (Late st Contact Info) Description 04/20/2008 Before PRISM Converted Visit (Maple) [facility] - Maple conversion [address] [place] [address] Mindy Flores MD [address] [place] [address] [place] [phone] Social History Tobacco Use Types Packs/Day Years Used Date Smoking Tobacco: Never Assessed Sex and Gender Information Value Date Recorded Sex Assigned at Not on file Gender Identity Female 03/25/2022 10:56 EDT Sexual Orientation Not on file documented as of this encounter Progress Notes * Mnidy Flores MD - 01/28/2009 0705 EDT [facility] [address] [place] [address] PROGRESS/FOLLOWUP NOTE - 04/20/2008 Melissa Lambert APRN [address], [address] [place] [address] Dear Ms. Lambert: I had the opportunity to follow up with your patient, Dania Angulo, at the [facility] today for low back and left leg pain. Today 80% of her pain is localized to the low back with the remaining 20% in the left lower extremity. She describes her pain level as a 4, attimes it flares to a 10 and is constant. She does not report any relief except with sleeping and her pain is made worse by walking and standing. Since last office visit she has had an EMG/NCV performed by Dr. Yinka Gonzalez. It does reveal possible slight demyelinization at the S1 nerve root proximally but often times this is found after epidural steroid injection which she has had L5-S1 on December 15, 2007. Today her clinical exam: Her gait pattern: she is ambulating more in an upright position. She does have intact reflexes for bilateral quads and Achilles. Strength in her lower extremities remains normal. She does have negative straight leg raise. Impression: 1. Multilevel lumbar degenerative disk disease at the L3-4 level, L4-5, and L5-S1. She does have osteophyte at the superior endplate of L4 and superior endplate of L5 and also a right [id number] root sheath cyst. At this point I do feel the majority of her symptomatology is coming from the known lumbar degenerative disk disease. The plan is for her to: 1. Continue with physical therapy in [place] for core strengthening and lumbar stabilization. 2. She is to follow up here in the office in a years time. Unfortunately I do not feel there is much else I can offer her in terms of her pain management. 3. Only other recommendations would be for rheumatologic eval to see how much of this pain/fatigue is related to a possible fibromyalgia. She does report a recent worsening of her symptoms as her Premarin has been discontinued. 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 Thank you for allowing the [facility] to participate in the care of Dania Angulo. Sincerely, Signed by Mindy Flores MD 05/10/2008 15:13 Mindy Flores MD - Mindy Flores MD - [facility] Job ID: [id number] Doc ID: [id number] cc: MD Melissa Mccloud APRN documented in this encounter Plan of Treatment Not on file documented as of this encounter Visit Diagnoses Not on filedocumented in this encounter Care Teams Vanstone Machine Operator Relationship Specialty Start Date End Date Melsisa Lambert APRN PCP - General 01/02/09 03/20/10 Melissa Lambert APRN PCP - General 11/09/08 01/01/09 documented as of this encounter
--- OUTSIDE RECORDS SUMMARY | 2024-04-06 13:52 | XMS_ITS | Encounter Summary ---
Author Organization [facility] Address [address] [place] [address] Care Team Providers Care Optical Effects Line Up Person Name Role Phone Unavailable Primary Care Provider Unavailabl e Encounter Details Date Type Department Care Team (Late st Contact Info) Description 04/20/2008 11:03 EDT - 04/20/2008 11:59 EDT Hospital Encounter [facility] - Maple conversion [address] [place] [address] Mindy Flores MD [address] [place] [phone] Discharge Disposition: Auto Discharge Social History Tobacco [...]
--- OUTSIDE RECORDS SUMMARY | 2024-04-06 13:52 | XMS_ITS | Encounter Summary ---
Author Organization [facility] Address [address] [place] [address] Care Team Providers Care Event Management Consultant Name Role Phone Unavailable Primary Care Provider Unavailabl e Encounter Details Date Type Department Care Team (Late st Contact Info) Description 02/26/2007 15:56 EDT Hospital Encounter [facility] - [facility] conversion [address] [place] [address] Marcin Antoine MD [address] [place] [phone] Social History Tobacco Use Types Packs/Day Years [...]
--- OUTSIDE RECORDS SUMMARY | 2024-04-06 13:52 | XMS_ITS | Encounter Summary ---
Author Organization [facility] Address [address] [place] [address] Care Team Providers Care Crate Builder Name Role Phone Unavailable Primary Care Provider Unavailabl e Encounter Details Date Type Department Care Team (Latest Contact Info) Description 02/17/2008 11:07 EDT - 02/17/2008 11:59 EDT Hospital Encounter [facility] - Maple conversion [address] [place] [address] [place] [address] [place] [phone] Discharge Disposition: Auto Discharge Social History Tobacco [...]
--- OUTSIDE RECORDS SUMMARY | 2024-04-06 13:52 | XMS_ITS | Encounter Summary ---
Author Organization [facility] Address [address] [place] [address] Care Team Providers Care Coding Clerks Supervisor Name Role Phone Unavailable Primary Care Provider Unavailabl e Encounter Details Date Type Department Care Team (Latest Contact Info) Description 12/04/2006 12:48 EDT Hospital Encounter [address] [address] Marcin Antoine MD [address] [place] [phone] Discharge Disposition: Auto Discharge Social History Tobacco [...] Associated Diagnosis Comments RAD US RETROPERITONEAL COMPLETE 12/04/2006 13:42 EDT documented in this encounter Results * RAD US RETROPERITONEAL COMPLETE (12/04/2006 13:42 EDT) Anatomical Region Laterality Modality Other 12/04/2006 13:4 2 EDT Narrative 01/04/2009 13:02 EDT hematuria Ultrasound Retroperitoneal Complete: ?? December 04, 2006 1:42:44 PM Signs and Symptoms: ??hematuria. Findings: The retroperitoneum was scanned with real-time technique. The right kidney measured 10.5 cm in length. The left kidney measured 10.6 cm in length. Both kidneys appear normal without evidence of hydronephrosis, mass, or calculus. The bladder appeared grossly normal. Color Doppler showed bilateral ureteral jets. The spleen was visualized and appeared normal. Impression: Normal study. Procedure Note Ruba Argueta MD - 01/04/2009 hematuria Ultrasound Retroperitoneal Complete: December 04, 2006 1:42:44 PM Signs and Symptoms: hematuria. Findings: The retroperitoneum was scanned with real-time technique. The right kidney measured 10.5 cm in length. The left kidney measured 10.6 cm in length. Both kidneys appear normal without evidence of hydronephrosis, mass, or calculus. The bladder appeared grossly normal. Color Doppler showed bilateral ureteral jets. The spleen was visualized and appeared normal. Impression: Normal study. Marcin Antoine MD IMG US ORDERABLES documented in this encounter Visit Diagnoses Not on filedocumented in this encounter
--- OUTSIDE RECORDS SUMMARY | 2024-04-06 13:52 | XMS_ITS | Encounter Summary ---
Author Organization [facility] Address [address] [place] [address] Care Team Providers Care Technical Director Name Role Phone Unavailable Primary Care Provider Unavailabl e Encounter Details Date Type Department Care Team (Latest Contact Info) Description 12/30/2006 10:29 EDT - 01/01/2007 11:59 EDT Hospital Encounter [facility] Unit [address] [place] [address] Marcin Antoine MD [address] [place] [address] [phone] Discharge Disposition: Home or Self Care Social History Tobacco Use Types Packs/Day Years Used Date Smoking Tobacco: Never Assessed Sex and Gender Information Value Date Recorded Sex Assigned at Not on file Gender Identity Female 03/25/2022 10:56 EDT Sexual Orientation Not on file documented as of this encounter Discharge Summaries * Irene Candelario PA - 01/01/2007 0000 EDT DISCHARGE SUMMARY Admission Date: 12/30/2006 Discharge Date: 01/01/2007 ADMISSION DIAGNOSIS Cystocele and stress urinary incontinence. DISCHARGE DIAGNOSIS Cystocele, enterocele, and stress urinary incontinence. HISTORY OF PRESENT ILLNESS The patient is a 61-year-old female with a history of cystocele and stress urinary incontinence. HOSPITAL COURSE The patient is a 61-year-old female who was admitted status post transvaginal paravaginal repair ofcystocele using human dermal allograft, transvaginal repair of enterocele with high ligation of enterocele sac, suburethral sling procedure with SPARC polypropylene sling, and cystoscopy done on 2006. The patient tolerated the procedure well. Upon completion of the procedure, the patient was taken to PACU and once stable transferred to the floor for continuing care. On postoperative day number one, laboratories were sodium 132, potassium 3.6, BUN 6, creatinine 0.7, WBC 8.92, hemoglobin8.8, hematocrit 26.1, and platelets 187. The patient did become febrile to 38.5 at around 6 oon postoperative day number one. On postoperative day number two, H+H was stable. The patient was afebrile with vital signs stable. The Tracey catheter was removed without complications and the patient voided spontaneously. The patient was discharged home afebrile with vital signs stable, tolerating a regular diet, ambulating, and pain control on oral analgesics at the time of discharge. The patient was voiding without complications prior to discharge. DISPOSITION Home. CONDITION AT DISCHARGE Stable. DISCHARGE INSTRUCTIONS 1. Activity restrictions: No heavy lifting, no driving while taking narcotic pain medications, no driving until seen by doctor, and no strenuous exercise or activity. 2. Wound care: Okay to get the wound wet, pat dry, and do not rub the wound area. 3. Showering and bathing: The patient was instructed to shower only. 4. Symptoms to call the office: Burning with urination, urinary retention, increased blood in urine, redness, swelling, or drainage from wound, increased pain, pain unrelieved by medication, temperature greater than 101 degrees, nausea, vomiting, chest pain, dizziness, or shortness of breath. DISCHARGE MEDICATIONS The patient was discharged home with a prescription for: 1. Colace 100 mg p.o. b.i.d. 2. Keflex 250 mg 1 tablet p.o. q.i.d. times three days. 3. Dilaudid 2 mg 1-2 tablets p.o. q. 4h. p.r.n. pain. The patient was instructed to start iron supplements 325 mg p.o. b.i.d. The patient is to resume prehospital medications: 1. Tylenol 500 mg p.o. p.r.n. 2. Aspirin 81 mg p.o. daily. 3. Calcium supplements 1 p.o. daily. 4. Premarin 0.625 mg p.o. daily. 5. Synthroid 75 mcg p.o. daily. 6. Claritin 10 mg p.o. daily. 7. Multivitamin 1 tablet p.o. daily. 8. Omeprazole 20 mg p.o. b.i.d. 9. Zanaflex 4 mg p.o. at bedtime. FOLLOWUP The patient is to follow up with Dr. Antoine on January 15, 2007 as scheduled. The patient was also instructed to call with any questions or concerns prior to appointment time. Supervising Physician Signed by Marcin Antoine MD 02/03/2007 18:22 Latisha Vazquez PARichard T Kershen, MD Dictated by: MAX Jones Marcin Antoine MD - MAX Baird A - lt Job ID: [id number] Document ID: [id number] cc: MD Marcin Mccloud MD Elizabeth A Stampfl, PA - MAX Jones A - lt Job ID: [id number] Document ID: [id number] cc: MD Marcin Mccloud MD Elizabeth A Stampfl, PA documented in this encounter Discharge Disposition Disposition Code Departure Means Destination Home or Self Care documented in this encounter OR Notes * OR Surgeon - Marcin Antoine MD - 12/30/2006 0000 EDT PROCEDURE REPORT PT TYPE: IP SERVICE DATE: 12/30/2006 SURGEON: Hari Pressley MDRichard T Kershen, MD DOOR TENDER: Fareed Robles SA PREOPERATIVE DIAGNOSIS Grade 3 cystocele and stress urinary incontinence. POSTOPERATIVE DIAGNOSIS Grade 3 cystocele, grade 3 enterocele, and stress urinary incontinence. PROCEDURE 1. Transvaginal paravaginal repair of cystocele using human dermal allograft. 2. Transvaginal repair of enterocele with high ligation of enterocele sac. 3. Suburethral sling procedure with SPARC polypropylene sling. 4. Cystoscopy. ANESTHESIA General. INDICATIONS Anitra is a 61-year-old female G3, P3, status post previous hysterectomy many years ago. Patient presented with complaints of pelvic pressure and a vaginal bulge, as well as episodic urinary incontinence. She has a history of fibromyalgia and suffers chronic pelvic pain. In addition, she voids frequently, approximately every 45 minutes, and will have episodic urge incontinence. In order to void, the patient needs to push the prolapse back into the vagina. The patient also has had problems with vaginal intercourse due to dyspareunia which she feels could be related to the prolapse, but she is unsure. The patient has failed to see any improvement with Kegelexercises. She also has a history of voiding dysfunction and has undergone urethral dilations in the past, with the last one being performed in the late 1970s. On physical examination, she was found to have a grade 3 prolapse felt to be largely a cystocele. She also had significant urethral hypermobility, and she was incompletely emptying her bladder with apostvoid residual of 120 mL. Urodynamic testing was performed which demonstrated adequate bladder emptying at the time of the study with detrusor contraction of 13 cm of water pressure, no demonstrable detrusor overactivity. The patient did empty her bladder via a strain pattern; however, with the prolapse reduced, the patient had evidence of stress urinary incontinwith a leak point pressure in the higher range (greater than 100 cm of water). After an explanation of the potential therapeutic options for management of her pelvic prolapse including pessary versus transvaginal repair, the patient has opted for transvaginal repair. She also understands that due to her occult stress incontinence, she should undergo a simultaneous procedure to reduce the risk of worsening her continence postoperatively. She understands the risks of the surgery including but not limited to bleeding, infection, injury to the bladder and/or ureters and/or urethra, extrusion of graft material into the vaginal apex or into the bladder, recurrent pelvic prolapse, urinary retention, continued incontinence, and worsening pelvic pain. She wished to proceed with surgery. Originally we had discussed the use of possible Prolene mesh for treatmentof her prolapse; however, at the time of surgery her vaginal wall was noted to be quite thin and scarred, and I didhave concerns of the potential risk of mesh erosion. Therefore,an allograft was used in lieu of a polypropylene mesh. FINDINGS Severe scarring from the mid vagina up through the vaginal apex between the bladder, enterocele,andanterior vaginal wall. Cystoscopy performed after repair demonstrated good bilateral efflux of indigo carmine from both ureters, and no evidence of needle or sling entry into the bladder. NARRATIVE The patient was correctly identified and was taken to the operating room. General anesthesia was established by the anesthesia service, and she was carefully placed in the modified dorsolithotomy position. The lower pelvis and vaginal introitus were then prepped and draped in the standard sterile fashion. A 16-St Helenian Tracey catheter was placed per urethra,and a weighted vaginal speculum was placedfor exposure. The patient was placed in the modified dorsolithotomy position and then Trendelenburgwith Venodynes in place. The patient received antibiotic prophylaxis with cefazolin 1 g, as well asFlagyl 500 mg in the preoperative holding area prior to surgery. The vaginal introitus was examined. There was noted to be a large paravaginal defect cystocele protruding just through the introitus. In addition, the urethra was hypermobile. The vaginal wall appeared very thin and atretic looking. The anterior vaginal wall was infiltrated with approximately 10 mLof 0.5% Marcaine with epinephrine in the midline sagittal plane. I then made an incision from the bladder neck approximately 4.5-cm proximally towards the vaginal apex with a 15 blade. Dissection wasthen carried out laterally underneath the vaginal mucosa to elevate this off the perivesical fascialaterally towards the cardinal ligaments on either side. As mentioned, the vaginal mucosa was very thin and atrophic, and tore easily with minimal retraction. Dissection therefore was quite tedious in order to try to prevent injury to the vaginal wall. There were also dense adhesions between the anterior wall of the vagina and perivesical space, much more than is normally encountered. As I made my dissection down towards the vaginal apex, an enterocele sac was identified adherent tothe posterior wall of the bladder. This was densely adherent to the posterior wall of the vagina towards the apex, and there was a severe amount of scarring from the mid vagina towards the vaginal apex. This required sharp dissection,and no blunt dissection could be used whatsoever due to the densescarring. Careful and tedious dissection was used to dissect the enterocele sac posteriorly up to the vaginal apex. I then carefully dissected it off of the bladder base. It took more than 45 minutesto complete this dissection in order to avoid injury to the bladder and/or ureters, and/or enteringthe enterocele sac prematurely. Lateral exposure was assisted with the use of [place] retracting hooks and [place] retractor. Once the enterocele sac was completely freed up, it was opened and there was small intestine present within it. was adherent to the nuno of the enterocele sac, and some adhesions needed to be lysed sharply with theMetzenbaum scissors in order to reduce the bowel out of the way. The bowel was then elevated anteriorly with the assistance of a laparotomy pad, as well as a long Dominique vaginal retractor. Once the bowel was all reduced into the abdomen, the enterocele sac was ligated with a pursestring suture of 0 PDS incorporating the cardinal ligament complex posteriorly, the levator musculature laterally, and the posterior bladder wall anteriorly, taking care not to take too deep bites anteriorlyto avoid ureteral injury. The sac was ligated in a high fashion proximally. Part of the uterosacralcomplex was also attempted to be incorporated, but this wasquite atretic. Once the bowel was reduced, then the sac was closed with a pursestring, then the sac was then twistedon its base. A second suture of 0 PDS was placed using a suture ligature of 0 PDS through the base of the sac, and then the r edundant sac was then excised. Once the enterocele sac was excised, additional scarring into the vaginal apex was lysed sharply inorder to provide adequate room for our graft material to be tacked to the apex of the vagina. We had originally planned to use a Prolene mesh (Perigee system) for repair of this patientprolapse; however, due to the quite attenuated vaginal wall, I felt that this would have an undue and high risk ofProlene mesh erosion, and therefore it was decided not to use this. Instead, I had the sales assistant entertainment and media soak a 6 x 8 cm piece of Repliform (human dermis) off the field in antibiotic solution. At this point, lateral dissection was carried out just over the obturator fascia on either side of the pelvis in order to reveal the arcus tendineus fascia pelvis to which the graft would be sutured in order to fix the paravaginal defect cystocele. Moderate large blood vessels were encountered laterally,which required suture ligatures in order to obtain adequate hemostasis. Then 2-0 Vicryl was used in this regard. Once hemostasis was adequate, I then placed a total of six sutures into the arcustendineus proximally towards the ischial spine, and distally towards the pubic ramus. These were 0 PDS sutures which were left with needles attached. I then proceeded to reduce the midline cystocele with interrupted horizontal mattress sutures from the cardinal ligament complex reducing the pulsion central defect. Once this was accomplished, a piece of AlloDerm was cut to the appropriate size and then attached to our preplaced 0 PDS sutures on either side, thus once securedin place, providing a nice bolstering shelf of tissue to correct the paravaginal defect. The graft was tacked proximally to the cardinal ligament complex, and the cardinalligaments were plicated with a 0 PDS suture in an interrupted vertical mattress fashion. Prior to doing this, the distal aspect of the graft was tacked to the bladder neck with interrupted 3-0 Vicryl. Once our graft was in place, the vaginal wall was only minimally trimmed where it had torn, and then copious amounts of irrigation were used and the vaginal introitus was then closed in a running fashion with 2-0 Vicryl. I did incorporate the proximal edge of the graft to the apex of the vagina with tacking sutures prior to closure in order to support the apex. Once the vaginal wall was closed, attention was then paid to the midurethral sling. The midurethra was infiltrated with approximately 6 mL of 0.5% Marcaine with epinephrine. A midlinesagittal incision was then made with a 15 blade. Dissection was then carried under the vaginal wallover the periurethral fascia laterally to the undersurface of the pubic symphysis on either side. Two stab wound incisions were then made approximately two fingerbreadths off the midline just above the symphysis pubis with an 11 blade. The bladder was drained with a Tracey catheter. I then passed two SPARC needles from the anterior abdominal incisions down through the vaginal incisions on either side of the urethra under direct digital guidance. Cystourethroscopy was then performed using a 70 and 12-degree lens. There was no evidence of needleentry into the bladder and/or urethra. In addition, indigo carmine was administered by the anesthesia service and there was no evidence whatsoever of ureteral injury as there was good efflux of indigo carmine from either ureter. The bladder itself was free of tumor, stone, ordiverticula, and was only mildly trabeculated. At this point, once we confirmed patency of the ureters as well as no evidence of needle entry, thebladder was again drained with a Tracey catheter. Our SPARC sling was connected to the preplaced needles andthen was pulled in a reverse direction out through the anterior abdominal wall incisions, atwhich point the sling was positioned just under the urethra. Bonilla scissors were interspaced betweenthe sling and the urethra to prevent undue tension, and the plastic sleeves were removed. The Bonilla scissors were then removed, and there was good apposition of the sling with the urethra without any evidence of overtensioning. At this point, the wound was irrigated. Hemostasis was good, and therefore the wound was closed in a running fashion with 3-0 Vicryl. The sling was then cut to the appropriate level at the skin, and then the skin incisions were closed with subcuticular 4-0 Monocryl. Steri-Strips, Telfa, and Tegaderm dressings werplaced anteriorly. An Estrace-vaginal packing was placed transvaginally. The wound was irrigated prior to placement. At this point, the patient was awakened from anesthesia and taken tothe recovery room in stable condition. There were no obvious complications, and she tolerated the procedure well. I was present for the entire procedure. ESTIMATED BLOOD LOSS Approximately 600 mL. FLUIDS Approximately 3500 mL of crystalloid. COMPLICATIONS None apparent. DISPOSITION Stable to the postanesthesia care unit. Signed by Marcin Antoine MD 01/26/2007 08:51 Hari Pressley MD Marcin Antoine MD - Eve Antoine MD A - Job ID: [id number] Document ID: [id number] cc: MD Marcin Mccloud MD \* MERGEFORMAT Eve Antoine MD D: - Marcin Antoine MD A - cs Job ID: [id number] Document ID: [id number] cc: MD Marcin Mccloud MD documented in this encounter Plan of Treatment Not on file documented as of this encounter Procedures Procedure Name Priority Date/Time Associated Diagnosis Comments COMPLETE BLOOD COUNT Routine 01/01/2007 3:00 EDT COMPLETE BLOOD COUNT AND DIFFERENTIAL Routine 12/31/2006 6:00 EDT BUN Routine 12/31/2006 6:00 EDT CREATININE Routine 12/31/2006 6:00 EDT ELECTROLYTES Routine 12/31/2006 6:00 EDT documented in this encounter Results * (ABNORMAL) HEMAGRAM (01/01/2007 3:00 EDT) [facility] WBC 8.42 4.0 - 12.4 K/cmm [facility] RBC 2.77(L) 3.86 - 5.04 M/cmm [facility] Hemoglobin 8.9(L) 11.6 - 15.2 gm/dl [facility] HCT 25.6(L) 34.9 - 44.4 % [facility] MCV 92 81 - 98 fl [facility] MCH 32.2 26.7 - 33.3 pg [facility] MCHC 34.8 32.1 - 35.9 gm/dl [facility] PLT 174 141 - 320 K/cmm [facility] RDW-CV 13.3 11.7 - 14.6 % [facility] 01/01/2007 3:00 EDT 01/01/2007 3:18 EDT Marcin Antoine MD HEMATOLOGY & PF4 OR DERABLES Performing Organization Address [facility] de Phone Number [facility] [address] [place] [address] * (ABNORMAL) ELECTROLYTES (12/31/2006 6:00 EDT) Sodium 132(L) 136 - 145 mEq/L [facility] Potassium 3.6 3.5 - 5.0 mEq/L [facility] Chloride 102 96 - 110 mEq/L [facility] CO2 30 24 - 32 mEq/L [facility] 12/31/2006 6:00 EDT 12/31/2006 6:44 EDT Marcin Antoine MD CHEMISTRY & BLOOD G ORDERABLES Performing Organization Address [facility] Phone Number [facility] [address] [place] [address] * CREATININE (12/31/2006 6:00 EDT) Creatinine 0.70 0.7 - 1.5 mg/dl [facility] GFR, Calculated >60 ml/min/1.7 3m2 [facility] 12/31/2006 6:00 EDT 12/31/2006 6:44 EDT Marcin Antoine MD CHEMISTRY & BLOOD G ORDERABLES Performing Organization Address [facility] de Phone Number [facility] [address] [place] [address] * (ABNORMAL) HEMAGRAM AND DIFFERENTIAL (12/31/2006 6:00 EDT) WBC 8.92 4.0 - 12.4 K/cmm [facility] RBC 2.78(L) 3.86 - 5.04 M/cmm [facility] Hemoglobin 8.8(L) 11.6 - 15.2 gm/dl [facility] HCT 26.1(L) 34.9 - 44.4 % [facility] MCV 94 81 - 98 fl [facility] MCH 31.7 26.7 - 33.3 pg [facility] MCHC 33.7 32.1 - 35.9 gm/dl [facility] PLT 187 141 - 320 K/cmm [facility] RDW-CV 14.2 11.7 - 14.6 % [facility] % Neutrophils 74.3 45.5 - 79.7 % [facility] % Lymphocytes 19.0 15.0 - 46.8 % [facility] % Monocytes 5.8 1.8 - 12.0 % [facility] % Eosinophils 0.7 0.6 - 6.9 % [facility] % Basophils 0.2 0.2 - 1.4 % [facility] ABS Neutrophils 6.63 2.20 - 8.85 K/cmm [facility] ABS Lymphs 1.69 1.09 - 3.30 K/cmm [facility] ABS Monocytes 0.52 0.1 - 0.8 K/cmm [facility] ABS Eosinophils 0.06 0.03 - 0.61 K/cmm [facility] ABS Basophils 0.01 0.01 - 0.11 K/cmm [facility] Type of Diff: Automated [facility] 12/31/2006 6:00 EDT 12/31/2006 6:44 EDT Marcin Antoine MD PACKAGES & DNA PROB E ORDERABLES Performing Organization Address [facility] de Phone Number [facility] [address] [place] [address] * (ABNORMAL) BUN (12/31/2006 6:00 EDT) BUN 6(L) 10 - 26 mg/dl [facility] 12/31/2006 6:00 EDT 12/31/2006 6:44 EDT Marcin Antoine MD CHEMISTRY & BLOOD G ORDERABLES Performing Organization Address [facility] Co de Phone Number [facility] [address] [place] [address] documented in this encounter Visit Diagnoses Not on filedocumented in this encounter
--- OUTSIDE RECORDS SUMMARY | 2024-04-06 13:52 | XMS_ITS | Encounter Summary ---
Author Organization [facility] Address [address] [place] [address] Care Team Providers Care Customer Service Analyst Name Role Phone Unavailable Primary Care Provider Unavailabl e Encounter Details Date Type Department Care Team (Late st Contact Info) Description 10/28/2005 12:[address] [facility] [address] [place] [address] Pillo Williamson MD [address] [place] [phone] Social History Tobacco Use Types Packs/Day Years [...]
--- OUTSIDE RECORDS SUMMARY | 2024-04-06 13:52 | XMS_ITS | Encounter Summary ---
Author Organization [facility] Address [address] [place] [address] Care Team Providers Care Curing Room Supervisor Name Role Phone Melissa Lambert APRN Primary Care Provider Unava Melissa Ocampo APRN Primary Care Provider Unava Melissa Ocampo APRN Primary Care Provider Unava ilable Po Liang MD Primary Care Provider [phone] Melissa Lambert APRN Primary Care Provider Unava ilable Encounter Details Date Type Department Care Team (Late st Contact Info) Description 11/26/2006 Results Only [facility] Pelvic Medicine and Reconstructive Surgery - Medical Office [facility] [address] [place] [address] Tanesha Orellana MD [address] [place] [phone] Social History Tobacco Use Types Packs/Day Years Used Date Smoking Tobacco: Never Assessed Sex and Gender Information Value Date Recorded Sex Assigned at Not on file Gender Identity Female 03/25/2022 10:56 EDT Sexual Orientation Not on file documented as of this encounter Plan of Treatment Not on file documented as of this encounter Procedures Procedure Name Priority Date/Time Associated Diagnosis Comments CYTOPATHOLOGY Routine 11/26/2006 0:00 EDT documented in this encounter Results * CYTOPATHOLOGY (11/26/2006 0:00 EDT) Pathology Report: CYTOPATHOLOGY REPORT Reports generated via electronic interface contain original data; however they are lacking the format of the original report. Caution should be taken when reading/interpreti ng unformatted reports. Name: ? DANIA ANGULO I ? Accession #: ? [id number] : ? 1945 (Age: 61) ??F ?Collect Date: ? 11/26/2006 Location: ? [facility] ? Receive Date: ? 11/27/2006 Provider: ? TANESHA ORELLANA MD Copy to: ? CYTOLOGIC DIAGNOSIS: ? Urine, voided, cytologic evaluation: - Negative for malignant cells. ??See comment. ? COMMENT: ? The collection method was verified by Dr. Orellana's office. (Dr. Coats)/[facility] Document reviewed and electronically signed by: ? JANAK ANAND [facility] Report Date: ??11/27/2006 17:28 By the signature above, the attending physician certifies that he/she has personally conducted a gross and/or microscopic examination of the described specimens and rendered or confirmed the above diagnosis. Specimen Type: ? Urine, NOS Clinical History: ? Clinical diagnosis code: 599.7 ? Gross Description: ? 100cc' s of clear yellow fluid were received and processed by selective cellular enhancement technique. ? End of Report [facility] 11/26/2006 11/27/2006 8:1 3 EDT Tanesha Orellana MD PATHOLOGY ORDERABLE S [facility] [address] [place] [address] documented in this encounter Visit Diagnoses Not on filedocumented in this encounter Care Teams Curing Room Supervisor Relationship Specialty Start Date End Date Melissa Lambert APRN PCP - General 01/02/09 03/20/10 Melissa Lambert APRN PCP - General 11/09/08 01/01/09 Melissa Lambert APRN PCP - General 03/21/10 04/01/10 Po Liang MD [address] [address] PCP - General 04/02/10 04/05/10 Melissa Lambert APRN PCP - General 04/06/10 08/20/10 documented as of this encounter
--- OUTSIDE RECORDS SUMMARY | 2024-04-06 13:52 | XMS_ITS | Encounter Summary ---
Author Organization [facility] Address [address] [place] [address] Care Team Providers Care Buffer Automatic Name Role Phone Unavailable Primary Care Provider Unavailabl e Encounter Details Date Type Department Care Team (Late st Contact Info) Description 06/25/2006 10:04 EST Hospital Encounter [facility] [address] [place] [address] Leelee Greer, MAX [address] [place] [phone] Social History Tobacco Use Types Packs/Day Years [...]
--- OUTSIDE RECORDS SUMMARY | 2024-04-06 13:52 | XMS_ITS | Encounter Summary ---
Author Organization [facility] Address [address] [place] [address] Care Team Providers Care Packaging Specialist Name Role Phone Unavailable Primary Care Provider Unavailabl e Encounter Details Date Type Department Care Team (Late st Contact Info) Description 11/14/2006 10:09 EDT - 11/14/2006 11:59 EDT Hospital Encounter [facility] - Other [address] [place] [address] Daquan Landeros MD [address] [facility] [address] [place] [phone] Melissa Lambert, REGIONAL FACILITIES SPECIALIST Discharge Disposition: Home or Self Care Social [...] Procedure Name Priority Date/Time Associated Diagnosis Comments SED RATE Routine 11/14/2006 10:30 EDT COMPLETE BLOOD COUNT AND DIFFERENTIAL Routine 11/14/2006 10:30 EDT documented in this encounter Results * SED. RATE:[place] (11/14/2006 10:30 EDT) Sed. Rate [place] 3 0 - 30 mm/hr [facility] Comment: Note: Sample greater than 4 hrs old (but less than 12 hrs) when tested. If refrigerated, sample is stable when tested within 12 hours of collection. 11/14/2006 10:3 0 EDT 11/14/2006 16:26 EDT Melissa Lambert REGIONAL FACILITIES SPECIALIST HEMATOLOGY & PF4 ORD ERABLES [facility] [address] [place] [address] * (ABNORMAL) HEMAGRAM AND DIFFERENTIAL (11/14/2006 10:30 EDT) WBC 4.63 4.0 - 12.4 K/cmm [facility] RBC 4.36 3.86 - 5.04 M/cmm [facility] Hemoglobin 14.1 11.6 - 15.2 gm/dl [facility] HCT 40.5 34.9 - 44.4 % [facility] MCV 93 81 - 98 fl [facility] MCH 32.4 26.7 - 33.3 pg [facility] MCHC 34.9 32.1 - 35.9 gm/dl [facility] PLT 328(H) 141 - 320 K/cmm [facility] RDW-CV 13.4 11.7 - 14.6 % [facility] % Neutrophils 57.8 45.5 - 79.7 % [facility] % Lymphocytes 34.0 15.0 - 46.8 % [facility] % Monocytes 6.5 1.8 - 12.0 % [facility] % Eosinophils 1.4 0.6 - 6.9 % [facility] % Basophils 0.3 0.2 - 1.4 % [facility] ABS Neutrophils 2.68 2.20 - 8.85 K/cmm [facility] ABS Lymphs 1.57 1.09 - 3.30 K/cmm [facility] ABS Monocytes 0.30 0.1 - 0.8 K/cmm [facility] ABS Eosinophils 0.06 0.03 - 0.61 K/cmm [facility] ABS Basophils 0.02 0.01 - 0.11 K/cmm [facility] Type of Diff: Automated CORBY ECHEVERRIA 11/14/2006 10:3 0 EDT 11/14/2006 16:26 EDT Melissa Lambert REGIONAL FACILITIES SPECIALIST PACKAGES & DNA PROBE ORDERABLES Performing Organization Address City/State/[facility] Co de Phone Number [facility] [address] [place] [address] documented in this encounter Visit Diagnoses Not on filedocumented in this encounter
--- OUTSIDE RECORDS SUMMARY | 2024-04-06 13:52 | XMS_ITS | Encounter Summary ---
Author Organization [facility] Address [address] [place] [address] Care Team Providers Care Soil Science Technical Officer Name Role Phone Unavailable Primary Care Provider Unavailabl e Encounter Details Date Type Department Care Team (Late st Contact Info) Description 05/19/2008 13:08 EST Hospital Encounter [address] [address] Ye Wallis MD [address] [place] [address], [address] [place] [phone] Social History Tobacco Use Types Packs/Day Years [...]
--- OUTSIDE RECORDS SUMMARY | 2024-04-06 13:52 | XMS_ITS | Encounter Summary ---
Author Organization [facility] Address [address] [place] [address] Care Team Providers Care Director Of Residence Life Name Role Phone Unavailable Primary Care Provider Unavailabl e Encounter Details Date Type Department Care Team (Late st Contact Info) Description 07/09/2007 12:25 EST Hospital Encounter [facility] - Maple conversion [address] [place] [address] Marcin Antoine MD [address] [place] [phone] Social History Tobacco Use Types Packs/Day Years [...]
--- OUTSIDE RECORDS SUMMARY | 2024-04-06 13:52 | XMS_ITS | Encounter Summary ---
Author Organization [facility] Address [address] [place] [address] Care Team Providers Care Binder Cutter Hand Name Role Phone Unavailable Primary Care Provider Unavailabl e Encounter Details Date Type Department Care Team (Latest Contact Info) Description 06/23/2006 10:12 EST - 06/23/2006 11:59 EST Hospital Encounter [facility] [address] [place] [address] Amanda Barrera MD [address] [place] [phone] Discharge Disposition: Auto Discharge Social History Tobacco [...]
--- OUTSIDE RECORDS SUMMARY | 2024-04-06 13:52 | XMS_ITS | Encounter Summary ---
Author Organization [facility] Address [address] [place] [address] Care Team Providers Care Express Manager Name Role Phone Melissa Lambert APRN Primary Care Provider Unava ilable Melissa Lambert APRN Primary Care Provider Unava ilable Encounter Details Date Type Department Care Team (Late st Contact Info) Description 01/30/2006 Before PRISM Converted Visit (Maple) [facility] - Maple conversion [address] [place] [address] Dwayne Parmar MD [address], [address] [place] [phone] Social History Tobacco Use Types Packs/Day Years Used Date Smoking Tobacco: Never Assessed Sex and Gender Information Value Date Recorded Sex Assigned at Not on file Gender Identity Female 03/25/2022 10:56 EDT Sexual Orientation Not on file documented as of this encounter Progress Notes * Dwayne Parmar MD - 06/30/2009 1124 EST DIVISION OF OTOLARYNGOLOGY February 04, 2006 Tosin Wan, [address] [address] DOS: 01/30/06 Dear Ms. Wan: Thank you very much for asking me to evaluate Dania Ayoub for some problems with her throat. This 60 year-old female has a one month history of choking, cough, and a feeling of a lump sensation.She has been hoarse and she occasionally wakes up at night gasping. She is treated for reflux but is only on 20 milligrams of Prilosec once a day. She had a chest x ray and thyroid ultrasound recently. The chest x ray was reported as normal but there is no report on the ultrasound yet. She has a past medical history of hypothyroidism and fibromyalgia. She is a nonsmoker. On examination today she has an interesting adhesion from her uvula to her lateral pharyngeal wall but I dont think that has anything to do with her symptoms. Indirect view of her larynx shows some mild inflammatory change. I donsee anything else worrisome. Her cervical exam is without masses or nicole nopathy. Her symptoms are very typical of some chronic inflammatory change in the larynx produced by stomachacid reflux. Rafaela increased her Prilosec to b.i.d. and discussed general dietary and laryngeal care precautions. I think sheget better over the next several weeks. Rafaela made arrangements to see her back in two months. If you have any questions or concerns, please let me know. Thank you again for asking me to see Dania Anitra. Sincerely, Signed by Dwayne Parmar MD 02/12/2006 07:56 Kavin Fields MD Dwayne Parmar MD - Larry Parmar MD P - kmb Job ID: [id number] Document ID: [id number] cc: TRAVON Grimes documented in this encounter Plan of Treatment Not on file documented as of this encounter Visit Diagnoses Not on filedocumented in this encounter Care Teams Express Manager Relationship Specialty Start Date End Date Melissa Lambert APRN PCP - General 01/02/09 03/20/10 Melissa Lambert APRN PCP - General 11/09/08 01/01/09 documented as of this encounter
--- OUTSIDE RECORDS SUMMARY | 2024-04-06 13:52 | XMS_ITS | Encounter Summary ---
Author Organization [facility] Address [address] [place] [address] Care Team Providers Care Loan Collector Name Role Phone Unavailable Primary Care Provider Unavailabl e Encounter Details Date Type Department Care Team (Late st Contact Info) Description 06/17/2006 9:18 EST Hospital Encounter [facility] [address] [place] [address] Taiwo Wilkes MD Social History Tobacco Use Types Packs/Day [...]
--- OUTSIDE RECORDS SUMMARY | 2024-04-06 13:52 | XMS_ITS | Encounter Summary ---
Author Organization [facility] Address [address] [place] [address] Care Team Providers Care Infantry Weapons Crewmember Name Role Phone Unavailable Primary Care Provider Unavailabl e Encounter Details Date Type Department Care Team (Late st Contact Info) Description 10/23/2005 12:53 EDT Hospital Encounter [facility] - Maple conversion [address] [place] [address] Pillo Williamson MD [address] [place] [phone] Social History Tobacco Use Types Packs/Day Years [...]
--- OUTSIDE RECORDS SUMMARY | 2024-04-06 13:52 | XMS_ITS | Encounter Summary ---
Author Organization [facility] Address [address] [place] [address] Care Team Providers Care First Cook Name Role Phone Melissa Lambert APRN Primary Care Provider Unava Melissa Ocampo APRN Primary Care Provider Unava Melissa Ocampo APRN Primary Care Provider Unava Po Correa MD Primary Care Provider [phone] Melissa Lambert APRN Primary Care Provider Unava Po Correa MD Primary Care Provider [phone] Arminda Dunn Primary Care Provider [phone] Hafsa Moreno [facility] Primary Care Provider [phone] Encounter Details Date Type Department Care Team (Late st Contact Info) Description 11/11/2007 Before PRISM Converted Visit (Maple) [facility] - [address] [place] [address] Mindy Flores MD [address] [place] [address] [place] [phone] Social History Tobacco Use Types [...] Diagnosis Comments MR LUMBAR SPINE WO CONTRAST 11/11/2007 10:56 EDT documented in this encounter Results * MR LUMBAR SPINE WO CONTRAST (11/11/2007 10:56 EDT) Anatomical Region Laterality Modality Other 11/11/2007 10:5 6 EDT Narrative 11/21/2008 8:04 EDT low back pain MR lumbar spine with contrast the T1, T2, coronal T2 and axial T2 scans. 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 While small root sheath tumor is felt to be unlikely this could be definitively excluded with contrast if necessary. There is decreased signal at L3-L4 and L4-L5 and L5-S1 consistent with ??disc degeneration. Axial scans at L2-L3 show no herniation or stenosis. At L3-L4 there is a small broad-based disc herniation which appears to be eccentric to the right and appears to be encroach upon the right L4 lateral recess. No spinal stenosis. L4-L5 there is broad-based disc bulge and perhaps a small central disc herniation with mild thecal sac compression but no gross nerve root compression is seen. At L5-S1 there may be a small central protrusion as well versus disc bulge without gross neural compression. No spinal stenosis at any level. Impression: 3 level abnormality with degenerative disc changes at L3-L4, 4-5 and ??5-1. At the L3-L4 level there is disc herniation which is central and right-sided encroachment on the right L4 lateral recess. No spinal stenosis. At L4-5 there is a more broad-based central protrusion with mild thecal sac compression but no gross nerve root compression. Again no spinal stenosis. At 5-1 there is a broad-based protrusion versus disc bulge with no gross neural compression seen. 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 Addendum Begins MRI of the lumbar spine was done without IV contrast. Addendum Ends Procedure Note Michael Alegre MD - 11/21/2008 low back pain MR lumbar spine with contrast the T1, T2, coronal T2 and axial T2 scans. 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 While small root sheath tumor is felt to be unlikely this could be definitively excluded with contrast if necessary. There is decreased signal at L3-L4 and L4-L5 and L5-S1 consistent with disc degeneration. Axial scans at L2-L3 show no herniation or stenosis. At L3-L4 there is a small broad-based disc herniation which appears to be eccentric to the right and appears to be encroach upon the right L4 lateral recess. No spinal stenosis. L4-L5 there is broad-based disc bulge and perhaps a small central disc herniation with mild thecal sac compression but no gross nerve root compression is seen. At L5-S1 there may be a small central protrusion as well versus disc bulge without gross neural compression. No spinal stenosis at any level. Impression: 3 level abnormality with degenerative disc changes at L3-L4, 4-5 and 5-1. At the L3-L4 level there is disc herniation which is central and right-sided encroachment on the right L4 lateral recess. No spinal stenosis. At L4-5 there is a more broad-based central protrusion with mild thecal sac compression but no gross nerve root compression. Again no spinal stenosis. At 5-1 there is a broad-based protrusion versus disc bulge with no gross neural compression seen. 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 Addendum Begins MRI of the lumbar spine was done without IV contrast. Addendum Ends Mindy Flores MD IMG MRI ORDERABLES documented in this encounter Visit Diagnoses Not on filedocumented in this encounter Care Teams First Cook Relationship Specialty Start Date End Date Melissa Lambert APRN PCP - General 01/02/09 03/20/10 Melissa Lambert APRN PCP - General 11/09/08 01/01/09 Melissa Lambert APRN PCP - General 03/21/10 04/01/10 Po Liang MD [address] [place] [address] PCP - General 04/02/10 04/05/10 Melissa Lambert APRN PCP - General 04/06/10 08/20/10 Po Liang MD [facility] [address] [place], [place] [address] PCP - General 08/21/10 01/18/19 Arminda Dunn [address] [place], [place] [id number] PCP - General 01/19/19 02/16/24 Hafsa Moreno, [facility] [address] [place] [phone] PCP - General Family Medicine - Primary Care 02/17/24 documented as of this encounter
--- OUTSIDE RECORDS SUMMARY | 2024-04-06 13:52 | XMS_ITS | Encounter Summary ---
Author Organization [facility] Address [address] [place] [address] Care Team Providers Care Rework Operator Name Role Phone Melissa Lambert APRN Primary Care Provider Unava ilable Melissa Lambert APRN Primary Care Provider Unava ilable Encounter Details Date Type Department Care Team (Late st Contact Info) Description 05/27/2006 Before PRISM Converted Visit (Maple) [facility] - Maple conversion [address] [place] [address] Leelee Greer, MAX [address] [place] [phone] Social History Tobacco Use Types Packs/Day Years Used Date Smoking Tobacco: Never Assessed Sex and Gender Information Value Date Recorded Sex Assigned at Not on file Gender Identity Female 03/25/2022 10:56 EDT Sexual Orientation Not on file documented as of this encounter Progress Notes * Mt, Conv Rubber Worker - 07/13/2009 0231 EST DIVISION OF DERMATOLOGY PROGRESS/FOLLOWUP NOTE - 06/25/2006 Dania is here to have a followup on her patch test. She was last seen here in dermatology clinic on May 27, 2006 for a rash that she had developed which had previously resolved. She felt that she had some angioedema with swelling around her eyes and neck She was concerned that this might be related to some sweeper driver that she uses. 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 She also was concerned that this might be related to dander from animals and dust. This happened a couple of times. has had no interval health status change. No constitutional symptoms today or any other complaints referable to the skin. OBJECTIVE: Cutaneous examination of the patch test site reveals possible slightly positive at number 13 with erythema and a mildly raised patch, which is terabutylphenol There are no other positive reactions on the test site. Also noted on her hands bilaterally are some fissures on the distal tips and some diffuse dryness as well as some fine scale on the palms. ASSESSMENT: 1. Contact dermatitis, most likely related to terabutylphenol, perhaps disinfectant or formaldehyderelated products. 2. Hand dermatitis. PLAN: Patient education regarding the nature of the above impression. I gave her a handout on hand dermatitis. We talked about using super glue to fill in thefissures that she has. I did give her a script for triamcinolone 0.1% ointment to apply b.i.d. to the hands up to 3 times a week with instructions to use moisturizing creams as well. We talked about using cotton gloves under her other gloves as well as other strategies for caring for this. 2. I encouraged her to label read her ingredients of her disinfectants and sweeper driver. 3. I have her to follow up on an as needed basis. She will call with any interval concerns or questions. Signed by Daylin Timmons MD 07/16/2006 23:30 Reviewed by MAX Singer 07/03/2006 16:25 Derrick Barnes PAKathryn Schwarzenberger, MD Dictated by: MAX Singer Daylin Timmons MD - MAX Greer P - dd Job ID: [id number] Document ID: [id number] cc: documented in this encounter Consult Notes * Meek Amor Rubber Worker - 06/30/20091954 EST DIVISION OF DERMATOLOGY CONSULTATION - SUBJECTIVE: Dania is seen today in consultation at the request of Dr. Dwayne Parmar for concerns about pedro on her neck and swelling of her eyes that has been occurring. She states that as of today, shehas now had resolution of the rash that developed last week, but this has been an ongoing problem. Over the last couple of months, she has had several episodes of this rash that develops on her neck and spreads up her cheeks and around her eyes. She states that her eyes swell almost shut. It is quite itchy. She also feels that she has a possible serious allergy, which she is not able to correlatewith this rash. She notes that in the past, she has had problems being around some animals and around dust. However, she also states that this is not always the case and that at some times, she is able to be around some dogs that friends and family have without developing this rash. She denies any dysphagia or shortness of breath when this occurs. When questioned further, she does admit that there is a possibility that this may be occurring when she does have her hair colored, which is approxima tely once a month. Her hair does fall to her shoulders and touches her neck. She is not able to relate this rash to any other products or things that she uses. 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 She has no other concerns regarding her skin today. complete past medical history, current medications, medication allergies, review of systems, familyhistory and social history, please see the Dermatology Intake Sheet in the chart. OBJECTIVE: Cutaneous examination from the neck up reveals a pleasant, well-appearing female who appears her stated age of 60. She is Mix skin type II. She has no evidence of contact dermatitisor at this time with no erythema, no postinflammatory hyperpigmentation noted nor any vesicles or evidence of angioedema. The remainder of her exam is again entirely within normal limits. ASSESSMENT: Contact dermatitis -- resolved. PLAN: Patient education regarding the nature of the above impression. We did talk about doing patch testing. I think that this would be the best way to try to determine what it is she is coming in contact with. The patient agreed and voiced understanding. She will be scheduled for a followup to return after and have patch testing applied. She will follow up again with me after testing is completed. I have asked her to call me in the interim with any questions or concerns. I have also given her a script for triamcinolone 0.1% ointment to apply if she develops any rashy areas in the interim. I have asked her to avoid her eyes and to use this sparingly, once a day and only for a day or two. Signed by Gabriele Qiu MD 06/05/2006 09:49 Reviewed by MAX Singer 06/03/2006 09:10 Derrick Barnes PAJamie Alpert, MD Dictated by: MAX Singer Gabriele Qiu MD - MAX Singer Latisha Luz jr Job ID: [id number] Document ID: [id number] cc: Dwayne Parmar MD - MAX Greer Latisha Luz jr Job ID: [id number] Document ID: [id number] cc: Dwayne Parmar MD documented in this encounter Plan of Treatment Not on file documented as of this encounter Visit Diagnoses Not on filedocumented in this encounter Care Teams Rework Operator Relationship Specialty Start Date End Date Melissa Lambert APRN PCP - General 01/02/09 03/20/10 Melissa Lambert APRN PCP - General 11/09/08 01/01/09 documented as of this encounter
--- OUTSIDE RECORDS SUMMARY | 2024-04-06 13:53 | XMS_ITS | Encounter Summary ---
Author Organization [facility] Address [address] [place] [address] Care Team Providers Care Archeology Faculty Member Name Role Phone Unavailable Primary Care Provider Unavailabl e Encounter Details Date Type Department Care Team (Latest Contact Info) Description 03/26/1999 9:39 EDT - 03/26/1999 11:59 EDT Hospital Encounter [facility] - Other [address] [place] [address] Sol Lozano, PA-C [address] [place] [phone] Unknown, Provider, Discharge Disposition: Auto Discharge Social History Tobacco [...]
--- OUTSIDE RECORDS SUMMARY | 2024-04-06 13:53 | XMS_ITS ---
Author Organization Unknown Address [address] [place] [address] [phone] Phone Care Team Providers Care Animal Sticker Name Role Phone BROOKE PEREZ Attending Unavailable IMELDA OCAMPO Primary Unavailable Results CT ABDOMEN/PELVIS WITH ORAL ONLY - Completed: 02/06/2021 12:48 LOINC: Radiation optimization: All CT scans at this facility use at least one of these dose optimization techniques: automated exposure control; mA and/or kV adjustment per patient size (includes targeted exams where dose is matched to clinical indication); or iterative reconstruction. CT ABDOMEN AND PELVIS Non-infused CT scan of the abdomen and pelvis was performed. Oral contrast was administered for bowel opacification. Compared to prior CT scan of January 2016. Visualized lung bases reveal some scarring in the posterior basal segment of the left lower lobe which was not present in 2016 but has benign appearance. There are no pleural effusions. In the abdomen there are no discrete focal hepatic lesions. No obvious gallbladder pathology. CBD is not dilated. There is no obvious mass in the pancreas. Pancreatic duct is not dilated. Spleen size is normal. No new significant adrenal masses. No new obvious abnormality in the kidneys. No hydronephrosis. Abdominal aorta is calcified but not enlarged. No retroperitoneal/para-aortic adenopathy. No evidence of significant anterior abdominal wall hernia. No inguinal hernia. No bowel obstruction. In the pelvis there is no evidence of appendicitis. Extensive sigmoid diverticulosis is again noted. There is no obvious acute diverticulitis. Uterus is surgically absent. There are no abnormal adnexal masses and there is no free fluid in the pelvis. Urinary bladder appears unremarkable. Osseous: No compression fractures. Multilevel disc space narrowing. No osseous lesions. IMPRESSION: 1. Compared to the prior CT scan of 2015 there is again noted extensive sigmoid diverticulosis. However, there is no evidence of obvious acute diverticulitis nor acute inflammatory process in either iliac fossa. 2. Uterus is surgically absent. No abnormal adnexal masses. Dictated by: DESEAN LONDONO M.D. RADIOLOGIST Transcribed by: [facility] 02/06/21/13:46 D 02/06/2021 10:43:20 [id number] Electronically Reviewed and Signed By: ELIGIO LONDONO M.D. RADIOLOGIST 02/06/21 18:15 Copy for: BROOKE PEREZ via fax Social History Type Status Start Date End Date Code Code Syst em Smoking History Never smoker (Never Smoked) 039526083 SNOMED CT Smoking History Former smoker [id number] SNOMED CT Sex Female Hospital Discharge Instructions Should you have any questions prior to discharge, please contact a member of your healthcare team. If you have left the hospital and have any questions, please contact your primary care physician. Reason For Referral No Data Found Allergies and Adverse Reactions Allergy Substance Reaction Severity Start Date Concern Status Code Code System PENICILLINS (CLASS) Active 32751 RxNorm TETRACYCLINE Active 62154 RxNorm CODEINE Hives (SNOMED-CT: 622626221) Active 2670 RxNorm LATEX Hives (SNOMED-CT: 222517533) Active 4013457 RxNorm SHELLFISH Active Anaphylaxis (SNOMED-CT: 47093307) Active 567452 RxNorm VISTARIL Active 812856 RxNorm AMPICILLIN SODIUM Anaphylaxis (SNOMED-CT: 35137251) Active 83210 RxNorm MUSHROOMS Active IODINATED CONTRAST MEDIA - IV DYE Hives (SNOMED-CT: 045357045) Active BENTAL/HIVES Active PANSTEL CANT BREATHE Active RUFEM/ CANT BREATHE Active DARVON/HIVES Active DYE 40 /HIVES Active EES/ CANT BREATHE Active CASERGOT/ CANT BREATHE Active Plan of Treatment BONE DENSITY DEXA SPINE & HIP 3 MM SCREEN BILAT 06/12/2022 Encounters Encounter Diagnosis Start Date Code Code Sys tem Right lower quadrant pain 02/06/2021 SN OMED-CT Personal Care Team Section Performer Name Performer Role Active Date Inactive Da te
--- OUTSIDE RECORDS SUMMARY | 2024-04-06 13:53 | XMS_ITS | Encounter Summary ---
Author Organization [facility] Address [address] [place] [address] Care Team Providers Care Archivist Military History Name Role Phone Unavailable Primary Care Provider Unavailabl e Encounter Details Date Type Department Care Team (Late st Contact Info) Description 08/07/2005 13:21 EST Hospital Encounter [facility] - [facility] conversion [address] [place] [address] Pillo Williamson MD [address] [place] [phone] Social History Tobacco Use Types Packs/Day Years [...]
--- OUTSIDE RECORDS SUMMARY | 2024-04-06 13:53 | XMS_ITS | Encounter Summary ---
Author Organization [facility] Address [address] [place] [address] Care Team Providers Care Balloon Design Printer Name Role Phone Melissa Lambert APRN Primary Care Provider Unava ilable Melissa Lambert APRN Primary Care Provider Unava ilable Encounter Details Date Type Department Care Team (Late st Contact Info) Description 08/07/2005 Before PRISM Converted Visit (Maple) [facility] - [facility] conversion [address] [place] [address] Frank Espino MD [address] [place] [phone] Social History Tobacco Use Types Packs/Day Years Used Date Smoking Tobacco: Never Assessed Sex and Gender Information Value Date Recorded Sex Assigned at Not on file Gender Identity Female 03/25/2022 10:56 EDT Sexual Orientation Not on file documented as of this encounter Progress Notes * [place], Conv Photographic Editor - 09/06/20091948 EST PROGRESS NOTE/FOLLOWUP - 08/07/2005 Amanda Barrera M.D. [address] Barrera, We have seen your patient Dania Ayoub in consultation for chest pain. As you will remember, she is a pleasant 59-year-old woman who has now been having chest discomfort and dyspnea on exertion for over the past year. She has several cardiac risk factors which are detailed below. With respect to her symptoms, her chest pain feels like substernal chest pressure radiating to her left shoulder and jaw and neck. This occurs with fairly minimal exertion and appears to be inducible with fairly modest exertion, such as walking from the office to her car in the parking lot. 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 In conjunction with chest pressure, she has concomitant shortness of breath, diaphoresis and mild nausea. She gets these episodes several times per day. They usually last for 1-5 minutes and are relieved with rest. She occasionally has noticed rest episodes, although she feels that the rest episodes do not appear to be with increasing frequency. With respect to her cardiac risk factors, she carries no diagnosis of hypertension or hyperlipidemia. She is a nonsmoker and has no diabetes. However, her family history is remarkable for four brothers with coronary disease being diagnosed during the ages of 40 and 60. Her father also had coronary disease. Other past medical history includes hypothyroidism, fibromyalgia and osteoarthritis. Medications: Prilosec; Synthroid; Premarin; Flexeril; baby aspirin; multivitamin. Allergies: She has a variety, including iodine and a variety of antibiotics, as well as analgesics. Physical Examination: In clinic today her weight is 122 pounds, blood pressure 144/78, pulse is 98.She is alert and awake. She is fairly anxious, but in no acute distress. Neck is supple, no evidence of bruits. Her cardiac exam is benign. She has regular rate and rhythm with no murmurs, rubs, or gallops. Lungs were clear to auscultation. Abdomen is soft, nontender andnondistended. She has no evidence of peripheral edema and has full peripheral pulses. Impression: She certainly has a variety of risk factors for coronary disease and has typical sounding anginal features. Given the duration of her symptoms I do not feel that she is in imminent danger, however, we will obtain a nuclear perfusion scan associated with treadmill exercise within the next week. In addition, I plan to start her on metoprolol for her modestly elevated blood pressure, as well as to reduce coronary risk. She is to continue her baby aspirin and we will check her fasting lipid panel. She is to return to clinic in three weeks or sooner with recurrent symptoms. The patient was seen and examined with Dr. Pillo Williamson and assessment and plan reflected input. Sincerely, Signed by Pillo Williamson MD 08/14/2005 15:19 Vi Espino, Ned Huffman MD Dictated by: Frank Espino MD Pillo Williamson MD - Frank Espino MD A - dsp Job ID: [id number] Document ID: [id number] cc: Amanda Barrera MD documented in this encounter Plan of Treatment Not on file documented as of this encounter Visit Diagnoses Not on filedocumented in this encounter Care Teams Balloon Design Printer Relationship Specialty Start Date End Date Melissa Lambert APRN PCP - General 01/02/09 03/20/10 Melissa Lambert APRN PCP - General 11/09/08 01/01/09 documented as of this encounter
--- OUTSIDE RECORDS SUMMARY | 2024-04-06 13:53 | XMS_ITS | Encounter Summary ---
Author Organization [facility] Address [address] [place] [address] Care Team Providers Care Chef Saucier Name Role Phone Unavailable Primary Care Provider Unavailabl e Encounter Details Date Type Department Care Team (Latest Contact Info) Description 02/13/2000 12:40 EDT Hospital Encounter [facility] [address] [place] [address] Diana Rosas MD Discharge Disposition: Auto Discharge Social History [...] Date/Time Associated Diagnosis Comments SURGICAL PATHOLOGY Routine 02/13/2000 0:00 EDT documented in this encounter Results * SURGICAL PATHOLOGY (02/13/2000 0:00 EDT) Pathology Report: SURGICAL PATHOLOGY REPORT Reports generated via electronic interface contain original data; however they are lacking the format of the original report. Caution should be taken when reading/interpreti ng unformatted reports. Name: ? DANIA ANGULO I ? Accession #: ? [id number] ? : ? 1945 (Age: 54) ??F ? Collect Date: ? 02/13/2000 ? Location: ? [facility] ? Receive Date: ? 02/13/2000 ? Provider: DIANA ROSAS MD Copy to: YONI LOOMIS MD ? Final Pathologic Diagnosis: ? Rectum, biopsy: - No specific pathologic findings. Document reviewed and electronically signed by: Milana Gerard MD Report ??Date: 02/15/2000 16:51 By the signature above, the attending physician certifies that he/she has personally conducted a gross and/or microscopic examination of the described specimens and rendered or confirmed the above diagnosis. Specimen(s) Received: ? Diminutive rectal polyp Clinical History: ? Diminutive polyp; (+) FH early colon CA in three 1st deg members; R/O adenoma Gross Description: ? Received in Hollande' s fixative labelled Anitra and rectal polyp is a piedra irregular 0.2 x 0.2 x 0.2 cm soft tissue fragment. ??The specimen is entirely submitted in one cassette. ??(Katrina Tamayo-KEILA)/kyleigh End of Report [facility] 02/13/2000 02/13/2000 15: 42 EDT Diana Rosas MD PATHOLOGY ORDERABLES [facility] [address] [place] [address] documented in this encounter Visit Diagnoses Not on filedocumented in this encounter
--- OUTSIDE RECORDS SUMMARY | 2024-04-06 13:53 | XMS_ITS | Encounter Summary ---
Author Organization [facility] Address [address] [place] [address] Care Team Providers Care Roof Painter Name Role Phone Unavailable Primary Care Provider Unavailabl e Encounter Details Date Type Department Care Team (Late st Contact Info) Description 05/28/2000 8:19 EST - 05/28/2000 11:59 EST Hospital Encounter [address] [address] Dwayne Parmar MD [address] [place] [address], [address] [place] [phone] Discharge Disposition: Auto Discharge Social History Tobacco [...] Procedure Name Priority Date/Time Associated Diagnosis Comments GIO THOMPSON DIAG UNI Routine 10/07/2000 10:04 EDT FL ESOPHAGRAM (BARIUM SWALLOW) Routine 05/28/2000 8:54 EST documented in this encounter Results * GIO THOMPSON DIAG UNI (10/07/2000 10:04 EDT) Anatomical Region Laterality Modality Other 10/07/2000 10:0 4 EDT Impressions 05/16/2009 19:20 EST IMPRESSION: LEFT BREAST - CATEGORY 3 Focal asymmetric density in the lower inner quadrant, unchanged. Findings are probably benign. Bilateral follow-up is recommended in 6 months in the routine views and additional views projections. OVERALL ASSESSMENT - PROBABLY BENIGN END OF IMPRESSION Narrative 05/16/2009 19:20 EST 6 MO F/U LT BR. ??HX ASYM DENSITY. ??(PCP ISAURA ROSE) Comparison is made to films from 04-08-2000, 03-24-2000, and 02-05-1999. Left Breast Findings (routine views and additional views projections): The breast is heterogeneously dense. This may lower the sensitivity of mammography. A focal asymmetric density is present in the lower inner quadrant. Since the last study, no significant change has occurred. Procedure Note Jade Rizvi MD - 05/16/2009 6 MO F/U LT BR. HX ASYM DENSITY. (PCP ISAURA ROSE) Comparison is made to films from 04-08-2000, 03-24-2000, and 02-05-1999. Left Breast Findings (routine views and additional views projections): The breast is heterogeneously dense. This may lower the sensitivity of mammography. A focal asymmetric density is present in the lower inner quadrant. Since the last study, no significant change has occurred. IMPRESSION IMPRESSION: LEFT BREAST - CATEGORY 3 Focal asymmetric density in the lower inner quadrant, unchanged. Findings are probably benign. Bilateral follow-up is recommended in 6 months in the routine views and additional views projections. 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 The attending radiologist has reviewed the images and concurs with the findings. D: 05-28-00 T: 06-02-00 /am Narrative 05/16/2009 22:17 EST BASW-LUMP IN THROAT R/O REFLUX(120) 05-28-00: BARIUM ESOPHAGRAM (0830 hrs): HISTORY: Lump in throat, rule out reflux. FINDINGS: Air contrast barium esophagram was performed without difficulty. There is mild esophageal dysmotility with breaking of the primary stripping wave at the level of the aortic arch. This dysmotility is complicated by GE reflux. There is no evidence of esophageal ulceration or stricture. No massses are identified. Procedure Note Zeke Mathis MD / Marcin Baker MD - 05/16/2009 BASW-LUMP IN THROAT R/O REFLUX(120) 05-28-00: BARIUM ESOPHAGRAM (0830 hrs): HISTORY: Lump in throat, rule out reflux. FINDINGS: Air contrast barium esophagram was performed without difficulty. There is mild esophageal dysmotility with breaking of the primary stripping wave at the level of the aortic arch. This dysmotility is complicated by GE reflux. There is no evidence of esophageal ulceration or stricture. No massses are identified. 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 The attending radiologist has reviewed the images and concurs with the findings. D: 05-28-00 T: 06-02-00 /am Dwayne Parmar MD IMG FLUOROSCOPY ORDERABLES documented in this encounter Visit Diagnoses Not on filedocumented in this encounter
--- OUTSIDE RECORDS SUMMARY | 2024-04-06 13:53 | XMS_ITS | Encounter Summary ---
Author Organization [facility] Address [address] [place] [address] Care Team Providers Care Pasta Maker Name Role Phone Melissa Lambert APRN Primary Care Provider Unava ilable Melissa Lambert APRN Primary Care Provider Unava ilable Encounter Details Date Type Department Care Team (Late st Contact Info) Description 08/21/2005 Before PRISM Converted Visit (Maple) [facility] - [place] conversion [address] [place] [address] Pillo Williamson MD [address] [place] [phone] Social History Tobacco Use Types Packs/Day Years Used Date Smoking Tobacco: Never Assessed Sex and Gender Information Value Date Recorded Sex Assigned at Not on file Gender Identity Female 03/25/2022 10:56 EDT Sexual Orientation Not on file documented as of this encounter Progress Notes * Pillo Williamson MD - 09/07/2009 0457 EST August 21, 2005 Amanda Barrera MD [address], [address] [place] [address] Barrera: We saw Dania Ayoub back following her exercise Cardiolite study. Although they technicallycalled her electrocardiographic portion of the test positive, on reviewing that, it did not make criteria in my mind. I thought it was a negative stress test. The images also have not been officially interpreted, but to my eye, they are normal. Right now, I do not have objective evidence that she has coronary disease and for this reason, I amtaking her off the beta nohelia that we started last week. I do realize she has significant risk factors of coronary disease and she continues to have symptoms and, in fact, she did have some symptoms on the treadmill with some jaw tightness. It is just not clear to me that it is coming from her heart and I now have a negative stress study at a pretty good level of exercise. At this point, I am going to not treat her for coronary disease but I would be happy to re-evaluateher in two months. She will come back in two months time. If her symptoms really still persist and she is unable to work, as she states she is at the present time, then I am willing to proceed with acardiac catheterization, although I think the odds of it being normal are very high. If I can provide any further details regarding her evaluation, do not hesitate to contact me. Sincerely, Signed by Pillo Williamson MD 08/26/2005 13:15 Ned Reyes MD Pillo Williamson MD - Pillo Williamson MD - varghese Job ID: [id number] Document ID: [id number] REVISED 08/22/2005 cc: Amanda Barrera MD documented in this encounter Plan of Treatment Not on file documented as of this encounter Visit Diagnoses Not on filedocumented in this encounter Care Teams Pasta Maker Relationship Specialty Start Date End Date Melissa Lambert APRN PCP - General 01/02/09 03/20/10 Melissa Lambert APRN PCP - General 11/09/08 01/01/09 documented as of this encounter
--- OUTSIDE RECORDS SUMMARY | 2024-04-06 13:53 | XMS_ITS | Encounter Summary ---
Author Organization [facility] Address [address] [place] [address] Care Team Providers Care Inpatient Auditor Name Role Phone Unavailable Primary Care Provider Unavailabl e Encounter Details Date Type Department Care Team (Late st Contact Info) Description 05/06/2000 17:26 EST Hospital Encounter [facility] - [facility] [address] [place] [address] Nina Rosas PA [address] [facility] [address] [place] [address] Unknown, Provider, Social History Tobacco Use Types [...] Name Priority Date/Time Associated Diagnosis Comments HSV (ONLY) CULTURE Routine 05/06/2000 14 :30 EST documented in this encounter Results * HSV (ONLY) CULTURE (05/06/2000 14:30 EST) Specimen Description Genital Lesion [facility] Result No herpes simplex recovered [facility] Report Status Final [id number] [facility] 05/06/2000 14:3 0 EST 05/06/2000 20:17 EST Nina SANTANA MICROBIOLOGY - GEN ERAL ORDERABLES [facility] [address] [place] [address] documented in this encounter Visit Diagnoses Not on filedocumented in this encounter
--- OUTSIDE RECORDS SUMMARY | 2024-04-06 13:53 | XMS_ITS | Encounter Summary ---
Author Organization [facility] Address [address] [place] [address] Care Team Providers Care Distribution Coordinator Name Role Phone Unavailable Primary Care Provider Unavailabl e Encounter Details Date Type Department Care Team (Latest Contact Info) Description 06/11/2005 5:59 EST - 06/11/2005 11:59 EST Hospital Encounter [facility] [address] [place] [address] Amanda Barrera MD [address] [place] [phone] Discharge Disposition: Auto Discharge Social History Tobacco [...] RAD US BREAST UNILATERAL - ONE BREAST 06/11/2005 15:17 EST MA MAMMO DIAG BILAT DIGITAL 06/11/2005 10:44 EST documented in this encounter Results * RAD US BREAST UNILATERAL - ONE BREAST (06/11/2005 15:17 EST) Anatomical Region Laterality Modality Other 06/11/2005 15:1 7 EST Narrative 02/03/2009 0:54 EDT NEW LEFT BREAST LUMP AT 7:00 X 2 WEEKS Comparison is made to films from 06/11/2005 (bilateral). Left Breast Findings: (ultrasound (diagnostic)): There are scattered fibroglandular densities. ??No significant masses, calcifications or other abnormalities are seen. IMPRESSION: LEFT BREAST - CATEGORY 1 Negative, no evidence of malignancy. Any decision to biopsy should be based on clinical assessment. Normal interval follow-up is recommended in 12 months. OVERALL ASSESSMENT - NEGATIVE END OF IMPRESSION I have personally reviewed the images and the above interpretation and agree with the findings. Procedure Note Yuriy Anaya MD / Yariel Farmer MD - 02/03/2009 NEW LEFT BREAST LUMP AT 7:00 X 2 WEEKS Comparison is made to films from 06/11/2005 (bilateral). Left Breast Findings: (ultrasound (diagnostic)): There are scattered fibroglandular densities. No significant masses, calcifications or other abnormalities are seen. IMPRESSION: LEFT BREAST - CATEGORY 1 Negative, no evidence of malignancy. Any decision to biopsy should be based on clinical assessment. Normal interval follow-up is recommended in 12 months. OVERALL ASSESSMENT - NEGATIVE END OF IMPRESSION I have personally reviewed the images and the above interpretation and agree with the findings. Amanda Barrera MD IMG US ORDERABLES * MA MAMMO DIAG BILAT DIGITAL (06/11/2005 10:44 EST) Anatomical Region Laterality Modality Other 06/11/2005 10:4 4 EST Narrative 02/03/2009 2:22 EDT DX FINESSE MAMMO, LT BR LUMP X 2 WKS, SCREEN RT Comparison is made to films from 10/07/2000 and films from 04/08/2000 and films from 03/24/2000 and films from 02/05/1999. ??The patient complains of a new palpable left breast lump in the lower inner quadrant. Left Breast Findings: (cad used to interpret diagnostic digital and digital additional): There are scattered fibroglandular densities. A BB was placed over the area of palpable concern in the lower inner quadrant. ??No significant masses, calcifications or other abnormalities are seen. Right Breast Findings: (cad used to interpret diagnostic digital): There are scattered fibroglandular densities. No significant masses, calcifications or other abnormalities are seen. IMPRESSION: LEFT BREAST - CATEGORY 0 Ultrasound is recommended at this time. ??This is scheduled for later today and will be reported separately. RIGHT BREAST - CATEGORY 1 Negative, no evidence of malignancy. Normal interval follow-up is recommended in 12 months. OVERALL ASSESSMENT - INCOMPLETE: NEED ADDITIONAL IMAGING EVALUATION END OF IMPRESSION Procedure Note Christine Emanuel MD - 02/03/2009 DX FINESSE MAMMO, LT BR LUMP X 2 WKS, SCREEN RT Comparison is made to films from 10/07/2000 and films from 04/08/2000 and films from 03/24/2000 and films from 02/05/1999. The patient complains of a new palpable left breast lump in the lower inner quadrant. Left Breast Findings: (cad used to interpret diagnostic digital and digital additional): There are scattered fibroglandular densities. A BB was placed over the area of palpable concern in the lower inner quadrant. No significant masses, calcifications or other abnormalities are seen. Right Breast Findings: (cad used to interpret diagnostic digital): There are scattered fibroglandular densities. No significant masses, calcifications or other abnormalities are seen. IMPRESSION: LEFT BREAST - CATEGORY 0 Ultrasound is recommended at this time. This is scheduled for later today and will be reported separately. RIGHT BREAST - CATEGORY 1 Negative, no evidence of malignancy. Normal interval follow-up is recommended in 12 months. OVERALL ASSESSMENT - INCOMPLETE: NEED ADDITIONAL IMAGING EVALUATION END OF IMPRESSION Amanda Barrera MD IMG MAMMOGRAPHY ORD ERABLES documented in this encounter Visit Diagnoses Not on filedocumented in this encounter
--- OUTSIDE RECORDS SUMMARY | 2024-04-06 13:53 | XMS_ITS | Encounter Summary ---
Author Organization [facility] Address [address] [place] [address] Care Team Providers Care Food Cart Attendant Name Role Phone Unavailable Primary Care Provider Unavailabl e Encounter Details Date Type Department Care Team (Latest Contact Info) Description 08/21/2005 9:19 EST - 08/21/2005 11:59 EST Hospital Encounter [facility] [address] [place] [address] Pillo Williamson MD [address] [place] [phone] Discharge Disposition: Auto Discharge Social History Tobacco [...] Procedure Name Priority Date/Time Associated Diagnosis Comments NM NUCLEAR STRESS EXERCISE 08/21/2005 14:34 EST NM NUCLEAR STRESS EXERCISE 08/21/2005 10:45 EST documented in this encounter Results * NUCLEAR STRESS TEST (08/21/2005 14:34 EST) Anatomical Region Laterality Modality Other 08/21/2005 14:3 4 EST Narrative 02/03/2009 1:27 EDT 786.50 CP,ETT-CL,WT 118 If you need to receive a hard copy of this report immediately, please contact the [facility] Cardiology Report line at [phone]. ??A copy of the CardioChart report will be faxed to the attending, referring and primary care providers within 48 hours of the date of service. I have personally reviewed the images and the above interpretation and agree with the findings. Procedure Note Sarah Hughes MD / Roman Fitzpatrick MD / Kel Aj MD - 02/03/2009 786.50 CP,ETT-CL,WT 118 If you need to receive a hard copy of this report immediately, please contact the [facility] Cardiology Report line at [phone]. A copy of the CardioChart report will be faxed to the attending, referring and primary care providers within 48 hours of the date of service. I have personally reviewed the images and the above interpretation and agree with the findings. Pillo Williamson MD CARDIAC NM ORDERA BLES * NM NUCLEAR STRESS EXERCISE (08/21/2005 10:45 EST) Anatomical Region Laterality Modality Other 08/21/2005 10:4 5 EST Narrative 08/22/2005 11:37 EST ? Final Stress Myocardial Perfusion Imaging Report ? --- PATIENT PRESENTATION --- : 1945 ? Age: 59 ?Sex: F ?? Height: 64 in ??Weight: 119 lb ?BSA: 1.57 Pt Type: OP History: ??60 y/o female no h/o CAD presents for eval of left sided and SSCP that was occurring non predictably, during exertion and rest, resolving w/ rest and/or time, recently worsening to occurring predictably with climbing stairs or exertion per patient. ??Patient denies c/o's at present. Medications: Synthroid, Beta blockers, ASA Cardiovascular Risk Factors: ??Family history of CAD Prior Revascularization: ?PTCA/stent LAD >6 months ago 2002 Reason for Study: Atypical Chest Pain Referring Physician: PILLO WILLIAMSON MD ??FAX: [phone] ?--- NUCLEAR IMAGING RESULTS --- PERFUSION AND WALL MOTION Myocardial Perfusion: Normal ? Ventricular Function (Wall Motion): ? Global Left: ?? normal ? Global Right: ??normal ? Regional: normal LVEF(%):65 IMPRESSION > normal perfusion and contraction by Tc-99 Sestamibi (Cardiolite) SPECT imaging _ _ _ _ _ _ _ _ _ _ _ _ _ _ _ _ _ _ _ _ _ _ _ _ _ _ _ _ _ _ _ _ _ MA - myocardial infarction ?JVM - jeopardized viable myocardium LAD - left anterior descending artery ?? RCA - right coronary artery LCx - left circumflex artery _ _ _ _ _ _ _ _ _ _ _ _ _ _ _ _ _ _ _ _ _ _ _ _ _ _ _ _ _ _ _ _ _ PERFUSION AGENT AND IMAGING Stress Protocol: Sx Limited Jose F ??Rest Dose (+/- 10%): ?10 mCi ??Tc-99m Sestamibi Imaging Protocol: Rest/Stress 1-day ? Stress Dose (+/- 10%): ?? 30 mCi ??Tc- 99m Sestamibi Acquisition: ??SPECT ??Gated ??Attenuation Corrected ?--- STRESS ELECTROCARDIOGRAPHY --- BASELINE ECG: NSR- Normal ECG Supine HR: ? 77 ? Supine BP: ??126 / 72 Upright HR: ?83 ? Upright BP: ?124 / 74 STRESS TEST Peak HR: ??137 ? Peak BP: ? 164 / 60 ? MPHR: ??85% Peak Rate-Pressure Product: [id number] Total Exercise Time: 7.47 min ?Final Stage: 3 ?Mets: 8.9 Test Stopped Due To: ??Chest Pain, Dyspnea Symptoms / Pre Scale / Post Scale: ?Chest pain/dyspnea 5/10 resolved spontaneously 0/10 ?Neck/Throat/Jaw Pain 3/10 resolved spontaneously 0/10 Comments: MD Jung notified of patient c/o's w/ result, advised by to notify Dr. Williamson (referring). ??Per MD Williamson, will see patient in clinic today. Patient aware and agreeable. ECG Changes: ? ST Depression ?? -Slow Upsloping Onset (min): ? 5.30 ? HR: 130 Peak (min): ?7.47 ?HR: 136 Resolved (min): ?? R6 ?HR: 89 Magnitude: ?? 0.5 - 0.9 ?? Number of Leads: ?? 7 Performed By: ??Aristides RN, Radha L Pre-imaging likelihood of CAD: 25% ? Post-imaging likelihood of CAD: 4% ?--- STRESS SUMMARY --- 1. Exaggerated heart rate and ??normal blood pressure response to exercise 2. EXERCISE CAPACITY FOR AGE: ??Average 3. CHEST PAIN: Exercise induced anginal quality chest pain ?SHORTNESS OF BREATH: Exercise induced 4. STRESS ECG: negative 5. ARRHYTHMIA: Occasional PVC Image Interpretation By: ?Fausto Aj MD - Attending Radiologist ?Enoch Jung MD - Attending Nuclear Last Waxer Stress ECG Interpretation By: Enoch Jung MD - Attending Last Waxer Madai DURAN, Fausto Begum Electronically Signed on 08/22/2005 Finalized on: 08/22/2005 11:37:27 AM This procedure was conducted under the supervision of Enoch Jung MD who was readily available at all points throughout the procedure. Copy Report To: ? NADER ELDER MD ?FAX: [phone] ? Procedure Note 12/20/2009 Final Stress Myocardial Perfusion Imaging Report --- PATIENT PRESENTATION --- : 1945 Age: 59 Sex: F Height: 64 in Weight: 119 lbBSA: 1.57 Pt Type: OP History: 60 y/o female no h/o CAD presents for eval of left sided andSSCP that was occurring non predictably, during exertion and rest, resolving w/rest and/or time, recently worsening to occurring predictably with climbingstairs or exertion per patient. Patient denies c/o's at present. Medications: Synthroid, Beta blockers, ASA Cardiovascular Risk Factors: Family history of CAD Prior Revascularization: PTCA/stent LAD >6 months ago 2002 Reason for Study: Atypical Chest Pain Referring Physician: PILLO WILLIAMSON MD FAX: [phone] --- NUCLEAR IMAGING RESULTS --- PERFUSION AND WALL MOTION Myocardial Perfusion: Normal Ventricular Function (Wall Motion): Global Left: normal Global Right: normal Regional: normal LVEF(%):65 IMPRESSION > normal perfusion and contraction by Tc-99 Sestamibi (Cardiolite) SPECT imaging _ _ _ _ _ _ _ _ _ _ _ _ _ _ _ _ _ _ _ _ _ _ _ _ _ _ _ _ _ _ _ _ _ MA - myocardial infarction JVM - jeopardized viable myocardium LAD - left anterior descending artery RCA - right coronary artery LCx - left circumflex artery _ _ _ _ _ _ _ _ _ _ _ _ _ _ _ _ _ _ _ _ _ _ _ _ _ _ _ _ _ _ _ _ _ PERFUSION AGENT AND IMAGING Stress Protocol: Sx Limited Jose F Rest Dose (+/- 10%): 10 mCiTc-99m Sestamibi Imaging Protocol: Rest/Stress 1-day Stress Dose (+/- 10%): 30 mCiTc-99m Sestamibi Acquisition: SPECT Gated Attenuation Corrected --- STRESS ELECTROCARDIOGRAPHY --- BASELINE ECG: NSR- Normal ECG Supine HR: 77 Supine BP: 126 / 72 Upright HR: 83 Upright BP: 124 / 74 STRESS TEST Peak HR: 137 Peak BP: 164 / 60 MPHR: 85% Peak Rate-Pressure Product: [id number] Total Exercise Time: 7.47 min Final Stage: 3 Mets: 8.9 Test Stopped Due To: Chest Pain, Dyspnea Symptoms / Pre Scale / Post Scale: Chest pain/dyspnea 5/10 resolved spontaneously 0/10 Neck/Throat/Jaw Pain 3/10 resolvedspontaneously 0/10 Comments: MD Jung notified of patient c/o's w/ result, advised by MD julio Williamson (referring). Per MD Williamson, will see patient in clinictoday. Patient aware and agreeable. ECG Changes: ST Depression -Slow Upsloping Onset (min): 5.30 HR: 130 Peak (min): 7.47 HR: 136 Resolved (min): R6 HR: 89 Magnitude: 0.5 - 0.9 Number of Leads: 7 Performed By: Radha Irving RN Pre-imaging likelihood of CAD: 25% Post-imaging likelihood of CAD:4% --- STRESS SUMMARY --- 1. Exaggerated heart rate and normal blood pressure response toexercise 2. EXERCISE CAPACITY FOR AGE: Average 3. CHEST PAIN: Exercise induced anginal quality chest pain SHORTNESS OF BREATH: Exercise induced 4. STRESS ECG: negative 5. ARRHYTHMIA: Occasional PVC Image Interpretation By: Madai DURAN, Fausto Begum - Attending Radiologist Erich DURAN, Enoch - Attending Nuclear Last Waxer Stress ECG Interpretation By: Enoch Jung MD - Attending Last Waxer Madai DURAN, Fausto Begum Electronically Signed on 08/22/2005 Finalized on: 08/22/2005 11:37:27 AM This procedure was conducted under the supervision of Bal Jung MDo was readily available at all points throughout the procedure. Copy Report To: NADER ELDER MD FAX: [phone] [place] Provider [id number] CARDIAC NM ORDERABLES documented in this encounter Visit Diagnoses Not on filedocumented in this encounter
--- OUTSIDE RECORDS SUMMARY | 2024-04-06 13:53 | XMS_ITS | Encounter Summary ---
Author Organization [facility] Address [address] [place] [address] Care Team Providers Care Bisque Grader Name Role Phone Unavailable Primary Care Provider Unavailabl e Encounter Details Date Type Department Care Team (Late st Contact Info) Description 04/04/2000 8:22 EDT Hospital Encounter [facility] - [facility] [address] [place], [place] [address] Isaura Rose MD [address] [place] [address] [phone] Unknown, ProviderMD Social History Tobacco Use Types Packs/Day Years [...] Name Priority Date/Time Associated Diagnosis Comments GIO ARTEAGAG DIGITAL UNILATERAL ADDED VIEWS Routine 04/08/2000 10:38 EDT SED RATE Routine 04/04/2000 10:25 EDT COMPLETE BLOOD COUNT Routine 04/04/2000 10:25 EDT RHEUMATOID FACTOR Routine 04/04/2000 10: 25 EDT HIV 1/2 ANTIGEN AND ANTIBODY, 4TH GENERATION Routine 04/04/2000 10:25 EDT ANTI NUCLEAR AB (JENIFER), IFA Routine 04/04/2000 10:25 EDT TSH Routine 04/04/2000 10:25 EDT CK Routine 04/04/2000 10:25 EDT HEPATIC FUNCTION PANEL (ALB,ALK PHOS,ALT,AST,DBIL,TO T FINESSE,TOT PROT) Routine 04/04/2000 10:25 EDT BASIC METABOLIC PANEL (BMP) Routine 04/04/2000 10:25 EDT documented in this encounter Results * GIO LIU DIGITAL UNILATERAL ADDED VIEWS (04/08/2000 10:38 EDT) Anatomical Region Laterality Modality Other 04/08/2000 10:3 8 EDT Impressions 05/16/2009 20:13 EST IMPRESSION: LEFT BREAST - CATEGORY 3 Focal asymmetric density. Findings are probably benign. Unilateral short interval follow-up is recommended in 6 months. Results and recommendations for follow-up were discussed with the patient by the technologist at the time of the exam. OVERALL ASSESSMENT - PROBABLY BENIGN END OF IMPRESSION Narrative 05/16/2009 20:13 EST AV LT BREAST ? LADIES FIRST FOCAL ASYMMEETRIC DENSITY 8MM IN THE LATERAL BREAST (ISAURA ROSE,PCP - MAX BANG) Comparison is made to films from 03-24-2000 and 02-05-1999. Left Breast Findings (additional views projection): The breast is heterogeneously dense. This may lower the sensitivity of mammography. A focal asymmetric density is present on the CC view and persists to a minor degree on the additional views but has an appearance unchanged from 1998 and this appearance is consistent with asymmetric breast tissue. Procedure Note Jade Rizvi MD - 05/16/2009 AV LT BREAST LADIES FIRST FOCAL ASYMMEETRIC DENSITY 8MM IN THE LATERAL BREAST (ISAURA ROSE,PCP - MAX BANG) Comparison is made to films from 03-24-2000 and 02-05-1999. Left Breast Findings (additional views projection): The breast is heterogeneously dense. This may lower the sensitivity of mammography. A focal asymmetric density is present on the CC view and persists to a minor degree on the additional views but has an appearance unchanged from 1998 and this appearance is consistent with asymmetric breast tissue. IMPRESSION IMPRESSION: LEFT BREAST - CATEGORY 3 Focal asymmetric density. Findings are probably benign. Unilateral short interval follow-up is recommended in 6 months. Results and recommendations for follow-up were discussed with the patient by the technologist at the time of the exam. OVERALL ASSESSMENT - PROBABLY BENIGN END OF IMPRESSION Marlo SANTANA IMG MAMMOGRAPHY ORDE RABLES * TSH (04/04/2000 10:25 EDT) TSH 0.90 0.35 - 5.50 uIU/ml [facility] 04/04/2000 10:2 5 EDT 04/04/2000 16:25 EDT Isaura Rose MD CHEMISTRY & BLOOD GA S ORDERABLES [facility] [address] [place] [address] * SED. RATE:WESTERGREN (04/04/2000 10:25 EDT) Sed. Rate Westergren 12 0 - 30 mm/hr [facility] 04/04/2000 10:2 5 EDT 04/04/2000 16:25 EDT Isaura Rose MD HEMATOLOGY & PF4 ORD ERABLES [facility] [address] [place] [address] * RHEUMATOID FACTOR (04/04/2000 10:25 EDT) Rheumatoid Factor <20 <20 IU/ml [facility] 04/04/2000 10:2 5 EDT 04/04/2000 16:25 EDT Isaura Rose MD CHEMISTRY & BLOOD GA S ORDERABLES Performing Organization Address [facility] de Phone Number [facility] [address] [place] [address] * LIVER FUNCTION TESTS (04/04/2000 10:25 EDT) Albumin 4.1 3.0 - 5.5 g/dl [facility] Total Protein 7.9 6.0 - 8.5 g/dl [facility] Total Alkaline Phosphatase 65 38 - 126 U/L [facility] ALT 23 15 - 75 U/L [facility] AST 20 8 - 50 U/L [facility] Unconjugated Bilirubin 0.3 0.1 - 1.1 mg/dl [facility] Conjugated Bilirubin 0.0 0.0 - 0.3 mg/dl [facility] Bilirubin, Total 0.5 0.2 - 1.3 mg/dl [facility] 04/04/2000 10:2 5 EDT 04/04/2000 16:25 EDT Isaura Rose MD CHEMISTRY & BLOOD GA S ORDERABLES Performing Organization Address [facility] Co de Phone Number [facility] [address] [place] [address] * HIV ANTIBODY (KIKO) (04/04/2000 10:25 EDT) HIV 1/2 Antibody NONREACT. NR [facility] 04/04/2000 10:2 5 EDT 04/04/2000 16:25 EDT Isaura Rose MD IMMUNOLOGY AND SEROL OGY ORDERABLES Performing Organization Address City/[facility]/ZIP Co de Phone Number [facility] [address] [place] [address] * CK (04/04/2000 10:25 EDT) CK 106 35 - 230 U/L [facility] 04/04/2000 10:2 5 EDT 04/04/2000 16:25 EDT Isaura Rose MD CHEMISTRY & BLOOD GA S ORDERABLES Performing Organization Address [facility] Co de Phone Number [facility] [address] [place] [address] * HEMAGRAM (04/04/2000 10:25 EDT) WBC 4.89 4.0 - 12.4 K/cmm [facility] RBC 4.41 3.86 - 5.04 M/cmm [facility] Hemoglobin 13.7 11.6 - 15.2 gm/dl [facility] HCT 40.4 34.9 - 44.4 % [facility] MCV 92 81 - 98 fl [facility] MCH 31.0 26.7 - 33.3 pg [facility] MCHC 33.8 32.1 - 35.9 gm/dl [facility] PLT 303 141 - 320 K/cmm [facility] RDW-CV 13.2 11.7 - 14.6 % [facility] 04/04/2000 10:2 5 EDT 04/04/2000 16:25 EDT Isaura Rose MD HEMATOLOGY & PF4 ORD ERABLES Performing Organization Address City/[facility]/ZIP Co de Phone Number [facility] [address] [place] [address] * (ABNORMAL) BASIC METABOLIC PANEL (04/04/2000 10:25 EDT) Sodium 141 136 - 145 mEq/L [facility] Potassium 4.2 3.5 - 5.0 mEq/L [facility] Chloride 100 96 - 110 mEq/L [facility] CO2 31(H) 24 - 30 mEq/L [facility] BUN 7(L) 10 - 26 mg/dl [facility] Creatinine 0.7 0.7 - 1.5 mg/dl [facility] Calcium 9.7 8.5 - 10.5 mg/dl [facility] Calculated Calcium 10.0 8.5 - 10.5 mg/dl [facility] Glucose, Serum 70 70 - 110 mg/dl [facility] 04/04/2000 10:2 5 EDT 04/04/2000 16:25 EDT Isaura Rose MD CHEMISTRY & BLOOD GA S ORDERABLES Performing Organization Address [facility] Co de Phone Number [facility] [address] [place] [address] * ANTI NUCLEAR ANTIBODY (04/04/2000 10:25 EDT) Anti Nuclear Ab <40 0 - 40 Dils [facility] 04/04/2000 10:2 5 EDT 04/04/2000 16:25 EDT Isaura Rose MD IMMUNOLOGY AND SEROL OGY ORDERABLES Performing Organization Address [facility] Co de Phone Number [facility] [address] [place] [address] documented in this encounter Visit Diagnoses Not on filedocumented in this encounter
--- OUTSIDE RECORDS SUMMARY | 2024-04-06 13:53 | XMS_ITS | Encounter Summary ---
Author Organization [facility] Address [address] [place] [address] Care Team Providers Care Recorder Of Deeds Name Role Phone Unavailable Primary Care Provider Unavailabl e Encounter Details Date Type Department Care Team (Latest Contact Info) Description 06/11/2005 16:54 EST Hospital Encounter [facility] [address] [place] [address] Amanda Barrera MD [address] [place] [phone] Discharge Disposition: Home or Self Care Social [...]
--- OUTSIDE RECORDS SUMMARY | 2024-04-06 13:53 | XMS_ITS | Encounter Summary ---
Author Organization [facility] Address [address] [place] [address] Care Team Providers Care Varsity Baseball Coach Name Role Phone Unavailable Primary Care Provider Unavailabl e Encounter Details Date Type Department Care Team (Late st Contact Info) Description 04/08/2000 10:43 EDT - 04/08/2000 11:59 EDT Hospital Encounter [facility] - [address] [address] Benji Villegas MD [address] [place] [address] [address] [place] [address] Marlo Colbert PA [address] [place] [phone] Discharge Disposition: Auto Discharge Social History Tobacco [...]
--- OUTSIDE RECORDS SUMMARY | 2024-04-06 13:53 | XMS_ITS | Encounter Summary ---
Author Organization [facility] Address [address] [place] [address] Care Team Providers Care Quarry Manager Name Role Phone Unavailable Primary Care Provider Unavailabl e Encounter Details Date Type Department Care Team (Latest Contact Info) Description 10/07/2000 18:26 EDT Hospital Encounter [facility] - [address] [address] Isaura Baeza MD [address] [place] [address] [phone] Discharge Disposition: Auto Discharge Social History Tobacco [...]
--- OUTSIDE RECORDS SUMMARY | 2024-04-06 13:53 | XMS_ITS | Encounter Summary ---
Author Organization [facility] Address [address] [place] [address] Care Team Providers Care Termite Helper Name Role Phone Unavailable Primary Care Provider Unavailabl e Encounter Details Date Type Department Care Team (Late st Contact Info) Description 03/24/2000 9:59 EDT - 03/24/2000 11:59 EDT Hospital Encounter [facility] [address] [place] [address] Benji Villegas MD [address] [place] [address] [address] [place] [phone] Marlo Colbert, MAX [address] [place] [address] [phone] Discharge Disposition: Auto Discharge Social History Tobacco [...] Name Priority Date/Time Associated Diagnosis Comments MA MAMMOGRAPHIC SCREEN FINESSE Routine 03/24/2000 10:33 EDT documented in this encounter Results * MA MAMMOGRAPHIC SCREEN FINESSE (03/24/2000 10:33 EDT) Anatomical Region Laterality Modality Other 03/24/2000 10:3 3 EDT Impressions 05/16/2009 17:36 EST IMPRESSION: LEFT BREAST - CATEGORY 0 Focal asymmetric density measuring 8 mm the lateral left breast seen only on the CC view. Spot magnification view(s) are recommended at this time in the 5 degree angle cc and craniocaudal projections. RIGHT BREAST - CATEGORY 1 Negative, no evidence of malignancy. Normal interval follow-up is recommended in 12 months. OVERALL ASSESSMENT - INCOMPLETE: NEED ADDITIONAL IMAGING EVALUATION END OF IMPRESSION Narrative 05/16/2009 17:36 EST ROUTINE,HX BR PAIN COMES - GOES LADIES FIRST Comparison is made to films from 02-05-1999. Left Breast Findings: The breast is heterogeneously dense. This may lower the sensitivity of mammography. A focal asymmetric density is present measuring 8 mm in the lateral left breast seen only on the CC view. Right Breast Findings: The breast is heterogeneously dense. This may lower the sensitivity of mammography. No masses, significant calcifications or other abnormalities are seen. Procedure Note Yariel Farmer MD / Ro Davis MD - 05/16/2009 ROUTINE,HX BR PAIN COMES - GOES LADIES FIRST Comparison is made to films from 02-05-1999. Left Breast Findings: The breast is heterogeneously dense. This may lower the sensitivity of mammography. A focal asymmetric density is present measuring 8 mm in the lateral left breast seen only on the CC view. Right Breast Findings: The breast is heterogeneously dense. This may lower the sensitivity of mammography. No masses, significant calcifications or other abnormalities are seen. IMPRESSION IMPRESSION: LEFT BREAST - CATEGORY 0 Focal asymmetric density measuring 8 mm the lateral left breast seen only on the CC view. Spot magnification view(s) are recommended at this time in the 5 degree angle cc and craniocaudal projections. RIGHT BREAST - CATEGORY 1 Negative, no evidence of malignancy. Normal interval follow-up is recommended in 12 months. OVERALL ASSESSMENT - INCOMPLETE: NEED ADDITIONAL IMAGING EVALUATION END OF IMPRESSION Marlo SANTANA IMG MAMMOGRAPHY ORDE NICHELLE documented in this encounter Visit Diagnoses Not on filedocumented in this encounter
--- OUTSIDE RECORDS SUMMARY | 2024-04-06 13:53 | XMS_ITS | Continuity of Care Document ---
Author Organization [facility] [place] [address] [place] [address] Phone Care Team Providers Care Cloth Examiner Hand Name Role Phone Unavailable Unavailable Unavailable Allergies, Adverse Reactions, Alerts Substance [...] Meds E&m Estab Pt; 40-6 06 Tetanus/diphth Ljd-vldfj-cw/je 06 No Charge Encounter Adult Pneumococcal Polysacch [...] 06 Ecg-routine 12 Lead; W/intrpt 6 Spiromtry W/snnar-vz-pknxx Ajay 06 Routine Venipunct/finger/heel 6 Handl/convey Specmn-offic To L 06 Lipid Panel Advance Directives Directive Yes / No Effective Date File Name No Information Encounters Encounter Description Practice Location Reason(s) For Visit Diagnoses Date Provider Providers Copied on Encounter [address], [address] [place] [address], tel:[phone] [facility] No Information 0 No Information [address], [address] [place] [address], tel:[phone] [facility] No Information 0 Bright Almazan. [address] [place], [place], [address] [place] [address]. tel:[phone] Offic/outpt E&m Estab Mod-hi [address], [id number], tel:[phone] [facility] hypothyroidis m (chief complaint)mahnaz t pain (chief complaint) HYPOTHYROIDIS M NOSPAIN IN LIMBABDMNAL PAIN OT [facility] 0 Bright Almazan. [address] [place], [place], [address] [place] [address]. tel:[phone], [address] [place] [address], tel:[phone] [facility] No Information 0 Julien Dixon. [address] [place] [address], [id number], [place]. tel:[phone] [facility] , [address] [place] [address], [id number], [place] tel:[phone] [facility] No Information 0 No Information [facility] , [address] [place] [address], [id number], [place] tel:[phone] [facility] hyperlipidemi a (chief complaint) MYALGIA AND MYOSITIS NOSHYPOTHYROI DISM NOSMIXED HYPERLIPIDEMI AABDMNAL PAIN RT UPR QUAD 4200 9 No Information Offic/outpt E&m Estab Mod-hi [address], [id number], tel:[phone] [facility] back pain (chief complaint) MYALGIA AND MYOSITIS NOSHYPOTHYROI DISM NOSMIXED HYPERLIPIDEMI A Mar- 2-200 [address] Information [address], [id number], tel:[phone] [facility] HYPOTHYROIDIS M NOSMALAISE AND FATIGUE NECMYALGIA AND MYOSITIS NOS 0-200 9 No Information Offic/outpt E&m Estab Low-mod [address], [id number], [place] tel:[phone] [facility] PAP test (chief complaint) ROUTINE HEAVY EQUIPMENT SUPERVISOR EXAMINATIONBa ckache Nos 2-200 9 No Information Preven Meds E&m Estab Pt; 40-[address], [id number], [place] tel:[phone] [facility] physical (chief complaint)sin us pressure (chief complaint) Backache NosHypothyroi dism NosROUTINE MEDICAL EXAM 2-200 8 No Information [address], [id number], tel:[phone] [facility] No Information 4-200 8 No Information Offic/outpt E&m Estab [address], [id number], tel:[phone] [facility] Abdominal pain (chief complaint)KATHYA D (chief complaint)Thy roid (chief complaint)Flu vaccine (chief complaint) Hypothyroidis m NosABDMNAL PAIN RT UPR QUADMYALGIA AND MYOSITIS NOSMYALGIA AND MYOSITIS NOS 3-200 8 No Information Offic/outpt E&m Estab [address], [id number], tel:[phone] [facility] headache (chief complaint)hyp othyroidism (chief complaint)issa k pain (chief complaint) HeadacheBacka corinne NosThroat PainHypothyro idism Nos 2-200 8 No Information [address], [id number], tel:[phone] [facility] No Information 3-200 [address], [id number], tel:[phone] [facility] cold symptoms (chief complaint) Acute Uri Mult Sites Nec 8-200 8 No Information Offic/outpt E&m Estab [address], [id number], tel:[phone] [facility] cold symptoms (chief complaint) No Information 0 7-200 8 No Information [address], [id number], [place] tel:[phone] [facility] No Information 9-200 8 No Information Offic/outpt E&m Estab Mod-hi [address] [place] [address], [id number], [place] tel:[phone] [facility] PAP (chief complaint) ROUTINE HEAVY EQUIPMENT SUPERVISOR EXAMINATION 8 No Information [address], [id number], tel:[phone] [facility] physical exam (chief complaint) Routine Medical ExamHypothyro idism NosMenopausal Disorder Nos 7 No Information [address], [id number], [place] tel:[phone] [facility] No Information 7 No Information Offic/outpt E&m Estab [address], [id number], tel:[phone] [facility] breast tenderness (chief complaint)Hyp othyroid (chief complaint) No Information 7 Ralph Wood. [address] [place] [address], [id number], [place]. tel:[phone] Offic/outpt E&m [address], [id number], [place] tel:[phone] [facility] Lab Work/ UA (chief complaint)Sor e Throat (chief complaint)Too th Ache (chief complaint) Acute Pharyngitis 7 No Information [address], [id number], [place] tel:[phone] [facility] Headache (chief complaint)Lef t back pain (chief complaint) Tension Headache 7 No Information [address], [id number], [place] tel:[phone] [facility] vaginal discharge (chief complaint) Vaginitis NosUtervagina l Prolapse Nos 7 No Information Preven Meds E&m Estab Pt; 40-[address], [id number], [place] tel:[phone] [facility] FPE (chief complaint)hyp othryoid (chief complaint)Men opause (chief complaint)Issa k and Neck Issues (chief complaint)KATHYA D (chief complaint) Utervaginal Prolapse NosHypothyroi dism Nos 6 Ralph Wood. [address] [place] [address], [facility], . tel:[phone], [address] [place] [address], tel:[phone] [facility] hypothyroidis m (chief complaint) No Information 6 Savage Tosin. [address] [place] [address], [facility], . tel:[phone], [address] [place] [address], tel:[phone] [facility] No Information 6 No Information [facility] , [address] [place] [address], [address] [place] [address], [place] tel:[phone] [facility] No Information 6 No Information [facility] , [address] [place] [address], [address] [place] [address], [place] tel:[phone] [facility] rash (chief complaint) Dermatitis Nos Apr- 6 No Information Offic/outpt E&m Estab Mod-hi 2 [facility] , [address] [place] [address], [id number], [place] tel:[phone] [facility] dizziness (chief complaint)hyp othyroidism (chief complaint) Benign Parxysmal VertigoHypoth yroidism Nos Mar-0 6 Nelly Leblanc. [address] [place] [address], [id number], [place]. tel:[phone] Offic/outpt E&m Estab Lowmod [address], [address] [place] [address], tel:[phone] [facility] throat problems (chief complaint) DysphagiaEnla rgement Lymph NodesEnlargem ent Lymph NodesCough 6 Toypedro Leahy. [address] [place] [address], [facility], . tel:[phone] Offic/outpt E&m Estab Mod-hi [address], [address] [place] [address], tel:[phone] [facility] UTI (chief complaint) Vaginitis Nos 6 No Information Offic/outpt E&m Estab Mod-hi [address], [address] [place] [address], tel:[phone] [facility] chest pain (chief complaint) Chest Pain Nos 6 No Information [facility] , [address] [place] [address], [address] [place] [address], tel:[phone] [facility] UTI (chief complaint) Dysuria 5 No Information [address], [address] [place] [address], tel:[phone] [facility] PE (chief complaint)hyp othyroidism (chief complaint)KATHYA D (chief complaint) Hypothyroidis m NosEsophageal Reflux 5 Ralph Wood. [address] [place] [address], [facility], . tel:[phone] Family History Family Member Type Diagnosis Age [...] Record Payers Payer name Insurance type Covered alliance party ID Authoriza tion(s) No Information Social History Type Description Quantity Date Captured Comments Sex Female Smoking Status No Information Sexual Orientation Straight or heterosexual Chief Complaint And Reason For Visit No Information Reason For Referral Reason For Referral No Information Plan Of Treatment Date Type Action Status Goal PAP. Due on due Goal Breast exam. Due on 006 due Goal Influenza Vaccine. Due on due Goal Mammogram. Due on 0 due Goal TD Vaccine. Due on 06 due Goal Pneumococcal Vaccine. Due on due Goal FOBT. Due on due Goal HEAVY EQUIPMENT SUPERVISOR exam. Due on due Goal Colonoscopy. Due on 009 due Goal Lipid Panel. Due on 010 due Goal H&P. Due on due Future Order: Lab Order Lipid pa roxanne, fasting (100), Sent on: Sent Future Order: Lab Order TSH ([id number]), Sent on: Sent History Of Present Illness Encounter Date Complaint History Of Prese nt Illness No Information Functional Status Date Functional Assessmen t No Information Instructions Date Instruction Additional Infor mation Review medication side effects R elated to Routine Medical Exam Call if symptoms persist Related to Routine Medical Exam Renew medications Related to Rou senthil Medical Exam Review medications Related to Ro utine Medical Exam Review medication side effects R elated to Tension Headache Call if symptoms persist Related to Tension Headache Prescribe medications Related to Tension Headache Review medications Related to Te nsion Headache Call if symptoms persist Related to Vaginitis Nos Order labs/studies Related to Va ginitis Nos Order consults Related to Vagin itis Nos Call if symptoms persist Related to Dysphagia Go to ER if symptoms persist or worsen Related to Dysphagia Review medications Related to Dy sphagia Prescribe medications Related to Dysphagia Call if symptoms persist Related to Vaginitis Nos Order labs/studies Related to Va ginitis Nos Review medications Related to Va ginitis Nos Prescribe medications Related to Vaginitis Nos Prescribe medications Related to Dysuria Review medication side effects R elated to Dysuria Call if symptoms persist Related to Dysuria Assessments Type Assessment Date No Information Patient Care Teams Name Effective Dates (start - stop) Status Members No Information
--- OUTSIDE RECORDS SUMMARY | 2024-04-06 13:53 | XMS_ITS | Encounter Summary ---
Author Organization [facility] Address [address] [place] [address] Care Team Providers Care Vessel Builder Name Role Phone Unavailable Primary Care Provider Unavailabl e Encounter Details Date Type Department Care Team (Late st Contact Info) Description 05/27/2005 16:39 EST Hospital Encounter [facility] - Other [address] [place] [address] Amanda Barrera MD [address] [place] [phone] Nina Rosas PA [address] [facility] [address] [place], [place] [id number] Discharge Disposition: Home or Self Care Social [...]
--- OUTSIDE RECORDS SUMMARY | 2024-04-06 13:53 | XMS_ITS | Encounter Summary ---
Author Organization [facility] Address [address] [place] [address] Care Team Providers Care Ship Scraper Name Role Phone Unavailable Primary Care Provider Unavailabl e Encounter Details Date Type Department Care Team (Latest Contact Info) Description 12/13/2003 12:50 EDT Hospital Encounter [facility] [address] [place] [address] Po Barron MD Discharge Disposition: Auto Discharge [...]
--- OUTSIDE RECORDS SUMMARY | 2024-04-06 13:53 | XMS_ITS | Encounter Summary ---
Author Organization [facility] Address [address] [place] [address] Care Team Providers Care Chief Cook Name Role Phone Unavailable Primary Care Provider Unavailabl e Encounter Details Date Type Department Care Team (Latest Contact Info) Description 07/22/2005 8:21 EST - 07/22/2005 11:59 EST Hospital Encounter [facility] - Other [address] [place] [address] Amanda Barrera MD [address] [place] [phone] Discharge Disposition: Home or Self Care Social [...] Date/Time Associated Diagnosis Comments SED RATE Routine 07/22/2005 15:15 EST ZZCA 125 Routine 07/22/2005 15:15 EST C REACTIVE PROTEIN Routine 07/22/2005 15 :15 EST TSH Routine 07/22/2005 15:15 EST documented in this encounter Results * TSH (07/22/2005 15:15 EST) TSH 0.81 0.35 - 5.50 uIU/ml [facility] 07/22/2005 15:1 5 EST 07/22/2005 21:40 EST Amanda Barrera MD CHEMISTRY & BLOOD G ORDERABLES Performing Organization Address [facility] de Phone Number [facility] [address] [place] [address] * SED. RATE:WESTERGREN (07/22/2005 15:15 EST) [facility] Sed. Rate Westergren 5 0 - 30 mm/hr [facility] Comment: Note: Sample greater than 4 hrs old (but less than 12 hrs) when tested. If refrigerated, sample is stable when tested within 12 hours of collection. 07/22/2005 15:1 5 EST 07/22/2005 21:40 EST Amanda Barrera MD HEMATOLOGY & PF4 OR DERABLES Performing Organization Address [facility] de Phone Number [facility] [address] [place] [address] * (ABNORMAL) C-REACTIVE PROTEIN (07/22/2005 15:15 EST) [facility] C-Reactive Protein 1.2(H) <1.0 mg/dl [facility] 07/22/2005 15:1 5 EST 07/22/2005 21:40 EST Amanda Barrera MD CHEMISTRY & BLOOD G ORDERABLES Performing Organization Address [facility] de Phone Number [facility] [address] [place] [address] * CA 125 (07/22/2005 15:15 EST) [facility] CA 125 12 0 - 35 U/ml [facility] Comment: Serum CA125 concentrations should not be interpreted as absolute evidence for the presence or absence of malignant disease. Assayed utilizing [employer] technology. Values obtained by using different assay methods cannot be used interchangeably. [employer] ECI methodology in use 03/14/03. 07/22/2005 15:1 5 EST 07/22/2005 21:40 EST Amanda Barrera MD CHEMISTRY & BLOOD G ORDERABLES [facility] [address] [place] [address] documented in this encounter Visit Diagnoses Not on filedocumented in this encounter
--- OUTSIDE RECORDS SUMMARY | 2024-04-06 13:53 | XMS_ITS | Encounter Summary ---
Author Organization [facility] Address [address] [place] [address] Care Team Providers Care Human Resources Benefits Coordinator Name Role Phone Unavailable Primary Care Provider Unavailabl e Encounter Details Date Type Department Care Team (Late st Contact Info) Description 11/27/2000 14:37 EDT Hospital Encounter [facility] - Other [address] [place], [place] [id number] Isaura Baeza MD [address] [place] [phone] Unknown, ProviderMD Social History Tobacco Use Types [...] Associated Diagnosis Comments HSV (ONLY) CULTURE Routine 11/27/2000 15 :20 EDT documented in this encounter Results * HSV (ONLY) CULTURE (11/27/2000 15:20 EDT) Specimen Description Skin [facility] Result HERPES SIMPLEX VIRUS TYPE II RECOVERED [facility] Report Status Final [id number] [facility] 11/27/2000 15:2 0 EDT 11/27/2000 18:01 EDT Provider Unknown MICROBIOLOGY - GENER AL ORDERABLES [facility] [address] [place] [address] documented in this encounter Visit Diagnoses Not on filedocumented in this encounter
[2024-04-06 15:11] LABS: HCT 40.3 % (36.0-46.0); HGB 13.2 g/dL (11.2-15.7); MCH 31.5 pg (27.0-33.0); MCHC 32.8 % (32.0-36.0); MCV 96 fL (80-95); MPV 9.7 fL (8.0-11.0); Platelet Count 329 10^3/uL (130-400); RBC 4.19 10^6/uL (3.93-5.22); RDW 13.6 % (11.7-14.6); RDW-SD 48.6 fL
[2024-04-06 15:53] LABS: ALT 22 U/L (14-59); AST 15 U/L (15-37); Albumin 3.9 g/dL (3.4-5.0); Alkaline Phosphatase 72 U/L (46-116); Anion Gap 9.2 mmol/L (3-11); BUN 7 mg/dL (7-18); Bilirubin, Total 0.46 mg/dL (0.2-1.0); CO2 28.8 mmol/L (21.0-32.0); CREATININE 0.8 mg/dL (0.55-1.02); Calcium 9.5 mg/dL (8.5-10.1); Calculated LDL 91 mg/dL (<100); Chloride 99 mmol/L (98-107); Cholesterol 181 mg/dL (<200); Estimated GFR 75.84 (mL/min/1.73m2); Glucose 76 mg/dL (74-106); HDL Cholesterol 69 mg/dL (40-60); Potassium 4.1 mmol/L (3.5-5.1); Sodium 137 mmol/L (136-145); TSH 1.35 uIU/Ml (0.36-3.74); Total Protein 7.2 g/dL (6.4-8.2); Triglyceride 105 mg/dL (<150)
== END 2024-04-06 13:41 | disposition home or self-care (01) ==
LOC: NCHCN 13:40
PROVIDERS: PCP Nurse Practitioner Family; Visit Provider Nurse Practitioner Family
DX: E89.0 Postprocedural hypothyroidism (principal)
CPT/HCPCS: 80053; 80061; 85027; 84443

== ENCOUNTER 2025-01-13 12:20 | Outpatient (REF) | payer MEDICARE, SELFPAY ==
[2025-01-13 15:26] LABS: HCT 39.1 % (36.0-46.0); HGB 13.2 g/dL (11.2-15.7); MCH 31.4 pg (27.0-33.0); MCHC 33.8 % (32.0-36.0); MCV 93 fL (80-95); MPV 9.6 fL (8.0-11.0); Platelet Count 354 10^3/uL (130-400); RBC 4.21 10^6/uL (3.93-5.22); RDW 14.0 % (11.7-14.6); RDW-SD 47.6 fL; WBC 6.00 10^3/uL (4.4-10.8)
[2025-01-13 16:15] LABS: ALT 30 U/L (14-59); AST 21 U/L (15-37); Albumin 4.2 g/dL (3.4-5.0); Alkaline Phosphatase 65 U/L (46-116); Anion Gap 6.0 mmol/L (3-11); BUN 8 mg/dL (7-18); Bilirubin, Total 0.3 mg/dL (0.2-1.0); CO2 30.0 mmol/L (21.0-32.0); Calcium 9.2 mg/dL (8.5-10.1); Calculated LDL 102 mg/dL (<100); Chloride 98 mmol/L (98-107); Cholesterol 203 mg/dL (<200); Estimated GFR 75.37 (mL/min/1.73m2); Glucose 95 mg/dL (74-106); HDL Cholesterol 79 mg/dL (>or=50); Potassium 4.8 mmol/L (3.5-5.1); Sodium 134 mmol/L (136-145); TSH 0.45 uIU/mL (0.36-3.74); Total Protein 7.7 g/dL (6.4-8.2); Triglyceride 112 mg/dL (<150)
== END 2025-01-13 12:21 | disposition home or self-care (01) ==
LOC: NCHCN 12:20
PROVIDERS: PCP Nurse Practitioner Family; Visit Provider Nurse Practitioner Family
DX: E89.0 Postprocedural hypothyroidism (principal); Z00.00 Encounter for general adult medical examination without abnormal findings; Z13.0 Encounter for screening for diseases of the blood and blood-forming organs and certain disorders involving the immune mechanism
CPT/HCPCS: 80053; 80061; 85027; 84443

== ENCOUNTER 2025-02-24 18:07 | Outpatient (REF) | payer MEDICARE, SELFPAY ==
[2025-02-24 21:03] LABS: ALT 18 U/L (14-59); AST 14 U/L (15-37); Albumin 3.7 g/dL (3.4-5.0); Alkaline Phosphatase 59 U/L (46-116); Anion Gap 8.2 mmol/L (3-11); BUN 7 mg/dL (7-18); Bilirubin, Total 0.2 mg/dL (0.2-1.0); CO2 29.8 mmol/L (21.0-32.0); Calcium 8.8 mg/dL (8.5-10.1); Chloride 103 mmol/L (98-107); Estimated GFR 75.37 (mL/min/1.73m2); Glucose 103 mg/dL (74-106); Potassium 4.2 mmol/L (3.5-5.1); Sodium 141 mmol/L (136-145); Total Protein 7.1 g/dL (6.4-8.2)
== END 2025-02-24 18:08 | disposition home or self-care (01) ==
LOC: NCHCN 18:07
PROVIDERS: PCP Nurse Practitioner Family; Visit Provider Nurse Practitioner Family
DX: N95.1 Menopausal and female climacteric states (principal)
CPT/HCPCS: 80053

== ENCOUNTER 2025-03-22 15:10 | Outpatient (REF) | payer MEDICARE, SELFPAY ==
[2025-03-22 21:08] LABS: ALT 25 U/L (14-59); AST 23 U/L (15-37); Albumin 3.9 g/dL (3.4-5.0); Alkaline Phosphatase 64 U/L (46-116); Anion Gap 8.7 mmol/L (3-11); BUN 7 mg/dL (7-18); Bilirubin, Total 0.3 mg/dL (0.2-1.0); CO2 28.3 mmol/L (21.0-32.0); Calcium 9.2 mg/dL (8.5-10.1); Chloride 99 mmol/L (98-107); Estimated GFR 65.44 (mL/min/1.73m2); Glucose 119 mg/dL (74-106); Potassium 4.2 mmol/L (3.5-5.1); Sodium 136 mmol/L (136-145); Total Protein 7.2 g/dL (6.4-8.2)
== END 2025-03-22 15:11 | disposition home or self-care (01) ==
LOC: NCHCN 15:10
PROVIDERS: PCP Nurse Practitioner Family; Visit Provider Nurse Practitioner Family
DX: N95.1 Menopausal and female climacteric states (principal)
CPT/HCPCS: 80053